=== PATIENT | female | born 1945 | race Caucasian/White ===

== ENCOUNTER 2016-12-01 20:43 | Emergency (ER) | payer MEDICARE, BC ==
[~2016-12-01 20:43] MED LIST: /ADVA50050 INH; /QUIN10TA PO; ASPI81TA83 PO; ATIV1TAB2 PO; BUPR150T2 PO; CHAN0.5P6 PO; CLOP75TA2 PO; CYCL10TA3 PO; DOCU100T PO; GABA300T OR; K-TA10TA PO; LASI40TA PO; MIRAPEX PO; NITR0.4S SL; OMEP20TA7 PO; PAXI40TA2 PO; PRAV40TA PO; PROV90AE IN; PROV90AE INH; PROVENTIL INH; PROZ20CA PO; SYNT88TA PO; TOPR100T PO; VICO5TAB PO; VIT D 2000 PO
[2016-12-01] MEDS ORDERED: NITR100C37 PO (21:14)
[2016-12-01] MEDS ORDERED: LORA1TAB12 PO (21:14)
[2016-12-01] MEDS ORDERED: LEVO150T7 PO (21:14)
[2016-12-01] MEDS ORDERED: NS 500 ML IV ONE (21:45)
[2016-12-01] MEDS ORDERED: ONDANSETRON 4MG/2ML VIAL (J2405) IV ONE (21:45)
[2016-12-01] MEDS: MORPHINE 4 MG/ML 1ML SYRINGE IV PRN (22:01)
[2016-12-01 22:09] LABS: BASO % 0.4 % (0.0-1.0); EOS # 0.4 K/mm3 (0.0-0.50); EOS % 4.4 % (0.0-3.0); LARGE UNSTAINED CELL # 0.1 K/mm3 (0.0-0.4); LARGE UNSTAINED CELL % 1.2 % (0.0-4.0); LYMPH # 1.9 K/mm3 (1.5-4.5); LYMPH % 22.8 % (24.0-44.0); MEAN CORPUSCULAR HEMOGLOBIN 26.4 pg (27.0-33.0); MEAN CORPUSCULAR HGB CONC 30.6 g/dl (32.0-36.5); MEAN CORPUSCULAR VOLUME 86.3 fl (80.0-96.0); MONO # 0.4 K/mm3 (0.0-0.8); MONO % 4.6 % (0.0-5.0); NEUTROPHILS # 5.4 K/mm3 (1.8-7.7); NEUTROPHILS % 66.6 % (36.0-66.0); PLATELET COUNT, AUTOMATED 383 k/mm3 (150-450); RED CELL DISTRIBUTION WIDTH 16.4 % (11.5-14.5); WHITE BLOOD COUNT 8.1 K/mm3 (4.0-10.0)
[2016-12-01 22:35] LABS: ALBUMIN 2.4 GM/DL (3.2-5.2); ALBUMIN/GLOBULIN RATIO 0.56 (1.00-1.93); ALKALINE PHOSPHATASE 112 U/L (45-117); ALT/SGPT 21 U/L (12-78); ANION GAP 6 MEQ/L (8-16); AST/SGOT 12 U/L (15-37); BILIRUBIN,DIRECT < 0.1 MG/DL (0.0-0.2); BILIRUBIN,TOTAL 0.2 MG/DL (0.2-1.0); BLOOD UREA NITROGEN 11 MG/DL (7-18); CALCIUM LEVEL 8.7 MG/DL (8.8-10.2); CARBON DIOXIDE LEVEL 28 MEQ/L (21-32); CHLORIDE LEVEL 104 MEQ/L (98-107); CREATININE FOR GFR 0.45 MG/DL (0.55-1.02); GLOMERULAR FILTRATION RATE > 60.0 (>39); GLUCOSE, FASTING 119 MG/DL (83-110); POTASSIUM SERUM 3.7 MEQ/L (3.5-5.1); SODIUM LEVEL 138 MEQ/L (136-145); TOTAL PROTEIN 6.7 GM/DL (6.4-8.2)
--- NOTE | 2016-12-01 23:00 | REPUSA ---
CT of the abdomen and pelvis without contrast Clinical statement: Pain. Technique: Multiple axial CT images were obtained from the base of the lungs to the floor of the pelv is utilizing 5 mm axial slices without administration of contrast. Coronal and sagittal reconstructio ns were also obtained. No comparison is available. Findings: Chest: The visualized lung bases are clear. Abdomen: The kidneys are normal in size bilaterally. There is no evidence of hydronephrosis or nephro lithiasis. The liver, spleen, pancreas, gallbladder and adrenal glands are unremarkable. The aorta de monstrates moderate atherosclerotic changes, extending into the common iliac arteries bilaterally. Fe moral/Femoral bipass is appreciated. There is no evidence of aneurysm. There is no abdominal lymphade nopathy or ascites. Pelvis: The bowel is unremarkable, with no obstructive or inflammatory changes. The urinary bladder i s catheterized but otherwise within normal limits. There is no pelvic lymphadenopathy or ascites. The other pelvic structures appear unremarkable. Bones: There are no suspicious osseous abnormalities seen. Impression: No acute findings to explain the patient's pain.
[2016-12-02] MEDS: MORPHINE 4 MG/ML 1ML SYRINGE IV PRN (00:25)
[2016-12-02 00:47] VITALS: BP 167/72
[2016-12-02] MEDS ORDERED: OMEP10CASR PO (01:09)
[2016-12-02] MEDS ORDERED: GI COCKTAIL 50ML BTL(HYOSCYAMINE/MAALOX/LIDOCAINE VISCOUS)(1:3:1) PO ONE (01:15)
== END 2016-12-02 01:48 | disposition home or self-care (01) ==
LOC: EDBD 20:43 → MERGE 21:30 → M ED 21:30
DX: K21.9 Gastro-esophageal reflux disease without esophagitis (principal); R10.2 Pelvic and perineal pain; F17.210 Nicotine dependence, cigarettes, uncomplicated
CPT/HCPCS: 36415; 51702; 74176; 80048; 80076; 81001; 83690; 85025; 87088; 87186; 93041; 96361; 96374; 96375; 99285; J2405

== ENCOUNTER 2016-12-04 12:55 | Inpatient (IN) | payer MEDICARE, BC ==
[~2016-12-04 12:55] MED LIST changes: +LEVO150T7 PO; +LORA1TAB12 PO; +NITR100C37 PO; +OMEP10CASR PO
[2016-12-04] MEDS ORDERED: LEVO150T7 PO (13:18)
[2016-12-04] MEDS ORDERED: BUPR150T5 PO (13:18)
[2016-12-04] MEDS ORDERED: ATIV1TAB7 PO (13:18)
[2016-12-04] MEDS ORDERED: SPIR25TA2 PO ×2 (13:18→17:12)
[2016-12-04] MEDS ORDERED: OxyCODONE PO (13:18)
[2016-12-04] MEDS ORDERED: carbidopa-levodopa PO (13:18)
[2016-12-04] MEDS ORDERED: COMBAER6 INH ×2 (13:18→17:06)
[2016-12-04] MEDS ORDERED: METO-209 PO ×2 (13:18→17:12)
[2016-12-04] MEDS ORDERED: OMEP10CA45 PO (13:18)
[2016-12-04] MEDS ORDERED: MORP1SOL PO ×2 (13:18→17:06)
[2016-12-04] MEDS ORDERED: EFFE75CA75 PO (13:18)
[2016-12-04] MEDS ORDERED: GABA-279 PO ×2 (13:18→17:12)
[2016-12-04] MEDS ORDERED: FURO40TA2 PO ×2 (13:18→17:12)
[2016-12-04] MEDS ORDERED: DIGO0.12 PO ×2 (13:18→17:12)
[2016-12-04] MEDS ORDERED: PRAV20TA2 PO ×2 (13:18→17:12)
[2016-12-04] MEDS ORDERED: PRAM1.5T2 PO (13:18)
[2016-12-04] MEDS ORDERED: NITRO10CA PO ×2 (13:18→17:06)
[2016-12-04] MEDS ORDERED: GLIM2TAB PO ×2 (13:18→17:12)
[2016-12-04] MEDS ORDERED: MORPHINE 2 MG/ML 1ML SYRINGE IV ONE (14:00)
--- NOTE | 2016-12-04 14:08 | ED PDOC ---
Post-Departure Follow-Up PT AND FAMILY PRESENT TO THE ER TODAY REQUESTING PLACEMENT IN SSV. FAMILY PROVIDES MOST OF HX STATING PT WAS RECENTLY ADMITTED TO [facility] AND THEN DISCHARGED TO [facility]. PT SIGNED HERSELF OUT (PRIOR TO PLANNED DISCHARGE) 6 DAYS AGO AND HAS BEEN STAYING WITH FAMILY. PT SIGNED OUT BECAUSE, "THEY WEREN'T TAKING CARE OF ME." PT C/O PRESSURE ULCERS/PAIN ON HER BUTTOCKS DUE TO THE STAFF AT [facility] NOT ATTENDING TO HER NEEDS. FAMILY COMPLAINS THAT THIS PT REQUIRES 24-HOUR A DAY CARE THAT THEY ARE UNABLE TO PROVIDE. THEY ALL WENT TO THE PT'S FAMILY PHYSICIAN, "DR. JEFFRY HOUGH" IN [place] AND HE IS WORKING ON A REFERRAL TO [facility]. FAMILY IS UNABLE TO PROVIDE THE CARE THAT THIS PT NEEDS AND HAVE COME TO THE ER FOR HELP WITH THEIR SITUATION. FAMILY STATES HER PRESSURE ULCERS HAVE BEEN GETTING BETTER SINCE THEY HAVE BEEN CARING FOR HER. PT C/O PAIN IN HER BUTTOCKS AND IS REQUESTING PAIN MEDICATIONS. FAMILY ALSO STATE PT HAS OPEN WOUNDS OVER THE BILATERAL ABOVE THE KNEE AMPUTEE SITES THAT HAVE BEEN DRAINING "FOR A WHILE". CELESTINO VASQUEZ PA-C Dec 04, 2016 14:08
[2016-12-04 14:54] LABS: BASO % 0.2 % (0.0-1.0); EOS # 0.3 K/mm3 (0.0-0.50); EOS % 2.8 % (0.0-3.0); LARGE UNSTAINED CELL # 0.1 K/mm3 (0.0-0.4); LARGE UNSTAINED CELL % 1.2 % (0.0-4.0); LYMPH # 1.8 K/mm3 (1.5-4.5); LYMPH % 17.7 % (24.0-44.0); MEAN CORPUSCULAR HEMOGLOBIN 26.3 pg (27.0-33.0); MEAN CORPUSCULAR HGB CONC 30.8 g/dl (32.0-36.5); MEAN CORPUSCULAR VOLUME 85.5 fl (80.0-96.0); MONO # 0.5 K/mm3 (0.0-0.8); MONO % 4.9 % (0.0-5.0); NEUTROPHILS # 7.6 K/mm3 (1.8-7.7); NEUTROPHILS % 73.3 % (36.0-66.0); PLATELET COUNT, AUTOMATED 372 k/mm3 (150-450); RED CELL DISTRIBUTION WIDTH 16.2 % (11.5-14.5); WHITE BLOOD COUNT 10.3 K/mm3 (4.0-10.0)
[2016-12-04 15:08] LABS: ANION GAP 10 MEQ/L (8-16); BLOOD UREA NITROGEN 8 MG/DL (7-18); CALCIUM LEVEL 8.9 MG/DL (8.8-10.2); CARBON DIOXIDE LEVEL 25 MEQ/L (21-32); CHLORIDE LEVEL 104 MEQ/L (98-107); CREATININE FOR GFR 0.34 MG/DL (0.55-1.02); GLOMERULAR FILTRATION RATE > 60.0 (>39); GLUCOSE, FASTING 101 MG/DL (83-110); POTASSIUM SERUM 3.5 MEQ/L (3.5-5.1); SODIUM LEVEL 139 MEQ/L (136-145)
[2016-12-04 15:32] LABS: ERYTHROCYTE SEDIMENTATION RATE 59 mm/hr (0-30)
[2016-12-04] MEDS ORDERED: MORPHINE 4 MG/ML 1ML SYRINGE IV ONE (17:00)
[2016-12-04] MEDS ORDERED: ASPI81TA7 PO (17:06)
[2016-12-04] MEDS ORDERED: LEVO150T42 PO (17:06)
[2016-12-04] MEDS ORDERED: OMEP20CA3 PO (17:06)
[2016-12-04] MEDS ORDERED: IPRASOL4 INH (17:06)
[2016-12-04] MEDS ORDERED: TRAN1.5D2 TOP (17:06)
[2016-12-04] MEDS ORDERED: LORA1TAB12 PO (17:06)
[2016-12-04] MEDS ORDERED: [UNRECOGNIZED DRUG - CODE] PO (17:12)
[2016-12-04] MEDS ORDERED: MIRA1.5T2 PO (17:12)
[2016-12-04] MEDS ORDERED: VENL75CA PO (17:12)
[2016-12-04] MEDS ORDERED: PATIENT COMMENT ×2 (17:13→20:22)
[2016-12-04] MEDS ORDERED: NITR4TASL SL (17:13)
[2016-12-04] MEDS ORDERED: NORCO, ANEXSIA 5/325MG TABLET (HYDROcodone/ACETAMINOPHEN) PO PRN (17:45)
--- NOTE | 2016-12-04 19:57 | HPEPDOC ---
General Date of Admission Dec 04, 2016 at 18:27 Primary Care Physician: Conner Damico Attending Physician: CHAIM OLIVAS DO Chief Complaint The patient is a 71-year-old female admitted with a reason for visit of Urinary Tract Infection. Source: Patient History of Present Illness Ms. Jiménez states that she was previously a resident at [facility] in [facility]. She states that she was not being well taken care of , and developed several pressor ulcers while she was there, therefore she left AMA approximately 10 days ago, accompanied by 2 of her friends. She has been living in their home since that time, but they're on the third floor, and as she is a bilateral amputee she has been having a difficult time managing at their place. She also states that she had a UTI for which she recently was given nitrofurantoin, however this did not make a difference, therefore she also does present today for further evaluation of a catheter related UTI having failed outpatient treatment with nitrofurantoin. She is awake, alert, completely oriented to person, place, time, and she appears to be a good historian, however she is unable to provide almost any of her medical history. She is covered in surgical scars, but she does not know why she had surgery. She believes that her bilateral leg amputations occurred at [facility] as a complication of having tripped and fallen and hit her head August 29 2015. The remainder of her surgical scars on her abdomen, chest, and back of the neck, she cannot provide any insight as to why she had the surgeries performed. Home Medications Scheduled Albuterol/Ipratropium (Ipratropium [place]/Albut 0.5-2.5 (3) mg/3Ml) 1 Johnnie Johnnie 1 JOHNNIE INH BID (Reported) Aspirin (Aspirin) 81 Mg Tab 81 MG PO DAILY (Reported) Clopidogrel Bisulfate (Clopidogrel) 75 Mg Tab 75 MG PO DAILY (Reported) Furosemide (Furosemide) 20 Mg Tab 20 MG PO DAILY (Reported) Gabapentin (Gabapentin) 600 Mg Tab 900 MG PO TID (Reported) Levothyroxine Sodium (Levoxyl) 150 Mcg Tab 150 MCG PO DAILY (Reported) Metformin Hydrochloride (Metformin HCl) 500 Mg Tab 500 MG PO BID (Reported) Metoprolol Succinate (Metoprolol Succinate ER) 100 Mg Tab 100 MG PO DAILY ( Reported) Nitrofurantoin Macrocrystals (Nitrofurantoin Monohydrate Macrocryst) 100 Mg Cap 100 MG PO BID (Reported) FILLED 11/29/16 FOR 7 DAYS Omeprazole (Omeprazole) 20 Mg Cap 20 MG PO DAILY (Reported) Pramipexole Dihydrochloride (Mirapex) 1.5 Mg Tab 1.5 MG PO QHS (Reported) Pravastatin Sodium (Pravastatin Sodium) 20 Mg Tab 20 MG PO QHS (Reported) Scopolamine (Transderm-Scop) 1.5 Mg Dis 1.5 MG TOP Q72H (Reported) Spironolactone (Spironolactone) 25 Mg Tab 25 MG PO DAILY (Reported) Venlafaxine HCl (Venlafaxine HCl ER) 75 Mg Cap 75 MG PO QHS (Reported) Venlafaxine Hydrochloride (Venlafaxine HCl ER) 150 Mg Cap 150 MG PO QAM ( Reported) Scheduled PRN Albuterol/Ipratropium (Combivent Respimat 20-100 Mcg/Act) 1 Aer Aer 1 PUFF INH QID PRN PRN SHORTNESS OF BREATH (Reported) Lorazepam (Lorazepam) 1 Mg Tab 1 MG PO Q4H PRN PRN ANXIETY (Reported) Morphine Sulfate (Morphine Sulfate Concentrate) 10 Mg/0.5 Ml Conc 10 MG PO Q2H PRN PRN PAIN (Reported) Nitroglycerin (Nitrostat) 0.4 Mg Subl 0.4 MG SL Q5MP PRN PRN CHEST PAIN ( Reported) Miscellaneous Medications ([Patient Comment]) (Reported) RECEIVED ALL PATIENT INFORMATION FROM [facility]. PATIENT WAS DISCHARGED ON 11/28/16. Allergies Coded Allergies: Cephalosporins (Verified Allergy, Intermediate, 11/25/12) Ciprofloxacin (Unverified Allergy, Unknown, 01/26/16) Iodine (Unverified Allergy, Unknown, 01/26/16) Lobster (Unverified Allergy, Unknown, 01/26/16) Metronidazole (Unverified Allergy, Unknown, 01/26/16) Nickel (Unverified Allergy, Unknown, 01/26/16) Penicillins (Unverified Allergy, Unknown, 01/26/16) Statins (Unverified Allergy, Unknown, 01/26/16) Sulfa Drugs (Verified Allergy, Unknown, 11/25/12) Sulfa Drugs Cross Reactors (Verified Allergy, Unknown, 11/25/12) Past Medical History Medical History The patient is unsure of her past medical history, this was obtained from prior records in 2013 Hypertension Hypothyroidism Depression Dyslipidemia Coronary atherosclerosis coronary artery disease Many of the medications on her home med rec list have not been filled since July 2016 or earlier. The patient has no idea which pills she takes, she brought a bag with her Surgical History Again, obtained from medical record from 2013 Coronary artery bypass graft 2 Abdominal hernia repair Hysterectomy Bilateral cataracts She thinks that she had both her legs amputated at [facility] in 2016. She also has a large midline cervical scar on the back of her neck which is causing her pain, but she does not know when she had this or why. She also has a left shoulder large anterior surgical scar upon which she cannot elaborate. Family History Her father had heart problems, and her mother had some sort of cancer. Social History * Smoker: former Smoker (she smoked approximately one pack per day for 10 years , but quit 3 years ago) Alcohol: Denies Drugs: denies Previously a resident of a prison in [facility], came up to [facility] to live with a few friends about 10 days ago. Review of Symptoms Constitutional: Denies: Chills, Fever, Night Sweats Eyes: Denies: Pain, Vision change ENT: Denies: Dysphagia, Ear Pain, Head Aches Skin: Reports: Breakdown (she has for pressure ulcers located on her sacrum and left buttocks), Lesions, Denies: Rash Pulmonary: Denies: Cough, Dyspnea Cardiovascular: Denies: Chest Pain, Lt Headedness, Orthopnea, Palpitations, Paroxysmal Noc. Dyspnea Gastrointestinal: Denies: Abdominal Pain, Diarrhea, Nausea, Vomiting Genitourinary: Reports: Other Symptoms (has had a chronic Kumar for "a long time") Hematologic: Denies: Bleeding Excessively, Bruising Musculoskeletal: Reports: Back Pain, Leg Pain, Neck Pain Neurological: Denies: Change in speech, Confusion, Numbness, Weakness Psych: Reports: Anxiety Physical Examination General Exam: Positive: Alert, Cooperative, Moderate Distress Eye Exam: Positive: Conjunctiva & lids normal, EOMI, PERRLA, Negative: Sclera icteric ENT Exam: Positive: Atraumatic, Mucous membr. moist/pink, Pharynx Normal Neck Exam: Positive: Supple, Negative: JVD, thyromegaly Chest Exam: Positive: Clear to auscultation, Normal air movement Heart Exam: Positive: Normal S1, Normal S2, Rate Normal, Regular Rhythm, Negative: Murmurs, Rubs Abdomen Exam: Positive: Normal bowel sounds, Other (multiple abdominal surgical scars noted), Soft, Negative: Hepatospenomegaly, Tenderness Extremity Exam: Positive: Normal pulses (in the radial bilaterally), Other ( bilateral lower extremity amputation. She has wounds on both of her stumps which were just bandaged by the ED personnel), Negative: Clubbing, Cyanosis, Edema Skin Exam: Positive: Breakdown (she has multiple stage II pressure ulcers. 1. Approximately 1 cm in diameter located on the medial left buttocks/sacrum 2. Approximately 0.3 cm midline sacral 3. Another approximately 0.3 cm midline sacral. On her right buttock she does have a large area of erythema and a few sloughed off areas of skin, it is blanchable) Neuro Exam: Positive: Cranial Nerves 3-12 NL, Normal Speech Psych Exam: Positive: Anxiety, Memory Intact, Oriented x 3 Vital Signs Vital Signs Date Time Temp Pulse Resp B/P Pulse Ox O2 Delivery O2 Flow Rate FiO2 12/04/16 17:34 98.9 97 18 130/69 Room Air 12/04/16 15:09 96 Laboratory Data Labs 24H Laboratory Tests 2 12/04/16 14:25: Anion Gap 10, White Blood Count 10.3H, Red Blood Count 4.00, Hemoglobin 10.5L, Hematocrit 34.2L, Mean Corpuscular Volume 85.5, Mean Corpuscular Hemoglobin 26.3L, Mean Corpuscular Hemoglobin Concent 30.8L, Red Cell Distribution Width 16.2H, Platelet Count 372, Neutrophils (%) (Auto) 73.3H, Lymphocytes (%) (Auto) 17.7L, Monocytes (%) (Auto) 4.9, Eosinophils (%) (Auto) 2.8, Basophils (%) (Auto ) 0.2, Neutrophils # (Auto) 7.6, Lymphocytes # (Auto) 1.8, Monocytes # (Auto) 0.5, Eosinophils # (Auto) 0.3, Basophils # (Auto) 0.0, C-Reactive Protein, Quantitative 2.24H, Blood Urea Nitrogen 8, Creatinine 0.34L, Sodium Level 139, Potassium Level 3.5, Chloride Level 104, Carbon Dioxide Level 25, Calcium Level 8.9, Erythrocyte Sedimentation Rate 59H, Glomerular Filtration Rate > 60.0, Large Unclassified Cells # 0.1, Large Unclassified Cells % 1.2 12/04/16 14:26: Urine Amorphous Sediment , Urine Appearance HAZY, Urine Color YELLOW, Urine pH 6.0, Urine Specific [place] 1.014, Urine Protein 1+H, Urine Glucose (UA) NEGATIVE, Urine Ketones NEGATIVE, Urine Urobilinogen 0.2, Urine Bilirubin NEGATIVE, Urine Leukocyte Esterase 3+H, Urine Bacteria (Auto) NEGATIVE, Urine Blood 1+H, Urine Calcium Carbonate Cryst(Auto) , Urine Calcium Oxalate Cryst ( Auto) , Urine Calcium Phosphate Geno (Auto) , Urine Cellular Casts , Urine Cystine Crystals , Urine Granular Casts (Auto) , Urine Hyaline Casts (Auto) 1, Urine Leucine Crystals , Urine Mucus (Auto) SMALL, Urine Nitrite NEGATIVE, Urine Oval Fat Bodies (Auto) , Urine RBC (Auto) 24H, Urine Renal Epithelial Cells , Urine Sperm (Auto) , Urine Squamous Epithelial Cells 0, Urine Transitional Epithelial Cells , Urine Trichomonas (Auto) , Urine Triple Phosphate Cryst (Auto) , Urine Tyrosine Crystals , Urine Uric Acid Crystals ( Auto) , Urine WBC (Auto) TNTCH, Urine Waxy Casts (Auto) , Urine Yeast-Like Cells (Auto) CBC/BMP Laboratory Tests 12/04/16 14:25 Calcium Level 8.9, Red Blood Count 4.00, Mean Corpuscular Volume 85.5, Mean Corpuscular Hemoglobin 26.3 L, Mean Corpuscular Hemoglobin Concent 30.8 L, Red Cell Distribution Width 16.2 H, Neutrophils (%) (Auto) 73.3 H, Lymphocytes (%) ( Auto) 17.7 L, Monocytes (%) (Auto) 4.9, Eosinophils (%) (Auto) 2.8, Basophils (% ) (Auto) 0.2, Neutrophils # (Auto) 7.6, Lymphocytes # (Auto) 1.8, Monocytes # ( Auto) 0.5, Eosinophils # (Auto) 0.3, Basophils # (Auto) 0.0 Microbiology Microbiology 12/04/16 Urine Culture, Received Pending 12/04/16 Gram Stain - Final, Resulted 12/04/16 Wound Culture, Resulted Pending Problems (1) UTI (urinary tract infection) Status: Acute Problem Text: Failed outpatient therapy with nitrofurantoin. She has multiple allergies. She states that she develops a rash, sweats, and altered mental status when she takes penicillins. Sulfa drugs of the same reaction is penicillins. Ciprofloxacin causes her tongue to swell up. She does specifically say that she has taken Levaquin in the past, and this has worked very well for her, therefore we will start her on Levaquin at this time, but just in case we will also give her Benadryl when necessary and monitor her for any allergic reaction. (2) Infection of amputation stump Status: Acute Problem Text: Wound cultures were sent from the ED, she has been started on Levaquin per her multiple allergies and her UTI, otherwise we will wait for sensitivities to return prior to narrowing our spectrum. Pain control with her home dose of morphine. (3) Pressure ulcer, buttock Status: Chronic Problem Text: Wound care with up to foam dressings, and offloading (4) Hypothyroidism Status: Chronic Problem Text: Continue home dose of Synthroid (5) Hypertension Status: Chronic Problem Text: At this point we will monitor her pressures, and may reinstitute some of the medications off of her home med rec list, but it appears there is a possibility she has not felt these since 2016. Pressures in the ED improved to normal range with the administration of pain medication. (6) Depression with anxiety Status: Chronic Problem Text: Continue with home dose of lorazepam and Effexor (7) Dyslipidemia Status: Chronic Problem Text: She has a listed allergy to statins (8) Coronary atherosclerosis Status: Chronic Problem Text: Continue with aspirin (9) GERD (gastroesophageal reflux disease) Status: Chronic Problem Text: Continue home dose of omeprazole (10) Living accommodation issues Status: Acute Problem Text: Will consult PFS for evaluation and potential placement in a different prison. Plan / VTE VTE Prophylaxis Ordered?: Yes (Lovenox) Plan / Urinary Catheter Reason for insertion/continuin: Patient request CATY RAMIREZ DO Dec 04, 2016 19:56 Plan / VTE VTE Prophylaxis Ordered?: Yes (Lovenox) Plan / Urinary Catheter Reason for insertion/continuin: Patient request CATY RAMIREZ DO Dec 04, 2016 19:56
[2016-12-04] MEDS ORDERED: VENL150C43 PO (20:10)
[2016-12-04] MEDS ORDERED: GABA600T PO (20:10)
[2016-12-04] MEDS ORDERED: METF500T PO (20:10)
[2016-12-04] MEDS ORDERED: CLOP75TA2 PO (20:10)
[2016-12-04] MEDS ORDERED: FURO20TA2 PO (20:19)
[2016-12-04] MEDS: VENLAFAXINE **XR** 75MG CAPSULE PO SCH ×2 (20:46→21:09)
[2016-12-04 21:05] VITALS: BP 137/64
[2016-12-04] MEDS: LORazepam 1 MG TAB PO PRN (21:09)
[2016-12-04] MEDS: LevoFLOXacin IV 750 MG in APPROPRIATE DILUENT 1 EA IV SCH (21:09)
[2016-12-04] MEDS ORDERED: MORPHINE 10MG/0.5ML ORAL CONCENTRATE SOLUTION U/D As Ordered ONE (23:05)
[2016-12-04] MEDS ORDERED: diphenhydrAMINE 25 MG CAP As Ordered ONE (23:07)
[2016-12-04] MEDS: diphenhydrAMINE 25 MG CAP PO PRN (23:10)
[2016-12-04] MEDS: MORPHINE 10MG/0.5ML ORAL CONCENTRATE SOLUTION U/D PO PRN (23:11)
[2016-12-05 06:00] VITALS: BP 112/69
[2016-12-05] MEDS ORDERED: LEVOTHYROXINE 0.15 MG TAB (150 MCG) PO SCH (06:00)
[2016-12-05 07:37] LABS: MEAN CORPUSCULAR HGB CONC 30.4 g/dl (32.0-36.5); MEAN CORPUSCULAR VOLUME 85.6 fl (80.0-96.0); RED CELL DISTRIBUTION WIDTH 16.3 % (11.5-14.5); WHITE BLOOD COUNT 9.1 K/mm3 (4.0-10.0)
[2016-12-05 08:00] LABS: ANION GAP 8 MEQ/L (8-16); BLOOD UREA NITROGEN 11 MG/DL (7-18); CALCIUM LEVEL 8.6 MG/DL (8.8-10.2); CARBON DIOXIDE LEVEL 26 MEQ/L (21-32); CHLORIDE LEVEL 105 MEQ/L (98-107); CREATININE FOR GFR 0.41 MG/DL (0.55-1.02); GLOMERULAR FILTRATION RATE > 60.0 (>39); GLUCOSE, FASTING 112 MG/DL (83-110); POTASSIUM SERUM 3.7 MEQ/L (3.5-5.1); SODIUM LEVEL 139 MEQ/L (136-145)
[2016-12-05] MEDS: METOPROLOL SUCC (TopROL XL) 100MG *XL* TAB PO SCH ×2 (09:00→11:41)
[2016-12-05] MEDS: ASPIRIN 81 MG ENTERIC TAB PO SCH (09:34)
[2016-12-05] MEDS: OMEPRAZOLE 20 MG CAP PO SCH (09:34)
[2016-12-05] MEDS: ENOXAPARIN 40 MG/0.4 ML SYRINGE (J1650) SC SCH (09:34)
[2016-12-05] MEDS: MORPHINE 10MG/0.5ML ORAL CONCENTRATE SOLUTION U/D PO PRN ×3 (09:35→20:14)
--- NOTE | 2016-12-05 11:10 | IPNPDOC ---
Subjective Date Seen The patient was seen on 12/05/16. Subjective Chief Complaint/HPI The patient is a 71-year-old female admitted with a reason for visit of Urinary Tract Infection. Events since last encounter Issue does report that she is feeling somewhat better this morning, her major complaint is actually that of heartburn that she had last night. Otherwise, she does mention that the bed is uncomfortable. General: Reports: Normal Appetite, Denies: Fatigue, Malaise Constitutional: Reports: Chills, Fever (low-grade), Denies: Night Sweats ENT: Denies: Head Aches, Sore Throat Skin: Denies: Bruising, Lesions, Rash Pulmonary: Denies: Cough, Dyspnea Cardiovascular: Reports: Chest Pain (midsternal, it only hurts when she pokes it), Denies: Palpitations Gastrointestinal: Denies: Abdominal Pain, Constipation, Diarrhea, Nausea, Vomiting Genitourinary: Reports: Other Symptoms (chronic Kumar catheter in place) Neurological: Denies: Weakness Objective Physical Examination General Exam: Positive: Alert, Cooperative, No Acute Distress Eye Exam: Positive: Conjunctiva & lids normal, EOMI, Negative: Sclera icteric ENT Exam: Positive: Atraumatic, Mucous membr. moist/pink, Pharynx Normal Neck Exam: Positive: Supple, Negative: JVD, thyromegaly Chest Exam: Positive: Clear to auscultation, Normal air movement, Other (she does have tenderness upon palpation of the xiphoid process) Heart Exam: Positive: Normal S1, Normal S2, Rate Normal, Regular Rhythm, Negative: Murmurs, Rubs Abdomen Exam: Positive: Normal bowel sounds, Other (multiple abdominal surgical scars noted), Soft, Negative: Hepatospenomegaly, Tenderness Extremity Exam: Positive: Normal pulses (in the radial bilaterally), Other ( bilateral lower extremity amputation. She has large open shallow wounds on her bilateral LE stumps, some minor purulent drainage from the left wound), Negative: Clubbing, Cyanosis, Edema Skin Exam: Positive: Breakdown (no significant changes in her pressure ulcers from yesterday) Neuro Exam: Positive: Cranial Nerves 3-12 NL, Normal Speech Psych Exam: Positive: Memory Intact, Mental status NL, Oriented x 3 Assessment /Plan Problems (1) UTI (urinary tract infection) Status: Acute Problem Text: Urine appears more clear this morning. Leukocytosis is improved. She still did have a low-grade temp last night. Otherwise, the patient does report that she is feeling somewhat better. She denies any rash or other allergic symptoms, therefore we will continue with Levaquin for treatment until sensitivities return. (2) Infection of amputation stump Status: Acute Problem Text: Continue to have some purulent drainage from the left stump. Gram stain indicates a few gram-positive cocci in pairs. Cultures still pending , although I suspect that this may be a colonized wound. She does continue to have pain, we'll continue with pain control with her home dose of morphine. Will consult demo event specialist for further recommendations regarding her stump wounds and sacral pressure injuries. (3) Pressure ulcer, buttock Status: Chronic Problem Text: Wound care with foam dressings, and offloading. We will also check a CMP today just to make sure that she does not have any electrolyte abnormalities, liver problems, or nutrition issues (4) Hypothyroidism Status: Chronic Problem Text: Continue home dose of Synthroid. TSH was slightly suppressed, we will order a free T4 today to get a better picture of her thyroid status. (5) Hypertension Status: Chronic Problem Text: Her pressures have been stable, but she has been somewhat tachycardic, therefore I will reinitiate her home dose of metoprolol succinate. (6) Depression with anxiety Status: Chronic Problem Text: Continue with home dose of lorazepam and Effexor (7) Dyslipidemia Status: Chronic Problem Text: She has a listed allergy to statins (8) Coronary atherosclerosis Status: Chronic Problem Text: Continue with aspirin and Plavix (9) GERD (gastroesophageal reflux disease) Status: Chronic Problem Text: Continue home dose of omeprazole. We will recommend elevating the head of bed slightly when she is asleep, as her symptoms are worse at night. (10) Living accommodation issues Status: Acute Problem Text: PFS for evaluation and potential placement in a different fci. Plan/VTE VTE Prophylaxis Ordered?: Yes (Lovenox) Plan/Urinary Catheter Reason for insertion/continuin: Patient request Disposition Attending note: patient seen independently and discussed the case in depth with the resident. I agree with the treatment plan as outlined above. VS, I&O, 24H, Fishbone Vital Signs/I&O Vital Signs Date Time Temp Pulse Resp B/P Pulse Ox O2 Delivery O2 Flow Rate FiO2 12/05/16 09:35 14 96 Room Air 12/05/16 06:00 99.0 91 112/69 I&O- Last 24 Hours up to 6 AM 12/05/16 05:59 Intake Total 240 ml Balance 240 ml Laboratory Data 24H LABS Laboratory Tests 2 12/04/16 14:25: Anion Gap 10, White Blood Count 10.3H, Red Blood Count 4.00, Hemoglobin 10.5L, Hematocrit 34.2L, Mean Corpuscular Volume 85.5, Mean Corpuscular Hemoglobin 26.3L, Mean Corpuscular Hemoglobin Concent 30.8L, Red Cell Distribution Width 16.2H, Platelet Count 372, Neutrophils (%) (Auto) 73.3H, Lymphocytes (%) (Auto) 17.7L, Monocytes (%) (Auto) 4.9, Eosinophils (%) (Auto) 2.8, Basophils (%) (Auto ) 0.2, Neutrophils # (Auto) 7.6, Lymphocytes # (Auto) 1.8, Monocytes # (Auto) 0.5, Eosinophils # (Auto) 0.3, Basophils # (Auto) 0.0, C-Reactive Protein, Quantitative 2.24H, Blood Urea Nitrogen 8, Creatinine 0.34L, Sodium Level 139, Potassium Level 3.5, Chloride Level 104, Carbon Dioxide Level 25, Calcium Level 8.9, Erythrocyte Sedimentation Rate 59H, Glomerular Filtration Rate > 60.0, Large Unclassified Cells # 0.1, Large Unclassified Cells % 1.2 12/04/16 14:26: Urine Amorphous Sediment , Urine Appearance HAZY, Urine Color YELLOW, Urine pH 6.0, Urine Specific [place] 1.014, Urine Protein 1+H, Urine Glucose (UA) NEGATIVE, Urine Ketones NEGATIVE, Urine Urobilinogen 0.2, Urine Bilirubin NEGATIVE, Urine Leukocyte Esterase 3+H, Urine Bacteria (Auto) NEGATIVE, Urine Blood 1+H, Urine Calcium Carbonate Cryst(Auto) , Urine Calcium Oxalate Cryst ( Auto) , Urine Calcium Phosphate Geno (Auto) , Urine Cellular Casts , Urine Cystine Crystals , Urine Granular Casts (Auto) , Urine Hyaline Casts (Auto) 1, Urine Leucine Crystals , Urine Mucus (Auto) SMALL, Urine Nitrite NEGATIVE, Urine Oval Fat Bodies (Auto) , Urine RBC (Auto) 24H, Urine Renal Epithelial Cells , Urine Sperm (Auto) , Urine Squamous Epithelial Cells 0, Urine Transitional Epithelial Cells , Urine Trichomonas (Auto) , Urine Triple Phosphate Cryst (Auto) , Urine Tyrosine Crystals , Urine Uric Acid Crystals ( Auto) , Urine WBC (Auto) TNTCH, Urine Waxy Casts (Auto) , Urine Yeast-Like Cells (Auto) 12/05/16 07:11: Anion Gap 8, Blood Urea Nitrogen 11, Creatinine 0.41L, Sodium Level 139, Potassium Level 3.7, Chloride Level 105, Carbon Dioxide Level 26, Calcium Level 8.6L, Glomerular Filtration Rate > 60.0, Thyroid Stimulating Hormone (TSH) 0.143L CBC/BMP Laboratory Tests 12/04/16 14:25 Calcium Level 8.9, Red Blood Count 4.00, Mean Corpuscular Volume 85.5, Mean Corpuscular Hemoglobin 26.3 L, Mean Corpuscular Hemoglobin Concent 30.8 L, Red Cell Distribution Width 16.2 H, Neutrophils (%) (Auto) 73.3 H, Lymphocytes (%) ( Auto) 17.7 L, Monocytes (%) (Auto) 4.9, Eosinophils (%) (Auto) 2.8, Basophils (% ) (Auto) 0.2, Neutrophils # (Auto) 7.6, Lymphocytes # (Auto) 1.8, Monocytes # ( Auto) 0.5, Eosinophils # (Auto) 0.3, Basophils # (Auto) 0.0 12/05/16 07:11 Calcium Level 8.6 L, Red Blood Count 3.75 L, Mean Corpuscular Volume 85.6, Mean Corpuscular Hemoglobin 26.0 L, Mean Corpuscular Hemoglobin Concent 30.4 L, Red Cell Distribution Width 16.3 H Microbiology Microbiology 12/04/16 Urine Culture, Received Pending 12/04/16 Gram Stain - Final, Resulted 12/04/16 Wound Culture, Resulted Pending CATY RAMIREZ DO Dec 05, 2016 10:24 SYLVAIN MONTANO DO Dec 07, 2016 16:07
[2016-12-05 11:19] LABS: ALBUMIN 2.2 GM/DL (3.2-5.2); ALBUMIN/GLOBULIN RATIO 0.51 (1.00-1.93); ALKALINE PHOSPHATASE 101 U/L (45-117); ALT/SGPT 20 U/L (12-78); AST/SGOT 15 U/L (15-37); BILIRUBIN,TOTAL 0.2 MG/DL (0.2-1.0); FREE T4 1.85 NG/DL (0.76-1.46); TOTAL PROTEIN 6.5 GM/DL (6.4-8.2)
[2016-12-05] MEDS: CLOPIDOGREL 75 MG TAB PO SCH (11:41)
[2016-12-05] MEDS ORDERED: ISOVUE-370 76% 100ML VIAL (Q9967) As Ordered ONE (13:13)
[2016-12-05 14:28] VITALS: BP 127/68
--- NOTE | 2016-12-05 15:04 | REP ---
CT ANGIOGRAM ABDOMINAL AORTA AND RUNOFF: 12/05/2016 CLINICAL HISTORY: Nonhealing bilateral lower extremity wound. Status post interval bilateral above-knee amputations. The medical record indicates iodine allergy. She has had contrast before several times without allergic reaction. She does states she has a seafood allergy. This should not preclude contrast nor require pretreatment. COMPARISON: 05/19/2015. FINDINGS:CT ABDOMEN: Lung bases without acute finding. Heart mildly enlarged with left atrial and ventricular enlargement. Small hiatal hernia. There is no hepatomegaly, splenomegaly or focal hepatic/splenic lesion. No hepatic biliary dilatation or ascites. Adrenal glands show slight thickening of limbs suggesting adrenal hyperplasia. Kidneys show function without obstruction, mass or stone. There is no hydroureter. The gallbladder is without calcified stone or masses. There is diastases of the rectus muscles with bowel loops abutting the rectus sheath but without bowel herniation. Stomach collapsed but without a mass. Pancreas is unremarkable. Gallbladder shows no calcified stone or mass. Moderate stool in the right transverse colon, less in the left colon. There is no colitis or diverticulitis. The small bowel loops show no sign of obstruction or dilatation. There is no inflammatory change in the mesentery. No periaortic or mesenteric adenopathy. Lung window review for all CT slice levels shows no perforation or free air. Degenerative changes of the lumbar and lower thoracic spine with facet arthropathy. Posterior elements and visualized ribs intact. CT PELVIS: Kumar catheter balloon is seen in the bladder with the bladder empty. There is air in the dome of the bladder, likely related to catheter insertion verses infection with gas forming organisms. No free air. No pelvic dilated loops of small bowel. There is moderate stool in the cecum. Distal left colon and sigmoid to the rectum are without definite colitis or diverticulitis. No ascites or pelvic lymphadenopathy. AORTOGRAM AND RUNOFF: Cross femoral graft is noted as well as an aorta and external iliac stents in place bilaterally. There is trace contrast in the distal external iliac artery into the common femoral artery on the left. 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 Bilateral renal arteries are noted. Some atherosclerotic plaque near the origins and some mild stenosis. There are pelvic and lumbar collaterals noted with some of these continuing to flow into the external iliac with the left common femoral showing minimal flow from reconstitution. The 3D reconstructions likewise show on rotational volume surface renderings occlusion of the external iliac and proximal common femoral on the right with a thin flow in the superficial femoral for reconstituted flow of the profunda femora shows flow bilaterally but both right and left upper legs show limitation of the flow and caliber and reconstituted vessels. There is calcification and ossific new bone adjacent to stump of the left femur represents periosteal reaction lesser periosteal reaction on the right side. No destructive lesions or clearly define osteomyelitis. No abnormal fluid collections. IMPRESSION: 1. Interval bilateral above-knee amputations with occlusion lower abdominal aorta and reconstitution of left external iliac to the common femoral and superficial and profunda femoris. There is better flow in the profunda than the superficial on that left side. On the right side occlusion from the common iliac artery through the common femoral artery with reconstitution of the profunda femoris and proximal superficial femoral artery in the thigh. There are numerous reconstituted vessels through the lumbar and pelvic collaterals. Bilateral renal arteries, splenic artery and celiac axis show minor stenosis but flow remains. Signed by Guero Lubin MD 12/05/2016 03:34 P
[2016-12-05] MEDS: LevoFLOXacin IV 750 MG in APPROPRIATE DILUENT 1 EA IV SCH (20:13)
[2016-12-05] MEDS: VENLAFAXINE **XR** 75MG CAPSULE PO SCH (20:14)
[2016-12-05] MEDS: PRAMIPEXOLE 1 MG TAB PO SCH (20:15)
[2016-12-05 22:00] VITALS: BP 104/62
[2016-12-06 06:00] VITALS: BP 125/62
[2016-12-06] MEDS: LEVOTHYROXINE 0.137 MG TAB (137MCG) PO SCH ×2 (06:38→08:08)
[2016-12-06 07:19] LABS: MEAN CORPUSCULAR HGB CONC 30.5 g/dl (32.0-36.5); MEAN CORPUSCULAR VOLUME 85.2 fl (80.0-96.0); RED CELL DISTRIBUTION WIDTH 16.1 % (11.5-14.5); WHITE BLOOD COUNT 7.1 K/mm3 (4.0-10.0)
[2016-12-06 07:29] LABS: ANION GAP 10 MEQ/L (8-16); BLOOD UREA NITROGEN 12 MG/DL (7-18); CALCIUM LEVEL 8.8 MG/DL (8.8-10.2); CARBON DIOXIDE LEVEL 26 MEQ/L (21-32); CHLORIDE LEVEL 103 MEQ/L (98-107); CREATININE FOR GFR 0.55 MG/DL (0.55-1.02); GLOMERULAR FILTRATION RATE > 60.0 (>39); GLUCOSE, FASTING 106 MG/DL (83-110); POTASSIUM SERUM 3.8 MEQ/L (3.5-5.1); SODIUM LEVEL 139 MEQ/L (136-145)
[2016-12-06] MEDS: ENOXAPARIN 40 MG/0.4 ML SYRINGE (J1650) SC SCH (08:07)
[2016-12-06] MEDS: OMEPRAZOLE 20 MG CAP PO SCH (08:08)
[2016-12-06] MEDS: CLOPIDOGREL 75 MG TAB PO SCH (08:08)
[2016-12-06] MEDS: METOPROLOL SUCC (TopROL XL) 100MG *XL* TAB PO SCH (08:08)
[2016-12-06] MEDS: ASPIRIN 81 MG ENTERIC TAB PO SCH (08:08)
[2016-12-06] MEDS: MORPHINE 10MG/0.5ML ORAL CONCENTRATE SOLUTION U/D PO PRN ×2 (08:09→22:03)
[2016-12-06] MEDS ORDERED: SCOPOLAMINE 1.5 MG TRANSDERMAL TOP SCH (09:00)
[2016-12-06] MEDS: SCOPOLAMINE 1.5 MG TRANSDERMAL TOP SCH (09:00)
[2016-12-06] MEDS: MEROPENEM INJ 500 MG in D5W MINI-BAG PLUS 100 ML IV SCH ×2 (09:00→17:38)
--- NOTE | 2016-12-06 09:17 | IPNPDOC ---
Subjective Date Seen The patient was seen on 12/06/16. Subjective Chief Complaint/HPI The patient is a 71-year-old female admitted with a reason for visit of Urinary Tract Infection. Events since last encounter Miss unable states that she has been up all night due to nausea and vomiting. She denies any rash or other anaphylactic symptoms. Otherwise, she does not have any additional complaints this morning. General: Reports: Chills, Fatigue, Malaise, Denies: Normal Appetite Constitutional: Denies: Chills, Fever, Night Sweats ENT: Denies: Head Aches, Sore Throat Skin: Denies: Bruising, Lesions, Rash Pulmonary: Denies: Cough, Dyspnea Cardiovascular: Denies: Chest Pain, Palpitations Gastrointestinal: Reports: Abdominal Pain, Nausea, Vomiting, Denies: Constipation, Diarrhea Neurological: Denies: Weakness Objective Physical Examination General Exam: Positive: Alert, Cooperative, Mild Distress Eye Exam: Positive: Conjunctiva & lids normal, EOMI, Negative: Sclera icteric ENT Exam: Positive: Atraumatic, Mucous membr. moist/pink, Pharynx Normal Chest Exam: Positive: Clear to auscultation, Normal air movement, Negative: Rales, Rhonchi Heart Exam: Positive: Rate Normal, Regular Rhythm, Negative: Murmurs, Rubs Abdomen Exam: Positive: Normal bowel sounds, Other (multiple abdominal surgical scars noted), Soft, Tenderness (noted in the left upper quadrant), Negative: Hepatospenomegaly Extremity Exam: Positive: Other (bilateral lower extremity amputation. She has wounds on both of her stumps which are superficial, the medial edge of the left stump is continuing to drain a purulent drainage. There is no surrounding erythema.), Negative: Clubbing, Cyanosis, Edema Neuro Exam: Positive: Cranial Nerves 3-12 NL, Normal Speech Psych Exam: Positive: Anxiety, Memory Intact, Oriented x 3 Assessment /Plan Problems (1) UTI (urinary tract infection) Status: Acute Problem Text: Urine cultures reveal Pseudomonas which is multidrug resistant. We'll change her antibiotic to meropenem. Meropenem does have some cross- reactivity with some of her other allergies listed, therefore we will monitor her closely for any rash, throat swelling, or other signs of an allergic reaction. She does have Benadryl available when necessary for immediate use. (2) Infection of amputation stump Status: Acute Problem Text: Continue to have some purulent drainage from the medial aspect of the left stump. Culture is indicative of MRSA. Given her multiple antibiotic resistances, will await for recommendations from the patient access specialist prior to initiation of antibiotic for MRSA, she has and will be switched from Levaquin to meropenem for her urine today. CT angio of distal aorta with bilateral runoff shows multiple areas of occlusion , numerous reconstituted vessels, and a cross femoral graft, please see radiology report for full details. Will defer to Digital Marketing Officer for further recommendations. (3) Pressure ulcer, buttock Status: Chronic Problem Text: Continue wound care with foam dressings, and offloading. Nutritional supplements have been ordered with each meal. She she use an offloading bed, and a Roho cushion while sitting (4) Hypothyroidism Status: Chronic Problem Text: TSH was suppressed, with an elevated free T4, therefore I have reduced her dose of Synthroid, she will need outpatient follow-up again in 6-8 weeks (5) Hypertension Status: Chronic Problem Text: Continue with metoprolol succinate, her pressures have been within acceptable range, and her pulse is significantly improved. (6) Depression with anxiety Status: Chronic Problem Text: Continue with home dose of lorazepam and Effexor (7) Dyslipidemia Status: Chronic Problem Text: She has a listed allergy to statins (8) Coronary atherosclerosis Status: Chronic Problem Text: Continue with aspirin and Plavix (9) GERD (gastroesophageal reflux disease) Status: Chronic Problem Text: Continue home dose of omeprazole. We will recommend elevating the head of bed slightly when she is asleep, as her symptoms are worse at night. (10) Living accommodation issues Status: Acute Problem Text: PFS for evaluation and potential placement in a different jail. Plan/VTE VTE Prophylaxis Ordered?: Yes (Lovenox) Plan/Urinary Catheter Reason for insertion/continuin: Patient request Disposition Attending note: patient seen independently and discussed the case in depth with the resident. I agree with the treatment plan as outlined above. VS, I&O, 24H, Fishbone Vital Signs/I&O Vital Signs Date Time Temp Pulse Resp B/P Pulse Ox O2 Delivery O2 Flow Rate FiO2 12/06/16 08:09 16 97 12/06/16 06:00 98.1 75 125/62 Room Air I&O- Last 24 Hours up to 6 AM 12/06/16 06:00 Intake Total 900 ml Output Total 1600 ml Balance -700 ml Laboratory Data 24H LABS Laboratory Tests 2 12/06/16 06:51: Anion Gap 10, Blood Urea Nitrogen 12, Creatinine 0.55, Sodium Level 139, Potassium Level 3.8, Chloride Level 103, Carbon Dioxide Level 26, Calcium Level 8.8, Glomerular Filtration Rate > 60.0 CBC/BMP Laboratory Tests 12/06/16 06:51 Calcium Level 8.8, Red Blood Count 3.60 L, Mean Corpuscular Volume 85.2, Mean Corpuscular Hemoglobin 26.0 L, Mean Corpuscular Hemoglobin Concent 30.5 L, Red Cell Distribution Width 16.1 H Microbiology Microbiology 12/04/16 Urine Culture - Final, Complete Pseudomonas Aeruginosa 12/04/16 Gram Stain - Final, Complete 12/04/16 Wound Culture - Final, Complete Staph.aureus Methicillin Resis CATY RAMIREZ DO Dec 06, 2016 09:16 SYLVAIN MONTANO DO Dec 07, 2016 16:11
[2016-12-06 14:00] VITALS: BP 139/63
[2016-12-06] MEDS: VENLAFAXINE **XR** 75MG CAPSULE PO SCH (21:56)
[2016-12-06] MEDS: PRAMIPEXOLE 1 MG TAB PO SCH (21:57)
[2016-12-06 22:00] VITALS: BP 140/58
[2016-12-06] MEDS: LORazepam 1 MG TAB PO PRN (22:01)
[2016-12-07] MEDS ORDERED: DOCUSATE SODIUM 100 MG CAP PO PRN
[2016-12-07] MEDS: MEROPENEM INJ 500 MG in D5W MINI-BAG PLUS 100 ML IV SCH ×3 (02:14→16:28)
[2016-12-07 06:00] VITALS: BP 100/59
[2016-12-07 06:32] LABS: MEAN CORPUSCULAR HEMOGLOBIN 26.4 pg (27.0-33.0); MEAN CORPUSCULAR HGB CONC 30.9 g/dl (32.0-36.5); MEAN CORPUSCULAR VOLUME 85.4 fl (80.0-96.0); WHITE BLOOD COUNT 7.8 K/mm3 (4.0-10.0)
[2016-12-07 06:49] LABS: ANION GAP 8 MEQ/L (8-16); BLOOD UREA NITROGEN 11 MG/DL (7-18); CALCIUM LEVEL 8.9 MG/DL (8.8-10.2); CARBON DIOXIDE LEVEL 26 MEQ/L (21-32); CHLORIDE LEVEL 101 MEQ/L (98-107); CREATININE FOR GFR 0.36 MG/DL (0.55-1.02); GLOMERULAR FILTRATION RATE > 60.0 (>39); GLUCOSE, FASTING 86 MG/DL (83-110); POTASSIUM SERUM 3.5 MEQ/L (3.5-5.1); SODIUM LEVEL 135 MEQ/L (136-145)
--- NOTE | 2016-12-07 07:27 | CR ---
DATE OF CONSULTATION: 12/06/2016 This is regarding wounds involving right and left above-knee amputation sites and sacral pressure injuries. This is a 71-year-old female who was admitted for nonhealing wounds involving right and left above-knee amputations. These were performed sometime ago and the exact history is unclear. The patient was living with friends and has been admitted for wound care and for placement. She had been a resident in a longterm in the [facility] and left against medical advice (AMA). Her living situation with friends was not satisfactory and the patient is now admitted to the hospital. It is unclear when she had her amputations but according to the history given, this was in the summer of 2015. She is a diabetic on oral medication and has a history of chronic obstructive pulmonary disease (COPD) and hypothyroidism. I have been asked to assist in evaluating the patient and recommending treatment modalities. On physical examination, the patient has stable vital signs and does not appear in any acute distress. She is a bilateral amputee on the medial aspect of the left above-knee amputation. There is a wound measuring 0.5 cm x 2.5 cm with hypergranulation involving the wound base. The drainage is serosanguineous without purulent material. Wound edges are fixed. There is no bone, tendon, fascia or muscle noted within the wound base itself and the periwound does not appear erythematous, ischemic and there is no sign of maceration. On the right above-knee amputation site, there is a wound measuring 12.0 cm x 4.0 cm with a wound depth of 0.5 cm. This wound runs the majority of the prior suture line. This wound base shows fibrin slough with underlying granulation tissue. There is no bone, tendon, fascia or muscle exposed within the wound base itself. Wound edges are fixed and the periwound shows no erythema, maceration or ischemic change. This case was discussed the day before with Dr. Betancourt who admitted the patient and I commented that when above-knee amputations show signs of nonhealing, aortoiliac occlusive disease must be ruled out. Dr. Betancourt ordered a CT angio and I reviewed the results which shows occlusion of the distal aorta and diffuse atherosclerotic disease involving the iliac systems. This would account for nonhealing of the wounds. The patient also has stage II pressure injuries involving the sacrum. TREATMENT: Protective foam dressings and an offloading mattress for the sacral pressure injuries. Dressings to be changed on an every other day basis. When the patient is out of bed, a Roho cushion or offloading cushion must be utilized. In terms of the amputation sites, Santyl and foam dressings changed on an every other day basis should be initiated. A trapeze for the bed may assist the patient in mobility and avoid shearing forces if she tries to move while in bed itself. The patient is on meropenem for a Methicillin-resistant staphylococcus aureus (MRSA) infection involving the stump. This is a colonized wound and the antibiotic should be discontinued as it has no value in her treatment. The patient is in need of vascular evaluation to see if the distal aortic occlusion can be remedied via a percutaneous angioplasty. This would be ideal. In addition to the dressing changes and Santyl, Vashe would cleanser should be utilized for 10 minutes per wound. If the patient is placed in long-term care facility, she should be referred to the wound clinic for followup treatment and any additional discussion involving the patient's care can be forwarded to our clinic. I spoke directly to Dr. John Jeffrey who is the attending overseeing the patient's admission. We discussed the case in detail and he is aware of my recommendations and agrees upon them. Thank you for this consultation.
[2016-12-07] MEDS: SENOKOT S TAB PO SCH ×2 (09:29→21:09)
[2016-12-07] MEDS: CLOPIDOGREL 75 MG TAB PO SCH (09:29)
[2016-12-07] MEDS: OMEPRAZOLE 20 MG CAP PO SCH (09:29)
[2016-12-07] MEDS: ASPIRIN 81 MG ENTERIC TAB PO SCH (09:30)
[2016-12-07] MEDS: ENOXAPARIN 40 MG/0.4 ML SYRINGE (J1650) SC SCH (09:30)
[2016-12-07] MEDS: METOPROLOL SUCC (TopROL XL) 100MG *XL* TAB PO SCH (09:41)
--- NOTE | 2016-12-07 11:10 | IPNPDOC ---
Subjective Date Seen The patient was seen on 12/07/16. Subjective Chief Complaint/HPI The patient is a 71-year-old female admitted with a reason for visit of Urinary Tract Infection. Events since last encounter She continues to have some residual nausea. However, she is feeling a little bit better today. She still hasn't been able to eat a full meal. Otherwise, she continues to remind me that she would like to go to [facility] if at all possible General: Reports: Fatigue, Malaise, Denies: Normal Appetite Constitutional: Denies: Chills, Fever, Night Sweats ENT: Denies: Head Aches, Sore Throat Skin: Denies: Bruising, Lesions, Rash Pulmonary: Denies: Cough, Dyspnea Cardiovascular: Denies: Chest Pain, Palpitations Gastrointestinal: Reports: Nausea, Vomiting, Denies: Abdominal Pain, Constipation, Diarrhea Neurological: Denies: Weakness Objective Physical Examination General Exam: Positive: Alert, Cooperative, No Acute Distress Eye Exam: Positive: Conjunctiva & lids normal, EOMI, Negative: Sclera icteric ENT Exam: Positive: Atraumatic, Mucous membr. moist/pink, Pharynx Normal Chest Exam: Positive: Clear to auscultation, Negative: Rales, Rhonchi Heart Exam: Positive: Normal S1, Normal S2, Rate Normal, Regular Rhythm, Negative: Murmurs, Rubs Abdomen Exam: Positive: Normal bowel sounds, Other (multiple abdominal surgical scars noted), Soft, Tenderness (noted in the left upper quadrant), Negative: Hepatospenomegaly Extremity Exam: Positive: Other (bilateral lower extremity amputation. She has wounds on both of her stumps which are superficial, the medial edge of the left stump is continuing to drain a purulent drainage. There is no surrounding erythema.), Negative: Clubbing, Cyanosis, Edema Neuro Exam: Positive: Cranial Nerves 3-12 NL, Normal Speech Psych Exam: Positive: Anxiety, Memory Intact, Oriented x 3 Assessment /Plan Problems (1) UTI (urinary tract infection) Status: Acute Problem Text: Urine cultures reveal Pseudomonas which is multidrug resistant. Continue with meropenem for at least a total of 3 days. Today is day 2. I suspect that her nausea may be a side effect of the antibiotic. We will continue her home doses scopolamine for this. (2) Infection of amputation stump Status: Acute Problem Text: Seen and evaluated by Dr. Gama of wound care. His recommendations for dressing the wound are much appreciated. He does not recommend antibiotics for the positive MRSA culture as this is a colonized wound. She may benefit from an evaluation by vascular surgery in the future, but does not need an immediate transfer for this at this time. (3) Pressure ulcer, buttock Status: Chronic Problem Text: Continue wound care with foam dressings, and offloading. Nutritional supplements have been ordered with each meal. She she use an offloading bed, and a Roho cushion while sitting (4) Hypothyroidism Status: Chronic Problem Text: TSH was suppressed, with an elevated free T4, therefore I have reduced her dose of Synthroid, she will need outpatient follow-up again in 6-8 weeks (5) Hypertension Status: Chronic Problem Text: Continue with metoprolol succinate (6) Depression with anxiety Status: Chronic Problem Text: Continue with home dose of lorazepam and Effexor (7) Dyslipidemia Status: Chronic Problem Text: She has a listed allergy to statins (8) Coronary atherosclerosis Status: Chronic Problem Text: Continue with aspirin and Plavix (9) GERD (gastroesophageal reflux disease) Status: Chronic Problem Text: Continue home dose of omeprazole. We will recommend elevating the head of bed slightly when she is asleep, as her symptoms are worse at night. (10) Living accommodation issues Status: Acute Problem Text: Continue with discharge planning per recommendations from PFS Plan/VTE VTE Prophylaxis Ordered?: Yes (Lovenox) Plan/Urinary Catheter Reason for insertion/continuin: Patient request Disposition Attending note: patient seen independently and discussed the case in depth with the resident. I agree with the treatment plan as outlined above. VS, I&O, 24H, Catherine Vital Signs/I&O Vital Signs Date Time Temp Pulse Resp B/P Pulse Ox O2 Delivery O2 Flow Rate FiO2 12/07/16 09:41 89 150/55 12/07/16 09:00 Room Air 12/07/16 06:00 97.8 20 93 I&O- Last 24 Hours up to 6 AM 12/07/16 06:00 Intake Total 1780 ml Output Total 600 ml Balance 1180 ml Laboratory Data 24H LABS Laboratory Tests 2 12/07/16 06:16: Anion Gap 8, Blood Urea Nitrogen 11, Creatinine 0.36L, Sodium Level 135L, Potassium Level 3.5, Chloride Level 101, Carbon Dioxide Level 26, Calcium Level 8.9, Glomerular Filtration Rate > 60.0 CBC/BMP Laboratory Tests 12/07/16 06:16 Calcium Level 8.9, Red Blood Count 3.44 L, Mean Corpuscular Volume 85.4, Mean Corpuscular Hemoglobin 26.4 L, Mean Corpuscular Hemoglobin Concent 30.9 L, Red Cell Distribution Width 16.0 H Microbiology Microbiology 12/04/16 Urine Culture - Final, Complete Pseudomonas Aeruginosa 12/04/16 Gram Stain - Final, Complete 12/04/16 Wound Culture - Final, Complete Staph.aureus Methicillin Resis CATY RAMIREZ DO Dec 07, 2016 11:10 SYLVAIN MONTANO DO Dec 07, 2016 16:18
[2016-12-07 11:50] VITALS: BP 189/86
[2016-12-07 14:00] VITALS: BP 171/79
[2016-12-07] MEDS: LORazepam 1 MG TAB PO PRN ×2 (14:48→21:09)
[2016-12-07] MEDS: MORPHINE 10MG/0.5ML ORAL CONCENTRATE SOLUTION U/D PO PRN ×3 (14:48→21:09)
[2016-12-07 14:58] VITALS: BP 154/62
[2016-12-07] MEDS: COMBIVENT RESPIMAT 100-20MCG INHALER 4GM INH PRN (16:15)
[2016-12-07] MEDS: VENLAFAXINE **XR** 75MG CAPSULE PO SCH (21:09)
[2016-12-07] MEDS: PRAMIPEXOLE 1 MG TAB PO SCH (21:09)
[2016-12-07] MEDS: ONDANSETRON 4 MG ORAL DISINTEGRATING TAB (S0181) PO PRN (21:09)
[2016-12-07 22:00] VITALS: BP 149/70
[2016-12-08] MEDS: MEROPENEM INJ 500 MG in D5W MINI-BAG PLUS 100 ML IV SCH ×3 (01:06→16:38)
[2016-12-08] MEDS: MORPHINE 10MG/0.5ML ORAL CONCENTRATE SOLUTION U/D PO PRN ×3 (01:07→20:38)
[2016-12-08 06:00] VITALS: BP 141/66
[2016-12-08] MEDS: LEVOTHYROXINE 0.137 MG TAB (137MCG) PO SCH (06:00)
[2016-12-08 06:34] LABS: MEAN CORPUSCULAR HEMOGLOBIN 25.5 pg (27.0-33.0); MEAN CORPUSCULAR HGB CONC 29.7 g/dl (32.0-36.5); RED CELL DISTRIBUTION WIDTH 15.9 % (11.5-14.5); WHITE BLOOD COUNT 5.7 K/mm3 (4.0-10.0)
[2016-12-08 06:50] LABS: ANION GAP 8 MEQ/L (8-16); BLOOD UREA NITROGEN 10 MG/DL (7-18); CALCIUM LEVEL 8.9 MG/DL (8.8-10.2); CARBON DIOXIDE LEVEL 29 MEQ/L (21-32); CHLORIDE LEVEL 102 MEQ/L (98-107); CREATININE FOR GFR 0.38 MG/DL (0.55-1.02); GLOMERULAR FILTRATION RATE > 60.0 (>39); GLUCOSE, FASTING 98 MG/DL (83-110); POTASSIUM SERUM 3.5 MEQ/L (3.5-5.1); SODIUM LEVEL 139 MEQ/L (136-145)
[2016-12-08] MEDS ORDERED: IPRATROPIUM 0.5MG/ALBUTEROL 2.5MG INH SOL UD 3ML (DUONEB)(J7620) INH SCH (08:00)
[2016-12-08] MEDS: ENOXAPARIN 40 MG/0.4 ML SYRINGE (J1650) SC SCH (08:25)
[2016-12-08] MEDS: ASPIRIN 81 MG ENTERIC TAB PO SCH (08:25)
[2016-12-08] MEDS: OMEPRAZOLE 20 MG CAP PO SCH (08:25)
[2016-12-08] MEDS: SENOKOT S TAB PO SCH ×2 (08:26→20:37)
[2016-12-08] MEDS: METOPROLOL SUCC (TopROL XL) 100MG *XL* TAB PO SCH (08:26)
[2016-12-08] MEDS: CLOPIDOGREL 75 MG TAB PO SCH (08:26)
[2016-12-08] MEDS: SCOPOLAMINE 1.5 MG TRANSDERMAL TOP SCH (08:27)
[2016-12-08] MEDS: SANTYL OINT 30GM TOP PRN (08:27)
--- NOTE | 2016-12-08 09:29 | IPNPDOC ---
Subjective Date Seen The patient was seen on 12/08/16. Subjective Chief Complaint/HPI The patient is a 71-year-old female admitted with a reason for visit of Urinary Tract Infection. Events since last encounter She continues to have a decreased appetite, however her nausea and vomiting is improved today. She did have an episode of shortness of breath last night, she was placed on 2 L oxygen nasal cannula. We can discontinue this now as her oxygen sat is fine, She does have an albuterol puffer available, however I will also prescribe her nebulizers as needed for such instances such as these. She did have some end-expiratory wheezing on exam this morning. Otherwise, the remainder of her review of systems is negative. Objective Physical Examination General Exam: Positive: Alert, Mild Distress Eye Exam: Positive: Conjunctiva & lids normal, EOMI, Negative: Sclera icteric Chest Exam: Positive: Clear to auscultation, Wheezing (minimal end expiratory wheezing in all lung young), Negative: Rales, Rhonchi Heart Exam: Positive: Normal S1, Normal S2, Rate Normal, Regular Rhythm, Negative: Murmurs, Rubs Abdomen Exam: Positive: Normal bowel sounds, Other (multiple abdominal surgical scars noted), Soft, Tenderness (noted in the left upper quadrant), Negative: Hepatospenomegaly Extremity Exam: Positive: Other (bilateral lower extremity amputation. She has wounds on both of her stumps which are superficial, the medial edge of the left stump is continuing to drain a purulent drainage. There is no surrounding erythema.), Negative: Clubbing, Cyanosis, Edema Skin Exam: Positive: Breakdown (no significant changes in her pressure ulcers from yesterday) Neuro Exam: Positive: Cranial Nerves 3-12 NL, Normal Speech Psych Exam: Positive: Mental status NL, Mood NL Assessment /Plan Problems (1) UTI (urinary tract infection) Status: Acute Problem Text: She did once again have a low-grade temp last night. Urine cultures reveal Pseudomonas which is multidrug resistant. Continue with meropenem, today is day 3, will likely discontinue this tomorrow. Leukocytosis continues to trend down, and is within normal range (2) Infection of amputation stump Status: Acute Problem Text: Seen and evaluated by Dr. Gama of wound care. His recommendations for dressing the wound are much appreciated. No antibiotics recommended as this is a colonized wound. She may benefit from an evaluation by vascular surgery in the future, but does not need an immediate transfer for this at this time. (3) Pressure ulcer, buttock Status: Chronic Problem Text: Continue wound care with foam dressings, and offloading. Continue with nutritional supplements with each meal. Recommend an offloading bed, and a Roho cushion while sitting (4) Hypothyroidism Status: Chronic Problem Text: TSH was suppressed, with an elevated free T4 Her dose of Synthroid was decreased while inpatient, she will need outpatient follow-up again in 6-8 weeks (5) Hypertension Status: Chronic Problem Text: Continue with metoprolol succinate, vitals continue to be within acceptable limits (6) Depression with anxiety Status: Chronic Problem Text: Continue with home dose of lorazepam and Effexor (7) Dyslipidemia Status: Chronic Problem Text: She has a listed allergy to statins (8) Coronary atherosclerosis Status: Chronic Problem Text: Continue with aspirin and Plavix (9) GERD (gastroesophageal reflux disease) Status: Chronic Problem Text: Continue home dose of omeprazole. We will recommend elevating the head of bed slightly when she is asleep, as her symptoms are worse at night. (10) Living accommodation issues Status: Acute Problem Text: Discharge planning per recommendations from PFS Plan/VTE VTE Prophylaxis Ordered?: Yes (Lovenox) Plan/Urinary Catheter Reason for insertion/continuin: Patient request Disposition Attending note: patient seen and evaluated independently. Discuss the treatment and hospital course with resident and I agree with the above treatment plan. VS, I&O, 24H, Fishbone Vital Signs/I&O Vital Signs Date Time Temp Pulse Resp B/P Pulse Ox O2 Delivery O2 Flow Rate FiO2 12/08/16 06:00 99.4 77 18 141/66 98 Nasal Cannula 2.0 I&O- Last 24 Hours up to 6 AM 12/08/16 06:00 Intake Total 600 ml Output Total 590 ml Balance 10 ml Laboratory Data 24H LABS Laboratory Tests 2 12/08/16 06:04: Anion Gap 8, Blood Urea Nitrogen 10, Creatinine 0.38L, Sodium Level 139, Potassium Level 3.5, Chloride Level 102, Carbon Dioxide Level 29, Calcium Level 8.9, Glomerular Filtration Rate > 60.0 CBC/BMP Laboratory Tests 12/08/16 06:04 Calcium Level 8.9, Red Blood Count 3.65 L, Mean Corpuscular Volume 86.0, Mean Corpuscular Hemoglobin 25.5 L, Mean Corpuscular Hemoglobin Concent 29.7 L, Red Cell Distribution Width 15.9 H Microbiology Microbiology 12/04/16 Urine Culture - Final, Complete Pseudomonas Aeruginosa 12/04/16 Gram Stain - Final, Complete 12/04/16 Wound Culture - Final, Complete Staph.aureus Methicillin Resis CATY RAMIREZ DO Dec 08, 2016 07:35 SYLVAIN MONTANO DO Dec 08, 2016 11:24
[2016-12-08 14:00] VITALS: BP 91/55
[2016-12-08] MEDS: LORazepam 1 MG TAB PO PRN ×2 (16:39→20:37)
[2016-12-08] MEDS: COMBIVENT RESPIMAT 100-20MCG INHALER 4GM INH PRN (20:36)
[2016-12-08] MEDS: PRAMIPEXOLE 1 MG TAB PO SCH (20:37)
[2016-12-08] MEDS: SYMBICORT 80/4.5MCG INHALER 6GM INH SCH (20:37)
[2016-12-08] MEDS: VENLAFAXINE **XR** 75MG CAPSULE PO SCH (20:37)
[2016-12-08 22:00] VITALS: BP 143/66
[2016-12-09] MEDS: MEROPENEM INJ 500 MG in D5W MINI-BAG PLUS 100 ML IV SCH ×3 (01:05→16:14)
[2016-12-09] MEDS: LEVOTHYROXINE 0.137 MG TAB (137MCG) PO SCH (05:44)
[2016-12-09 06:00] VITALS: BP 142/65
[2016-12-09 06:27] LABS: MEAN CORPUSCULAR HEMOGLOBIN 26.4 pg (27.0-33.0); MEAN CORPUSCULAR HGB CONC 31.1 g/dl (32.0-36.5); MEAN CORPUSCULAR VOLUME 84.9 fl (80.0-96.0); RED CELL DISTRIBUTION WIDTH 15.9 % (11.5-14.5); WHITE BLOOD COUNT 5.2 K/mm3 (4.0-10.0)
[2016-12-09 06:42] LABS: ANION GAP 4 MEQ/L (8-16); BLOOD UREA NITROGEN 10 MG/DL (7-18); CALCIUM LEVEL 9.2 MG/DL (8.8-10.2); CARBON DIOXIDE LEVEL 31 MEQ/L (21-32); CHLORIDE LEVEL 104 MEQ/L (98-107); CREATININE FOR GFR 0.32 MG/DL (0.55-1.02); GLOMERULAR FILTRATION RATE > 60.0 (>39); GLUCOSE, FASTING 105 MG/DL (83-110); POTASSIUM SERUM 3.5 MEQ/L (3.5-5.1); SODIUM LEVEL 139 MEQ/L (136-145)
[2016-12-09] MEDS: SCOPOLAMINE 1.5 MG TRANSDERMAL TOP SCH (08:49)
[2016-12-09] MEDS: ENOXAPARIN 40 MG/0.4 ML SYRINGE (J1650) SC SCH (09:09)
[2016-12-09] MEDS: METOPROLOL SUCC (TopROL XL) 100MG *XL* TAB PO SCH (09:12)
[2016-12-09] MEDS: OMEPRAZOLE 20 MG CAP PO SCH (09:12)
[2016-12-09] MEDS: CLOPIDOGREL 75 MG TAB PO SCH (09:12)
[2016-12-09] MEDS: ASPIRIN 81 MG ENTERIC TAB PO SCH (09:12)
[2016-12-09] MEDS: SENOKOT S TAB PO SCH ×2 (09:13→20:38)
--- NOTE | 2016-12-09 11:31 | IPN ---
DATE: 12/09/2016 71-year-old female seen at bedside resting comfortably. She denies any specific complaints. No chest pain, nausea, vomiting, abdominal pain. She has ate breakfast without any difficulty this morning. OBJECTIVE: Temperature 99.4, pulse, 128/76 blood pressure (BP) 128/84, SPO2 is 93% on room air. General: The patient appears to be in no acute distress. She is alert, pleasant. HEENT: Unremarkable. Lungs: Clear. Heart: Regular rate and rhythm. Abdomen: Soft. Extremities: The wounds on her lower extremities do have a dressing placed. No signs of discharge that soaks through any of the bandages. LABORATORY DATA: White count 5.2, hemoglobin 9.7, platelets 361. Sodium 139, potassium 3.5, chloride 104, bicarb 31, anion gap 4, BUN is 10, creatinine 0.32, glucose 105. ASSESSMENT/PLAN: 1. Urinary tract infection. She did have a low grade temperature the other night. Cultures were positive for Pseudomonas. Leukocytosis is resolved. She has received 3 days of meropenem. I would like to continue her on it for four more days to complete 7 days total of antibiotics. 2. Drainage and ulceration of the stump amputation. She is status post bilateral below knee amputations (BKAs). Appreciate Dr. Gama's input regarding wound care. She likely will need evaluation by a vascular surgeon in the future, but does not pose a immediate need for transfer. 3. Pressure ulcer on the buttocks which is chronic. Continue with wound care, foam dressings, offloading, and nutritional support with meals. 4. Hypothyroidism, stable on current dose. She did have a slight elevation in her TSH and her free T4 that should be followed up as an outpatient in 6-8 weeks. 5. Hypertension, chronic. Stable on his metoprolol. 6. Anxiety and depression, stable. No suicidal ideation or audiovisual hallucinations. Continue on lorazepam and Effexor. 7. Dyslipidemia, chronic. She is allergic to statins. 8. Coronary artery disease. Continues Plavix and aspirin. 9. Gastroesophageal reflux disease (GERD), stable on omeprazole. 10. Deep vein thrombosis (DVT) prophylaxis with Lovenox. DISPOSITION: Her living arrangements appear to be problematic at this time. [facility] on board and will further discuss during multidisciplinary rounds tomorrow regarding her long-term prognosis and whether or not she needs to be placed in a [facility]. MARIA DEL CARMEN
[2016-12-09] MEDS: SYMBICORT 80/4.5MCG INHALER 6GM INH SCH ×2 (11:40→19:13)
[2016-12-09] MEDS: LORazepam 1 MG TAB PO PRN (13:10)
[2016-12-09 14:00] VITALS: BP 128/76
[2016-12-09] MEDS: MORPHINE 10MG/0.5ML ORAL CONCENTRATE SOLUTION U/D PO PRN (14:32)
[2016-12-09] MEDS: ACETAMINOPHEN TAB 650MG DOSE (2X325MG) PO PRN (15:07)
[2016-12-09] MEDS: VENLAFAXINE **XR** 75MG CAPSULE PO SCH (20:38)
[2016-12-09] MEDS: PRAMIPEXOLE 1 MG TAB PO SCH (20:39)
[2016-12-09 22:00] VITALS: BP 118/60
[2016-12-10] MEDS: MEROPENEM INJ 500 MG in D5W MINI-BAG PLUS 100 ML IV SCH ×3 (01:28→17:00)
[2016-12-10] MEDS: MORPHINE 10MG/0.5ML ORAL CONCENTRATE SOLUTION U/D PO PRN ×4 (01:31→23:24)
[2016-12-10] MEDS: LEVOTHYROXINE 0.137 MG TAB (137MCG) PO SCH (05:51)
[2016-12-10 06:00] VITALS: BP 141/70
[2016-12-10] MEDS: LORazepam 1 MG TAB PO PRN ×3 (06:18→21:13)
[2016-12-10 07:03] LABS: MEAN CORPUSCULAR HEMOGLOBIN 26.2 pg (27.0-33.0); MEAN CORPUSCULAR HGB CONC 30.6 g/dl (32.0-36.5); MEAN CORPUSCULAR VOLUME 85.5 fl (80.0-96.0); WHITE BLOOD COUNT 5.9 K/mm3 (4.0-10.0)
[2016-12-10 07:19] LABS: ANION GAP 6 MEQ/L (8-16); BLOOD UREA NITROGEN 10 MG/DL (7-18); CALCIUM LEVEL 8.9 MG/DL (8.8-10.2); CARBON DIOXIDE LEVEL 31 MEQ/L (21-32); CHLORIDE LEVEL 103 MEQ/L (98-107); CREATININE FOR GFR 0.37 MG/DL (0.55-1.02); GLOMERULAR FILTRATION RATE > 60.0 (>39); GLUCOSE, FASTING 100 MG/DL (83-110); POTASSIUM SERUM 3.7 MEQ/L (3.5-5.1); SODIUM LEVEL 140 MEQ/L (136-145)
[2016-12-10] MEDS: SYMBICORT 80/4.5MCG INHALER 6GM INH SCH ×2 (08:00→20:15)
[2016-12-10] MEDS: SENOKOT S TAB PO SCH ×2 (09:40→21:13)
[2016-12-10] MEDS: CLOPIDOGREL 75 MG TAB PO SCH (09:40)
[2016-12-10] MEDS: METOPROLOL SUCC (TopROL XL) 100MG *XL* TAB PO SCH (09:40)
[2016-12-10] MEDS: OMEPRAZOLE 20 MG CAP PO SCH (09:40)
[2016-12-10] MEDS: ENOXAPARIN 40 MG/0.4 ML SYRINGE (J1650) SC SCH (09:40)
[2016-12-10] MEDS: ASPIRIN 81 MG ENTERIC TAB PO SCH (09:40)
[2016-12-10 14:00] VITALS: BP 110/58
--- NOTE | 2016-12-10 17:41 | IPNPDOC ---
Date Seen The patient was seen on 12/10/16. Progress Note Hospitalist Progress Note Subjective: Patient states that she has good days, and bad days. She states that today, one of her legs is doing good, and the other leg is doing bad. Objective: Physical Exam: Vitals: Vital Sign - Last 24 Hours 12/09/16 12/09/16 12/10/16 12/10/16 20:38 22:00 01:31 06:00 Temp 98.8 98.7 Pulse 86 80 Resp 18 18 20 B/P 118/60 141/70 Pulse Ox 94 95 O2 Delivery Room Air Room Air Room Air Room Air 12/10/16 12/10/16 12/10/16 12/10/16 06:18 06:48 09:40 10:00 Pulse 80 Resp 18 B/P 141/70 O2 Delivery Room Air Room Air Room Air 12/10/16 12/10/16 12/10/16 13:50 14:00 14:30 Temp 97.6 Pulse 71 Resp 18 18 18 B/P 110/58 Pulse Ox 92 O2 Delivery Room Air General: aWake, alert, no acute distress HEENT: Normocephalic, atraumatic, extraocular movements intact CV: Regular rate and rhythm, no murmurs rubs or gallops Lungs: Clear to auscultation bilaterally Abd: Soft, nontender, nondistended Extremities: Bilateral BKA's Neuro: Alert and oriented 3, normal speech Psych: normal mood and affect Labs and Imaging: Laboratory Tests 12/10/16 06:35 Calcium Level 8.9, Red Blood Count 3.75 L, Mean Corpuscular Volume 85.5, Mean Corpuscular Hemoglobin 26.2 L, Mean Corpuscular Hemoglobin Concent 30.6 L, Red Cell Distribution Width 16.0 H Assessment and Plan: 71-year-old female with hypertension, hypothyroidism, depression, hyperlipidemia , CAD status post CABG, history of bilateral BKA who recently left the [facility] she was living in [place] as she felt she was not receiving quality care there. After approximately 10 days of living with a friend, she presented to the emergency department because she was concerned that an oral antibiotic had not taking care of a urine infection, as well as feeling like she was not able to continue living with her friend, since her friend lift on the third floor and she is a bilateral amputee. 1. UTI: Urine culture is growing Pseudomonas. The patient is afebrile and has a normal white count. We'll continue her on Merrem at this time. The Pseudomonas is resistant to oral Levaquin, and she will need to receive a total of 7 days of IV Merrem. 2. Bilateral BKA's: The patient is overall a poor historian, and is not able to explain most of her surgical scars. She thinks that she had bilateral leg amputations within the last year as a complication of having tripped and fallen and hit her head. 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 As an outpatient, she will need evaluation by a vascular surgeon. There was initially some concern that the patient had an infection of her stumps, however, after Dr. Gama's evaluation, he feels that this represents nonhealing wounds, that are likely colonized, and she would not benefit from continuing an antibiotic. She will need follow-up at the wound care clinic upon discharge. Dressing changes as per Dr. Gama 3. Pressure ulcer of the sacrum: Dressing changes as per Dr. Gama. 4. Hypothyroidism: Continue home Synthroid. She'll need to have thyroid function studies rechecked as an outpatient in 6 weeks, as her free T4 was mildly elevated. 5. Hypertension: Continue metoprolol. 6. Depression: Continue home Effexor, Ativan and Mirapex. 7. CAD status post CABG, hyperlipidemia: Continue home aspirin, Plavix, beta iraida. She is evidently allergic to statins. 8. Presumed COPD: The patient does not report having COPD, but she is a poor historian, and since she reports taking Symbicort, Combivent, DuoNeb's at home, I suspect that she has underlying COPD. We'll continue her home medications. DVT prophylaxis: Lovenox Dispo: the patient does not currently have a safe place to live. [facility] is following along and will be helping us seek a safe discharge for her. VS, I&O, 24H, Fishbone Vital Signs/I&O Vital Signs Date Time Temp Pulse Resp B/P Pulse Ox O2 Delivery O2 Flow Rate FiO2 12/10/16 14:30 18 12/10/16 14:00 97.6 71 110/58 92 Room Air 12/08/16 14:00 2.0 I&O- Last 24 Hours up to 6 AM 12/10/16 06:00 Intake Total 460 ml Output Total 425 ml Balance 35 ml Laboratory Data 24H LABS Laboratory Tests 2 12/10/16 06:35: Anion Gap 6L, Blood Urea Nitrogen 10, Creatinine 0.37L, Sodium Level 140, Potassium Level 3.7, Chloride Level 103, Carbon Dioxide Level 31, Calcium Level 8.9, Glomerular Filtration Rate > 60.0 CBC/BMP Laboratory Tests 12/10/16 06:35 Calcium Level 8.9, Red Blood Count 3.75 L, Mean Corpuscular Volume 85.5, Mean Corpuscular Hemoglobin 26.2 L, Mean Corpuscular Hemoglobin Concent 30.6 L, Red Cell Distribution Width 16.0 H Microbiology Microbiology 12/04/16 Urine Culture - Final, Complete Pseudomonas Aeruginosa 12/04/16 Gram Stain - Final, Complete 12/04/16 Wound Culture - Final, Complete Staph.aureus Methicillin Resis REYNA HERNANDEZ Dec 10, 2016 17:41
[2016-12-10] MEDS ORDERED: diphenhydrAMINE 25 MG CAP PO PRN (17:45)
[2016-12-10] MEDS: IPRATROPIUM 0.5MG/ALBUTEROL 2.5MG INH SOL UD 3ML (DUONEB)(J7620) INH PRN (18:16)
[2016-12-10] MEDS: VENLAFAXINE **XR** 75MG CAPSULE PO SCH (21:13)
[2016-12-10] MEDS: PRAMIPEXOLE 1 MG TAB PO SCH (21:13)
[2016-12-10 22:00] VITALS: BP 126/58
[2016-12-11] MEDS: MEROPENEM INJ 500 MG in D5W MINI-BAG PLUS 100 ML IV SCH ×3 (00:51→16:20)
[2016-12-11] MEDS: ACETAMINOPHEN TAB 650MG DOSE (2X325MG) PO PRN ×3 (00:51→18:29)
[2016-12-11] MEDS: LEVOTHYROXINE 0.137 MG TAB (137MCG) PO SCH (05:31)
[2016-12-11 06:00] VITALS: BP 139/77
[2016-12-11 07:22] LABS: BASO % 0.4 % (0.0-1.0); EOS # 0.3 K/mm3 (0.0-0.50); LARGE UNSTAINED CELL # 0.1 K/mm3 (0.0-0.4); LARGE UNSTAINED CELL % 1.9 % (0.0-4.0); LYMPH # 1.9 K/mm3 (1.5-4.5); LYMPH % 37.2 % (24.0-44.0); MEAN CORPUSCULAR HEMOGLOBIN 25.8 pg (27.0-33.0); MEAN CORPUSCULAR HGB CONC 30.5 g/dl (32.0-36.5); MEAN CORPUSCULAR VOLUME 84.8 fl (80.0-96.0); MONO # 0.3 K/mm3 (0.0-0.8); MONO % 5.1 % (0.0-5.0); NEUTROPHILS # 2.5 K/mm3 (1.8-7.7); NEUTROPHILS % 49.3 % (36.0-66.0); PLATELET COUNT, AUTOMATED 382 k/mm3 (150-450)
[2016-12-11 07:42] LABS: ANION GAP 5 MEQ/L (8-16); BLOOD UREA NITROGEN 10 MG/DL (7-18); CALCIUM LEVEL 9.2 MG/DL (8.8-10.2); CARBON DIOXIDE LEVEL 31 MEQ/L (21-32); CHLORIDE LEVEL 104 MEQ/L (98-107); CREATININE FOR GFR 0.35 MG/DL (0.55-1.02); GLOMERULAR FILTRATION RATE > 60.0 (>39); GLUCOSE, FASTING 93 MG/DL (83-110); MAGNESIUM LEVEL 1.9 MG/DL (1.8-2.4); POTASSIUM SERUM 3.7 MEQ/L (3.5-5.1); SODIUM LEVEL 140 MEQ/L (136-145)
[2016-12-11] MEDS: SYMBICORT 80/4.5MCG INHALER 6GM INH SCH ×2 (08:34→20:31)
[2016-12-11] MEDS: ENOXAPARIN 40 MG/0.4 ML SYRINGE (J1650) SC SCH (09:27)
[2016-12-11] MEDS: METOPROLOL SUCC (TopROL XL) 100MG *XL* TAB PO SCH (09:27)
[2016-12-11] MEDS: OMEPRAZOLE 20 MG CAP PO SCH (09:27)
[2016-12-11] MEDS: ASPIRIN 81 MG ENTERIC TAB PO SCH (09:27)
[2016-12-11] MEDS: SENOKOT S TAB PO SCH ×2 (09:27→21:36)
[2016-12-11] MEDS: CLOPIDOGREL 75 MG TAB PO SCH (09:27)
[2016-12-11] MEDS: IPRATROPIUM 0.5MG/ALBUTEROL 2.5MG INH SOL UD 3ML (DUONEB)(J7620) INH PRN (09:48)
[2016-12-11] MEDS: MORPHINE 10MG/0.5ML ORAL CONCENTRATE SOLUTION U/D PO PRN ×4 (10:59→18:29)
[2016-12-11] MEDS: LORazepam 1 MG TAB PO PRN ×2 (11:06→18:28)
[2016-12-11 14:00] VITALS: BP 116/65
[2016-12-11] MEDS ORDERED: AMITRIPTYLINE 10 MG TAB PO PRN (17:45)
--- NOTE | 2016-12-11 17:46 | IPNPDOC ---
Date Seen The patient was seen on 12/11/16. Progress Note Hospitalist Progress Note Subjective: Patient complains that her stumps are throbbing Objective: Physical Exam: Vitals: Vital Sign - Last 24 Hours 12/10/16 12/10/16 12/10/16 12/11/16 21:13 22:00 23:24 06:00 Temp 98.3 98.0 Pulse 91 84 Resp 20 20 20 B/P 126/58 139/77 Pulse Ox 94 96 O2 Delivery Room Air Room Air 12/11/16 12/11/16 12/11/16 12/11/16 09:00 09:27 10:59 13:36 Pulse 84 Resp 18 18 B/P 139/77 O2 Delivery Room Air Room Air Room Air 12/11/16 12/11/16 12/11/16 14:00 14:06 16:21 Temp 98.1 Pulse 90 Resp 21 18 B/P 116/65 Pulse Ox 94 O2 Delivery Room Air Room Air General: aWake, alert, no acute distress HEENT: Normocephalic, atraumatic, extraocular movements intact CV: Regular rate and rhythm, no murmurs rubs or gallops Lungs: Clear to auscultation bilaterally Abd: soft, TTP of upper and lower left quadrants Extremities: Bilateral AKA's Neuro: Alert and oriented 3, normal speech Psych: normal mood and affect Labs and Imaging: Laboratory Tests 12/11/16 07:04 Calcium Level 9.2, Red Blood Count 3.91 L, Mean Corpuscular Volume 84.8, Mean Corpuscular Hemoglobin 25.8 L, Mean Corpuscular Hemoglobin Concent 30.5 L, Red Cell Distribution Width 16.0 H, Neutrophils (%) (Auto) 49.3, Lymphocytes (%) ( Auto) 37.2, Monocytes (%) (Auto) 5.1 H, Eosinophils (%) (Auto) 6.0 H, Basophils (%) (Auto) 0.4, Neutrophils # (Auto) 2.5, Lymphocytes # (Auto) 1.9, Monocytes # (Auto) 0.3, Eosinophils # (Auto) 0.3, Basophils # (Auto) 0.0 Assessment and Plan: 71-year-old female with hypertension, hypothyroidism, depression, hyperlipidemia , CAD status post CABG, history of bilateral AKA who recently left the correction she was living in [place] as she felt she was not receiving quality care there. After approximately 10 days of living with a friend, she presented to the emergency department because she was concerned that an oral antibiotic had not taking care of a urine infection, as well as feeling like she was not able to continue living with her friend, since her friend lift on the third floor and she is a bilateral amputee. 1. UTI: Urine culture is growing Pseudomonas. The patient is afebrile and has a normal white count. We'll continue her on Merrem at this time. The Pseudomonas is resistant to oral Levaquin, and she will need to receive a total of 7 days of IV Merrem; today is day 5. 2. Bilateral AKA's: The patient is overall a poor historian, and is not able to explain most of her surgical scars. She thinks that she had bilateral leg amputations within the last year as a complication of having tripped and fallen and hit her head. 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 As an outpatient, she will need evaluation by a vascular surgeon. There was initially some concern that the patient had an infection of her stumps, however, after Dr. Gama's evaluation, he feels that this represents nonhealing wounds, that are likely colonized, and she would not benefit from continuing an antibiotic. She will need follow-up at the wound care clinic upon discharge. Dressing changes as per Dr. Gama 3. Pressure ulcer of the sacrum: Dressing changes as per Dr. Gama. 4. Hypothyroidism: Continue home Synthroid. She'll need to have thyroid function studies rechecked as an outpatient in 6 weeks, as her free T4 was mildly elevated. 5. Hypertension: Continue metoprolol. 6. Depression: Continue home Effexor, Ativan and Mirapex. 7. CAD status post CABG, hyperlipidemia: Continue home aspirin, Plavix, beta iraida. She is evidently allergic to statins. 8. Presumed COPD: The patient does not report having COPD, but she is a poor historian, and since she reports taking Symbicort, Combivent, DuoNeb's at home, I suspect that she has underlying COPD. We'll continue her home medications. 9. Left sided abd pain on exam: Patient denies nausea and vomiting; will check CT abd/pel. DVT prophylaxis: Lovenox Dispo: the patient does not currently have a safe place to live. [facility] is following along and will be helping us seek a safe discharge for her. [facility]O Vital Signs Date Time Temp Pulse Resp B/P Pulse Ox O2 Delivery O2 Flow Rate FiO2 12/11/16 16:21 18 Room Air 12/11/16 14:00 98.1 90 116/65 94 12/08/16 14:00 2.0 I&O- Last 24 Hours up to 6 AM 12/11/16 06:00 Intake Total 1220 ml Output Total 350 ml Balance 870 ml Laboratory Data 24H LABS Laboratory Tests 2 12/11/16 07:04: Anion Gap 5L, White Blood Count 5.0, Red Blood Count 3.91L, Hemoglobin 10.1L, Hematocrit 33.1L, Mean Corpuscular Volume 84.8, Mean Corpuscular Hemoglobin 25.8L, Mean Corpuscular Hemoglobin Concent 30.5L, Red Cell Distribution Width 16.0H, Platelet Count 382, Neutrophils (%) (Auto) 49.3, Lymphocytes (%) (Auto) 37.2, Monocytes (%) (Auto) 5.1H, Eosinophils (%) (Auto) 6.0H, Basophils (%) ( Auto) 0.4, Neutrophils # (Auto) 2.5, Lymphocytes # (Auto) 1.9, Monocytes # (Auto ) 0.3, Eosinophils # (Auto) 0.3, Basophils # (Auto) 0.0, Blood Urea Nitrogen 10 , Creatinine 0.35L, Sodium Level 140, Potassium Level 3.7, Chloride Level 104, Carbon Dioxide Level 31, Calcium Level 9.2, Glomerular Filtration Rate > 60.0, Large Unclassified Cells # 0.1, Large Unclassified Cells % 1.9, Magnesium Level 1.9 CBC/BMP Laboratory Tests 12/11/16 07:04 Calcium Level 9.2, Red Blood Count 3.91 L, Mean Corpuscular Volume 84.8, Mean Corpuscular Hemoglobin 25.8 L, Mean Corpuscular Hemoglobin Concent 30.5 L, Red Cell Distribution Width 16.0 H, Neutrophils (%) (Auto) 49.3, Lymphocytes (%) ( Auto) 37.2, Monocytes (%) (Auto) 5.1 H, Eosinophils (%) (Auto) 6.0 H, Basophils (%) (Auto) 0.4, Neutrophils # (Auto) 2.5, Lymphocytes # (Auto) 1.9, Monocytes # (Auto) 0.3, Eosinophils # (Auto) 0.3, Basophils # (Auto) 0.0 Microbiology Microbiology 12/04/16 Urine Culture - Final, Complete Pseudomonas Aeruginosa 12/04/16 Gram Stain - Final, Complete 12/04/16 Wound Culture - Final, Complete Staph.aureus Methicillin Resis REYNA HERNANDEZ Dec 11, 2016 17:46
[2016-12-11] MEDS: IPRATROPIUM 0.5MG/ALBUTEROL 2.5MG INH SOL UD 3ML (DUONEB)(J7620) NEB SCH (20:00)
--- NOTE | 2016-12-11 20:10 | REPUSA ---
CT of the abdomen and pelvis without contrast Clinical statement: Pain. Technique: Multiple axial CT images were obtained from the base of the lungs to the floor of the pelv is utilizing 5 mm axial slices without administration of contrast. Coronal and sagittal reconstructio ns were also obtained. No comparison is available. Findings: Chest: The visualized lung bases demonstrate minimal atelectasis bilaterally. Abdomen: The kidneys are normal in size bilaterally. There is no evidence of hydronephrosis or nephro lithiasis. The liver, spleen, pancreas, gallbladder and adrenal glands are unremarkable. The aorta de monstrates normal caliber and contour. There is no abdominal lymphadenopathy or ascites. Pelvis: The bowel is unremarkable, with no obstructive or inflammatory changes. The urinary bladder i s within normal limits. There is no pelvic lymphadenopathy or ascites. The other pelvic structures ap pear unremarkable. Femoral/femoral bypass graft is noted. Bones: There are no suspicious osseous abnormalities seen. Impression: Unremarkable CT examination of the abdomen and pelvis. No acute findings to explain the p atient's pain. Minimal atelectasis in the lung bases bilaterally.
[2016-12-11] MEDS: PRAMIPEXOLE 1 MG TAB PO SCH (21:36)
[2016-12-11] MEDS: VENLAFAXINE **XR** 75MG CAPSULE PO SCH (21:37)
[2016-12-11] MEDS: FAMOTIDINE 20 MG TAB PO SCH (21:37)
[2016-12-11 22:00] VITALS: BP 130/60
[2016-12-11] MEDS: diphenhydrAMINE 25 MG CAP PO PRN (22:57)
[2016-12-12] MEDS: MEROPENEM INJ 500 MG in D5W MINI-BAG PLUS 100 ML IV SCH ×3 (00:40→17:37)
[2016-12-12] MEDS: LEVOTHYROXINE 0.137 MG TAB (137MCG) PO SCH (05:03)
[2016-12-12] MEDS: MORPHINE 10MG/0.5ML ORAL CONCENTRATE SOLUTION U/D PO PRN (05:47)
[2016-12-12 06:00] VITALS: BP 153/68
[2016-12-12 07:22] LABS: BASO % 0.3 % (0.0-1.0); EOS # 0.4 K/mm3 (0.0-0.50); LARGE UNSTAINED CELL # 0.1 K/mm3 (0.0-0.4); LARGE UNSTAINED CELL % 1.9 % (0.0-4.0); LYMPH # 1.6 K/mm3 (1.5-4.5); LYMPH % 25.1 % (24.0-44.0); MEAN CORPUSCULAR HEMOGLOBIN 25.9 pg (27.0-33.0); MEAN CORPUSCULAR HGB CONC 30.3 g/dl (32.0-36.5); MEAN CORPUSCULAR VOLUME 85.4 fl (80.0-96.0); MONO # 0.2 K/mm3 (0.0-0.8); MONO % 4.1 % (0.0-5.0); NEUTROPHILS # 3.7 K/mm3 (1.8-7.7); NEUTROPHILS % 62.6 % (36.0-66.0); PLATELET COUNT, AUTOMATED 358 k/mm3 (150-450); RED CELL DISTRIBUTION WIDTH 16.1 % (11.5-14.5); WHITE BLOOD COUNT 5.9 K/mm3 (4.0-10.0)
[2016-12-12] MEDS: SYMBICORT 80/4.5MCG INHALER 6GM INH SCH ×2 (07:34→21:07)
[2016-12-12] MEDS: IPRATROPIUM 0.5MG/ALBUTEROL 2.5MG INH SOL UD 3ML (DUONEB)(J7620) NEB SCH ×4 (07:35→18:54)
[2016-12-12 07:37] LABS: ANION GAP 4 MEQ/L (8-16); BLOOD UREA NITROGEN 13 MG/DL (7-18); CALCIUM LEVEL 9.1 MG/DL (8.8-10.2); CARBON DIOXIDE LEVEL 32 MEQ/L (21-32); CHLORIDE LEVEL 105 MEQ/L (98-107); CREATININE FOR GFR 0.42 MG/DL (0.55-1.02); GLOMERULAR FILTRATION RATE > 60.0 (>39); GLUCOSE, FASTING 99 MG/DL (83-110); MAGNESIUM LEVEL 1.9 MG/DL (1.8-2.4); POTASSIUM SERUM 4.1 MEQ/L (3.5-5.1); SODIUM LEVEL 141 MEQ/L (136-145)
[2016-12-12] MEDS: ASPIRIN 81 MG ENTERIC TAB PO SCH (08:55)
[2016-12-12] MEDS: ENOXAPARIN 40 MG/0.4 ML SYRINGE (J1650) SC SCH (08:55)
[2016-12-12] MEDS: SCOPOLAMINE 1.5 MG TRANSDERMAL TOP SCH (08:55)
[2016-12-12] MEDS: METOPROLOL SUCC (TopROL XL) 100MG *XL* TAB PO SCH (08:56)
[2016-12-12] MEDS: OMEPRAZOLE 20 MG CAP PO SCH (08:56)
[2016-12-12] MEDS: FAMOTIDINE 20 MG TAB PO SCH ×2 (08:56→20:06)
[2016-12-12] MEDS: CLOPIDOGREL 75 MG TAB PO SCH (08:56)
[2016-12-12] MEDS: SENOKOT S TAB PO SCH ×2 (08:56→20:06)
[2016-12-12] MEDS ORDERED: MORPHINE 10MG/0.5ML ORAL CONCENTRATE SOLUTION U/D PO PRN (12:52)
[2016-12-12 14:00] VITALS: BP 132/74
--- NOTE | 2016-12-12 16:21 | IPNPDOC ---
Date Seen The patient was seen on 12/12/16. Progress Note Hospitalist Progress Note Subjective: Patient initially had no complaints, but then later was very concerned about not wanting to be here forever; per nursing, patient seems to have waxing and waning periods of confusion Objective: Physical Exam: Vitals: Vital Sign - Last 24 Hours 12/11/16 12/11/16 12/11/16 12/11/16 16:21 18:29 20:00 22:00 Temp 97.3 Pulse 74 Resp 18 18 20 B/P 130/60 Pulse Ox 94 O2 Delivery Room Air Room Air Room Air 12/12/16 12/12/16 12/12/16 12/12/16 05:47 06:00 06:17 08:45 Temp 99.1 Pulse 79 Resp 18 20 18 B/P 153/68 Pulse Ox 99 O2 Delivery Room Air Room Air 12/12/16 12/12/16 08:56 14:00 Temp 98.0 Pulse 79 89 Resp 18 B/P 153/68 132/74 Pulse Ox 95 O2 Delivery Room Air General: aWake, alert, no acute distress HEENT: Normocephalic, atraumatic, extraocular movements intact CV: Regular rate and rhythm Lungs: Clear to auscultation bilaterally, no wheeze Abd: soft, non distended, TTP along old surgical scar Extremities: Bilateral AKA's Neuro: Alert and oriented 3, normal speech Psych: normal mood and affect Labs and Imaging: Laboratory Tests 12/12/16 07:05 Calcium Level 9.1, Red Blood Count 4.00, Mean Corpuscular Volume 85.4, Mean Corpuscular Hemoglobin 25.9 L, Mean Corpuscular Hemoglobin Concent 30.3 L, Red Cell Distribution Width 16.1 H, Neutrophils (%) (Auto) 62.6, Lymphocytes (%) ( Auto) 25.1, Monocytes (%) (Auto) 4.1, Eosinophils (%) (Auto) 6.0 H, Basophils (% ) (Auto) 0.3, Neutrophils # (Auto) 3.7, Lymphocytes # (Auto) 1.6, Monocytes # ( Auto) 0.2, Eosinophils # (Auto) 0.4, Basophils # (Auto) 0.0 Assessment and Plan: 71-year-old female with hypertension, hypothyroidism, depression, hyperlipidemia , CAD status post CABG, history of bilateral AKA who recently left the [facility] she was living in [place] as she felt she was not receiving quality care there. After approximately 10 days of living with a friend, she presented to the emergency department because she was concerned that an oral antibiotic had not taking care of a urine infection, as well as feeling like she was not able to continue living with her friend, since her friend lives on the third floor and she is a bilateral amputee. 1. UTI: Urine culture is growing Pseudomonas. The patient is afebrile and has a normal white count. We'll continue her on Merrem at this time. The Pseudomonas is resistant to oral Levaquin, and she will need to receive a total of 7 days of IV Merrem; today is day 6. 2. Bilateral AKA's: The patient is overall a poor historian, and is not able to explain most of her surgical scars. She thinks that she had bilateral leg amputations within the last year as a complication of having tripped and fallen and hit her head. 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 As an outpatient, she will need evaluation by a vascular surgeon. There was initially some concern that the patient had an infection of her stumps, however, after Dr. Gama's evaluation, he feels that this represents nonhealing wounds, that are likely colonized, and she would not benefit from continuing an antibiotic. She will need follow-up at the wound care clinic upon discharge. Dressing changes as per Dr. Gama 3. Pressure ulcer of the sacrum: Dressing changes as per Dr. Gama. 4. Hypothyroidism: Continue home Synthroid. She'll need to have thyroid function studies rechecked as an outpatient in 6 weeks, as her free T4 was mildly elevated. 5. Hypertension: Continue metoprolol. 6. Depression: Continue home Effexor, Ativan and Mirapex. 7. CAD status post CABG, hyperlipidemia: Continue home aspirin, Plavix, beta iraida. She is evidently allergic to statins. 8. Presumed COPD: The patient does not report having COPD, but she is a poor historian, and since she reports taking Symbicort, Combivent, DuoNeb's at home, I suspect that she has underlying COPD. We'll continue her home medications. 9. Left sided abd pain on exam: Patient denies nausea and vomiting; CT abd/pel was unremarkable. I think this may be due to adhesions/scar tissue from prior abdominal surgery as most of her TTP is along an old surgical scar. DVT prophylaxis: Lovenox Dispo: the patient does not currently have a safe place to live. [facility] is following along and will be helping us seek a safe discharge for her. VS, I&O, 24H, Fishbone Vital Signs/I&O Vital Signs Date Time Temp Pulse Resp B/P Pulse Ox O2 Delivery O2 Flow Rate FiO2 12/12/16 14:00 98.0 89 18 132/74 95 Room Air 12/08/16 14:00 2.0 I&O- Last 24 Hours up to 6 AM 12/12/16 06:00 Intake Total 1220 ml Output Total 850 ml Balance 370 ml Laboratory Data 24H LABS Laboratory Tests 2 12/12/16 07:05: Anion Gap 4L, White Blood Count 5.9, Red Blood Count 4.00, Hemoglobin 10.4L, Hematocrit 34.2L, Mean Corpuscular Volume 85.4, Mean Corpuscular Hemoglobin 25.9L, Mean Corpuscular Hemoglobin Concent 30.3L, Red Cell Distribution Width 16.1H, Platelet Count 358, Neutrophils (%) (Auto) 62.6, Lymphocytes (%) (Auto) 25.1, Monocytes (%) (Auto) 4.1, Eosinophils (%) (Auto) 6.0H, Basophils (%) (Auto ) 0.3, Neutrophils # (Auto) 3.7, Lymphocytes # (Auto) 1.6, Monocytes # (Auto) 0.2, Eosinophils # (Auto) 0.4, Basophils # (Auto) 0.0, Blood Urea Nitrogen 13, Creatinine 0.42L, Sodium Level 141, Potassium Level 4.1, Chloride Level 105, Carbon Dioxide Level 32, Calcium Level 9.1, Glomerular Filtration Rate > 60.0, Large Unclassified Cells # 0.1, Large Unclassified Cells % 1.9, Magnesium Level 1.9 CBC/BMP Laboratory Tests 12/12/16 07:05 Calcium Level 9.1, Red Blood Count 4.00, Mean Corpuscular Volume 85.4, Mean Corpuscular Hemoglobin 25.9 L, Mean Corpuscular Hemoglobin Concent 30.3 L, Red Cell Distribution Width 16.1 H, Neutrophils (%) (Auto) 62.6, Lymphocytes (%) ( Auto) 25.1, Monocytes (%) (Auto) 4.1, Eosinophils (%) (Auto) 6.0 H, Basophils (% ) (Auto) 0.3, Neutrophils # (Auto) 3.7, Lymphocytes # (Auto) 1.6, Monocytes # ( Auto) 0.2, Eosinophils # (Auto) 0.4, Basophils # (Auto) 0.0 Microbiology Microbiology 12/04/16 Urine Culture - Final, Complete Pseudomonas Aeruginosa 12/04/16 Gram Stain - Final, Complete 12/04/16 Wound Culture - Final, Complete Staph.aureus Methicillin Resis REYNA HERNANDEZ Dec 12, 2016 16:21
[2016-12-12] MEDS: SANTYL OINT 30GM TOP PRN (18:25)
[2016-12-12] MEDS: PRAMIPEXOLE 1 MG TAB PO SCH (20:06)
[2016-12-12] MEDS: VENLAFAXINE **XR** 75MG CAPSULE PO SCH (20:07)
[2016-12-12 22:00] VITALS: BP 132/62
[2016-12-12] MEDS: ACETAMINOPHEN TAB 650MG DOSE (2X325MG) PO PRN (23:35)
[2016-12-13] MEDS: MEROPENEM INJ 500 MG in D5W MINI-BAG PLUS 100 ML IV SCH (00:48)
[2016-12-13] MEDS: LORazepam 1 MG TAB PO PRN (01:32)
[2016-12-13] MEDS: diphenhydrAMINE 25 MG CAP PO PRN (03:38)
[2016-12-13] MEDS: SANTYL OINT 30GM TOP PRN (03:39)
[2016-12-13] MEDS: LEVOTHYROXINE 0.137 MG TAB (137MCG) PO SCH (05:44)
[2016-12-13 06:00] VITALS: BP 131/63
[2016-12-13 07:20] VITALS: BP 127/76
[2016-12-13] MEDS ORDERED: MEROPENEM INJ 500 MG in D5W MINI-BAG PLUS 100 ML IV SCH (09:00)
[2016-12-13] MEDS: IPRATROPIUM 0.5MG/ALBUTEROL 2.5MG INH SOL UD 3ML (DUONEB)(J7620) NEB SCH ×4 (09:01→20:00)
[2016-12-13] MEDS: SYMBICORT 80/4.5MCG INHALER 6GM INH SCH ×2 (09:02→20:50)
--- NOTE | 2016-12-13 09:26 | REP ---
CT HEAD WITHOUT CONTRAST: HISTORY: Fall. COMPARISON: 03/24/2013 Areas of decreased attenuation are present in the periventricular white matter. This represents small vessel ischemic disease. There is no intraparenchymal hemorrhage, mass or midline shift. The ventricular system and cortical sulci are dilated consistent with minimal volume loss. There is no extracerebral collection. There is no fracture. The visualized sinuses are clear. IMPRESSION: 1. Small vessel ischemic disease. 2. Minimal volume loss. Signed by Roscoe Jerez MD 12/13/2016 11:03 A
[2016-12-13] MEDS: ASPIRIN 81 MG ENTERIC TAB PO SCH (09:57)
[2016-12-13] MEDS: SENOKOT S TAB PO SCH ×2 (09:57→20:25)
[2016-12-13] MEDS: OMEPRAZOLE 20 MG CAP PO SCH (09:58)
[2016-12-13] MEDS: FAMOTIDINE 20 MG TAB PO SCH ×2 (09:58→20:25)
[2016-12-13] MEDS: ENOXAPARIN 40 MG/0.4 ML SYRINGE (J1650) SC SCH (09:58)
[2016-12-13] MEDS: CLOPIDOGREL 75 MG TAB PO SCH (09:58)
[2016-12-13] MEDS: METOPROLOL SUCC (TopROL XL) 100MG *XL* TAB PO SCH (09:58)
[2016-12-13 10:15] LABS: BASO % 0.3 % (0.0-1.0); EOS # 0.2 K/mm3 (0.0-0.50); EOS % 2.7 % (0.0-3.0); LARGE UNSTAINED CELL # 0.1 K/mm3 (0.0-0.4); LARGE UNSTAINED CELL % 1.4 % (0.0-4.0); LYMPH # 1.6 K/mm3 (1.5-4.5); LYMPH % 18.6 % (24.0-44.0); MEAN CORPUSCULAR HEMOGLOBIN 26.5 pg (27.0-33.0); MEAN CORPUSCULAR HGB CONC 30.9 g/dl (32.0-36.5); MEAN CORPUSCULAR VOLUME 85.9 fl (80.0-96.0); MONO # 0.3 K/mm3 (0.0-0.8); MONO % 3.6 % (0.0-5.0); NEUTROPHILS # 6.1 K/mm3 (1.8-7.7); NEUTROPHILS % 73.5 % (36.0-66.0); PLATELET COUNT, AUTOMATED 363 k/mm3 (150-450); RED CELL DISTRIBUTION WIDTH 15.9 % (11.5-14.5); WHITE BLOOD COUNT 8.2 K/mm3 (4.0-10.0)
[2016-12-13 11:07] LABS: ANION GAP 7 MEQ/L (8-16); BLOOD UREA NITROGEN 10 MG/DL (7-18); CALCIUM LEVEL 8.8 MG/DL (8.8-10.2); CARBON DIOXIDE LEVEL 29 MEQ/L (21-32); CHLORIDE LEVEL 105 MEQ/L (98-107); CREATININE FOR GFR 0.42 MG/DL (0.55-1.02); GLOMERULAR FILTRATION RATE > 60.0 (>39); GLUCOSE, FASTING 109 MG/DL (83-110); MAGNESIUM LEVEL 1.7 MG/DL (1.8-2.4); POTASSIUM SERUM 3.8 MEQ/L (3.5-5.1); SODIUM LEVEL 141 MEQ/L (136-145)
--- NOTE | 2016-12-13 15:08 | IPNPDOC ---
Date Seen The patient was seen on 12/13/16. Progress Note Hospitalist Progress Note Subjective: Patient has no complaints. Per nursing, she has been intermittently confused all night and today, and this morning, she was found lying on the ground, having fallen out of bed. The patient has no awareness of having periods of confusion and she does not remember falling out of bed Objective: Physical Exam: Vitals: Vital Sign - Last 24 Hours 12/12/16 12/12/16 12/13/16 12/13/16 21:00 22:00 06:00 07:20 Temp 99.6 98.4 98.2 Pulse 80 88 98 Resp 18 16 B/P 132/62 131/63 127/76 Pulse Ox 93 95 95 O2 Delivery Room Air Room Air Room Air Room Air General: aWake, alert, no acute distress HEENT: Normocephalic, atraumatic, extraocular movements intact CV: Regular rate and rhythm Lungs: Clear to auscultation bilaterally, no wheeze Abd: soft, non distended, TTP along old surgical scar Extremities: Bilateral AKA's Neuro: Alert and oriented 3, normal speech but does not remember incidents that happened this morning (like falling out of bed) Psych: normal mood and affect Labs and Imaging: Laboratory Tests 12/13/16 09:52 Calcium Level 8.8, Red Blood Count 4.07, Mean Corpuscular Volume 85.9, Mean Corpuscular Hemoglobin 26.5 L, Mean Corpuscular Hemoglobin Concent 30.9 L, Red Cell Distribution Width 15.9 H, Neutrophils (%) (Auto) 73.5 H, Lymphocytes (%) ( Auto) 18.6 L, Monocytes (%) (Auto) 3.6, Eosinophils (%) (Auto) 2.7, Basophils (% ) (Auto) 0.3, Neutrophils # (Auto) 6.1, Lymphocytes # (Auto) 1.6, Monocytes # ( Auto) 0.3, Eosinophils # (Auto) 0.2, Basophils # (Auto) 0.0 Assessment and Plan: 71-year-old female with hypertension, hypothyroidism, depression, hyperlipidemia , CAD status post CABG, history of bilateral AKA who recently left the jail she was living in [place] as she felt she was not receiving quality care there. After approximately 10 days of living with a friend, she presented to the emergency department because she was concerned that an oral antibiotic had not taking care of a urine infection, as well as feeling like she was not able to continue living with her friend, since her friend lives on the third floor and she is a bilateral amputee. Recently, she has become very delirious. 1. UTI: Urine culture is growing Pseudomonas. The patient is afebrile and has a normal white count. Today she will complete 7 days of merrem. 2. Bilateral AKA's: The patient is overall a poor historian, and is not able to explain most of her surgical scars. She thinks that she had bilateral leg amputations within the last year as a complication of having tripped and fallen and hit her head. 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 As an outpatient, she will need evaluation by a vascular surgeon. There was initially some concern that the patient had an infection of her stumps, however, after Dr. Gama's evaluation, he feels that this represents nonhealing wounds, that are likely colonized, and she would not benefit from continuing an antibiotic. She will need follow-up at the wound care clinic upon discharge. Dressing changes as per Dr. Gama 3. Pressure ulcer of the sacrum: Dressing changes as per Dr. Gama. 4. Hypothyroidism: Continue home Synthroid. She'll need to have thyroid function studies rechecked as an outpatient in 6 weeks, as her free T4 was mildly elevated. 5. Hypertension: Continue metoprolol. 6. Depression: Continue home Effexor, Ativan and Mirapex. 7. CAD status post CABG, hyperlipidemia: Continue home aspirin, Plavix, beta iraida. She is evidently allergic to statins. 8. Presumed COPD: The patient does not report having COPD, but she is a poor historian, and since she reports taking Symbicort, Combivent, DuoNeb's at home, I suspect that she has underlying COPD. We'll continue her home medications. 9. Left sided abd pain on exam: Patient denies nausea and vomiting; CT abd/pel was unremarkable. I think this may be due to adhesions/scar tissue from prior abdominal surgery as most of her TTP is along an old surgical scar. 10. Delirium: Etiology is unclear. Infection seems unlikely as the patient has been afebrile with a normal white count, and has been on merrem for the past week. We will stop all narcotics, and cut back on her ativan. She also has been getting benadryl for a rash, which we will change to topical. Continue to monitor. Sitter if necessary. Fell out of bed this morning while she was confused, but CT of head is unremarkable. 11. Rash on back: etiology unclear. Potentially drug reaction to merrem. If this is the case, should begin clearing soon as she received her last dose of merrem this morning. Topical benadryl for itchign. DVT prophylaxis: Lovenox Dispo: the patient does not currently have a safe place to live. [facility] is following along and will be helping us seek a safe discharge for her. VS, I&O, 24H, Fishbone Vital Signs/I&O Vital Signs Date Time Temp Pulse Resp B/P Pulse Ox O2 Delivery O2 Flow Rate FiO2 12/13/16 07:20 98.2 98 16 127/76 95 Room Air 12/08/16 14:00 2.0 I&O- Last 24 Hours up to 6 AM 12/13/16 06:00 Intake Total 880 ml Output Total 900 ml Balance -20 ml Laboratory Data 24H LABS Laboratory Tests 2 12/13/16 09:52: Anion Gap 7L, White Blood Count 8.2, Red Blood Count 4.07, Hemoglobin 10.8L, Hematocrit 35.0L, Mean Corpuscular Volume 85.9, Mean Corpuscular Hemoglobin 26.5L, Mean Corpuscular Hemoglobin Concent 30.9L, Red Cell Distribution Width 15.9H, Platelet Count 363, Neutrophils (%) (Auto) 73.5H, Lymphocytes (%) (Auto) 18.6L, Monocytes (%) (Auto) 3.6, Eosinophils (%) (Auto) 2.7, Basophils (%) (Auto ) 0.3, Neutrophils # (Auto) 6.1, Lymphocytes # (Auto) 1.6, Monocytes # (Auto) 0.3, Eosinophils # (Auto) 0.2, Basophils # (Auto) 0.0, Blood Urea Nitrogen 10, Creatinine 0.42L, Sodium Level 141, Potassium Level 3.8, Chloride Level 105, Carbon Dioxide Level 29, Calcium Level 8.8, Glomerular Filtration Rate > 60.0, Large Unclassified Cells # 0.1, Large Unclassified Cells % 1.4, Magnesium Level 1.7L CBC/BMP Laboratory Tests 12/13/16 09:52 Calcium Level 8.8, Red Blood Count 4.07, Mean Corpuscular Volume 85.9, Mean Corpuscular Hemoglobin 26.5 L, Mean Corpuscular Hemoglobin Concent 30.9 L, Red Cell Distribution Width 15.9 H, Neutrophils (%) (Auto) 73.5 H, Lymphocytes (%) ( Auto) 18.6 L, Monocytes (%) (Auto) 3.6, Eosinophils (%) (Auto) 2.7, Basophils (% ) (Auto) 0.3, Neutrophils # (Auto) 6.1, Lymphocytes # (Auto) 1.6, Monocytes # ( Auto) 0.3, Eosinophils # (Auto) 0.2, Basophils # (Auto) 0.0 Microbiology Microbiology 12/04/16 Urine Culture - Final, Complete Pseudomonas Aeruginosa 12/04/16 Gram Stain - Final, Complete 12/04/16 Wound Culture - Final, Complete Staph.aureus Methicillin Resis REYNA HERNANDEZ Dec 13, 2016 15:08 Creatinine 0.42L, Sodium Level 141, Potassium Level 3.8, Chloride Level 105, Carbon Dioxide Level 29, Calcium Level 8.8, Glomerular Filtration Rate > 60.0, Large Unclassified Cells # 0.1, Large Unclassified Cells % 1.4, Magnesium Level 1.7L CBC/BMP Laboratory Tests 12/13/16 09:52 Calcium Level 8.8, Red Blood Count 4.07, Mean Corpuscular Volume 85.9, Mean Corpuscular Hemoglobin 26.5 L, Mean Corpuscular Hemoglobin Concent 30.9 L, Red Cell Distribution Width 15.9 H, Neutrophils (%) (Auto) 73.5 H, Lymphocytes (%) ( Auto) 18.6 L, Monocytes (%) (Auto) 3.6, Eosinophils (%) (Auto) 2.7, Basophils (% ) (Auto) 0.3, Neutrophils # (Auto) 6.1, Lymphocytes # (Auto) 1.6, Monocytes # ( Auto) 0.3, Eosinophils # (Auto) 0.2, Basophils # (Auto) 0.0 Microbiology Microbiology 12/04/16 Urine Culture - Final, Complete Pseudomonas Aeruginosa 12/04/16 Gram Stain - Final, Complete 12/04/16 Wound Culture - Final, Complete Staph.aureus Methicillin Resis REYNA HERNANDEZ Dec 13, 2016 15:08
[2016-12-13] MEDS ORDERED: diphenhydrAMINE CREAM 30GM TOP PRN (15:15)
[2016-12-13] MEDS: MAG SULF 1GM/100ML (MAG RUN) 1 GM in APPROPRIATE DILUENT 1 EA IV SCH ×2 (16:05→16:59)
[2016-12-13] MEDS: ACETAMINOPHEN TAB 650MG DOSE (2X325MG) PO PRN (17:00)
[2016-12-13] MEDS: PRAMIPEXOLE 1 MG TAB PO SCH (20:25)
[2016-12-13] MEDS: LORazepam 0.5 MG TAB PO PRN (20:25)
[2016-12-13] MEDS: VENLAFAXINE **XR** 75MG CAPSULE PO SCH (20:25)
[2016-12-13 22:00] VITALS: BP 148/60
[2016-12-14] MEDS: ACETAMINOPHEN TAB 650MG DOSE (2X325MG) PO PRN ×4 (00:26→22:45)
[2016-12-14] MEDS: LEVOTHYROXINE 0.137 MG TAB (137MCG) PO SCH (05:53)
[2016-12-14 06:00] VITALS: BP 135/69
[2016-12-14 07:23] LABS: BASO % 0.4 % (0.0-1.0); EOS # 0.3 K/mm3 (0.0-0.50); EOS % 5.5 % (0.0-3.0); LARGE UNSTAINED CELL # 0.1 K/mm3 (0.0-0.4); LARGE UNSTAINED CELL % 1.8 % (0.0-4.0); LYMPH # 1.8 K/mm3 (1.5-4.5); LYMPH % 29.4 % (24.0-44.0); MEAN CORPUSCULAR HEMOGLOBIN 25.8 pg (27.0-33.0); MEAN CORPUSCULAR HGB CONC 30.7 g/dl (32.0-36.5); MEAN CORPUSCULAR VOLUME 84.2 fl (80.0-96.0); MONO # 0.3 K/mm3 (0.0-0.8); MONO % 4.7 % (0.0-5.0); NEUTROPHILS # 3.3 K/mm3 (1.8-7.7); NEUTROPHILS % 58.2 % (36.0-66.0); PLATELET COUNT, AUTOMATED 342 k/mm3 (150-450); RED CELL DISTRIBUTION WIDTH 15.7 % (11.5-14.5); WHITE BLOOD COUNT 5.6 K/mm3 (4.0-10.0)
[2016-12-14 07:38] LABS: ANION GAP 8 MEQ/L (8-16); BLOOD UREA NITROGEN 8 MG/DL (7-18); CALCIUM LEVEL 8.3 MG/DL (8.8-10.2); CARBON DIOXIDE LEVEL 26 MEQ/L (21-32); CHLORIDE LEVEL 106 MEQ/L (98-107); CREATININE FOR GFR 0.32 MG/DL (0.55-1.02); GLOMERULAR FILTRATION RATE > 60.0 (>39); GLUCOSE, FASTING 93 MG/DL (83-110); MAGNESIUM LEVEL 2.1 MG/DL (1.8-2.4); POTASSIUM SERUM 3.6 MEQ/L (3.5-5.1); SODIUM LEVEL 140 MEQ/L (136-145)
[2016-12-14] MEDS: IPRATROPIUM 0.5MG/ALBUTEROL 2.5MG INH SOL UD 3ML (DUONEB)(J7620) NEB SCH ×4 (08:00→20:00)
[2016-12-14] MEDS: SYMBICORT 80/4.5MCG INHALER 6GM INH SCH ×2 (08:15→20:51)
[2016-12-14] MEDS: CLOPIDOGREL 75 MG TAB PO SCH (08:42)
[2016-12-14] MEDS: ENOXAPARIN 40 MG/0.4 ML SYRINGE (J1650) SC SCH (08:42)
[2016-12-14] MEDS: SENOKOT S TAB PO SCH ×2 (08:43→21:04)
[2016-12-14] MEDS: ASPIRIN 81 MG ENTERIC TAB PO SCH (08:43)
[2016-12-14] MEDS: FAMOTIDINE 20 MG TAB PO SCH ×2 (08:43→20:42)
[2016-12-14] MEDS: OMEPRAZOLE 20 MG CAP PO SCH (08:43)
[2016-12-14] MEDS: METOPROLOL SUCC (TopROL XL) 100MG *XL* TAB PO SCH (08:45)
--- NOTE | 2016-12-14 13:09 | IPNPDOC ---
Date Seen The patient was seen on 12/14/16. Progress Note Hospitalist Progress Note Subjective: Per nursing, they think her confusion has somewhat improved, but they still note periods of confusion. The patient denies any physical complaints. However, she gets very agitated about being in the hospital and having a sitter, stating that we are "treating her like a dog" by watching her constantly and not allowing her to go out shopping to store Objective: Physical Exam: Vitals: Vital Sign - Last 24 Hours 12/13/16 12/13/16 12/14/16 12/14/16 21:00 22:00 06:00 08:45 Temp 98.1 96.9 Pulse 82 92 90 Resp 19 17 B/P 148/60 135/69 146/80 Pulse Ox 93 94 O2 Delivery Room Air Room Air Room Air General: aWake, alert, no acute distress HEENT: Normocephalic, atraumatic, extraocular movements intact CV: Regular rate and rhythm, no murmur Lungs: Clear to auscultation bilaterally Abd: soft, non distended, TTP along old surgical scar Extremities: Bilateral AKA's Neuro: Alert and oriented 3, normal speech but clearly still delirious as she gets mad that we won't let her go shopping Skin: back has a diffuse macular rash Psych: normal mood and affect Labs and Imaging: Laboratory Tests 12/14/16 06:33 Calcium Level 8.3 L, Red Blood Count 3.89 L, Mean Corpuscular Volume 84.2, Mean Corpuscular Hemoglobin 25.8 L, Mean Corpuscular Hemoglobin Concent 30.7 L, Red Cell Distribution Width 15.7 H, Neutrophils (%) (Auto) 58.2, Lymphocytes (%) ( Auto) 29.4, Monocytes (%) (Auto) 4.7, Eosinophils (%) (Auto) 5.5 H, Basophils (% ) (Auto) 0.4, Neutrophils # (Auto) 3.3, Lymphocytes # (Auto) 1.8, Monocytes # ( Auto) 0.3, Eosinophils # (Auto) 0.3, Basophils # (Auto) 0.0 Assessment and Plan: 71-year-old female with hypertension, hypothyroidism, depression, hyperlipidemia , CAD status post CABG, history of bilateral AKA who recently [place] the [place] [facility] in [place] as she felt she was not receiving quality care there. After approximately 10 days of living with a friend, she presented to the emergency department because she was concerned that an oral antibiotic had not taking care of a urine infection, as well as feeling like she was not able to continue living with her friend, since her friend lives on the third floor and she is a bilateral amputee. Recently, she has become very delirious. 1. UTI: Urine culture is growing Pseudomonas. The patient is afebrile and has a normal white count. She is now s/p 7 days of merrem. 2. Bilateral AKA's: The patient is overall a poor historian, and is not able to explain most of her surgical scars. She thinks that she had bilateral leg amputations within the last year as a complication of having tripped and fallen and hit her head. 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 As an outpatient, she will need evaluation by a vascular surgeon. There was initially some concern that the patient had an infection of her stumps, however, after Dr. Gama's evaluation, he feels that this represents nonhealing wounds, that are likely colonized, and she would not benefit from continuing an antibiotic. She will need follow-up at the wound care clinic upon discharge. Dressing changes as per Dr. Gama 3. Pressure ulcer of the sacrum: Dressing changes as per Dr. Gaam. 4. Hypothyroidism: Continue home Synthroid. She'll need to have thyroid function studies rechecked as an outpatient in 6 weeks, as her free T4 was mildly elevated. 5. Hypertension: Continue metoprolol. 6. Depression: Continue home Effexor, Ativan and Mirapex. 7. CAD status post CABG, hyperlipidemia: Continue home aspirin, Plavix, beta iraida. She is evidently allergic to statins. 8. Presumed COPD: The patient does not report having COPD, but she is a poor historian, and since she reports taking Symbicort, Combivent, DuoNeb's at home, I suspect that she has underlying COPD. We'll continue her home medications. 9. Left sided abd pain on exam: Patient denies nausea and vomiting; CT abd/pel was unremarkable. I think this may be due to adhesions/scar tissue from prior abdominal surgery as most of her TTP is along an old surgical scar. 10. Delirium: Etiology is unclear. Infection seems unlikely as the patient has been afebrile with a normal white count, and has been on merrem for the past week. We stopped all narcotics, and cut back on her ativan, as well as stopped oral benadryl. Continue to monitor. Sitter if necessary. Fell out of bed the morning of 12/13 while she was confused, but CT of head is unremarkable. We have seen some improvement in the first 24H after changing her meds; continue to monitor. 11. Rash on back: etiology unclear. Potentially drug reaction to merrem. If this is the case, should begin clearing soon as she received her last dose of merrem on 12/13. Topical benadryl for itching. DVT prophylaxis: Lovenox Dispo: Pending resolution of her delirium. The patient does not currently have a safe place to live. [facility] is following along and will be helping us seek a safe discharge for her. VS, I&O, 24H, Fishbone Vital Signs/I&O Vital Signs Date Time Temp Pulse Resp B/P Pulse Ox O2 Delivery O2 Flow Rate FiO2 12/14/16 08:45 90 146/80 12/14/16 06:00 96.9 17 94 Room Air 12/08/16 14:00 2.0 I&O- Last 24 Hours up to 6 AM 12/14/16 06:00 Intake Total 760 ml Output Total 1200 ml Balance -440 ml Laboratory Data 24H LABS Laboratory Tests 2 12/14/16 06:33: Anion Gap 8, White Blood Count 5.6, Red Blood Count 3.89L, Hemoglobin 10.1L, Hematocrit 32.8L, Mean Corpuscular Volume 84.2, Mean Corpuscular Hemoglobin 25.8L, Mean Corpuscular Hemoglobin Concent 30.7L, Red Cell Distribution Width 15.7H, Platelet Count 342, Neutrophils (%) (Auto) 58.2, Lymphocytes (%) (Auto) 29.4, Monocytes (%) (Auto) 4.7, Eosinophils (%) (Auto) 5.5H, Basophils (%) (Auto ) 0.4, Neutrophils # (Auto) 3.3, Lymphocytes # (Auto) 1.8, Monocytes # (Auto) 0.3, Eosinophils # (Auto) 0.3, Basophils # (Auto) 0.0, Blood Urea Nitrogen 8, Creatinine 0.32L, Sodium Level 140, Potassium Level 3.6, Chloride Level 106, Carbon Dioxide Level 26, Calcium Level 8.3L, Glomerular Filtration Rate > 60.0, Large Unclassified Cells # 0.1, Large Unclassified Cells % 1.8, Magnesium Level 2.1 CBC/BMP Laboratory Tests 12/14/16 06:33 Calcium Level 8.3 L, Red Blood Count 3.89 L, Mean Corpuscular Volume 84.2, Mean Corpuscular Hemoglobin 25.8 L, Mean Corpuscular Hemoglobin Concent 30.7 L, Red Cell Distribution Width 15.7 H, Neutrophils (%) (Auto) 58.2, Lymphocytes (%) ( Auto) 29.4, Monocytes (%) (Auto) 4.7, Eosinophils (%) (Auto) 5.5 H, Basophils (% ) (Auto) 0.4, Neutrophils # (Auto) 3.3, Lymphocytes # (Auto) 1.8, Monocytes # ( Auto) 0.3, Eosinophils # (Auto) 0.3, Basophils # (Auto) 0.0 Microbiology Microbiology 12/04/16 Urine Culture - Final, Complete Pseudomonas Aeruginosa 12/04/16 Gram Stain - Final, Complete 12/04/16 Wound Culture - Final, Complete Staph.aureus Methicillin Resis REYNA HERNANDEZ Dec 14, 2016 13:09
[2016-12-14] MEDS: LORazepam 0.5 MG TAB PO PRN ×2 (13:38→22:45)
[2016-12-14 14:00] VITALS: BP 158/78
[2016-12-14] MEDS: VENLAFAXINE **XR** 75MG CAPSULE PO SCH (20:42)
[2016-12-14] MEDS: PRAMIPEXOLE 1 MG TAB PO SCH (20:42)
[2016-12-14] MEDS: ANUSOL HC CREAM 30GM TOP SCH (20:42)
[2016-12-14 22:00] VITALS: BP 109/55
[2016-12-15 05:35] LABS: BASO % 0.4 % (0.0-1.0); EOS # 0.3 K/mm3 (0.0-0.50); EOS % 4.1 % (0.0-3.0); LARGE UNSTAINED CELL # 0.1 K/mm3 (0.0-0.4); LYMPH # 1.9 K/mm3 (1.5-4.5); LYMPH % 25.1 % (24.0-44.0); MEAN CORPUSCULAR HEMOGLOBIN 25.8 pg (27.0-33.0); MEAN CORPUSCULAR HGB CONC 30.2 g/dl (32.0-36.5); MEAN CORPUSCULAR VOLUME 85.5 fl (80.0-96.0); MONO # 0.3 K/mm3 (0.0-0.8); MONO % 4.6 % (0.0-5.0); NEUTROPHILS # 4.5 K/mm3 (1.8-7.7); NEUTROPHILS % 63.9 % (36.0-66.0); PLATELET COUNT, AUTOMATED 372 k/mm3 (150-450); RED CELL DISTRIBUTION WIDTH 15.7 % (11.5-14.5)
[2016-12-15 05:42] LABS: ANION GAP 7 MEQ/L (8-16); BLOOD UREA NITROGEN 9 MG/DL (7-18); CARBON DIOXIDE LEVEL 27 MEQ/L (21-32); CHLORIDE LEVEL 109 MEQ/L (98-107); CREATININE FOR GFR 0.36 MG/DL (0.55-1.02); GLOMERULAR FILTRATION RATE > 60.0 (>39); GLUCOSE, FASTING 95 MG/DL (83-110); POTASSIUM SERUM 3.5 MEQ/L (3.5-5.1); SODIUM LEVEL 143 MEQ/L (136-145)
[2016-12-15 06:00] VITALS: BP 128/77
[2016-12-15] MEDS: LEVOTHYROXINE 0.137 MG TAB (137MCG) PO SCH (06:14)
[2016-12-15] MEDS: SYMBICORT 80/4.5MCG INHALER 6GM INH SCH ×2 (07:38→21:00)
[2016-12-15] MEDS: IPRATROPIUM 0.5MG/ALBUTEROL 2.5MG INH SOL UD 3ML (DUONEB)(J7620) NEB SCH ×4 (07:39→20:00)
[2016-12-15 10:00] VITALS: BP 116/68
[2016-12-15] MEDS: ACETAMINOPHEN TAB 650MG DOSE (2X325MG) PO PRN ×3 (10:04→20:30)
[2016-12-15] MEDS: SCOPOLAMINE 1.5 MG TRANSDERMAL TOP SCH (10:09)
[2016-12-15] MEDS: SENOKOT S TAB PO SCH ×2 (10:10→20:30)
[2016-12-15] MEDS: ASPIRIN 81 MG ENTERIC TAB PO SCH (10:10)
[2016-12-15] MEDS: OMEPRAZOLE 20 MG CAP PO SCH (10:10)
[2016-12-15] MEDS: FAMOTIDINE 20 MG TAB PO SCH ×2 (10:10→20:29)
[2016-12-15] MEDS: CLOPIDOGREL 75 MG TAB PO SCH (10:10)
[2016-12-15] MEDS: METOPROLOL SUCC (TopROL XL) 100MG *XL* TAB PO SCH (10:11)
[2016-12-15] MEDS: ANUSOL HC CREAM 30GM TOP SCH ×2 (10:11→21:04)
[2016-12-15] MEDS: ENOXAPARIN 40 MG/0.4 ML SYRINGE (J1650) SC SCH (10:41)
--- NOTE | 2016-12-15 12:45 | IPNPDOC ---
Date Seen The patient was seen on 12/15/16. Progress Note Hospitalist Progress Note Subjective: Overnight, the patient was evidently asking to get up and walk the halls. Nursing staff reports she continues to have episodes of confusion. Objective: Physical Exam: Vitals: Vital Sign - Last 24 Hours 12/14/16 12/14/16 12/15/16 12/15/16 14:00 22:00 06:00 10:00 Temp 97.6 98.2 98.7 98.1 Pulse 87 94 88 92 Resp 17 18 16 16 B/P 158/78 109/55 128/77 116/68 Pulse Ox 96 97 93 93 O2 Delivery Room Air Room Air Room Air Room Air 12/15/16 10:11 Pulse 92 B/P 116/68 General: aWake, alert, no acute distress HEENT: Normocephalic, atraumatic, extraocular movements intact CV: Regular rate and rhythm Lungs: Clear to auscultation bilaterally, no wheeze Abd: soft, non distended, TTP along old surgical scar Extremities: Bilateral AKA's Neuro: Alert and oriented 3, normal speech but clearly still delirious at times as she was asking last night to walk the halls Skin: back has a diffuse macular rash Psych: normal mood and affect Labs and Imaging: Laboratory Tests 12/15/16 04:58 Calcium Level 9.0, Red Blood Count 4.06, Mean Corpuscular Volume 85.5, Mean Corpuscular Hemoglobin 25.8 L, Mean Corpuscular Hemoglobin Concent 30.2 L, Red Cell Distribution Width 15.7 H, Neutrophils (%) (Auto) 63.9, Lymphocytes (%) ( Auto) 25.1, Monocytes (%) (Auto) 4.6, Eosinophils (%) (Auto) 4.1 H, Basophils (% ) (Auto) 0.4, Neutrophils # (Auto) 4.5, Lymphocytes # (Auto) 1.9, Monocytes # ( Auto) 0.3, Eosinophils # (Auto) 0.3, Basophils # (Auto) 0.0 Assessment and Plan: 71-year-old female with hypertension, hypothyroidism, depression, hyperlipidemia , CAD status post CABG, history of bilateral AKA who recently left the care home she was living in [place] as she felt she was not receiving quality care there. After approximately 10 days of living with a friend, she presented to the emergency department because she was concerned that an oral antibiotic had not taking care of a urine infection, as well as feeling like she was not able to continue living with her friend, since her friend lives on the third floor and she is a bilateral amputee. Recently, she has developed waxing and waning delirium. 1. UTI: Urine culture is growing Pseudomonas. The patient is afebrile and has a normal white count. She is now s/p 7 days of merrem. 2. Bilateral AKA's: The patient is overall a poor historian, and is not able to explain most of her surgical scars. She thinks that she had bilateral leg amputations within the last year as a complication of having tripped and fallen and hit her head. 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 As an outpatient, she will need evaluation by a vascular surgeon. There was initially some concern that the patient had an infection of her stumps, however, after Dr. Gama's evaluation, he feels that this represents nonhealing wounds, that are likely colonized, and she would not benefit from continuing an antibiotic. She will need follow-up at the wound care clinic upon discharge. Dressing changes as per Dr. Gama 3. Pressure ulcer of the sacrum: Dressing changes as per Dr. Gama. 4. Hypothyroidism: Continue home Synthroid. She'll need to have thyroid function studies rechecked as an outpatient in 6 weeks, as her free T4 was mildly elevated. 5. Hypertension: Continue metoprolol. 6. Depression: Continue home Effexor, Ativan and Mirapex. 7. CAD status post CABG, hyperlipidemia: Continue home aspirin, Plavix, beta iraida. She is evidently allergic to statins. 8. Presumed COPD: The patient does not report having COPD, but she is a poor historian, and since she reports taking Symbicort, Combivent, DuoNeb's at home, I suspect that she has underlying COPD. We'll continue her home medications. 9. Left sided abd pain on exam: Patient denies nausea and vomiting; CT abd/pel was unremarkable. I think this may be due to adhesions/scar tissue from prior abdominal surgery as most of her TTP is along an old surgical scar. 10. Waxing and waning Delirium: Etiology is unclear. Infection seems unlikely as the patient has been afebrile with a normal white count, and has been on merrem for the past week. We stopped all narcotics, and cut back on her ativan , as well as stopped oral benadryl. Continue to monitor. Sitter if necessary. Fell out of bed the morning of 12/13 while she was confused, but CT of head is unremarkable. We have seen some improvement in the first 24H after changing her meds; continue to monitor. She seems to have a lot of trouble at night, so we will attempt nightly remeron. 11. Rash on back: etiology unclear. Potentially drug reaction to merrem. If this is the case, should begin clearing soon as she received her last dose of merrem on 12/13. Topical benadryl for itching. BID hydrocortisone cream. DVT prophylaxis: Lovenox Dispo: Pending resolution of her delirium. The patient does not currently have a safe place to live. [facility] is following along and will be helping us seek a safe discharge for her. VS, I&O, 24H, [facility] Vital Signs/I&O Vital Signs Date Time Temp Pulse Resp B/P Pulse Ox O2 Delivery O2 Flow Rate FiO2 12/15/16 10:11 92 116/68 12/15/16 10:00 98.1 16 93 Room Air I&O- Last 24 Hours up to 6 AM 12/15/16 06:00 Intake Total 420 ml Output Total 275 ml Balance 145 ml Laboratory Data 24H LABS Laboratory Tests 2 12/15/16 04:58: Anion Gap 7L, White Blood Count 7.0, Red Blood Count 4.06, Hemoglobin 10.5L, Hematocrit 34.7L, Mean Corpuscular Volume 85.5, Mean Corpuscular Hemoglobin 25.8L, Mean Corpuscular Hemoglobin Concent 30.2L, Red Cell Distribution Width 15.7H, Platelet Count 372, Neutrophils (%) (Auto) 63.9, Lymphocytes (%) (Auto) 25.1, Monocytes (%) (Auto) 4.6, Eosinophils (%) (Auto) 4.1H, Basophils (%) (Auto ) 0.4, Neutrophils # (Auto) 4.5, Lymphocytes # (Auto) 1.9, Monocytes # (Auto) 0.3, Eosinophils # (Auto) 0.3, Basophils # (Auto) 0.0, Blood Urea Nitrogen 9, Creatinine 0.36L, Sodium Level 143, Potassium Level 3.5, Chloride Level 109H, Carbon Dioxide Level 27, Calcium Level 9.0, Glomerular Filtration Rate > 60.0, Large Unclassified Cells # 0.1, Large Unclassified Cells % 2.0, Magnesium Level 2.0 CBC/BMP Laboratory Tests 12/15/16 04:58 Calcium Level 9.0, Red Blood Count 4.06, Mean Corpuscular Volume 85.5, Mean Corpuscular Hemoglobin 25.8 L, Mean Corpuscular Hemoglobin Concent 30.2 L, Red Cell Distribution Width 15.7 H, Neutrophils (%) (Auto) 63.9, Lymphocytes (%) ( Auto) 25.1, Monocytes (%) (Auto) 4.6, Eosinophils (%) (Auto) 4.1 H, Basophils (% ) (Auto) 0.4, Neutrophils # (Auto) 4.5, Lymphocytes # (Auto) 1.9, Monocytes # ( Auto) 0.3, Eosinophils # (Auto) 0.3, Basophils # (Auto) 0.0 REYNA HERNANDEZ Dec 15, 2016 12:45
[2016-12-15 14:00] VITALS: BP 116/70
[2016-12-15] MEDS: LORazepam 0.5 MG TAB PO PRN (14:54)
[2016-12-15] MEDS: SANTYL OINT 30GM TOP PRN ×2 (15:55→18:46)
[2016-12-15] MEDS: MIRTAZAPINE 7.5MG PER 1/2 TABLET PO SCH (20:29)
[2016-12-15] MEDS: PRAMIPEXOLE 1 MG TAB PO SCH (20:29)
[2016-12-15] MEDS: VENLAFAXINE **XR** 75MG CAPSULE PO SCH (20:30)
[2016-12-15 22:00] VITALS: BP 119/71
[2016-12-16] MEDS: LEVOTHYROXINE 0.137 MG TAB (137MCG) PO SCH (05:21)
[2016-12-16 05:39] LABS: BASO % 0.3 % (0.0-1.0); EOS # 0.3 K/mm3 (0.0-0.50); EOS % 4.1 % (0.0-3.0); LARGE UNSTAINED CELL # 0.1 K/mm3 (0.0-0.4); LARGE UNSTAINED CELL % 1.8 % (0.0-4.0); LYMPH # 1.9 K/mm3 (1.5-4.5); LYMPH % 25.1 % (24.0-44.0); MEAN CORPUSCULAR HEMOGLOBIN 26.7 pg (27.0-33.0); MEAN CORPUSCULAR HGB CONC 31.3 g/dl (32.0-36.5); MEAN CORPUSCULAR VOLUME 85.3 fl (80.0-96.0); MONO # 0.3 K/mm3 (0.0-0.8); MONO % 4.2 % (0.0-5.0); NEUTROPHILS % 64.5 % (36.0-66.0); PLATELET COUNT, AUTOMATED 346 k/mm3 (150-450); RED CELL DISTRIBUTION WIDTH 15.7 % (11.5-14.5); WHITE BLOOD COUNT 7.7 K/mm3 (4.0-10.0)
[2016-12-16 05:55] LABS: ANION GAP 7 MEQ/L (8-16); BLOOD UREA NITROGEN 10 MG/DL (7-18); CALCIUM LEVEL 8.8 MG/DL (8.8-10.2); CARBON DIOXIDE LEVEL 26 MEQ/L (21-32); CHLORIDE LEVEL 110 MEQ/L (98-107); CREATININE FOR GFR 0.39 MG/DL (0.55-1.02); GLOMERULAR FILTRATION RATE > 60.0 (>39); GLUCOSE, FASTING 102 MG/DL (83-110); MAGNESIUM LEVEL 1.7 MG/DL (1.8-2.4); POTASSIUM SERUM 3.6 MEQ/L (3.5-5.1); SODIUM LEVEL 143 MEQ/L (136-145)
[2016-12-16 06:00] VITALS: BP 93/69
[2016-12-16] MEDS: ACETAMINOPHEN TAB 650MG DOSE (2X325MG) PO PRN ×2 (07:57→18:23)
[2016-12-16] MEDS: IPRATROPIUM 0.5MG/ALBUTEROL 2.5MG INH SOL UD 3ML (DUONEB)(J7620) NEB SCH ×4 (08:00→20:00)
[2016-12-16] MEDS: SYMBICORT 80/4.5MCG INHALER 6GM INH SCH ×2 (10:05→21:09)
[2016-12-16] MEDS: ENOXAPARIN 40 MG/0.4 ML SYRINGE (J1650) SC SCH (10:11)
[2016-12-16] MEDS: METOPROLOL SUCC (TopROL XL) 100MG *XL* TAB PO SCH (10:14)
[2016-12-16] MEDS: ASPIRIN 81 MG ENTERIC TAB PO SCH (10:16)
[2016-12-16] MEDS: SENOKOT S TAB PO SCH ×2 (10:16→20:16)
[2016-12-16] MEDS: CLOPIDOGREL 75 MG TAB PO SCH (10:16)
[2016-12-16] MEDS: FAMOTIDINE 20 MG TAB PO SCH ×2 (10:16→20:17)
[2016-12-16] MEDS: OMEPRAZOLE 20 MG CAP PO SCH (10:16)
[2016-12-16] MEDS: MAG SULF 1GM/100ML (MAG RUN) 1 GM in APPROPRIATE DILUENT 1 EA IV SCH ×2 (10:18→11:23)
[2016-12-16] MEDS: ANUSOL HC CREAM 30GM TOP SCH ×2 (10:25→20:20)
[2016-12-16] MEDS: LORazepam 0.5 MG TAB PO PRN ×2 (11:23→18:23)
[2016-12-16 14:00] VITALS: BP 147/69
--- NOTE | 2016-12-16 14:47 | IPNPDOC ---
Date Seen The patient was seen on 12/16/16. Progress Note Hospitalist Progress Note Subjective: Yesterday, the patient told nursing that her and son had committed suicide, and that if she had to stay here, she was going to commit suicide. Today, she tells me that that is not what she meant. Objective: Physical Exam: Vitals: Vital Sign - Last 24 Hours 12/15/16 12/16/16 12/16/16 22:00 06:00 10:14 Temp 98.7 97.8 Pulse 62 96 90 Resp 18 19 B/P 119/71 93/69 112/72 Pulse Ox 93 97 O2 Delivery Room Air Room Air General: aWake, alert, no acute distress HEENT: Normocephalic, atraumatic, extraocular movements intact CV: Regular rate and rhythm, no murmur Lungs: Clear to auscultation bilaterally Abd: soft, non distended, TTP along old surgical scar Extremities: Bilateral AKA's Neuro: Alert and oriented 3, normal speech but still will have moments where she talks about stuff that is not real Skin: back has a diffuse macular rash Psych: can get very agitated very easily, especially when discussing when she will be discharged; yesterday she told nursing she would commit suicide if she had to stay here Labs and Imaging: Laboratory Tests 12/16/16 05:15 Calcium Level 8.8, Red Blood Count 3.95 L, Mean Corpuscular Volume 85.3, Mean Corpuscular Hemoglobin 26.7 L, Mean Corpuscular Hemoglobin Concent 31.3 L, Red Cell Distribution Width 15.7 H, Neutrophils (%) (Auto) 64.5, Lymphocytes (%) ( Auto) 25.1, Monocytes (%) (Auto) 4.2, Eosinophils (%) (Auto) 4.1 H, Basophils (% ) (Auto) 0.3, Neutrophils # (Auto) 5.0, Lymphocytes # (Auto) 1.9, Monocytes # ( Auto) 0.3, Eosinophils # (Auto) 0.3, Basophils # (Auto) 0.0 Assessment and Plan: 71-year-old female with hypertension, hypothyroidism, depression, hyperlipidemia , CAD status post CABG, history of bilateral AKA who recently left the [facility] she was living in [place] as she felt she was not receiving quality care there. After approximately 10 days of living with a friend, she presented to the emergency department because she was concerned that an oral antibiotic had not taking care of a urine infection, as well as feeling like she was not able to continue living with her friend, since her friend lives on the third floor and she is a bilateral amputee. Recently, she has developed waxing and waning delirium, and on Saturday, she mentioned she would commit suicide if she had to stay here. 1. UTI: Urine culture is growing Pseudomonas. The patient is afebrile and has a normal white count. She is now s/p 7 days of merrem. 2. Bilateral AKA's: The patient is overall a poor historian, and is not able to explain most of her surgical scars. She thinks that she had bilateral leg amputations within the last year as a complication of having tripped and fallen and hit her head. 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 As an outpatient, she will need evaluation by a vascular surgeon. There was initially some concern that the patient had an infection of her stumps, however, after Dr. Gama's evaluation, he feels that this represents nonhealing wounds, that are likely colonized, and she would not benefit from continuing an antibiotic. She will need follow-up at the wound care clinic upon discharge. Dressing changes as per Dr. Gama 3. Pressure ulcer of the sacrum: Dressing changes as per Dr. Gama. 4. Hypothyroidism: Continue home Synthroid. She'll need to have thyroid function studies rechecked as an outpatient in 6 weeks, as her free T4 was mildly elevated. 5. Hypertension: Continue metoprolol. 6. Depression: Continue home Effexor, Ativan and Mirapex. 7. CAD status post CABG, hyperlipidemia: Continue home aspirin, Plavix, beta iraida. She is evidently allergic to statins. 8. Presumed COPD: The patient does not report having COPD, but she is a poor historian, and since she reports taking Symbicort, Combivent, DuoNeb's at home, I suspect that she has underlying COPD. We'll continue her home medications. 9. Left sided abd pain on exam: Patient denies nausea and vomiting; CT abd/pel was unremarkable. I think this may be due to adhesions/scar tissue from prior abdominal surgery as most of her TTP is along an old surgical scar. 10. Waxing and waning Delirium: Etiology is unclear. Infection seems unlikely as the patient has been afebrile with a normal white count, and has been on merrem for the past week. We stopped all narcotics, and cut back on her ativan , as well as stopped oral benadryl. Continue to monitor. Sitter if necessary. Fell out of bed the morning of 12/13 while she was confused, but CT of head is unremarkable. We have seen some improvement in the first 24H after changing her meds; continue to monitor. She seems to have a lot of trouble at night, so we have added nightly remeron. Psych to evaluate her today. 11. Rash on back: etiology unclear. Potentially drug reaction to merrem. If this is the case, should begin clearing soon as she received her last dose of merrem on 12/13. Topical benadryl for itching. BID hydrocortisone cream. 12. Suicidal ideation: Continue suicide precautions and sitter. I have spoken with Dr. Neal of psychiatry, who has agreed to evaluate her. DVT prophylaxis: Lovenox Dispo: Pending psych evaluation. The patient does not currently have a safe place to live. [facility] is following along and will be helping us seek a safe discharge for her. VS, I&O, 24H, Fishbone Vital Signs/I&O Vital Signs Date Time Temp Pulse Resp B/P Pulse Ox O2 Delivery O2 Flow Rate FiO2 12/16/16 10:14 90 112/72 12/16/16 06:00 97.8 19 97 Room Air I&O- Last 24 Hours up to 6 AM 12/16/16 05:59 Intake Total 880 ml Output Total 450 ml Balance 430 ml Laboratory Data 24H LABS Laboratory Tests 2 12/16/16 05:15: Anion Gap 7L, White Blood Count 7.7, Red Blood Count 3.95L, Hemoglobin 10.5L, Hematocrit 33.7L, Mean Corpuscular Volume 85.3, Mean Corpuscular Hemoglobin 26.7L, Mean Corpuscular Hemoglobin Concent 31.3L, Red Cell Distribution Width 15.7H, Platelet Count 346, Neutrophils (%) (Auto) 64.5, Lymphocytes (%) (Auto) 25.1, Monocytes (%) (Auto) 4.2, Eosinophils (%) (Auto) 4.1H, Basophils (%) (Auto ) 0.3, Neutrophils # (Auto) 5.0, Lymphocytes # (Auto) 1.9, Monocytes # (Auto) 0.3, Eosinophils # (Auto) 0.3, Basophils # (Auto) 0.0, Blood Urea Nitrogen 10, Creatinine 0.39L, Sodium Level 143, Potassium Level 3.6, Chloride Level 110H, Carbon Dioxide Level 26, Calcium Level 8.8, Glomerular Filtration Rate > 60.0, Large Unclassified Cells # 0.1, Large Unclassified Cells % 1.8, Magnesium Level 1.7L CBC/BMP Laboratory Tests 12/16/16 05:15 Calcium Level 8.8, Red Blood Count 3.95 L, Mean Corpuscular Volume 85.3, Mean Corpuscular Hemoglobin 26.7 L, Mean Corpuscular Hemoglobin Concent 31.3 L, Red Cell Distribution Width 15.7 H, Neutrophils (%) (Auto) 64.5, Lymphocytes (%) ( Auto) 25.1, Monocytes (%) (Auto) 4.2, Eosinophils (%) (Auto) 4.1 H, Basophils (% ) (Auto) 0.3, Neutrophils # (Auto) 5.0, Lymphocytes # (Auto) 1.9, Monocytes # ( Auto) 0.3, Eosinophils # (Auto) 0.3, Basophils # (Auto) 0.0 REYNA HERNANDEZ Dec 16, 2016 14:46
[2016-12-16] MEDS: NYSTATIN 100,000 UNITS/GM TOPICAL PWD 15 GM TOP SCH ×2 (17:50→20:20)
[2016-12-16] MEDS: MIRTAZAPINE 7.5MG PER 1/2 TABLET PO SCH (20:17)
[2016-12-16] MEDS: PRAMIPEXOLE 1 MG TAB PO SCH (20:17)
[2016-12-16] MEDS: VENLAFAXINE **XR** 75MG CAPSULE PO SCH (20:17)
[2016-12-16 22:00] VITALS: BP 122/68
[2016-12-17] MEDS: LORazepam 0.5 MG TAB PO PRN (03:51)
[2016-12-17] MEDS: LEVOTHYROXINE 0.137 MG TAB (137MCG) PO SCH (05:52)
[2016-12-17 06:00] VITALS: BP 139/75
[2016-12-17 06:21] LABS: BASO % 0.3 % (0.0-1.0); EOS # 0.4 K/mm3 (0.0-0.50); EOS % 5.5 % (0.0-3.0); LARGE UNSTAINED CELL # 0.1 K/mm3 (0.0-0.4); LARGE UNSTAINED CELL % 1.5 % (0.0-4.0); MEAN CORPUSCULAR HEMOGLOBIN 25.9 pg (27.0-33.0); MEAN CORPUSCULAR HGB CONC 30.4 g/dl (32.0-36.5); MEAN CORPUSCULAR VOLUME 85.3 fl (80.0-96.0); MONO # 0.4 K/mm3 (0.0-0.8); MONO % 4.7 % (0.0-5.0); NEUTROPHILS # 4.7 K/mm3 (1.8-7.7); PLATELET COUNT, AUTOMATED 345 k/mm3 (150-450); RED CELL DISTRIBUTION WIDTH 15.7 % (11.5-14.5); WHITE BLOOD COUNT 7.4 K/mm3 (4.0-10.0)
[2016-12-17 06:31] LABS: ANION GAP 8 MEQ/L (8-16); BLOOD UREA NITROGEN 9 MG/DL (7-18); CALCIUM LEVEL 8.5 MG/DL (8.8-10.2); CARBON DIOXIDE LEVEL 24 MEQ/L (21-32); CHLORIDE LEVEL 109 MEQ/L (98-107); CREATININE FOR GFR 0.39 MG/DL (0.55-1.02); GLOMERULAR FILTRATION RATE > 60.0 (>39); GLUCOSE, FASTING 104 MG/DL (83-110); MAGNESIUM LEVEL 1.8 MG/DL (1.8-2.4); POTASSIUM SERUM 3.7 MEQ/L (3.5-5.1); SODIUM LEVEL 141 MEQ/L (136-145)
[2016-12-17] MEDS: IPRATROPIUM 0.5MG/ALBUTEROL 2.5MG INH SOL UD 3ML (DUONEB)(J7620) NEB SCH ×4 (08:00→18:55)
[2016-12-17] MEDS: ENOXAPARIN 40 MG/0.4 ML SYRINGE (J1650) SC SCH (08:16)
[2016-12-17] MEDS: ASPIRIN 81 MG ENTERIC TAB PO SCH (08:16)
[2016-12-17] MEDS: FAMOTIDINE 20 MG TAB PO SCH ×2 (08:16→21:00)
[2016-12-17] MEDS: CLOPIDOGREL 75 MG TAB PO SCH (08:16)
[2016-12-17] MEDS: ANUSOL HC CREAM 30GM TOP SCH ×2 (08:17→22:42)
[2016-12-17] MEDS: NYSTATIN 100,000 UNITS/GM TOPICAL PWD 15 GM TOP SCH ×3 (08:17→22:42)
[2016-12-17] MEDS: SENOKOT S TAB PO SCH ×2 (08:17→21:00)
[2016-12-17] MEDS: OMEPRAZOLE 20 MG CAP PO SCH (08:17)
[2016-12-17] MEDS: METOPROLOL SUCC (TopROL XL) 100MG *XL* TAB PO SCH (08:18)
[2016-12-17] MEDS: SYMBICORT 80/4.5MCG INHALER 6GM INH SCH ×2 (08:21→22:04)
[2016-12-17] MEDS: ACETAMINOPHEN TAB 650MG DOSE (2X325MG) PO PRN ×3 (13:04→23:43)
[2016-12-17] MEDS: SANTYL OINT 30GM TOP PRN (13:05)
[2016-12-17 14:00] VITALS: BP 128/71
--- NOTE | 2016-12-17 15:49 | IPNPDOC ---
Date Seen The patient was seen on 12/17/16. Progress Note Hospitalist Progress Note Subjective: Patient has no complaints. She is calm today. Objective: Physical Exam: Vitals: Vital Sign - Last 24 Hours 12/16/16 12/17/16 12/17/16 12/17/16 22:00 06:00 08:18 14:00 Temp 98.0 98.3 98.6 Pulse 17 79 90 109 Resp 17 17 20 B/P 122/68 139/75 167/77 128/71 Pulse Ox 97 94 96 O2 Delivery Room Air Room Air Room Air General: aWake, alert, no acute distress HEENT: Normocephalic, atraumatic, extraocular movements intact CV: Regular rate and rhythm Lungs: Clear to auscultation bilaterally, no wheeze Abd: soft, non distended, TTP along old surgical scar Extremities: Bilateral AKA's Neuro: Alert and oriented 3, normal speech Skin: back has a diffuse macular rash Psych: calm today Labs and Imaging: Laboratory Tests 12/17/16 05:56 Calcium Level 8.5 L, Red Blood Count 4.07, Mean Corpuscular Volume 85.3, Mean Corpuscular Hemoglobin 25.9 L, Mean Corpuscular Hemoglobin Concent 30.4 L, Red Cell Distribution Width 15.7 H, Neutrophils (%) (Auto) 63.0, Lymphocytes (%) ( Auto) 25.0, Monocytes (%) (Auto) 4.7, Eosinophils (%) (Auto) 5.5 H, Basophils (% ) (Auto) 0.3, Neutrophils # (Auto) 4.7, Lymphocytes # (Auto) 2.0, Monocytes # ( Auto) 0.4, Eosinophils # (Auto) 0.4, Basophils # (Auto) 0.0 Assessment and Plan: 71-year-old female with hypertension, hypothyroidism, depression, hyperlipidemia , CAD status post CABG, history of bilateral AKA who recently left the prison she was living in [place] as she felt she was not receiving quality care there. After approximately 10 days of living with a friend, she presented to the emergency department because she was concerned that an oral antibiotic had not taking care of a urine infection, as well as feeling like she was not able to continue living with her friend, since her friend lives on the third floor and she is a bilateral amputee. Recently, she has developed waxing and waning delirium, and on Saturday, she mentioned she would commit suicide if she had to stay here. 1. UTI: Urine culture is growing Pseudomonas. The patient is afebrile and has a normal white count. She is now s/p 7 days of merrem. 2. Bilateral AKA's: The patient is overall a poor historian, and is not able to explain most of her surgical scars. She thinks that she had bilateral leg amputations within the last year as a complication of having tripped and fallen and hit her head. 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 As an outpatient, she will need evaluation by a vascular surgeon. There was initially some concern that the patient had an infection of her stumps, however, after Dr. Gama's evaluation, he feels that this represents nonhealing wounds, that are likely colonized, and she would not benefit from continuing an antibiotic. She will need follow-up at the wound care clinic upon discharge. Dressing changes as per Dr. Gama 3. Pressure ulcer of the sacrum: Dressing changes as per Dr. Gama. 4. Hypothyroidism: Continue home Synthroid. She'll need to have thyroid function studies rechecked as an outpatient in 6 weeks, as her free T4 was mildly elevated. 5. Hypertension: Continue metoprolol. 6. Depression: Continue home Effexor, Ativan and Mirapex. 7. CAD status post CABG, hyperlipidemia: Continue home aspirin, Plavix, beta iraida. She is evidently allergic to statins. 8. Presumed COPD: The patient does not report having COPD, but she is a poor historian, and since she reports taking Symbicort, Combivent, DuoNeb's at home, I suspect that she has underlying COPD. We'll continue her home medications. 9. Left sided abd pain on exam: Patient denies nausea and vomiting; CT abd/pel was unremarkable. I think this may be due to adhesions/scar tissue from prior abdominal surgery as most of her TTP is along an old surgical scar. 10. MDD with psychosis: Patient has demonstrated episodes of lucidity which can quickly devolve into episodes where she is not talking in reality. On Saturday, she made a comment about committing suicide. She was evaluated by Dr. Neal of psychiatry who believes she has MDD with psychosis. She has recommended increasing her effexor and adding ability. She also noted that the patient would benefit from psych stabilization, but that the [facility] unit does not currently have availability. Continue sitter and suicide precautions. 11. Rash on back: etiology unclear. Potentially drug reaction to merrem. If this is the case, should begin clearing soon as she received her last dose of merrem on 12/13. Topical benadryl for itching. BID hydrocortisone cream. DVT prophylaxis: Lovenox Dispo: Pending psych bed availability. The patient does not currently have a safe place to live. [facility] is following along and will be helping us seek a safe discharge for her. VS, I&O, 24H, Fishbone Vital Signs/I&O Vital Signs Date Time Temp Pulse Resp B/P Pulse Ox O2 Delivery O2 Flow Rate FiO2 12/17/16 14:00 98.6 109 20 128/71 96 Room Air I&O- Last 24 Hours up to 6 AM 12/17/16 06:00 Intake Total 440 ml Output Total 1360 ml Balance -920 ml Laboratory Data 24H LABS Laboratory Tests 2 12/17/16 05:56: Anion Gap 8, White Blood Count 7.4, Red Blood Count 4.07, Hemoglobin 10.6L, Hematocrit 34.7L, Mean Corpuscular Volume 85.3, Mean Corpuscular Hemoglobin 25.9L, Mean Corpuscular Hemoglobin Concent 30.4L, Red Cell Distribution Width 15.7H, Platelet Count 345, Neutrophils (%) (Auto) 63.0, Lymphocytes (%) (Auto) 25.0, Monocytes (%) (Auto) 4.7, Eosinophils (%) (Auto) 5.5H, Basophils (%) (Auto ) 0.3, Neutrophils # (Auto) 4.7, Lymphocytes # (Auto) 2.0, Monocytes # (Auto) 0.4, Eosinophils # (Auto) 0.4, Basophils # (Auto) 0.0, Blood Urea Nitrogen 9, Creatinine 0.39L, Sodium Level 141, Potassium Level 3.7, Chloride Level 109H, Carbon Dioxide Level 24, Calcium Level 8.5L, Glomerular Filtration Rate > 60.0, Large Unclassified Cells # 0.1, Large Unclassified Cells % 1.5, Magnesium Level 1.8 CBC/BMP Laboratory Tests 12/17/16 05:56 Calcium Level 8.5 L, Red Blood Count 4.07, Mean Corpuscular Volume 85.3, Mean Corpuscular Hemoglobin 25.9 L, Mean Corpuscular Hemoglobin Concent 30.4 L, Red Cell Distribution Width 15.7 H, Neutrophils (%) (Auto) 63.0, Lymphocytes (%) ( Auto) 25.0, Monocytes (%) (Auto) 4.7, Eosinophils (%) (Auto) 5.5 H, Basophils (% ) (Auto) 0.3, Neutrophils # (Auto) 4.7, Lymphocytes # (Auto) 2.0, Monocytes # ( Auto) 0.4, Eosinophils # (Auto) 0.4, Basophils # (Auto) 0.0 REYNA HERNANDEZ Dec 17, 2016 15:49
[2016-12-17] MEDS: PRAMIPEXOLE 1 MG TAB PO SCH (21:00)
[2016-12-17] MEDS ORDERED: VENLAFAXINE **XR** 75MG CAPSULE PO SCH (21:00)
[2016-12-17] MEDS: ARIPiprazole 2 MG TAB PO SCH (21:00)
[2016-12-17] MEDS: MIRTAZAPINE 7.5MG PER 1/2 TABLET PO SCH (21:00)
[2016-12-17] MEDS ORDERED: LORazepam 2 MG/ML VIAL (J2060) IV PRN (21:30)
[2016-12-17 22:00] VITALS: BP 101/63
[2016-12-18] MEDS: LORazepam 0.5 MG TAB PO PRN ×3 (04:32→22:58)
[2016-12-18] MEDS: LEVOTHYROXINE 0.137 MG TAB (137MCG) PO SCH (05:36)
[2016-12-18 06:00] VITALS: BP 154/81
[2016-12-18 06:58] LABS: BASO % 0.3 % (0.0-1.0); EOS # 0.4 K/mm3 (0.0-0.50); EOS % 7.2 % (0.0-3.0); LARGE UNSTAINED CELL # 0.1 K/mm3 (0.0-0.4); LARGE UNSTAINED CELL % 1.7 % (0.0-4.0); LYMPH # 1.8 K/mm3 (1.5-4.5); LYMPH % 32.1 % (24.0-44.0); MEAN CORPUSCULAR HEMOGLOBIN 26.5 pg (27.0-33.0); MEAN CORPUSCULAR HGB CONC 31.3 g/dl (32.0-36.5); MEAN CORPUSCULAR VOLUME 84.8 fl (80.0-96.0); MONO # 0.3 K/mm3 (0.0-0.8); MONO % 5.4 % (0.0-5.0); NEUTROPHILS # 2.9 K/mm3 (1.8-7.7); NEUTROPHILS % 53.2 % (36.0-66.0); PLATELET COUNT, AUTOMATED 343 k/mm3 (150-450); RED CELL DISTRIBUTION WIDTH 15.6 % (11.5-14.5); WHITE BLOOD COUNT 5.5 K/mm3 (4.0-10.0)
[2016-12-18 07:15] LABS: ANION GAP 9 MEQ/L (8-16); BLOOD UREA NITROGEN 11 MG/DL (7-18); CALCIUM LEVEL 8.6 MG/DL (8.8-10.2); CARBON DIOXIDE LEVEL 25 MEQ/L (21-32); CHLORIDE LEVEL 109 MEQ/L (98-107); GLOMERULAR FILTRATION RATE > 60.0 (>39); GLUCOSE, FASTING 103 MG/DL (83-110); MAGNESIUM LEVEL 1.7 MG/DL (1.8-2.4); POTASSIUM SERUM 3.6 MEQ/L (3.5-5.1); SODIUM LEVEL 143 MEQ/L (136-145)
[2016-12-18] MEDS: IPRATROPIUM 0.5MG/ALBUTEROL 2.5MG INH SOL UD 3ML (DUONEB)(J7620) NEB SCH ×4 (08:00→20:00)
[2016-12-18] MEDS: ANUSOL HC CREAM 30GM TOP SCH ×2 (09:00→20:02)
[2016-12-18] MEDS: NYSTATIN 100,000 UNITS/GM TOPICAL PWD 15 GM TOP SCH ×3 (09:00→20:02)
[2016-12-18] MEDS: SYMBICORT 80/4.5MCG INHALER 6GM INH SCH ×2 (09:00→20:12)
[2016-12-18] MEDS: FAMOTIDINE 20 MG TAB PO SCH ×2 (09:34→20:02)
[2016-12-18] MEDS: ENOXAPARIN 40 MG/0.4 ML SYRINGE (J1650) SC SCH (09:34)
[2016-12-18] MEDS: SENOKOT S TAB PO SCH ×2 (09:34→20:02)
[2016-12-18] MEDS: ASPIRIN 81 MG ENTERIC TAB PO SCH (09:34)
[2016-12-18] MEDS: VENLAFAXINE **XR** 75MG CAPSULE PO SCH (09:34)
[2016-12-18] MEDS: OMEPRAZOLE 20 MG CAP PO SCH (09:34)
[2016-12-18] MEDS: METOPROLOL SUCC (TopROL XL) 100MG *XL* TAB PO SCH (09:35)
[2016-12-18] MEDS: CLOPIDOGREL 75 MG TAB PO SCH (09:35)
[2016-12-18] MEDS: SCOPOLAMINE 1.5 MG TRANSDERMAL TOP SCH (12:18)
[2016-12-18] MEDS: ACETAMINOPHEN TAB 650MG DOSE (2X325MG) PO PRN ×2 (12:44→20:03)
[2016-12-18 14:00] VITALS: BP 135/69
--- NOTE | 2016-12-18 15:06 | IPN ---
DATE: 12/18/2016 A 71-year-old female seen at bedside resting comfortably. No complaints today. She does appear to be slightly agitated when she brings up the topic of returning home. Was started on Abilify and Wellbutrin yesterday by psychiatry. OBJECTIVE: Temperature is 97.9, pulse 107, respiratory rate 18, blood pressure 154/81, SpO2 is 93% on room air. GENERAL: The patient appears to be in no acute distress, is alert. HEENT: Unremarkable. LUNGS: Clear. HEART: Regular rate and rhythm. ABDOMEN: Soft. EXTREMITIES: She does have bilateral mcrsu-ayq-pnyh amputations (AKAs). White count 5.5, hemoglobin 10.9, platelets 343. Sodium 143, potassium 3.6, chloride 109, bicarbonate 25, anion gap 9, BUN 11, creatinine 0.4, glucose 103, magnesium 1.7. ASSESSMENT/PLAN: 1. Urinary tract infection with urine culture positive for Pseudomonas. She has finished her antibiotics currently. 2. Bilateral pzkyd-pak-fqoe amputations (AKAs). She is doing well. She is a poor historian. Dr. Gama is a reimbursement consultant regarding her chronic wounds that were present on admission. Likely colonized, benefited from continued antibiotic which she has finished this point 3. Pressure ulcer of the sacrum. Dressing changes per Dr. Lakhani. 4. Hypothyroidism. Continue Synthroid. Can have repeat outpatient T4 in six weeks, since it was mildly elevated. 5. Hypertension. Continue metoprolol. 6. Depression. Continue with current medications. 7. Coronary artery disease by history status post coronary artery bypass graft (CABG) procedure. Doing well otherwise. 8. Left side abdominal pain on examination, which is resolved. 9. Major depression with psychosis. Appreciate Dr. Neal's evaluation. She has been started on Abilify. We will see how she does. I would like to see how she does over the next couple of days. Dr. Neal had noted that the patient would benefit from psychiatric stabilization. We did have her on a sitter and suicide precautions. I would like to see how she does over the next few days on the Abilify and then reevaluate this. She currently has no suicidal ideation but we will leave a sitter in place for the time being. 10. Rash on the back. Unclear etiology. Continue with topical Benadryl and twice a day dosing of hydrocortisone cream 11. Deep venous thrombosis (DVT) prophylaxis. On Lovenox. DISPOSITION: There is no psychiatric bed available currently. She has been started on medications above for psychiatric stabilization. [facility] is following along and we will work together try to determine a safe discharge plan for her.
[2016-12-18] MEDS: MIRTAZAPINE 7.5MG PER 1/2 TABLET PO SCH (20:02)
[2016-12-18] MEDS: ARIPiprazole 2 MG TAB PO SCH (20:02)
[2016-12-18] MEDS: PRAMIPEXOLE 1 MG TAB PO SCH (20:02)
[2016-12-18 22:00] VITALS: BP 138/85
[2016-12-18] MEDS: SANTYL OINT 30GM TOP PRN (23:24)
[2016-12-19 01:35] VITALS: BP 141/69
[2016-12-19] MEDS: LEVOTHYROXINE 0.137 MG TAB (137MCG) PO SCH (05:48)
[2016-12-19] MEDS: SYMBICORT 80/4.5MCG INHALER 6GM INH SCH ×2 (07:15→19:46)
[2016-12-19] MEDS: IPRATROPIUM 0.5MG/ALBUTEROL 2.5MG INH SOL UD 3ML (DUONEB)(J7620) NEB SCH ×4 (07:15→18:41)
[2016-12-19 07:18] LABS: BASO % 0.8 % (0.0-1.0); EOS # 0.5 K/mm3 (0.0-0.50); EOS % 8.8 % (0.0-3.0); LARGE UNSTAINED CELL # 0.1 K/mm3 (0.0-0.4); LYMPH # 1.8 K/mm3 (1.5-4.5); LYMPH % 29.9 % (24.0-44.0); MEAN CORPUSCULAR HEMOGLOBIN 25.7 pg (27.0-33.0); MEAN CORPUSCULAR HGB CONC 30.1 g/dl (32.0-36.5); MEAN CORPUSCULAR VOLUME 85.3 fl (80.0-96.0); MONO # 0.3 K/mm3 (0.0-0.8); MONO % 5.2 % (0.0-5.0); NEUTROPHILS % 53.3 % (36.0-66.0); PLATELET COUNT, AUTOMATED 356 k/mm3 (150-450); RED CELL DISTRIBUTION WIDTH 15.5 % (11.5-14.5); WHITE BLOOD COUNT 5.5 K/mm3 (4.0-10.0)
[2016-12-19 07:33] LABS: ANION GAP 10 MEQ/L (8-16); BLOOD UREA NITROGEN 13 MG/DL (7-18); CALCIUM LEVEL 8.8 MG/DL (8.8-10.2); CARBON DIOXIDE LEVEL 25 MEQ/L (21-32); CHLORIDE LEVEL 110 MEQ/L (98-107); GLOMERULAR FILTRATION RATE > 60.0 (>39); GLUCOSE, FASTING 114 MG/DL (83-110); MAGNESIUM LEVEL 1.6 MG/DL (1.8-2.4); POTASSIUM SERUM 3.8 MEQ/L (3.5-5.1); SODIUM LEVEL 145 MEQ/L (136-145)
[2016-12-19] MEDS: ENOXAPARIN 40 MG/0.4 ML SYRINGE (J1650) SC SCH (10:02)
[2016-12-19] MEDS: CLOPIDOGREL 75 MG TAB PO SCH (10:02)
[2016-12-19] MEDS: METOPROLOL SUCC (TopROL XL) 100MG *XL* TAB PO SCH (10:03)
[2016-12-19] MEDS: LORazepam 0.5 MG TAB PO PRN ×2 (10:04→18:10)
[2016-12-19] MEDS: SENOKOT S TAB PO SCH ×2 (10:04→20:46)
[2016-12-19] MEDS: NYSTATIN 100,000 UNITS/GM TOPICAL PWD 15 GM TOP SCH ×3 (10:04→20:48)
[2016-12-19] MEDS: VENLAFAXINE **XR** 75MG CAPSULE PO SCH (10:05)
[2016-12-19] MEDS: OMEPRAZOLE 20 MG CAP PO SCH (10:05)
[2016-12-19] MEDS: FAMOTIDINE 20 MG TAB PO SCH ×2 (10:05→20:46)
[2016-12-19] MEDS: ASPIRIN 81 MG ENTERIC TAB PO SCH (10:06)
[2016-12-19] MEDS: ACETAMINOPHEN TAB 650MG DOSE (2X325MG) PO PRN ×2 (10:07→20:47)
[2016-12-19] MEDS: ANUSOL HC CREAM 30GM TOP SCH ×2 (10:15→20:47)
[2016-12-19] MEDS: MAGNESIUM OXIDE 400 MG TAB (MAG-OX) PO SCH (13:14)
[2016-12-19 14:00] VITALS: BP 140/70
--- NOTE | 2016-12-19 16:13 | IPN ---
DATE: 12/19/2016 71-year-old female seen at bedside resting comfortably. No further issues. She does have a better appetite today and her affect seems to be much improved. OBJECTIVE: VITAL SIGNS: Temperature 97.7, pulse 90, respiratory rate is 20, BP 140/70, SPO2 is 95% on room air. GENERAL: The patient appears to be in no acute distress. She is pleasant. HEENT: Unremarkable. LUNGS: Clear. HEART: Regular rhythm. ABDOMEN: Soft. EXTREMITIES: Bilateral above knee amputation (AKA). Wounds appear to be granulating well. No further issues. LABORATORY: White count 5.5, hemoglobin 10.5, platelets are 356,000, sodium 145, potassium 3.8, chloride 110, bicarb 25, anion gap 10, BUN 13, creatinine 0.4, glucose 114, magnesium 1.6 which we will supplement. ASSESSMENT/PLAN: 1. One urinary tract infection. Urine cultures positive for Pseudomonas no further symptomatology. She is off antibiotics. 2. Bilateral AK is doing well. She does have chronic wounds. Appreciate Dr. Gaam's input. Currently taking antibiotics. 3. Pressure ulcer on sacrum present on admission. Continue dressing changes per Dr. Gama. 4. Hypothyroidism. Continue Synthroid. Repeat T4 in 6 weeks since it was mildly elevated during his hospital stay. 5. Hypertension. Continue metoprolol. 6. Depression. Continue current medications. 7. Coronary artery disease status post bypass graft doing well. No symptomatology. 8. Left side abdominal pain with exam resolved. 9. Major depression with psychosis. Appreciate Dr. Neal's evaluation. We did start her on antipsychotics recently. She does appear to have a much improved affect and will see how she does over the next 24 hours 9. Rash on her back which was unclear etiology, resolved. 10. Deep venous thrombosis (DVT) prophylaxis with Lovenox. DISPOSITION: No psychiatric beds were available when she was evaluated by psychiatry. She does appear to be responding with the Abilify. Will continue to follow her up. I spoke with [facility] ([facility] regarding her discharge planning which is unclear at this point since she may not be a safe discharge home. MARIA DEL CARMEN
[2016-12-19] MEDS: MIRTAZAPINE 7.5MG PER 1/2 TABLET PO SCH (20:46)
[2016-12-19] MEDS: ARIPiprazole 2 MG TAB PO SCH (20:46)
[2016-12-19] MEDS: PRAMIPEXOLE 1 MG TAB PO SCH (20:46)
[2016-12-19 22:00] VITALS: BP 113/74
[2016-12-20] MEDS: LORazepam 0.5 MG TAB PO PRN ×2 (04:26→16:24)
[2016-12-20] MEDS: COMBIVENT RESPIMAT 100-20MCG INHALER 4GM INH PRN (05:09)
[2016-12-20] MEDS: LEVOTHYROXINE 0.137 MG TAB (137MCG) PO SCH (05:36)
[2016-12-20] MEDS: ONDANSETRON 4 MG ORAL DISINTEGRATING TAB (S0181) PO PRN (05:36)
[2016-12-20 06:00] VITALS: BP 122/79
[2016-12-20 06:54] LABS: BASO % 0.6 % (0.0-1.0); EOS # 0.5 K/mm3 (0.0-0.50); LARGE UNSTAINED CELL # 0.1 K/mm3 (0.0-0.4); LARGE UNSTAINED CELL % 1.4 % (0.0-4.0); LYMPH # 1.9 K/mm3 (1.5-4.5); LYMPH % 27.8 % (24.0-44.0); MEAN CORPUSCULAR HEMOGLOBIN 25.4 pg (27.0-33.0); MEAN CORPUSCULAR VOLUME 84.7 fl (80.0-96.0); MONO # 0.4 K/mm3 (0.0-0.8); MONO % 5.4 % (0.0-5.0); NEUTROPHILS # 3.7 K/mm3 (1.8-7.7); NEUTROPHILS % 56.8 % (36.0-66.0); PLATELET COUNT, AUTOMATED 362 k/mm3 (150-450); RED CELL DISTRIBUTION WIDTH 15.3 % (11.5-14.5); WHITE BLOOD COUNT 6.6 K/mm3 (4.0-10.0)
[2016-12-20 07:15] LABS: ANION GAP 7 MEQ/L (8-16); BLOOD UREA NITROGEN 12 MG/DL (7-18); CALCIUM LEVEL 9.1 MG/DL (8.8-10.2); CARBON DIOXIDE LEVEL 27 MEQ/L (21-32); CHLORIDE LEVEL 109 MEQ/L (98-107); CREATININE FOR GFR 0.52 MG/DL (0.55-1.02); GLOMERULAR FILTRATION RATE > 60.0 (>39); GLUCOSE, FASTING 122 MG/DL (83-110); MAGNESIUM LEVEL 1.9 MG/DL (1.8-2.4); POTASSIUM SERUM 3.9 MEQ/L (3.5-5.1); SODIUM LEVEL 143 MEQ/L (136-145)
[2016-12-20] MEDS: SYMBICORT 80/4.5MCG INHALER 6GM INH SCH ×2 (07:44→19:56)
[2016-12-20] MEDS: IPRATROPIUM 0.5MG/ALBUTEROL 2.5MG INH SOL UD 3ML (DUONEB)(J7620) NEB SCH ×3 (07:45→20:00)
[2016-12-20] MEDS: NYSTATIN 100,000 UNITS/GM TOPICAL PWD 15 GM TOP SCH ×3 (09:58→21:07)
[2016-12-20] MEDS: FAMOTIDINE 20 MG TAB PO SCH ×2 (09:59→21:07)
[2016-12-20] MEDS: ASPIRIN 81 MG ENTERIC TAB PO SCH (09:59)
[2016-12-20] MEDS: METOPROLOL SUCC (TopROL XL) 100MG *XL* TAB PO SCH (09:59)
[2016-12-20] MEDS: MAGNESIUM OXIDE 400 MG TAB (MAG-OX) PO SCH (09:59)
[2016-12-20] MEDS: CLOPIDOGREL 75 MG TAB PO SCH (09:59)
[2016-12-20] MEDS: VENLAFAXINE **XR** 75MG CAPSULE PO SCH (09:59)
[2016-12-20] MEDS: ANUSOL HC CREAM 30GM TOP SCH ×2 (09:59→21:07)
[2016-12-20] MEDS: SENOKOT S TAB PO SCH ×2 (09:59→21:07)
[2016-12-20] MEDS: OMEPRAZOLE 20 MG CAP PO SCH (10:00)
[2016-12-20] MEDS: ENOXAPARIN 40 MG/0.4 ML SYRINGE (J1650) SC SCH (10:00)
[2016-12-20] MEDS: ACETAMINOPHEN TAB 650MG DOSE (2X325MG) PO PRN (12:11)
--- NOTE | 2016-12-20 12:53 | IPN ---
DATE OF SERVICE: 12/20/2016 A 71-year-old female seen at bedside. No overnight issues reported. She is resting comfortably. She did have a brief episode of agitation last night. Otherwise, she slept well and does appear to be doing well today. OBJECTIVE: Temperature 97.6, pulse 95, respiratory rate 17, blood pressure (BP) 122/79, SpO2 93% on room air. General: The patient appears to be in no acute distress. She is alert, pleasant. HEENT: Unremarkable. Lungs: Clear. Heart: Regular rate and rhythm. Abdomen: Soft. Extremities: Bilateral above-knee amputations (AKAs) with wound dressings, which do not appear be acutely infected or draining. LABORATORY DATA: White count 6.6, hemoglobin is 10.5, platelets 362,000. Sodium 143, potassium 3.9, chloride 109, bicarbonate 27, anion gap 7, BUN is 12, creatinine 0.52, glucose 122, TSH is 0.124. She did previously have a TSH of 0.143 and a free T4 of 1.85. I do suspect that her Synthroid needs to be adjusted. ASSESSMENT AND PLAN: 1. Urinary tract infection, positive for Pseudomonas. She has completed antibiotics. 2. Bilateral above-knee amputations, she is doing well, and chronic wounds. Appreciate Dr. Gama's input regarding dressings. 3. Hypothyroidism. It looks as if her synthroid dose on admission was a bit high and I see that Dr. Brooks titrated her to a more appropriate dose. She will need to have a thyroid panel repeated in about 6 weeks. 4. Hypertension. Continue on metoprolol with hold parameters. 5. Depression. Continue current medications. 6. Coronary artery disease, status post bypass grafting. Doing well. No symptomatology currently. 7. Left-sided abdominal pain with examination, resolved. 8. Major depression with psychosis. Appreciate Dr. Neal's evaluation. She is currently on antipsychotics, and she does appear to be showing some gradual improvement in her symptomatology. 9. Rash on her back, which is resolved. 10. Deep venous thrombosis (DVT) prophylaxis, on Lovenox. DISPOSITION: There was no current psychiatric beds available for her to be transferred to psychiatry. We did make some adjustments with adding on Abilify. She does appear to be improving and again will adjust her Synthroid. [facility] ([facility]) is on board, and we are discussing possibilities for safe discharge planning. MARIA DEL CARMEN
[2016-12-20 14:00] VITALS: BP 140/70
[2016-12-20] MEDS: traMADol 50 MG TAB PO PRN (14:23)
[2016-12-20] MEDS: FLUCONAZOLE 100 MG TAB PO SCH (14:23)
[2016-12-20] MEDS: MIRTAZAPINE 7.5MG PER 1/2 TABLET PO SCH (21:06)
[2016-12-20] MEDS: ARIPiprazole 2 MG TAB PO SCH (21:06)
[2016-12-20] MEDS: PRAMIPEXOLE 1 MG TAB PO SCH (21:07)
[2016-12-20 22:00] VITALS: BP 98/64
[2016-12-21] MEDS: LORazepam 0.5 MG TAB PO PRN ×3 (01:16→18:31)
[2016-12-21] MEDS: traMADol 50 MG TAB PO PRN ×3 (01:17→18:32)
[2016-12-21] MEDS: LEVOTHYROXINE 0.137 MG TAB (137MCG) PO SCH (05:45)
[2016-12-21 06:54] LABS: BASO % 0.5 % (0.0-1.0); EOS # 0.4 K/mm3 (0.0-0.50); EOS % 6.5 % (0.0-3.0); LARGE UNSTAINED CELL # 0.1 K/mm3 (0.0-0.4); LARGE UNSTAINED CELL % 2.1 % (0.0-4.0); LYMPH # 2.2 K/mm3 (1.5-4.5); LYMPH % 32.6 % (24.0-44.0); MEAN CORPUSCULAR HEMOGLOBIN 26.4 pg (27.0-33.0); MEAN CORPUSCULAR HGB CONC 30.8 g/dl (32.0-36.5); MEAN CORPUSCULAR VOLUME 85.7 fl (80.0-96.0); MONO # 0.3 K/mm3 (0.0-0.8); MONO % 3.9 % (0.0-5.0); NEUTROPHILS # 3.6 K/mm3 (1.8-7.7); NEUTROPHILS % 54.4 % (36.0-66.0); PLATELET COUNT, AUTOMATED 372 k/mm3 (150-450); RED CELL DISTRIBUTION WIDTH 15.4 % (11.5-14.5); WHITE BLOOD COUNT 6.7 K/mm3 (4.0-10.0)
[2016-12-21 07:06] LABS: ANION GAP 6 MEQ/L (8-16); BLOOD UREA NITROGEN 13 MG/DL (7-18); CALCIUM LEVEL 8.7 MG/DL (8.8-10.2); CARBON DIOXIDE LEVEL 28 MEQ/L (21-32); CHLORIDE LEVEL 109 MEQ/L (98-107); CREATININE FOR GFR 0.49 MG/DL (0.55-1.02); GLOMERULAR FILTRATION RATE > 60.0 (>39); GLUCOSE, FASTING 94 MG/DL (83-110); MAGNESIUM LEVEL 1.6 MG/DL (1.8-2.4); POTASSIUM SERUM 3.8 MEQ/L (3.5-5.1); SODIUM LEVEL 143 MEQ/L (136-145)
[2016-12-21] MEDS: SYMBICORT 80/4.5MCG INHALER 6GM INH SCH ×2 (07:43→19:38)
[2016-12-21] MEDS: IPRATROPIUM 0.5MG/ALBUTEROL 2.5MG INH SOL UD 3ML (DUONEB)(J7620) NEB SCH ×4 (07:46→19:38)
[2016-12-21] MEDS: METOPROLOL SUCC (TopROL XL) 100MG *XL* TAB PO SCH (10:05)
[2016-12-21] MEDS: NYSTATIN 100,000 UNITS/GM TOPICAL PWD 15 GM TOP SCH ×3 (10:05→21:32)
[2016-12-21] MEDS: FAMOTIDINE 20 MG TAB PO SCH ×2 (10:05→21:30)
[2016-12-21] MEDS: VENLAFAXINE **XR** 75MG CAPSULE PO SCH (10:05)
[2016-12-21] MEDS: ANUSOL HC CREAM 30GM TOP SCH ×2 (10:05→21:34)
[2016-12-21] MEDS: SENOKOT S TAB PO SCH ×2 (10:06→21:30)
[2016-12-21] MEDS: OMEPRAZOLE 20 MG CAP PO SCH (10:06)
[2016-12-21] MEDS: CLOPIDOGREL 75 MG TAB PO SCH (10:06)
[2016-12-21] MEDS: ASPIRIN 81 MG ENTERIC TAB PO SCH (10:06)
[2016-12-21] MEDS: MAGNESIUM OXIDE 400 MG TAB (MAG-OX) PO SCH (10:07)
[2016-12-21] MEDS: FLUCONAZOLE 100 MG TAB PO SCH (10:08)
[2016-12-21] MEDS: SCOPOLAMINE 1.5 MG TRANSDERMAL TOP SCH (10:09)
[2016-12-21] MEDS: ACETAMINOPHEN TAB 650MG DOSE (2X325MG) PO PRN ×2 (10:11→18:32)
[2016-12-21] MEDS: ENOXAPARIN 40 MG/0.4 ML SYRINGE (J1650) SC SCH (10:12)
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
[2016-12-21 14:00] VITALS: BP 114/56
--- NOTE | 2016-12-21 14:30 | IPN ---
DATE: 12/21/2016 71-year-old female seen at bedside. Her affect does continue to improve each day. She denies nausea, vomiting, chest pain. She does have a little bit of a headache in the posterior region into her neck, which she states she feels is more stiffness and she is requesting to participate more with physical therapy today to get out of bed and into a wheelchair OBJECTIVE: Temperature 97.2, pulse 85, respiratory rate is 18, blood pressure 122/79, SPO2 is 93% on room air. GENERAL: The patient appears to be in no acute distress. She is alert and oriented. Much more pleasant. HEENT: Unremarkable. LUNGS: Clear to auscultation bilaterally. HEART: Regular rate and rhythm. ABDOMEN: Soft. EXTREMITIES: No edema. No calf tenderness. LABORATORY DATA White count 6.7, hemoglobin 10.8, platelets 372,000. Sodium 143, potassium 3.8, chloride 109, bicarbonate 28, anion gap 6, BUN 13, creatinine 0.49, glucose 94, magnesium 1.6 will supplement. ASSESSMENT AND PLAN: 1. Urinary tract infection treated and completed antibiotics. 2. Major depressive disorder with some underlying psychosis. She does appear to be gradually improving. She likely will need some form of placement. Patient and family services (PFS) is involved. 3. Hypomagnesium: supplemented 4. Bilateral above-knee amputations with chronic wounds. Appreciate Dr. Gama's input. 5. Hypothyroidism. She did have her Synthroid adjusted recently and will need reevaluation of lab work in 4 to 6 weeks. 6. Hypertension. Continue metoprolol with hold parameters. 7. Depression. Continue current medications. 8. Coronary artery disease, status post bypass grafting, doing well. 9. Left sided abdominal pain, resolved. 10. Rash on her back, resolved. 11. Deep vein thrombosis (DVT) prophylaxis, on Lovenox. DISPOSITION: She gradually has shown some improvement. We will watch her through the weekend. Appreciate Dr. Neal's assistance with psychiatric issues. We will reevaluate her on Saturday to see what kind of placement needs she will have. Appreciate PFS involvement. [facility]
[2016-12-21] MEDS: MAG SULF 1GM/100ML (MAG RUN) 1 GM in APPROPRIATE DILUENT 1 EA IV SCH ×2 (15:50→18:02)
[2016-12-21] MEDS: MIRTAZAPINE 7.5MG PER 1/2 TABLET PO SCH (21:29)
[2016-12-21] MEDS: PRAMIPEXOLE 1 MG TAB PO SCH (21:30)
[2016-12-21] MEDS: ARIPiprazole 2 MG TAB PO SCH (21:30)
[2016-12-21 22:00] VITALS: BP 92/52
[2016-12-21] MEDS: COMBIVENT RESPIMAT 100-20MCG INHALER 4GM INH PRN (22:05)
[2016-12-22 06:00] VITALS: BP 98/57
[2016-12-22 06:09] LABS: BASO % 0.6 % (0.0-1.0); EOS # 0.4 K/mm3 (0.0-0.50); LARGE UNSTAINED CELL # 0.1 K/mm3 (0.0-0.4); LARGE UNSTAINED CELL % 1.6 % (0.0-4.0); LYMPH # 1.9 K/mm3 (1.5-4.5); LYMPH % 32.2 % (24.0-44.0); MEAN CORPUSCULAR HEMOGLOBIN 26.4 pg (27.0-33.0); MEAN CORPUSCULAR HGB CONC 30.6 g/dl (32.0-36.5); MONO # 0.3 K/mm3 (0.0-0.8); MONO % 4.4 % (0.0-5.0); NEUTROPHILS # 3.2 K/mm3 (1.8-7.7); NEUTROPHILS % 54.3 % (36.0-66.0); PLATELET COUNT, AUTOMATED 304 k/mm3 (150-450); RED CELL DISTRIBUTION WIDTH 15.5 % (11.5-14.5)
[2016-12-22] MEDS: traMADol 50 MG TAB PO PRN ×2 (06:14→20:34)
[2016-12-22] MEDS: LEVOTHYROXINE 0.137 MG TAB (137MCG) PO SCH (06:14)
[2016-12-22 06:27] LABS: ANION GAP 5 MEQ/L (8-16); BLOOD UREA NITROGEN 15 MG/DL (7-18); CALCIUM LEVEL 8.2 MG/DL (8.8-10.2); CARBON DIOXIDE LEVEL 28 MEQ/L (21-32); CHLORIDE LEVEL 110 MEQ/L (98-107); CREATININE FOR GFR 0.38 MG/DL (0.55-1.02); GLOMERULAR FILTRATION RATE > 60.0 (>39); GLUCOSE, FASTING 90 MG/DL (83-110); MAGNESIUM LEVEL 2.1 MG/DL (1.8-2.4); SODIUM LEVEL 143 MEQ/L (136-145)
[2016-12-22] MEDS: IPRATROPIUM 0.5MG/ALBUTEROL 2.5MG INH SOL UD 3ML (DUONEB)(J7620) NEB SCH ×4 (07:09→20:00)
[2016-12-22] MEDS: SYMBICORT 80/4.5MCG INHALER 6GM INH SCH ×2 (07:09→19:36)
[2016-12-22] MEDS: METOPROLOL SUCC (TopROL XL) 100MG *XL* TAB PO SCH (09:00)
[2016-12-22] MEDS: VENLAFAXINE **XR** 75MG CAPSULE PO SCH (09:01)
[2016-12-22] MEDS: ASPIRIN 81 MG ENTERIC TAB PO SCH (09:01)
[2016-12-22] MEDS: FLUCONAZOLE 100 MG TAB PO SCH (09:02)
[2016-12-22] MEDS: CLOPIDOGREL 75 MG TAB PO SCH (09:02)
[2016-12-22] MEDS: OMEPRAZOLE 20 MG CAP PO SCH (09:02)
[2016-12-22] MEDS: SENOKOT S TAB PO SCH ×2 (09:02→20:32)
[2016-12-22] MEDS: FAMOTIDINE 20 MG TAB PO SCH ×2 (09:02→20:32)
[2016-12-22] MEDS: MAGNESIUM OXIDE 400 MG TAB (MAG-OX) PO SCH (09:03)
[2016-12-22] MEDS: NYSTATIN 100,000 UNITS/GM TOPICAL PWD 15 GM TOP SCH ×3 (09:04→20:35)
[2016-12-22] MEDS: ENOXAPARIN 40 MG/0.4 ML SYRINGE (J1650) SC SCH (09:04)
[2016-12-22] MEDS: ANUSOL HC CREAM 30GM TOP SCH ×2 (09:05→20:35)
[2016-12-22] MEDS ORDERED: GABAPENTIN 100 MG CAP PO ONE (10:30)
[2016-12-22 14:00] VITALS: BP 145/66
--- NOTE | 2016-12-22 15:09 | IPN ---
DATE: 12/22/2016 71-year-old female seen at bedside. Her affect again appears to be doing well. She does get a little tearful when she asks about being discharged home and we had a discussion that she likely does not have a good support system in place as of yet, but Patient and Family Services (PFS) has been working on that this past week. She states that she understands, but does have some frustration because she does want to get home. She is complaining of having some right hip, buttocks and sacroiliac joint pain. OBJECTIVE: Temperature is 98, pulse 62, respiratory rate 17, blood pressure (BP) 114/56, SPO2 94% on room air. General: The patient appears to be in no acute distress. She is alert, pleasant. HEENT: Unremarkable. Lungs: Clear. Heart: Regular rate and rhythm. Abdomen: Soft. Lower Extremities: Bilateral above-knee amputation (AKA). The wound sites do appear to be granulating well. LABORATORY DATA: White count 6.0, hemoglobin 9.9 and platelets are 304,000. Sodium 143, potassium 4.0, chloride 110, bicarb 28, anion gap 5, BUN is 15, creatinine 0.38, glucose is 90, magnesium 2.1. ASSESSMENT/PLAN: 1. Urinary tract infection, which has been treated, resolved and completed antibiotics. 2. Major depression. Her depressive disorder is with underlying psychosis. She does appear to be doing better on the Ambien. She is likely going to need placement. Patient and Family Services (PFS) is involved. Appreciate psychiatry's involvement. Will see if they can reevaluate her on Saturday to see how she improved with her Ambien. 2. Hypomagnesemia, resolved. 3. Bilateral above-knee amputations. Chronic wounds appear to be granulating well. Appreciate Dr. Gama's input. Additionally, she does have some right sciatica. Will go ahead and try her on some gabapentin. 4. Hypothyroidism. Continue Synthroid. This has been adjusted and she will need repeat lab work in 4-6 weeks. 5. Hypertension, stable on metoprolol with hold parameters. 6. Coronary artery disease, status post bypass grafting, doing well. 7. Left-sided abdominal pain, resolved. 8. Rash on her back, resolved. 9. Deep vein thrombosis (DVT) prophylaxis, on Lovenox. DISPOSITION: She has shown some gradual improvement with her affect. Appreciate Dr. Neal's assistance regarding psychiatric issues and will see if she can reevaluate her on Saturday. PFS is involved and she likely will need some form of a placement plan versus home with services.
[2016-12-22] MEDS: GABAPENTIN 100 MG CAP PO SCH ×2 (16:20→20:32)
[2016-12-22] MEDS: MIRTAZAPINE 7.5MG PER 1/2 TABLET PO SCH (20:32)
[2016-12-22] MEDS: PRAMIPEXOLE 1 MG TAB PO SCH (20:33)
[2016-12-22] MEDS: ARIPiprazole 2 MG TAB PO SCH (20:33)
[2016-12-22 22:00] VITALS: BP 116/67
[2016-12-23] MEDS: traMADol 50 MG TAB PO PRN ×2 (05:13→17:38)
[2016-12-23 06:00] VITALS: BP 112/65
[2016-12-23 06:02] LABS: BASO % 0.7 % (0.0-1.0); EOS # 0.4 K/mm3 (0.0-0.50); EOS % 7.4 % (0.0-3.0); LARGE UNSTAINED CELL # 0.1 K/mm3 (0.0-0.4); LARGE UNSTAINED CELL % 1.8 % (0.0-4.0); LYMPH # 1.8 K/mm3 (1.5-4.5); LYMPH % 31.5 % (24.0-44.0); MEAN CORPUSCULAR HEMOGLOBIN 24.8 pg (27.0-33.0); MEAN CORPUSCULAR HGB CONC 28.8 g/dl (32.0-36.5); MEAN CORPUSCULAR VOLUME 86.1 fl (80.0-96.0); MONO # 0.3 K/mm3 (0.0-0.8); MONO % 4.8 % (0.0-5.0); NEUTROPHILS # 2.9 K/mm3 (1.8-7.7); NEUTROPHILS % 53.8 % (36.0-66.0); PLATELET COUNT, AUTOMATED 311 k/mm3 (150-450); RED CELL DISTRIBUTION WIDTH 15.6 % (11.5-14.5); WHITE BLOOD COUNT 5.3 K/mm3 (4.0-10.0)
[2016-12-23] MEDS: LEVOTHYROXINE 0.137 MG TAB (137MCG) PO SCH (06:04)
[2016-12-23 06:21] LABS: ANION GAP 7 MEQ/L (8-16); BLOOD UREA NITROGEN 13 MG/DL (7-18); CALCIUM LEVEL 8.5 MG/DL (8.8-10.2); CARBON DIOXIDE LEVEL 26 MEQ/L (21-32); CHLORIDE LEVEL 110 MEQ/L (98-107); CREATININE FOR GFR 0.36 MG/DL (0.55-1.02); GLOMERULAR FILTRATION RATE > 60.0 (>39); GLUCOSE, FASTING 89 MG/DL (83-110); MAGNESIUM LEVEL 1.8 MG/DL (1.8-2.4); POTASSIUM SERUM 3.9 MEQ/L (3.5-5.1); SODIUM LEVEL 143 MEQ/L (136-145)
[2016-12-23] MEDS: SYMBICORT 80/4.5MCG INHALER 6GM INH SCH ×2 (07:45→21:14)
[2016-12-23] MEDS: IPRATROPIUM 0.5MG/ALBUTEROL 2.5MG INH SOL UD 3ML (DUONEB)(J7620) NEB SCH ×4 (07:46→20:00)
[2016-12-23] MEDS: ENOXAPARIN 40 MG/0.4 ML SYRINGE (J1650) SC SCH (08:30)
[2016-12-23] MEDS: NYSTATIN 100,000 UNITS/GM TOPICAL PWD 15 GM TOP SCH ×3 (08:31→20:30)
[2016-12-23] MEDS: VENLAFAXINE **XR** 75MG CAPSULE PO SCH (08:31)
[2016-12-23] MEDS: GABAPENTIN 100 MG CAP PO SCH ×3 (08:31→20:23)
[2016-12-23] MEDS: METOPROLOL SUCC (TopROL XL) 100MG *XL* TAB PO SCH (08:31)
[2016-12-23 08:32] VITALS: O2SAT 89
[2016-12-23] MEDS: OMEPRAZOLE 20 MG CAP PO SCH (08:32)
[2016-12-23] MEDS: SENOKOT S TAB PO SCH ×2 (08:32→20:23)
[2016-12-23] MEDS: LORazepam 0.5 MG TAB PO PRN ×2 (08:32→17:38)
[2016-12-23] MEDS: ANUSOL HC CREAM 30GM TOP SCH ×2 (08:32→20:30)
[2016-12-23] MEDS: CLOPIDOGREL 75 MG TAB PO SCH (08:32)
[2016-12-23] MEDS: MAGNESIUM OXIDE 400 MG TAB (MAG-OX) PO SCH (08:32)
[2016-12-23] MEDS: FAMOTIDINE 20 MG TAB PO SCH ×2 (08:32→20:23)
[2016-12-23] MEDS: ASPIRIN 81 MG ENTERIC TAB PO SCH (08:32)
[2016-12-23] MEDS: ACETAMINOPHEN TAB 650MG DOSE (2X325MG) PO PRN ×2 (12:24→20:29)
[2016-12-23] MEDS: ONDANSETRON 4 MG ORAL DISINTEGRATING TAB (S0181) PO PRN (13:22)
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
[2016-12-23 14:00] VITALS: BP 112/64
[2016-12-23] MEDS: ARIPiprazole 2 MG TAB PO SCH (20:23)
[2016-12-23] MEDS: PRAMIPEXOLE 1 MG TAB PO SCH (20:23)
[2016-12-23] MEDS: MIRTAZAPINE 7.5MG PER 1/2 TABLET PO SCH (20:27)
[2016-12-23 23:00] VITALS: BP 115/57
[2016-12-24 06:00] VITALS: BP 128/68
[2016-12-24] MEDS: LEVOTHYROXINE 0.137 MG TAB (137MCG) PO SCH (06:08)
[2016-12-24] MEDS: SYMBICORT 80/4.5MCG INHALER 6GM INH SCH ×2 (07:56→20:43)
[2016-12-24] MEDS: IPRATROPIUM 0.5MG/ALBUTEROL 2.5MG INH SOL UD 3ML (DUONEB)(J7620) NEB SCH ×4 (07:57→20:00)
[2016-12-24 08:19] LABS: BASO % 0.9 % (0.0-1.0); EOS # 0.4 K/mm3 (0.0-0.50); EOS % 6.3 % (0.0-3.0); LARGE UNSTAINED CELL # 0.1 K/mm3 (0.0-0.4); LARGE UNSTAINED CELL % 1.6 % (0.0-4.0); LYMPH # 1.5 K/mm3 (1.5-4.5); LYMPH % 24.6 % (24.0-44.0); MEAN CORPUSCULAR HEMOGLOBIN 25.5 pg (27.0-33.0); MEAN CORPUSCULAR HGB CONC 30.1 g/dl (32.0-36.5); MEAN CORPUSCULAR VOLUME 84.7 fl (80.0-96.0); MONO # 0.3 K/mm3 (0.0-0.8); MONO % 5.1 % (0.0-5.0); NEUTROPHILS # 3.5 K/mm3 (1.8-7.7); NEUTROPHILS % 61.5 % (36.0-66.0); PLATELET COUNT, AUTOMATED 310 k/mm3 (150-450); RED CELL DISTRIBUTION WIDTH 15.5 % (11.5-14.5); WHITE BLOOD COUNT 5.7 K/mm3 (4.0-10.0)
[2016-12-24] MEDS: ENOXAPARIN 40 MG/0.4 ML SYRINGE (J1650) SC SCH (08:27)
[2016-12-24] MEDS: VENLAFAXINE **XR** 75MG CAPSULE PO SCH (08:28)
[2016-12-24] MEDS: GABAPENTIN 100 MG CAP PO SCH ×3 (08:28→20:22)
[2016-12-24] MEDS: OMEPRAZOLE 20 MG CAP PO SCH (08:28)
[2016-12-24] MEDS: ASPIRIN 81 MG ENTERIC TAB PO SCH (08:28)
[2016-12-24] MEDS: FAMOTIDINE 20 MG TAB PO SCH ×2 (08:28→20:21)
[2016-12-24] MEDS: METOPROLOL SUCC (TopROL XL) 100MG *XL* TAB PO SCH (08:28)
[2016-12-24] MEDS: NYSTATIN 100,000 UNITS/GM TOPICAL PWD 15 GM TOP SCH ×3 (08:29→20:22)
[2016-12-24] MEDS: CLOPIDOGREL 75 MG TAB PO SCH (08:29)
[2016-12-24] MEDS: ANUSOL HC CREAM 30GM TOP SCH ×2 (08:29→20:22)
[2016-12-24] MEDS: SENOKOT S TAB PO SCH ×3 (08:29→20:21)
[2016-12-24] MEDS: MAGNESIUM OXIDE 400 MG TAB (MAG-OX) PO SCH ×4 (08:30→22:05)
[2016-12-24 08:34] LABS: ANION GAP 6 MEQ/L (8-16); BLOOD UREA NITROGEN 13 MG/DL (7-18); CALCIUM LEVEL 8.7 MG/DL (8.8-10.2); CARBON DIOXIDE LEVEL 30 MEQ/L (21-32); CHLORIDE LEVEL 108 MEQ/L (98-107); CREATININE FOR GFR 0.43 MG/DL (0.55-1.02); GLOMERULAR FILTRATION RATE > 60.0 (>39); GLUCOSE, FASTING 94 MG/DL (83-110); MAGNESIUM LEVEL 1.7 MG/DL (1.8-2.4); POTASSIUM SERUM 4.1 MEQ/L (3.5-5.1); SODIUM LEVEL 144 MEQ/L (136-145)
[2016-12-24] MEDS: traMADol 50 MG TAB PO PRN ×2 (08:46→20:21)
[2016-12-24] MEDS: ACETAMINOPHEN TAB 650MG DOSE (2X325MG) PO PRN (12:44)
[2016-12-24] MEDS: SANTYL OINT 30GM TOP PRN (12:46)
--- NOTE | 2016-12-24 13:30 | IPNPDOC ---
Date Seen The patient was seen on 12/24/16. Progress Note Hospitalist Progress Note Subjective: Patient's main complaint is that she wants to home to her house in [place] Objective: Physical Exam: Vitals: Vital Sign - Last 24 Hours 12/23/16 12/23/16 12/23/16 12/23/16 14:00 17:38 20:20 23:00 Temp 97.4 99.5 Pulse 73 79 Resp 16 16 20 B/P (MAP) 112/64 (80) 115/57 (76) Pulse Ox 96 95 O2 Delivery Room Air Room Air Room Air 12/24/16 12/24/16 12/24/16 12/24/16 06:00 08:28 08:46 09:40 Temp 98.4 Pulse 80 60 Resp 20 20 18 B/P (MAP) 128/68 (88) 128/68 Pulse Ox 96 O2 Delivery Room Air Room Air General: Awake, alert, no acute distress HEENT: Normocephalic, atraumatic, extraocular movements intact CV: Regular rate and rhythm, no murmur Lungs: Clear to auscultation bilaterally Abd: Soft, nontender, nondistended Extremities: Bilateral AKA's Neuro: Alert and oriented 3, normal speech Psych: Mostly normal mood and affect but gets frustrated when talking about wanting to go home Labs and Imaging: Laboratory Tests 12/24/16 07:33 Red Blood Count 3.93 L, Mean Corpuscular Volume 84.7, Mean Corpuscular Hemoglobin 25.5 L, Mean Corpuscular Hemoglobin Concent 30.1 L, Red Cell Distribution Width 15.5 H, Neutrophils (%) (Auto) 61.5, Lymphocytes (%) (Auto) 24.6, Monocytes (%) (Auto) 5.1 H, Eosinophils (%) (Auto) 6.3 H, Basophils (%) ( Auto) 0.9, Neutrophils # (Auto) 3.5, Lymphocytes # (Auto) 1.5, Monocytes # (Auto ) 0.3, Eosinophils # (Auto) 0.4, Basophils # (Auto) 0.0, Calcium Level 8.7 L Assessment and Plan: 71-year-old female with hypertension, hypothyroidism, depression, hyperlipidemia , CAD status post CABG, history of bilateral AKA who recently left the [facility] [place] as she felt she was not receiving quality care there. After approximately 10 days of living with a friend, she presented to the emergency department because she was concerned that an oral antibiotic had not taking care of a urine infection, as well as feeling like she was not able to continue living with her friend, since her friend lives on the third floor and she is a bilateral amputee. Last weekend, she mentioned she would commit suicide if she had to stay here. She was evaluated by psych at that time who diagnosed her with MDD with psychosis. 1. UTI: Urine culture is growing Pseudomonas. The patient is afebrile and has a normal white count. She is now s/p 7 days of merrem. 2. Bilateral AKA's: The patient is overall a poor historian, and is not able to explain most of her surgical scars. She thinks that she had bilateral leg amputations within the last year as a complication of having tripped and fallen and hit her head. 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 As an outpatient, she will need evaluation by a vascular surgeon. There was initially some concern that the patient had an infection of her stumps, however, after Dr. Gama's evaluation, he feels that this represents nonhealing wounds, that are likely colonized, and she would not benefit from continuing an antibiotic. She will need follow-up at the wound care clinic upon discharge. Dressing changes as per Dr. Gama 3. Pressure ulcer of the sacrum: Dressing changes as per Dr. Gama. 4. Hypothyroidism: Continue home Synthroid. She'll need to have thyroid function studies rechecked as an outpatient in 6 weeks, as her free T4 was mildly elevated. 5. Hypertension: Continue metoprolol. 6. MDD with psychosis: Continue home Effexor, Ativan and Mirapex. Have also started nightly remeron while here. She was evaluated by Dr. Neal of psychiatry who believes she has MDD with psychosis. She has recommended increasing her effexor and adding abilify, which we have done. She also noted that the patient would benefit from psych stabilization, but that the [facility] unit does not currently have availability. Continue sitter and suicide precautions. The patient has shown some improvement with these medication changes, and we will ask psych to re-evaluate her. 7. CAD status post CABG, hyperlipidemia: Continue home aspirin, Plavix, beta iraida. She is evidently allergic to statins. 8. Presumed COPD: The patient does not report having COPD, but she is a poor historian, and since she reports taking Symbicort, Combivent, DuoNeb's at home, I suspect that she has underlying COPD. We'll continue her home medications. 9. Left sided abd pain on exam: Patient denies nausea and vomiting; CT abd/pel was unremarkable. I think this may be due to adhesions/scar tissue from prior abdominal surgery as most of her TTP is along an old surgical scar. 10. Rash on back: etiology unclear. Potentially drug reaction to merrem. Now resolved. DVT prophylaxis: Lovenox Dispo: Pending psych reevaluation. The patient does not currently have a safe place to live. [facility] is following along and will be helping us seek a safe discharge for her. VS, I&O, 24H, Fishbone Vital Signs/I&O Vital Signs Date Time Temp Pulse Resp B/P (MAP) Pulse Ox O2 Delivery O2 Flow Rate FiO2 12/24/16 09:40 18 Room Air 12/24/16 08:28 60 128/68 12/24/16 06:00 98.4 96 12/23/16 08:33 3.0 I&O- Last 24 Hours up to 6 AM 12/24/16 05:59 Intake Total 1210 ml Output Total 1750 ml Balance -540 ml Laboratory Data 24H LABS Laboratory Tests 2 12/24/16 07:33: White Blood Count 5.7, Red Blood Count 3.93L, Hemoglobin 10.0L, Hematocrit 33.3L , Mean Corpuscular Volume 84.7, Mean Corpuscular Hemoglobin 25.5L, Mean Corpuscular Hemoglobin Concent 30.1L, Red Cell Distribution Width 15.5H, Platelet Count 310, Neutrophils (%) (Auto) 61.5, Lymphocytes (%) (Auto) 24.6, Monocytes (%) (Auto) 5.1H, Eosinophils (%) (Auto) 6.3H, Basophils (%) (Auto) 0.9 , Neutrophils # (Auto) 3.5, Lymphocytes # (Auto) 1.5, Monocytes # (Auto) 0.3, Eosinophils # (Auto) 0.4, Basophils # (Auto) 0.0, Large Unclassified Cells % 1.6 , Large Unclassified Cells # 0.1, Anion Gap 6L, Glomerular Filtration Rate > 60.0, Blood Urea Nitrogen 13, Creatinine 0.43L, Sodium Level 144, Potassium Level 4.1, Chloride Level 108H, Carbon Dioxide Level 30, Calcium Level 8.7L, Magnesium Level 1.7L CBC/BMP Laboratory Tests 12/24/16 07:33 Red Blood Count 3.93 L, Mean Corpuscular Volume 84.7, Mean Corpuscular Hemoglobin 25.5 L, Mean Corpuscular Hemoglobin Concent 30.1 L, Red Cell Distribution Width 15.5 H, Neutrophils (%) (Auto) 61.5, Lymphocytes (%) (Auto) 24.6, Monocytes (%) (Auto) 5.1 H, Eosinophils (%) (Auto) 6.3 H, Basophils (%) ( Auto) 0.9, Neutrophils # (Auto) 3.5, Lymphocytes # (Auto) 1.5, Monocytes # (Auto ) 0.3, Eosinophils # (Auto) 0.4, Basophils # (Auto) 0.0, Calcium Level 8.7 L REYNA HERNANDEZ December 24, 2016 13:30
[2016-12-24 14:00] VITALS: BP 105/65
[2016-12-24] MEDS ORDERED: MAG SULF 1GM/100ML (MAG RUN) 1 GM in APPROPRIATE DILUENT 1 EA IV SCH (14:00)
[2016-12-24] MEDS: PRAMIPEXOLE 1 MG TAB PO SCH (20:21)
[2016-12-24] MEDS: MIRTAZAPINE 7.5MG PER 1/2 TABLET PO SCH (20:21)
[2016-12-24] MEDS: ARIPiprazole 2 MG TAB PO SCH (20:22)
[2016-12-24 22:00] VITALS: BP 156/76
[2016-12-24] MEDS: LORazepam 0.5 MG TAB PO PRN (22:05)
[2016-12-25] MEDS: traMADol 50 MG TAB PO PRN (04:31)
[2016-12-25] MEDS: LEVOTHYROXINE 0.137 MG TAB (137MCG) PO SCH (05:35)
[2016-12-25 06:00] VITALS: BP 101/54
[2016-12-25 07:18] LABS: BASO % 0.4 % (0.0-1.0); EOS # 0.4 K/mm3 (0.0-0.50); EOS % 6.1 % (0.0-3.0); LARGE UNSTAINED CELL # 0.2 K/mm3 (0.0-0.4); LARGE UNSTAINED CELL % 2.1 % (0.0-4.0); LYMPH # 2.4 K/mm3 (1.5-4.5); LYMPH % 32.6 % (24.0-44.0); MEAN CORPUSCULAR HEMOGLOBIN 26.6 pg (27.0-33.0); MEAN CORPUSCULAR HGB CONC 30.9 g/dl (32.0-36.5); MEAN CORPUSCULAR VOLUME 86.2 fl (80.0-96.0); MONO # 0.3 K/mm3 (0.0-0.8); MONO % 4.5 % (0.0-5.0); NEUTROPHILS % 54.2 % (36.0-66.0); PLATELET COUNT, AUTOMATED 370 k/mm3 (150-450); RED CELL DISTRIBUTION WIDTH 15.6 % (11.5-14.5); WHITE BLOOD COUNT 7.3 K/mm3 (4.0-10.0)
[2016-12-25 07:40] LABS: ANION GAP 8 MEQ/L (8-16); BLOOD UREA NITROGEN 14 MG/DL (7-18); CALCIUM LEVEL 9.1 MG/DL (8.8-10.2); CARBON DIOXIDE LEVEL 30 MEQ/L (21-32); CHLORIDE LEVEL 102 MEQ/L (98-107); CREATININE FOR GFR 0.49 MG/DL (0.55-1.02); GLOMERULAR FILTRATION RATE > 60.0 (>39); GLUCOSE, FASTING 101 MG/DL (83-110); MAGNESIUM LEVEL 1.9 MG/DL (1.8-2.4); POTASSIUM SERUM 4.2 MEQ/L (3.5-5.1); SODIUM LEVEL 140 MEQ/L (136-145)
[2016-12-25] MEDS: IPRATROPIUM 0.5MG/ALBUTEROL 2.5MG INH SOL UD 3ML (DUONEB)(J7620) NEB SCH ×4 (08:00→20:00)
[2016-12-25] MEDS: SYMBICORT 80/4.5MCG INHALER 6GM INH SCH ×2 (08:20→21:00)
[2016-12-25] MEDS: FAMOTIDINE 20 MG TAB PO SCH ×2 (09:33→20:18)
[2016-12-25] MEDS: ASPIRIN 81 MG ENTERIC TAB PO SCH (09:33)
[2016-12-25] MEDS: OMEPRAZOLE 20 MG CAP PO SCH (09:33)
[2016-12-25] MEDS: VENLAFAXINE **XR** 75MG CAPSULE PO SCH (09:33)
[2016-12-25] MEDS: GABAPENTIN 100 MG CAP PO SCH ×3 (09:34→20:18)
[2016-12-25] MEDS: METOPROLOL SUCC (TopROL XL) 100MG *XL* TAB PO SCH (09:34)
[2016-12-25] MEDS: ENOXAPARIN 40 MG/0.4 ML SYRINGE (J1650) SC SCH (09:34)
[2016-12-25] MEDS: CLOPIDOGREL 75 MG TAB PO SCH (09:34)
[2016-12-25] MEDS: MAGNESIUM OXIDE 400 MG TAB (MAG-OX) PO SCH (09:35)
[2016-12-25] MEDS: ANUSOL HC CREAM 30GM TOP SCH ×2 (09:35→20:19)
[2016-12-25] MEDS: NYSTATIN 100,000 UNITS/GM TOPICAL PWD 15 GM TOP SCH ×3 (09:35→20:19)
[2016-12-25] MEDS: SENOKOT S TAB PO SCH ×2 (09:35→20:18)
--- NOTE | 2016-12-25 13:31 | IPNPDOC ---
Text Note Date of Service The patient was seen on 12/25/16. NOTE 71-year-old female with hypertension, hypothyroidism, depression, hyperlipidemia , CAD status post CABG, history of bilateral AKA who recently left the half-way she was living in [place] as she felt she was not receiving quality care there. After approximately 10 days of living with a friend, she presented to the emergency department because she was concerned that an oral antibiotic had not taking care of a urine infection, as well as feeling like she was not able to continue living with her friend, since her friend lives on the third floor and she is a bilateral amputee. Last weekend, she mentioned she would commit suicide if she had to stay here. She was evaluated by psych at that time who diagnosed her with MDD with psychosis. 1. UTI: Urine culture is growing Pseudomonas. The patient is afebrile and has a normal white count. She is now s/p 8 days of merrem. 2. Bilateral AKA's: The patient is overall a poor historian, and is not able to explain most of her surgical scars. She thinks that she had bilateral leg amputations within the last year as a complication of having tripped and fallen and hit her head. 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 As an outpatient, she will need evaluation by a vascular surgeon. There was initially some concern that the patient had an infection of her stumps, however, after Dr. Gama's evaluation, he feels that this represents nonhealing wounds, that are likely colonized, and she would not benefit from continuing an antibiotic. She will need follow-up at the wound care clinic upon discharge. Dressing changes as per Dr. Gama 3. Pressure ulcer of the sacrum: Dressing changes as per Dr. Gama. 4. Hypothyroidism: Continue home Synthroid. She'll need to have thyroid function studies rechecked as an outpatient in 6 weeks, as her free T4 was mildly elevated. 5. Hypertension: Continue metoprolol. 6. MDD with psychosis: Continue home Effexor, Ativan and Mirapex. Have also started nightly remeron while here. She was evaluated by Dr. Neal of psychiatry who believes she has MDD with psychosis. She has recommended increasing her effexor and adding abilify, which we have done. She also noted that the patient would benefit from psych stabilization, but that the [facility] unit does not currently have availability. Continue sitter and suicide precautions. The patient has shown some improvement with these medication changes, and we will ask psych to re-evaluate her. 7. CAD status post CABG, hyperlipidemia: Continue home aspirin, Plavix, beta iraida. She is evidently allergic to statins. 8. Presumed COPD: The patient does not report having COPD, but she is a poor historian, and since she reports taking Symbicort, Combivent, DuoNeb's at home, I suspect that she has underlying COPD. We'll continue her home medications. 9. Left sided abd pain on exam: Patient denies nausea and vomiting; CT abd/pel was unremarkable. I think this may be due to adhesions/scar tissue from prior abdominal surgery as most of her TTP is along an old surgical scar. 10. Rash on back: etiology unclear. Potentially drug reaction to merrem. Now resolved. DVT prophylaxis: Lovenox Dispo: Pending psych reevaluation. The patient does not currently have a safe place to live. [facility] is following along and will be helping us seek a safe discharge for her. General: Awake, alert, no acute distress HEENT: Normocephalic, atraumatic, extraocular movements intact CV: Regular rate and rhythm, no murmur Lungs: Clear to auscultation bilaterally Abd: Soft, nontender, nondistended Extremities: Bilateral AKA's Neuro: Alert and oriented 3, normal speech VS,Fishbone, I+O VS, Fishbone, I+O Laboratory Tests 12/25/16 06:54 Red Blood Count 4.26, Mean Corpuscular Volume 86.2, Mean Corpuscular Hemoglobin 26.6 L, Mean Corpuscular Hemoglobin Concent 30.9 L, Red Cell Distribution Width 15.6 H, Neutrophils (%) (Auto) 54.2, Lymphocytes (%) (Auto) 32.6, Monocytes (%) (Auto) 4.5, Eosinophils (%) (Auto) 6.1 H, Basophils (%) (Auto) 0.4, Neutrophils # (Auto) 4.0, Lymphocytes # (Auto) 2.4, Monocytes # (Auto) 0.3, Eosinophils # ( Auto) 0.4, Basophils # (Auto) 0.0, Calcium Level 9.1 Vital Signs Date Time Temp Pulse Resp B/P (MAP) Pulse Ox O2 Delivery O2 Flow Rate FiO2 12/25/16 09:30 Room Air 12/25/16 06:00 98.5 76 20 101/54 (70) 95 12/23/16 08:33 3.0 I&O- Last 24 Hours up to 6 AM 12/25/16 05:59 Intake Total 1440 ml Output Total 450 ml Balance 990 ml ULISES COMER MD December 25, 2016 13:31
[2016-12-25 14:00] VITALS: BP 105/67
--- NOTE | 2016-12-25 15:39 | IPNPDOC ---
[facility] Progress Note Progress Note DATE OF SERVICE: 12/25/16 HISTORY: Evaluated 71 year old female with history of Depression and confusion, most likely secondary to medical problems. She was initially evaluated on Saturday, December 16. She was confused she seemed to have paranoid delusions. She was in a depressed mood and her affect was constricted, with almost no facial expressions. She was re assessed on Saturday and she showed some improvement, her affect and mood were slightly brighter, but she continued to be confused, although, less than before. On her first evaluation she blamed her family for her financial and living conditions. On her second visit she already had realized her family was not responsible of her financial and home problems. Today,December 25, she is still disoriented, she thinks today is October 24, 2016. She said she didn't remember the name of this Hospital, didn't remember the name of the Jail she was at [place] when she decided to leave [place]. She is able to remember her daughter's name and her siblings name, as well as her home address.Her mood and affect are brighter, much brighter. She jokes and laughs. She states "I'm O.K". Her speech is not circumstantial and not tangential. Her thought process is still disorganized, she's not goal directed. Her thought content is negative for suicidal ideation, negative for homicidal ideation, negative for delusional thoughts. She's not responding to internal stimuli. Attention and concentration are fair. Her judgement and insight are poor due to her confusion.Fund of knowledge is limited due to patient's condition. VITAL SIGNS: See below. NEW TEST RESULTS: . CURRENT MEDICATIONS: See below. DIAGNOSES: 1. 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 Delirium. 3. R/O Dementia. ASSESSMENT:Pt's mood has improved substantially since she was initially evaluated but she continues to be confused, although, not as much as she was before. If she is medically clear from every possible sign of infection, then she shouldn't be delirious anymore. The public relations writer of this document ignore what her previous baseline was (mentally), if she was confused at the Jail in [place] or not. I'm more inclined to think is delirium and I would recommend to discontinue Abilify and start her on Risperdal 0.5 mgs. PO BID and use Benadryl 50 mgs. PO BID PRN for extrapyramidal side effects. Depression is improving but confusion is still there and for that reason, the most likely diagnosis is Depression secondary to medical condition and Delirium. MANAGEMENT PLAN: Please, see above. TIME SPENT: 25 minutes Vital Signs Vital Signs Date Time Temp Pulse Resp B/P (MAP) Pulse Ox O2 Delivery O2 Flow Rate FiO2 12/25/16 09:30 Room Air 12/25/16 06:00 98.5 76 20 101/54 (70) 95 12/23/16 08:33 3.0 Laboratory Data 24H Labs Laboratory Tests 2 12/25/16 06:54: White Blood Count 7.3, Red Blood Count 4.26, Hemoglobin 11.3L, Hematocrit 36.7, Mean Corpuscular Volume 86.2, Mean Corpuscular Hemoglobin 26.6L, Mean Corpuscular Hemoglobin Concent 30.9L, Red Cell Distribution Width 15.6H, Platelet Count 370, Neutrophils (%) (Auto) 54.2, Lymphocytes (%) (Auto) 32.6, Monocytes (%) (Auto) 4.5, Eosinophils (%) (Auto) 6.1H, Basophils (%) (Auto) 0.4 , Neutrophils # (Auto) 4.0, Lymphocytes # (Auto) 2.4, Monocytes # (Auto) 0.3, Eosinophils # (Auto) 0.4, Basophils # (Auto) 0.0, Large Unclassified Cells % 2.1 , Large Unclassified Cells # 0.2, Anion Gap 8, Glomerular Filtration Rate > 60.0 , Blood Urea Nitrogen 14, Creatinine 0.49L, Sodium Level 140, Potassium Level 4.2, Chloride Level 102, Carbon Dioxide Level 30, Calcium Level 9.1, Magnesium Level 1.9 CBC/BMP Laboratory Tests 12/25/16 06:54 Red Blood Count 4.26, Mean Corpuscular Volume 86.2, Mean Corpuscular Hemoglobin 26.6 L, Mean Corpuscular Hemoglobin Concent 30.9 L, Red Cell Distribution Width 15.6 H, Neutrophils (%) (Auto) 54.2, Lymphocytes (%) (Auto) 32.6, Monocytes (%) (Auto) 4.5, Eosinophils (%) (Auto) 6.1 H, Basophils (%) (Auto) 0.4, Neutrophils # (Auto) 4.0, Lymphocytes # (Auto) 2.4, Monocytes # (Auto) 0.3, Eosinophils # ( Auto) 0.4, Basophils # (Auto) 0.0, Calcium Level 9.1 Current Medications Current Medications Acetaminophen (Tylenol Tab) 650 mg Q4HP PRN PO MILD PAIN OR FEVER Last administered on 12/24/16 12:44; Start 12/04/16 at 17:45; Stop 01/03/17 at 17:44 Acetaminophen/ Hydrocodone Bitart ([place], Anexsia 5/325) 1 tab Q4HP PRN PO MODERATE PAIN (PS 5-7); Start 12/04/16 at 17:45; Stop 12/04/16 at 19:17; Status DC Albuterol/ Ipratropium (Combivent Respimat 100-20mcg) 1 puff Q4HP PRN INH SHORTNESS OF BREATH Last administered on 12/21/16 22:05; Start 12/04/16 at 19: 30; Stop 01/03/17 at 19:29 Albuterol/ Ipratropium (Duoneb (Ipr 0.5mg/Alb 2.5mg)) 3 ml BIDP PRN INH SHORTNESS OF BREATH Last administered on 12/11/16 09:48; Start 12/08/16 at 10: 15; Stop 01/07/17 at 10:14 Albuterol/ Ipratropium (Duoneb (Ipr 0.5mg/Alb 2.5mg)) 3 ml RBID INH ; Start at 08:00; Stop 12/08/16 at 10:06; Status DC Albuterol/ Ipratropium (Duoneb (Ipr 0.5mg/Alb 2.5mg)) 3 ml RQID NEB Last administered on 12/25/16 11:15; Start 12/11/16 at 20:00; Stop 01/10/17 at 19:59 Amitriptyline HCl (Elavil) 10 mg QHSP PRN PO INSOMNIA Last administered on 12/12 23:05; Start 12/11/16 at 17:45; Stop 12/15/16 at 12:45; Status DC Aripiprazole (AbiLIFY) 2 mg QHS PO Last administered on 12/24/16 20:22; Start 12/17/16 at 21:00; Stop 01/16/17 at 20:59 Aspirin (Ecotrin) 81 mg DAILY PO Last administered on 12/25/16 09:33; Start 08/11 at 09:00; Stop 01/04/17 at 08:59 Budesonide/ Formoterol Fumarate (Symbicort 80/ 4.5mcg) 2 puff BID INH Last administered on 12/25/16 08:20; Start 12/08/16 at 21:00; Stop 01/07/17 at 20:59 Clopidogrel Bisulfate (PLAVix) 75 mg DAILY PO Last administered on 12/25/16 09: 34; Start 12/05/16 at 09:00; Stop 01/04/17 at 08:59 Collagenase (Santyl) 1 dose WDC PRN TOP WITH EACH DRESSING CHANGE Last administered on 12/24/16 12:46; Start 12/06/16 at 13:30; Stop 01/05/17 at 13:29 Diphenhydramine HCl (Benadryl Cream) 1 dose Q6HP PRN TOP ITCHING; Start at 15:15; Stop 01/12/17 at 15:14 Diphenhydramine HCl (Benadryl) 25 mg Q4HP PRN PO RASH/ITCHING Last administered on 12/13/16 03:38; Start 12/04/16 at 19:45; Stop 12/13/16 at 15:06 ; Status DC Diphenhydramine HCl (Benadryl) 25 mg QHSP PRN PO INSOMNIA Last administered on 12/10/16 23:24; Start 12/10/16 at 17:45; Stop 12/11/16 at 04:07; Status DC Docusate Sodium (Colace) 100 mg BIDP PRN PO CONSTIPATION Last administered on 02:14; Start 12/07/16 at 00:00; Stop 12/17/16 at 19:57; Status DC Enoxaparin Sodium (Lovenox) 40 mg DAILY SC Last administered on 12/25/16 09:34 ; Start 12/05/16 at 09:00; Stop 12/30/16 at 08:59 Famotidine (Pepcid) 20 mg BID PO Last administered on 12/25/16 09:33; Start at 21:00; Stop 01/10/17 at 20:59 Fluconazole (Diflucan) 100 mg DAILY PO Last administered on 12/22/16 09:02; Start 12/20/16 at 09:00; Stop 12/22/16 at 12:00; Status DC Gabapentin (Neurontin) 100 mg TID PO Last administered on 12/25/16 09:34; Start 12/22/16 at 16:00; Stop 01/21/17 at 15:59 Home Med (Med Rec Complete!) ASDIRECTED XX ; Start 12/04/16 at 17:30; Stop 07/12 at 17:36; Status DC Home Med (Med Rec Complete!) ASDIRECTED XX ; Start 12/04/16 at 20:30; Stop 07/12 at 20:30; Status DC Hydrocortisone (Proctosol Hc) 1 dose BID TOP Last administered on 12/17/16 08: 17; Start 12/14/16 at 21:00; Stop 12/17/16 at 09:23; Status DC Hydrocortisone (Proctosol Hc) 1 dose BID TOP Last administered on 12/25/16 09: 35; Start 12/17/16 at 09:23; Stop 01/13/17 at 20:59 Levofloxacin 750 mg/IV Miscellaneous Supplies 150 ml @ 100 mls/hr Q24H IV Last administered on 12/05/16 20:13; Start 12/04/16 at 21:00; Stop 12/06/16 at 07:33; Status DC Levothyroxine Sodium (Synthroid) 0.137 mg DAILY@06 PO Last administered on 05:35; Start 12/06/16 at 06:00; Stop 01/05/17 at 05:59 Levothyroxine Sodium (Synthroid) 0.15 mg DAILY@06 PO Last administered on 06:19; Start 12/05/16 at 06:00; Stop 12/05/16 at 12:50; Status DC Lorazepam (Ativan) 0.5 mg Q6HP PRN IV AGITATION; Start 12/17/16 at 21:30; Stop 12/18/16 at 05:01; Status DC Lorazepam (Ativan) 0.5 mg Q8HP PRN PO ANXIETY Last administered on 12/24/16 22: 05; Start 12/13/16 at 19:30; Stop 12/26/16 at 19:29 Lorazepam (Ativan) 1 mg Q4HP PRN PO ANXIETY Last administered on 12/13/16 01: 32; Start 12/04/16 at 19:30; Stop 12/13/16 at 15:06; Status DC Magnesium Oxide (Mag-Ox) 400 mg DAILY PO Last administered on 12/25/16 09:35; Start 12/19/16 at 09:00; Stop 01/18/17 at 08:59 Magnesium Oxide (Mag-Ox) 400 mg Q4H PO Last administered on 12/24/16 22:05; Start 12/24/16 at 14:00; Stop 12/24/16 at 22:01; Status DC Magnesium Sulfate/ Dextrose 1 gm/IV Miscellaneous Supplies 100 ml @ 100 mls/hr 1T@1100,1200 IV Last administered on 12/21/16 18:02; Start 12/21/16 at 11:00; Stop 12/21/16 at 14:00; Status DC Magnesium Sulfate/ Dextrose 1 gm/IV Miscellaneous Supplies 100 ml @ 100 mls/hr 1T@1400,1500 IV ; Start 12/24/16 at 14:00; Stop 12/24/16 at 18:00; Status Cancel Magnesium Sulfate/ Dextrose 1 gm/IV Miscellaneous Supplies 100 ml @ 100 mls/hr 1T@16,17 IV Last administered on 12/13/16 16:59; Start 12/13/16 at 16:00; Stop 12/13/16 at 19:00; Status DC Magnesium Sulfate/ Dextrose 1 gm/IV Miscellaneous Supplies 100 ml @ 100 mls/hr Q1H IV Last administered on 12/16/16 11:23; Start 12/16/16 at 08:00; Stop at 09:59; Status DC Meropenem 500 mg/ Dextrose 100 ml @ 200 mls/hr Q8H IV Last administered on 00:48; Start 12/06/16 at 09:00; Stop 12/13/16 at 07:36; Status DC Meropenem 500 mg/ Dextrose 100 ml @ 200 mls/hr Q8H IV Last administered on 10:04; Start 12/13/16 at 09:00; Stop 12/13/16 at 12:00; Status DC Metoprolol Succinate (TopROL XL) 100 mg DAILY PO Last administered on 12/25/16 09:34; Start 12/05/16 at 09:00; Stop 01/04/17 at 08:59 Mirtazapine (Remeron) 7.5 mg QHS PO Last administered on 12/24/16 20:21; Start 12/15/16 at 21:00; Stop 01/14/17 at 20:59 Morphine Sulfate (Roxanol) 5 mg Q4HP PRN PO PAIN; Start 12/12/16 at 12:52; Stop 12/13/16 at 15:06; Status DC Morphine Sulfate (Roxanol) 10 mg Q2HP PRN PO PAIN Last administered on 05:47; Start 12/04/16 at 19:30; Stop 12/12/16 at 12:56; Status DC Nystatin (Mycostatin Powder, Nystop) 1 dose TID TOP Last administered on 09:35; Start 12/16/16 at 16:00; Stop 01/15/17 at 15:59 Omeprazole (PriLOSEC) 20 mg DAILY PO Last administered on 12/25/16 09:33; Start 12/05/16 at 09:00; Stop 01/04/17 at 08:59 Ondansetron HCl (Zofran Odt) 4 mg Q8HP PRN PO NAUSEA OR VOMITING Last administered on 12/23/16 13:22; Start 12/07/16 at 21:00; Stop 01/06/17 at 20:59 Pramipexole Dihydrochloride (Mirapex) 1.5 mg QHS PO Last administered on 20:21; Start 12/05/16 at 21:00; Stop 01/04/17 at 20:59 Scopolamine (Transderm-Scop) 1.5 mg Q72H TOP ; Start 12/06/16 at 09:00; Stop at 09:00; Status DC Scopolamine (Transderm-Scop) 1.5 mg Q72H TOP Last administered on 12/21/16 10: 09; Start 12/06/16 at 09:00; Stop 12/21/16 at 18:29; Status DC Senna/Docusate Sodium (Senokot S) 1 tab BID PO Last administered on 12/25/16 09 :35; Start 12/07/16 at 09:00; Stop 01/06/17 at 08:59 Tramadol HCl (Ultram) 50 mg Q8HP PRN PO MODERATE PAIN (PS 5-7) Last administered on 12/25/16 04:31; Start 12/20/16 at 13:30; Stop 12/27/16 at 13:29 Venlafaxine HCl (Effexor Xr) 75 mg QHS PO Last administered on 12/16/16 20 :17; Start 12/04/16 at 21:00; Stop 12/17/16 at 12:20; Status DC Venlafaxine HCl (Effexor Xr) 75 mg QHS PO ; Start 12/17/16 at 21:00; Stop at 21:59; Status DC Venlafaxine HCl (Effexor Xr) 150 mg QAM PO Last administered on 12/25/16 09 :33; Start 12/18/16 at 09:00; Stop 01/17/17 at 08:59 Allergies Coded Allergies: Sulfa Antibiotics (Verified Allergy, Severe, 12/11/16) Cephalosporins (Verified Allergy, Intermediate, 11/25/12) Ciprofloxacin (Unverified Allergy, Unknown, 01/26/16) Iodine (Unverified Allergy, Unknown, 01/26/16) Lobster (Unverified Allergy, Unknown, 01/26/16) Metronidazole (Unverified Allergy, Unknown, 01/26/16) Nickel (Unverified Allergy, Unknown, 01/26/16) Penicillins (Unverified Allergy, Unknown, 01/26/16) Statins (Unverified Allergy, Unknown, 01/26/16) Sulfa Drugs (Verified Allergy, Unknown, 11/25/12) Sulfa Drugs Cross Reactors (Verified Allergy, Unknown, 11/25/12) CLARITZA CEBALLOS MD December 25, 2016 15:39
[2016-12-25] MEDS: PRAMIPEXOLE 1 MG TAB PO SCH (20:18)
[2016-12-25] MEDS: MIRTAZAPINE 7.5MG PER 1/2 TABLET PO SCH (20:18)
[2016-12-25] MEDS: risperiDONE 0.5 MG TAB PO SCH (20:18)
[2016-12-25 22:00] VITALS: BP 119/69
[2016-12-26] MEDS: traMADol 50 MG TAB PO PRN ×2 (05:04→21:26)
[2016-12-26] MEDS: LEVOTHYROXINE 0.137 MG TAB (137MCG) PO SCH (05:33)
[2016-12-26 06:00] VITALS: BP 100/57
[2016-12-26 07:02] LABS: BASO % 0.5 % (0.0-1.0); EOS # 0.4 K/mm3 (0.0-0.50); EOS % 5.7 % (0.0-3.0); LARGE UNSTAINED CELL # 0.1 K/mm3 (0.0-0.4); LARGE UNSTAINED CELL % 1.8 % (0.0-4.0); LYMPH # 1.7 K/mm3 (1.5-4.5); LYMPH % 21.8 % (24.0-44.0); MEAN CORPUSCULAR HEMOGLOBIN 25.7 pg (27.0-33.0); MEAN CORPUSCULAR HGB CONC 30.6 g/dl (32.0-36.5); MEAN CORPUSCULAR VOLUME 84.1 fl (80.0-96.0); MONO # 0.3 K/mm3 (0.0-0.8); MONO % 4.3 % (0.0-5.0); NEUTROPHILS # 4.7 K/mm3 (1.8-7.7); NEUTROPHILS % 65.9 % (36.0-66.0); PLATELET COUNT, AUTOMATED 311 k/mm3 (150-450); RED CELL DISTRIBUTION WIDTH 15.6 % (11.5-14.5); WHITE BLOOD COUNT 7.1 K/mm3 (4.0-10.0)
[2016-12-26 07:23] LABS: ANION GAP 4 MEQ/L (8-16); BLOOD UREA NITROGEN 14 MG/DL (7-18); CALCIUM LEVEL 9.3 MG/DL (8.8-10.2); CARBON DIOXIDE LEVEL 32 MEQ/L (21-32); CHLORIDE LEVEL 105 MEQ/L (98-107); CREATININE FOR GFR 0.46 MG/DL (0.55-1.02); GLOMERULAR FILTRATION RATE > 60.0 (>39); GLUCOSE, FASTING 100 MG/DL (83-110); POTASSIUM SERUM 4.1 MEQ/L (3.5-5.1); SODIUM LEVEL 141 MEQ/L (136-145)
--- NOTE | 2016-12-26 07:51 | IPNPDOC ---
Subjective Date Seen The patient was seen on 12/26/16. Subjective Chief Complaint/HPI The patient is a 71-year-old female admitted with a reason for visit of Urinary Tract Infection. General: Denies: ROS Unobtainable, Chills, Night Sweats, Fatigue, Malaise, Normal Appetite, Other Symptoms Constitutional: Denies: Chills, Fever, Malaise, Night Sweats, Weakness, Fatigue , Weight Loss, Lethargy, Other Eyes: Denies: Pain, Vision change, Conjunctivae inflammation, Eyelid inflammation, Redness, Other ENT: Denies: Head Aches, Ear Pain, Dysphagia, Sinus Congestion, Post Nasal Drip , Sore Throat, Epistaxis, Other Symptoms Skin: Denies: Rash, Lesions, Jaundice, Bruising, Itching, Dry, Breakdown, Nail Changes, Other Pulmonary: Denies: Dyspnea, Cough, Pleuritic Chest Pain, Other Symptoms Cardiovascular: Denies: Chest Pain, Palpitations, Orthopnea, Paroxysmal Noc. Dyspnea, Edema, Lt Headedness, Other Symptoms Musculoskeletal: Reports: Leg Pain (pain with right leg) Objective Physical Examination General Exam: Positive: Alert, Cooperative, No Acute Distress Eye Exam: Positive: PERRLA, Conjunctiva & lids normal, EOMI, Negative: Sclera icteric ENT Exam: Positive: Atraumatic Neck Exam: Positive: Supple Chest Exam: Positive: Clear to auscultation, Normal air movement Heart Exam: Positive: Rate Normal, Regular Rhythm, Normal S1, Normal S2 Abdomen Exam: Positive: Normal bowel sounds, Soft, Other (multiple abdominal surgical scars noted), Negative: Tenderness Extremity Exam: Positive: Other (b/l aka; bandage in place at stumps), Negative: Clubbing, Cyanosis, Edema Skin Exam: Positive: Breakdown (no significant changes in her pressure ulcers from yesterday) Neuro Exam: Positive: Normal Speech Psych Exam: Positive: Mental status NL, Mood NL, Oriented x 3 Assessment /Plan Problems (1) UTI (urinary tract infection) Status: Resolved Discussed With: Patient Problem Specific Plan: Monitor Clinically Problem Text: asymptomatic s/p 7 days meropenem for pseudomonas uti (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 Gama of wound care. His recommendations for dressing the wound are much appreciated. follow up with wound care clinic on discharge. dressing changes as directed No antibiotics recommended as this is a colonized wound. She may benefit from an evaluation by vascular surgery in the future, but does not need an immediate transfer for this at this time. (3) Pressure ulcer, buttock Status: Chronic Discussed With: Patient Problem Specific Plan: Consult Specialist, Monitor Clinically Problem Text: Continue wound care with foam dressings, and offloading. Continue with nutritional supplements with each meal. Recommend an offloading bed, and a Roho cushion while sitting wound care c/s appreciated (4) Hypothyroidism Status: Chronic Discussed With: Patient Problem Specific Plan: Monitor Clinically Problem Text: TSH was suppressed, with an elevated free T4 Her dose of Synthroid was decreased while inpatient, she will need outpatient follow-up again in 6-8 weeks (5) Hypertension Status: Chronic Discussed With: Patient Problem Specific Plan: Monitor Clinically Problem Text: Continue with metoprolol succinate, vitals continue to be within acceptable limits (6) Depression with anxiety Status: Chronic Discussed With: Patient Problem Specific Plan: Consult Specialist Problem Text: major depressive disorder with psychosis follow as per psychiatry, assistance appreciated d/c mg, started risperidone and benadryl for extrapyramidal side effects as needed continue sitter psych recs were for inpatient psych (7) Dyslipidemia Status: Chronic Problem Text: She has a listed allergy to statins (8) Coronary atherosclerosis Status: Chronic Discussed With: Patient Problem Text: Continue with aspirin, plavix, bb. documented allergy to statins s/p cabg (9) GERD (gastroesophageal reflux disease) Status: Chronic Problem Text: Continue home dose of omeprazole. We will recommend elevating the head of bed slightly when she is asleep, as her symptoms are worse at night. (10) Living accommodation issues Status: Acute Problem Text: Discharge planning per recommendations from PFS Plan/VTE VTE Prophylaxis Ordered?: Yes (Lovenox) Plan/Urinary Catheter Reason for insertion/continuin: Patient request Plan Diet: Continue Current Activity: Continue Current Pt and Family Services: Home Care Disposition pending psych follow up and recommendations VS, I&O, 24H, Fishbone Vital Signs/I&O Vital Signs Date Time Temp Pulse Resp B/P (MAP) Pulse Ox O2 Delivery O2 Flow Rate FiO2 12/26/16 06:00 98.6 66 20 100/57 (71) 93 12/25/16 20:45 Room Air 12/23/16 08:33 3.0 I&O- Last 24 Hours up to 6 AM 12/26/16 06:00 Intake Total 1440 ml Output Total 1500 ml Balance -60 ml Laboratory Data 24H LABS Laboratory Tests 2 12/26/16 06:42: White Blood Count 7.1, Red Blood Count 4.02, Hemoglobin 10.3L, Hematocrit 33.8L , Mean Corpuscular Volume 84.1, Mean Corpuscular Hemoglobin 25.7L, Mean Corpuscular Hemoglobin Concent 30.6L, Red Cell Distribution Width 15.6H, Platelet Count 311, Neutrophils (%) (Auto) 65.9, Lymphocytes (%) (Auto) 21.8L, Monocytes (%) (Auto) 4.3, Eosinophils (%) (Auto) 5.7H, Basophils (%) (Auto) 0.5 , Neutrophils # (Auto) 4.7, Lymphocytes # (Auto) 1.7, Monocytes # (Auto) 0.3, Eosinophils # (Auto) 0.4, Basophils # (Auto) 0.0, Large Unclassified Cells % 1.8 , Large Unclassified Cells # 0.1, Anion Gap 4L, Glomerular Filtration Rate > 60.0, Blood Urea Nitrogen 14, Creatinine 0.46L, Sodium Level 141, Potassium Level 4.1, Chloride Level 105, Carbon Dioxide Level 32, Calcium Level 9.3, Magnesium Level 2.0 CBC/BMP Laboratory Tests 12/26/16 06:42 Red Blood Count 4.02, Mean Corpuscular Volume 84.1, Mean Corpuscular Hemoglobin 25.7 L, Mean Corpuscular Hemoglobin Concent 30.6 L, Red Cell Distribution Width 15.6 H, Neutrophils (%) (Auto) 65.9, Lymphocytes (%) (Auto) 21.8 L, Monocytes (% ) (Auto) 4.3, Eosinophils (%) (Auto) 5.7 H, Basophils (%) (Auto) 0.5, Neutrophils # (Auto) 4.7, Lymphocytes # (Auto) 1.7, Monocytes # (Auto) 0.3, Eosinophils # (Auto) 0.4, Basophils # (Auto) 0.0, Calcium Level 9.3 ULISES COMER MD December 26, 2016 07:51
[2016-12-26] MEDS: SYMBICORT 80/4.5MCG INHALER 6GM INH SCH ×2 (07:52→20:15)
[2016-12-26] MEDS: IPRATROPIUM 0.5MG/ALBUTEROL 2.5MG INH SOL UD 3ML (DUONEB)(J7620) NEB SCH ×4 (07:54→20:00)
[2016-12-26] MEDS: GABAPENTIN 100 MG CAP PO SCH ×3 (09:11→20:24)
[2016-12-26] MEDS: ENOXAPARIN 40 MG/0.4 ML SYRINGE (J1650) SC SCH (09:11)
[2016-12-26] MEDS: VENLAFAXINE **XR** 75MG CAPSULE PO SCH (09:11)
[2016-12-26] MEDS: FAMOTIDINE 20 MG TAB PO SCH ×2 (09:11→20:25)
[2016-12-26] MEDS: OMEPRAZOLE 20 MG CAP PO SCH (09:11)
[2016-12-26] MEDS: CLOPIDOGREL 75 MG TAB PO SCH (09:11)
[2016-12-26] MEDS: NYSTATIN 100,000 UNITS/GM TOPICAL PWD 15 GM TOP SCH ×3 (09:12→20:25)
[2016-12-26] MEDS: ASPIRIN 81 MG ENTERIC TAB PO SCH (09:12)
[2016-12-26] MEDS: risperiDONE 0.5 MG TAB PO SCH ×2 (09:12→20:25)
[2016-12-26] MEDS: MAGNESIUM OXIDE 400 MG TAB (MAG-OX) PO SCH (09:12)
[2016-12-26] MEDS: METOPROLOL SUCC (TopROL XL) 100MG *XL* TAB PO SCH (09:12)
[2016-12-26] MEDS: SENOKOT S TAB PO SCH ×2 (09:12→20:25)
[2016-12-26] MEDS: ANUSOL HC CREAM 30GM TOP SCH ×2 (09:13→20:25)
[2016-12-26 14:00] VITALS: BP 101/63
--- NOTE | 2016-12-26 19:11 | IPNPDOC ---
[facility] Progress Note Progress Note DATE OF SERVICE: 12/26/16 Reviewing patietns medication, the author of this document realized she was started on Tramadol on 12/20/16 and for that reason, I recommend to discontinue Venlafaxine because of possible interactions with Tramadol or to discontinue Tramadol and administer another pain medication. Patient should receive tomorrow only 75 mgs of Venlafaxine and discontinue its use on Saturday. She can continue on Risperdal 0.5 mgs. PO BID. Recommend to obtain sodium levels because psychotropic medication can cause hyponatremia in the elderly. Geri Ceballos Vital Signs Vital Signs Date Time Temp Pulse Resp B/P (MAP) Pulse Ox O2 Delivery O2 Flow Rate FiO2 12/26/16 14:00 97.4 90 18 101/63 (76) 94 Room Air 12/23/16 08:33 3.0 Laboratory Data 24H Labs Laboratory Tests 2 12/26/16 06:42: White Blood Count 7.1, Red Blood Count 4.02, Hemoglobin 10.3L, Hematocrit 33.8L , Mean Corpuscular Volume 84.1, Mean Corpuscular Hemoglobin 25.7L, Mean Corpuscular Hemoglobin Concent 30.6L, Red Cell Distribution Width 15.6H, Platelet Count 311, Neutrophils (%) (Auto) 65.9, Lymphocytes (%) (Auto) 21.8L, Monocytes (%) (Auto) 4.3, Eosinophils (%) (Auto) 5.7H, Basophils (%) (Auto) 0.5 , Neutrophils # (Auto) 4.7, Lymphocytes # (Auto) 1.7, Monocytes # (Auto) 0.3, Eosinophils # (Auto) 0.4, Basophils # (Auto) 0.0, Large Unclassified Cells % 1.8 , Large Unclassified Cells # 0.1, Anion Gap 4L, Glomerular Filtration Rate > 60.0, Blood Urea Nitrogen 14, Creatinine 0.46L, Sodium Level 141, Potassium Level 4.1, Chloride Level 105, Carbon Dioxide Level 32, Calcium Level 9.3, Magnesium Level 2.0 CBC/BMP Laboratory Tests 12/26/16 06:42 Red Blood Count 4.02, Mean Corpuscular Volume 84.1, Mean Corpuscular Hemoglobin 25.7 L, Mean Corpuscular Hemoglobin Concent 30.6 L, Red Cell Distribution Width 15.6 H, Neutrophils (%) (Auto) 65.9, Lymphocytes (%) (Auto) 21.8 L, Monocytes (% ) (Auto) 4.3, Eosinophils (%) (Auto) 5.7 H, Basophils (%) (Auto) 0.5, Neutrophils # (Auto) 4.7, Lymphocytes # (Auto) 1.7, Monocytes # (Auto) 0.3, Eosinophils # (Auto) 0.4, Basophils # (Auto) 0.0, Calcium Level 9.3 Current Medications Current Medications Acetaminophen (Tylenol Tab) 650 mg Q4HP PRN PO MILD PAIN OR FEVER Last administered on 12/24/16 12:44; Start 12/04/16 at 17:45; Stop 01/03/17 at 17:44 Acetaminophen/ Hydrocodone Bitart (Caspian, Anexsia 5/325) 1 tab Q4HP PRN PO MODERATE PAIN (PS 5-7); Start 12/04/16 at 17:45; Stop 12/04/16 at 19:17; Status DC Albuterol/ Ipratropium (Combivent Respimat 100-20mcg) 1 puff Q4HP PRN INH SHORTNESS OF BREATH Last administered on 12/21/16 22:05; Start 12/04/16 at 19: 30; Stop 01/03/17 at 19:29 Albuterol/ Ipratropium (Duoneb (Ipr 0.5mg/Alb 2.5mg)) 3 ml BIDP PRN INH SHORTNESS OF BREATH Last administered on 12/11/16 09:48; Start 12/08/16 at 10: 15; Stop 01/07/17 at 10:14 Albuterol/ Ipratropium (Duoneb (Ipr 0.5mg/Alb 2.5mg)) 3 ml RBID INH ; Start at 08:00; Stop 12/08/16 at 10:06; Status DC Albuterol/ Ipratropium (Duoneb (Ipr 0.5mg/Alb 2.5mg)) 3 ml RQID NEB Last administered on 12/26/16 16:00; Start 12/11/16 at 20:00; Stop 01/10/17 at 19:59 Amitriptyline HCl (Elavil) 10 mg QHSP PRN PO INSOMNIA Last administered on 12/12 23:05; Start 12/11/16 at 17:45; Stop 12/15/16 at 12:45; Status DC Aripiprazole (AbiLIFY) 2 mg QHS PO Last administered on 12/24/16 20:22; Start 12/17/16 at 21:00; Stop 12/25/16 at 17:11; Status DC Aspirin (Ecotrin) 81 mg DAILY PO Last administered on 12/26/16 09:12; Start 08/11 at 09:00; Stop 01/04/17 at 08:59 Budesonide/ Formoterol Fumarate (Symbicort 80/ 4.5mcg) 2 puff BID INH Last administered on 12/26/16 07:52; Start 12/08/16 at 21:00; Stop 01/07/17 at 20:59 Clopidogrel Bisulfate (PLAVix) 75 mg DAILY PO Last administered on 12/26/16 09: 11; Start 12/05/16 at 09:00; Stop 01/04/17 at 08:59 Collagenase (Santyl) 1 dose WDC PRN TOP WITH EACH DRESSING CHANGE Last administered on 12/24/16 12:46; Start 12/06/16 at 13:30; Stop 01/05/17 at 13:29 Diphenhydramine HCl (Benadryl Cream) 1 dose Q6HP PRN TOP ITCHING; Start at 15:15; Stop 01/12/17 at 15:14 Diphenhydramine HCl (Benadryl) 25 mg Q4HP PRN PO RASH/ITCHING Last administered on 12/13/16 03:38; Start 12/04/16 at 19:45; Stop 12/13/16 at 15:06 ; Status DC Diphenhydramine HCl (Benadryl) 25 mg QHSP PRN PO INSOMNIA Last administered on 12/10/16 23:24; Start 12/10/16 at 17:45; Stop 12/11/16 at 04:07; Status DC Diphenhydramine HCl (Benadryl) 50 mg BIDP PRN PO EXTRAPYRAMIDAL SYMPTOMS; Start 12/25/16 at 17:15; Stop 01/24/17 at 17:14 Docusate Sodium (Colace) 100 mg BIDP PRN PO CONSTIPATION Last administered on 02:14; Start 12/07/16 at 00:00; Stop 12/17/16 at 19:57; Status DC Enoxaparin Sodium (Lovenox) 40 mg DAILY SC Last administered on 12/26/16 09:11 ; Start 12/05/16 at 09:00; Stop 12/30/16 at 08:59 Famotidine (Pepcid) 20 mg BID PO Last administered on 12/26/16 09:11; Start at 21:00; Stop 01/10/17 at 20:59 Fluconazole (Diflucan) 100 mg DAILY PO Last administered on 12/22/16 09:02; Start 12/20/16 at 09:00; Stop 12/22/16 at 12:00; Status DC Gabapentin (Neurontin) 100 mg TID PO Last administered on 12/26/16 16:33; Start 12/22/16 at 16:00; Stop 01/21/17 at 15:59 Home Med (Med Rec Complete!) ASDIRECTED XX ; Start 12/04/16 at 17:30; Stop 07/12 at 17:36; Status DC Home Med (Med Rec Complete!) ASDIRECTED XX ; Start 12/04/16 at 20:30; Stop 07/12 at 20:30; Status DC Hydrocortisone (Proctosol Hc) 1 dose BID TOP Last administered on 12/17/16 08: 17; Start 12/14/16 at 21:00; Stop 12/17/16 at 09:23; Status DC Hydrocortisone (Proctosol Hc) 1 dose BID TOP Last administered on 12/26/16 09: 13; Start 12/17/16 at 09:23; Stop 01/13/17 at 20:59 Levofloxacin 750 mg/IV Miscellaneous Supplies 150 ml @ 100 mls/hr Q24H IV Last administered on 12/05/16 20:13; Start 12/04/16 at 21:00; Stop 12/06/16 at 07:33; Status DC Levothyroxine Sodium (Synthroid) 0.137 mg DAILY@06 PO Last administered on 05:33; Start 12/06/16 at 06:00; Stop 01/05/17 at 05:59 Levothyroxine Sodium (Synthroid) 0.15 mg DAILY@06 PO Last administered on 06:19; Start 12/05/16 at 06:00; Stop 12/05/16 at 12:50; Status DC Lorazepam (Ativan) 0.5 mg Q6HP PRN IV AGITATION; Start 12/17/16 at 21:30; Stop 12/18/16 at 05:01; Status DC Lorazepam (Ativan) 0.5 mg Q8HP PRN PO ANXIETY Last administered on 12/24/16 22: 05; Start 12/13/16 at 19:30; Stop 12/26/16 at 19:29 Lorazepam (Ativan) 1 mg Q4HP PRN PO ANXIETY Last administered on 12/13/16 01: 32; Start 12/04/16 at 19:30; Stop 12/13/16 at 15:06; Status DC Magnesium Oxide (Mag-Ox) 400 mg DAILY PO Last administered on 12/26/16 09:12; Start 12/19/16 at 09:00; Stop 01/18/17 at 08:59 Magnesium Oxide (Mag-Ox) 400 mg Q4H PO Last administered on 12/24/16 22:05; Start 12/24/16 at 14:00; Stop 12/24/16 at 22:01; Status DC Magnesium Sulfate/ Dextrose 1 gm/IV Miscellaneous Supplies 100 ml @ 100 mls/hr 1T@1100,1200 IV Last administered on 12/21/16 18:02; Start 12/21/16 at 11:00; Stop 12/21/16 at 14:00; Status DC Magnesium Sulfate/ Dextrose 1 gm/IV Miscellaneous Supplies 100 ml @ 100 mls/hr 1T@1400,1500 IV ; Start 12/24/16 at 14:00; Stop 12/24/16 at 18:00; Status Cancel Magnesium Sulfate/ Dextrose 1 gm/IV Miscellaneous Supplies 100 ml @ 100 mls/hr 1T@16,17 IV Last administered on 12/13/16 16:59; Start 12/13/16 at 16:00; Stop 12/13/16 at 19:00; Status DC Magnesium Sulfate/ Dextrose 1 gm/IV Miscellaneous Supplies 100 ml @ 100 mls/hr Q1H IV Last administered on 12/16/16 11:23; Start 12/16/16 at 08:00; Stop at 09:59; Status DC Meropenem 500 mg/ Dextrose 100 ml @ 200 mls/hr Q8H IV Last administered on 00:48; Start 12/06/16 at 09:00; Stop 12/13/16 at 07:36; Status DC Meropenem 500 mg/ Dextrose 100 ml @ 200 mls/hr Q8H IV Last administered on 10:04; Start 12/13/16 at 09:00; Stop 12/13/16 at 12:00; Status DC Metoprolol Succinate (TopROL XL) 100 mg DAILY PO Last administered on 12/26/16 09:12; Start 12/05/16 at 09:00; Stop 01/04/17 at 08:59 Mirtazapine (Remeron) 7.5 mg QHS PO Last administered on 12/25/16 20:18; Start 12/15/16 at 21:00; Stop 01/14/17 at 20:59 Morphine Sulfate (Roxanol) 5 mg Q4HP PRN PO PAIN; Start 12/12/16 at 12:52; Stop 12/13/16 at 15:06; Status DC Morphine Sulfate (Roxanol) 10 mg Q2HP PRN PO PAIN Last administered on 05:47; Start 12/04/16 at 19:30; Stop 12/12/16 at 12:56; Status DC Nystatin (Mycostatin Powder, Nystop) 1 dose TID TOP Last administered on 16:33; Start 12/16/16 at 16:00; Stop 01/15/17 at 15:59 Omeprazole (PriLOSEC) 20 mg DAILY PO Last administered on 12/26/16 09:11; Start 12/05/16 at 09:00; Stop 01/04/17 at 08:59 Ondansetron HCl (Zofran Odt) 4 mg Q8HP PRN PO NAUSEA OR VOMITING Last administered on 12/23/16 13:22; Start 12/07/16 at 21:00; Stop 01/06/17 at 20:59 Pramipexole Dihydrochloride (Mirapex) 1.5 mg QHS PO Last administered on 20:18; Start 12/05/16 at 21:00; Stop 01/04/17 at 20:59 Risperidone (RisperDAL) 0.5 mg BID PO Last administered on 12/26/16 09:12; Start 12/25/16 at 21:00; Stop 01/24/17 at 20:59 Scopolamine (Transderm-Scop) 1.5 mg Q72H TOP ; Start 12/06/16 at 09:00; Stop at 09:00; Status DC Scopolamine (Transderm-Scop) 1.5 mg Q72H TOP Last administered on 12/21/16 10: 09; Start 12/06/16 at 09:00; Stop 12/21/16 at 18:29; Status DC Senna/Docusate Sodium (Senokot S) 1 tab BID PO Last administered on 12/26/16 09 :12; Start 12/07/16 at 09:00; Stop 01/06/17 at 08:59 Tramadol HCl (Ultram) 50 mg Q8HP PRN PO MODERATE PAIN (PS 5-7) Last administered on 12/26/16 05:04; Start 12/20/16 at 13:30; Stop 12/27/16 at 13:29 Venlafaxine HCl (Effexor Xr) 75 mg QHS PO Last administered on 12/16/16 20 :17; Start 12/04/16 at 21:00; Stop 12/17/16 at 12:20; Status DC Venlafaxine HCl (Effexor Xr) 75 mg QHS PO ; Start 12/17/16 at 21:00; Stop at 21:59; Status DC Venlafaxine HCl (Effexor Xr) 150 mg QAM PO Last administered on 12/26/16 09 :11; Start 12/18/16 at 09:00; Stop 01/17/17 at 08:59 Allergies Coded Allergies: Sulfa Antibiotics (Verified Allergy, Severe, 12/11/16) Cephalosporins (Verified Allergy, Intermediate, 11/25/12) Ciprofloxacin (Unverified Allergy, Unknown, 01/26/16) Iodine (Unverified Allergy, Unknown, 01/26/16) Lobster (Unverified Allergy, Unknown, 01/26/16) Metronidazole (Unverified Allergy, Unknown, 01/26/16) Nickel (Unverified Allergy, Unknown, 01/26/16) Penicillins (Unverified Allergy, Unknown, 01/26/16) Statins (Unverified Allergy, Unknown, 01/26/16) Sulfa Drugs (Verified Allergy, Unknown, 11/25/12) Sulfa Drugs Cross Reactors (Verified Allergy, Unknown, 11/25/12) GERI CEBALLOS MD December 26, 2016 19:11
--- NOTE | 2016-12-26 19:32 | IPNPDOC ---
[facility] Progress Note Progress Note DATE OF SERVICE: 12/26/16 Patient is on Remeron and Tramadol, not only on Venlafaxine and Tramadol. Once again, I recommend to discontinue tramadol or antidepressants ( remeron and venlafaxin) for potential medication interaction, a rare but difficult to treat complication called serotonin syndrome. Spoke recently to Nurse who said she would contact the Hospitalist so that he can contact me to discuss this situation. Shima Ceballos Vital Signs Vital Signs Date Time Temp Pulse Resp B/P (MAP) Pulse Ox O2 Delivery O2 Flow Rate FiO2 12/26/16 14:00 97.4 90 18 101/63 (76) 94 Room Air 12/23/16 08:33 3.0 Laboratory Data 24H Labs Laboratory Tests 2 12/26/16 06:42: White Blood Count 7.1, Red Blood Count 4.02, Hemoglobin 10.3L, Hematocrit 33.8L , Mean Corpuscular Volume 84.1, Mean Corpuscular Hemoglobin 25.7L, Mean Corpuscular Hemoglobin Concent 30.6L, Red Cell Distribution Width 15.6H, Platelet Count 311, Neutrophils (%) (Auto) 65.9, Lymphocytes (%) (Auto) 21.8L, Monocytes (%) (Auto) 4.3, Eosinophils (%) (Auto) 5.7H, Basophils (%) (Auto) 0.5 , Neutrophils # (Auto) 4.7, Lymphocytes # (Auto) 1.7, Monocytes # (Auto) 0.3, Eosinophils # (Auto) 0.4, Basophils # (Auto) 0.0, Large Unclassified Cells % 1.8 , Large Unclassified Cells # 0.1, Anion Gap 4L, Glomerular Filtration Rate > 60.0, Blood Urea Nitrogen 14, Creatinine 0.46L, Sodium Level 141, Potassium Level 4.1, Chloride Level 105, Carbon Dioxide Level 32, Calcium Level 9.3, Magnesium Level 2.0 CBC/BMP Laboratory Tests 12/26/16 06:42 Red Blood Count 4.02, Mean Corpuscular Volume 84.1, Mean Corpuscular Hemoglobin 25.7 L, Mean Corpuscular Hemoglobin Concent 30.6 L, Red Cell Distribution Width 15.6 H, Neutrophils (%) (Auto) 65.9, Lymphocytes (%) (Auto) 21.8 L, Monocytes (% ) (Auto) 4.3, Eosinophils (%) (Auto) 5.7 H, Basophils (%) (Auto) 0.5, Neutrophils # (Auto) 4.7, Lymphocytes # (Auto) 1.7, Monocytes # (Auto) 0.3, Eosinophils # (Auto) 0.4, Basophils # (Auto) 0.0, Calcium Level 9.3 Current Medications Current Medications Acetaminophen (Tylenol Tab) 650 mg Q4HP PRN PO MILD PAIN OR FEVER Last administered on 12/24/16 12:44; Start 12/04/16 at 17:45; Stop 01/03/17 at 17:44 Acetaminophen/ Hydrocodone Bitart ([place], Anexsia 5/325) 1 tab Q4HP PRN PO MODERATE PAIN (PS 5-7); Start 12/04/16 at 17:45; Stop 12/04/16 at 19:17; Status DC Albuterol/ Ipratropium (Combivent Respimat 100-20mcg) 1 puff Q4HP PRN INH SHORTNESS OF BREATH Last administered on 12/21/16 22:05; Start 12/04/16 at 19: 30; Stop 01/03/17 at 19:29 Albuterol/ Ipratropium (Duoneb (Ipr 0.5mg/Alb 2.5mg)) 3 ml BIDP PRN INH SHORTNESS OF BREATH Last administered on 12/11/16 09:48; Start 12/08/16 at 10: 15; Stop 01/07/17 at 10:14 Albuterol/ Ipratropium (Duoneb (Ipr 0.5mg/Alb 2.5mg)) 3 ml RBID INH ; Start at 08:00; Stop 12/08/16 at 10:06; Status DC Albuterol/ Ipratropium (Duoneb (Ipr 0.5mg/Alb 2.5mg)) 3 ml RQID NEB Last administered on 12/26/16 16:00; Start 12/11/16 at 20:00; Stop 01/10/17 at 19:59 Amitriptyline HCl (Elavil) 10 mg QHSP PRN PO INSOMNIA Last administered on 12/12 23:05; Start 12/11/16 at 17:45; Stop 12/15/16 at 12:45; Status DC Aripiprazole (AbiLIFY) 2 mg QHS PO Last administered on 12/24/16 20:22; Start 12/17/16 at 21:00; Stop 12/25/16 at 17:11; Status DC Aspirin (Ecotrin) 81 mg DAILY PO Last administered on 12/26/16 09:12; Start 08/11 at 09:00; Stop 01/04/17 at 08:59 Budesonide/ Formoterol Fumarate (Symbicort 80/ 4.5mcg) 2 puff BID INH Last administered on 12/26/16 07:52; Start 12/08/16 at 21:00; Stop 01/07/17 at 20:59 Clopidogrel Bisulfate (PLAVix) 75 mg DAILY PO Last administered on 12/26/16 09: 11; Start 12/05/16 at 09:00; Stop 01/04/17 at 08:59 Collagenase (Santyl) 1 dose WDC PRN TOP WITH EACH DRESSING CHANGE Last administered on 12/24/16 12:46; Start 12/06/16 at 13:30; Stop 01/05/17 at 13:29 Diphenhydramine HCl (Benadryl Cream) 1 dose Q6HP PRN TOP ITCHING; Start at 15:15; Stop 01/12/17 at 15:14 Diphenhydramine HCl (Benadryl) 25 mg Q4HP PRN PO RASH/ITCHING Last administered on 12/13/16 03:38; Start 12/04/16 at 19:45; Stop 12/13/16 at 15:06 ; Status DC Diphenhydramine HCl (Benadryl) 25 mg QHSP PRN PO INSOMNIA Last administered on 12/10/16 23:24; Start 12/10/16 at 17:45; Stop 12/11/16 at 04:07; Status DC Diphenhydramine HCl (Benadryl) 50 mg BIDP PRN PO EXTRAPYRAMIDAL SYMPTOMS; Start 12/25/16 at 17:15; Stop 01/24/17 at 17:14 Docusate Sodium (Colace) 100 mg BIDP PRN PO CONSTIPATION Last administered on 02:14; Start 12/07/16 at 00:00; Stop 12/17/16 at 19:57; Status DC Enoxaparin Sodium (Lovenox) 40 mg DAILY SC Last administered on 12/26/16 09:11 ; Start 12/05/16 at 09:00; Stop 12/30/16 at 08:59 Famotidine (Pepcid) 20 mg BID PO Last administered on 12/26/16 09:11; Start at 21:00; Stop 01/10/17 at 20:59 Fluconazole (Diflucan) 100 mg DAILY PO Last administered on 12/22/16 09:02; Start 12/20/16 at 09:00; Stop 12/22/16 at 12:00; Status DC Gabapentin (Neurontin) 100 mg TID PO Last administered on 12/26/16 16:33; Start 12/22/16 at 16:00; Stop 01/21/17 at 15:59 Home Med (Med Rec Complete!) ASDIRECTED XX ; Start 12/04/16 at 17:30; Stop 07/12 at 17:36; Status DC Home Med (Med Rec Complete!) ASDIRECTED XX ; Start 12/04/16 at 20:30; Stop 07/12 at 20:30; Status DC Hydrocortisone (Proctosol Hc) 1 dose BID TOP Last administered on 12/17/16 08: 17; Start 12/14/16 at 21:00; Stop 12/17/16 at 09:23; Status DC Hydrocortisone (Proctosol Hc) 1 dose BID TOP Last administered on 12/26/16 09: 13; Start 12/17/16 at 09:23; Stop 01/13/17 at 20:59 Levofloxacin 750 mg/IV Miscellaneous Supplies 150 ml @ 100 mls/hr Q24H IV Last administered on 12/05/16 20:13; Start 12/04/16 at 21:00; Stop 12/06/16 at 07:33; Status DC Levothyroxine Sodium (Synthroid) 0.137 mg DAILY@06 PO Last administered on 05:33; Start 12/06/16 at 06:00; Stop 01/05/17 at 05:59 Levothyroxine Sodium (Synthroid) 0.15 mg DAILY@06 PO Last administered on 06:19; Start 12/05/16 at 06:00; Stop 12/05/16 at 12:50; Status DC Lorazepam (Ativan) 0.5 mg Q6HP PRN IV AGITATION; Start 12/17/16 at 21:30; Stop 12/18/16 at 05:01; Status DC Lorazepam (Ativan) 0.5 mg Q8HP PRN PO ANXIETY Last administered on 12/24/16 22: 05; Start 12/13/16 at 19:30; Stop 12/26/16 at 19:29 Lorazepam (Ativan) 1 mg Q4HP PRN PO ANXIETY Last administered on 12/13/16 01: 32; Start 12/04/16 at 19:30; Stop 12/13/16 at 15:06; Status DC Magnesium Oxide (Mag-Ox) 400 mg DAILY PO Last administered on 12/26/16 09:12; Start 12/19/16 at 09:00; Stop 01/18/17 at 08:59 Magnesium Oxide (Mag-Ox) 400 mg Q4H PO Last administered on 12/24/16 22:05; Start 12/24/16 at 14:00; Stop 12/24/16 at 22:01; Status DC Magnesium Sulfate/ Dextrose 1 gm/IV Miscellaneous Supplies 100 ml @ 100 mls/hr 1T@1100,1200 IV Last administered on 12/21/16 18:02; Start 12/21/16 at 11:00; Stop 12/21/16 at 14:00; Status DC Magnesium Sulfate/ Dextrose 1 gm/IV Miscellaneous Supplies 100 ml @ 100 mls/hr 1T@1400,1500 IV ; Start 12/24/16 at 14:00; Stop 12/24/16 at 18:00; Status Cancel Magnesium Sulfate/ Dextrose 1 gm/IV Miscellaneous Supplies 100 ml @ 100 mls/hr 1T@16,17 IV Last administered on 12/13/16 16:59; Start 12/13/16 at 16:00; Stop 12/13/16 at 19:00; Status DC Magnesium Sulfate/ Dextrose 1 gm/IV Miscellaneous Supplies 100 ml @ 100 mls/hr Q1H IV Last administered on 12/16/16 11:23; Start 12/16/16 at 08:00; Stop at 09:59; Status DC Meropenem 500 mg/ Dextrose 100 ml @ 200 mls/hr Q8H IV Last administered on 00:48; Start 12/06/16 at 09:00; Stop 12/13/16 at 07:36; Status DC Meropenem 500 mg/ Dextrose 100 ml @ 200 mls/hr Q8H IV Last administered on 10:04; Start 12/13/16 at 09:00; Stop 12/13/16 at 12:00; Status DC Metoprolol Succinate (TopROL XL) 100 mg DAILY PO Last administered on 12/26/16 09:12; Start 12/05/16 at 09:00; Stop 01/04/17 at 08:59 Mirtazapine (Remeron) 7.5 mg QHS PO Last administered on 12/25/16 20:18; Start 12/15/16 at 21:00; Stop 01/14/17 at 20:59 Morphine Sulfate (Roxanol) 5 mg Q4HP PRN PO PAIN; Start 12/12/16 at 12:52; Stop 12/13/16 at 15:06; Status DC Morphine Sulfate (Roxanol) 10 mg Q2HP PRN PO PAIN Last administered on 05:47; Start 12/04/16 at 19:30; Stop 12/12/16 at 12:56; Status DC Nystatin (Mycostatin Powder, Nystop) 1 dose TID TOP Last administered on 16:33; Start 12/16/16 at 16:00; Stop 01/15/17 at 15:59 Omeprazole (PriLOSEC) 20 mg DAILY PO Last administered on 12/26/16 09:11; Start 12/05/16 at 09:00; Stop 01/04/17 at 08:59 Ondansetron HCl (Zofran Odt) 4 mg Q8HP PRN PO NAUSEA OR VOMITING Last administered on 12/23/16 13:22; Start 12/07/16 at 21:00; Stop 01/06/17 at 20:59 Pramipexole Dihydrochloride (Mirapex) 1.5 mg QHS PO Last administered on 20:18; Start 12/05/16 at 21:00; Stop 01/04/17 at 20:59 Risperidone (RisperDAL) 0.5 mg BID PO Last administered on 12/26/16 09:12; Start 12/25/16 at 21:00; Stop 01/24/17 at 20:59 Scopolamine (Transderm-Scop) 1.5 mg Q72H TOP ; Start 12/06/16 at 09:00; Stop at 09:00; Status DC Scopolamine (Transderm-Scop) 1.5 mg Q72H TOP Last administered on 12/21/16 10: 09; Start 12/06/16 at 09:00; Stop 12/21/16 at 18:29; Status DC Senna/Docusate Sodium (Senokot S) 1 tab BID PO Last administered on 12/26/16 09 :12; Start 12/07/16 at 09:00; Stop 01/06/17 at 08:59 Tramadol HCl (Ultram) 50 mg Q8HP PRN PO MODERATE PAIN (PS 5-7) Last administered on 12/26/16 05:04; Start 12/20/16 at 13:30; Stop 12/27/16 at 13:29 Venlafaxine HCl (Effexor Xr) 75 mg QHS PO Last administered on 12/16/16 20 :17; Start 12/04/16 at 21:00; Stop 12/17/16 at 12:20; Status DC Venlafaxine HCl (Effexor Xr) 75 mg QHS PO ; Start 12/17/16 at 21:00; Stop at 21:59; Status DC Venlafaxine HCl (Effexor Xr) 150 mg QAM PO Last administered on 12/26/16 09 :11; Start 12/18/16 at 09:00; Stop 01/17/17 at 08:59 Allergies Coded Allergies: Sulfa Antibiotics (Verified Allergy, Severe, 12/11/16) Cephalosporins (Verified Allergy, Intermediate, 11/25/12) Ciprofloxacin (Unverified Allergy, Unknown, 01/26/16) Iodine (Unverified Allergy, Unknown, 01/26/16) Lobster (Unverified Allergy, Unknown, 01/26/16) Metronidazole (Unverified Allergy, Unknown, 01/26/16) Nickel (Unverified Allergy, Unknown, 01/26/16) Penicillins (Unverified Allergy, Unknown, 01/26/16) Statins (Unverified Allergy, Unknown, 01/26/16) Sulfa Drugs (Verified Allergy, Unknown, 11/25/12) Sulfa Drugs Cross Reactors (Verified Allergy, Unknown, 11/25/12) SHIMA CEBALLOS MD December 26, 2016 19:32
[2016-12-26] MEDS: MIRTAZAPINE 7.5MG PER 1/2 TABLET PO SCH (20:24)
[2016-12-26] MEDS: PRAMIPEXOLE 1 MG TAB PO SCH (20:25)
[2016-12-26 22:00] VITALS: BP 124/60
[2016-12-27] MEDS: ACETAMINOPHEN TAB 650MG DOSE (2X325MG) PO PRN (00:57)
[2016-12-27] MEDS: LEVOTHYROXINE 0.137 MG TAB (137MCG) PO SCH (05:45)
[2016-12-27 06:00] VITALS: BP 155/63
[2016-12-27 07:00] LABS: BASO % 0.5 % (0.0-1.0); EOS # 0.4 K/mm3 (0.0-0.50); EOS % 6.6 % (0.0-3.0); LARGE UNSTAINED CELL # 0.1 K/mm3 (0.0-0.4); LARGE UNSTAINED CELL % 2.3 % (0.0-4.0); MEAN CORPUSCULAR HEMOGLOBIN 25.5 pg (27.0-33.0); MEAN CORPUSCULAR HGB CONC 30.4 g/dl (32.0-36.5); MEAN CORPUSCULAR VOLUME 83.6 fl (80.0-96.0); MONO # 0.3 K/mm3 (0.0-0.8); MONO % 5.5 % (0.0-5.0); NEUTROPHILS # 3.3 K/mm3 (1.8-7.7); NEUTROPHILS % 54.1 % (36.0-66.0); PLATELET COUNT, AUTOMATED 308 k/mm3 (150-450); RED CELL DISTRIBUTION WIDTH 15.4 % (11.5-14.5); WHITE BLOOD COUNT 6.1 K/mm3 (4.0-10.0)
[2016-12-27 07:20] LABS: ANION GAP 7 MEQ/L (8-16); BLOOD UREA NITROGEN 18 MG/DL (7-18); CALCIUM LEVEL 8.5 MG/DL (8.8-10.2); CARBON DIOXIDE LEVEL 29 MEQ/L (21-32); CHLORIDE LEVEL 105 MEQ/L (98-107); GLOMERULAR FILTRATION RATE > 60.0 (>39); GLUCOSE, FASTING 100 MG/DL (83-110); MAGNESIUM LEVEL 1.9 MG/DL (1.8-2.4); POTASSIUM SERUM 3.8 MEQ/L (3.5-5.1); SODIUM LEVEL 141 MEQ/L (136-145)
[2016-12-27] MEDS: SYMBICORT 80/4.5MCG INHALER 6GM INH SCH ×2 (07:55→19:56)
[2016-12-27] MEDS: IPRATROPIUM 0.5MG/ALBUTEROL 2.5MG INH SOL UD 3ML (DUONEB)(J7620) NEB SCH ×4 (07:56→19:54)
--- NOTE | 2016-12-27 08:48 | IPNPDOC ---
[facility] Progress Note Progress Note DATE OF SERVICE: 12/27/16 Good morning Doctors. Thanks for tapering the patient from Venlafaxine. I would recommend to consider not giving her Remeron because this is another medication that interacts with Tramadol in the same fashion that all antidepressants do. Perhaps you can consider a consult for pain management to use oth er medication other victoria Tramadol, to avoid possible interactions. Thanks! Geri Ceballos Vital Signs Vital Signs Date Time Temp Pulse Resp B/P (MAP) Pulse Ox O2 Delivery O2 Flow Rate FiO2 12/27/16 06:00 98.4 62 18 155/63 (93) 96 Room Air 12/23/16 08:33 3.0 Laboratory Data 24H Labs Laboratory Tests 2 12/27/16 06:21: White Blood Count 6.1, Red Blood Count 3.81L, Hemoglobin 9.7L, Hematocrit 31.8L , Mean Corpuscular Volume 83.6, Mean Corpuscular Hemoglobin 25.5L, Mean Corpuscular Hemoglobin Concent 30.4L, Red Cell Distribution Width 15.4H, Platelet Count 308, Neutrophils (%) (Auto) 54.1, Lymphocytes (%) (Auto) 31.0, Monocytes (%) (Auto) 5.5H, Eosinophils (%) (Auto) 6.6H, Basophils (%) (Auto) 0.5 , Neutrophils # (Auto) 3.3, Lymphocytes # (Auto) 2.0, Monocytes # (Auto) 0.3, Eosinophils # (Auto) 0.4, Basophils # (Auto) 0.0, Large Unclassified Cells % 2.3 , Large Unclassified Cells # 0.1, Anion Gap 7L, Glomerular Filtration Rate > 60.0, Blood Urea Nitrogen 18, Creatinine 0.50L, Sodium Level 141, Potassium Level 3.8, Chloride Level 105, Carbon Dioxide Level 29, Calcium Level 8.5L, Magnesium Level 1.9 CBC/BMP Laboratory Tests 12/27/16 06:21 Red Blood Count 3.81 L, Mean Corpuscular Volume 83.6, Mean Corpuscular Hemoglobin 25.5 L, Mean Corpuscular Hemoglobin Concent 30.4 L, Red Cell Distribution Width 15.4 H, Neutrophils (%) (Auto) 54.1, Lymphocytes (%) (Auto) 31.0, Monocytes (%) (Auto) 5.5 H, Eosinophils (%) (Auto) 6.6 H, Basophils (%) ( Auto) 0.5, Neutrophils # (Auto) 3.3, Lymphocytes # (Auto) 2.0, Monocytes # (Auto ) 0.3, Eosinophils # (Auto) 0.4, Basophils # (Auto) 0.0, Calcium Level 8.5 L Current Medications Current Medications Acetaminophen (Tylenol Tab) 650 mg Q4HP PRN PO MILD PAIN OR FEVER Last administered on 12/27/16 00:57; Start 12/04/16 at 17:45; Stop 01/03/17 at 17:44 Acetaminophen/ Hydrocodone Bitart ([place], Anexsia 5/325) 1 tab Q4HP PRN PO MODERATE PAIN (PS 5-7); Start 12/04/16 at 17:45; Stop 12/04/16 at 19:17; Status DC Albuterol/ Ipratropium (Combivent Respimat 100-20mcg) 1 puff Q4HP PRN INH SHORTNESS OF BREATH Last administered on 12/21/16 22:05; Start 12/04/16 at 19: 30; Stop 01/03/17 at 19:29 Albuterol/ Ipratropium (Duoneb (Ipr 0.5mg/Alb 2.5mg)) 3 ml BIDP PRN INH SHORTNESS OF BREATH Last administered on 12/11/16 09:48; Start 12/08/16 at 10: 15; Stop 01/07/17 at 10:14 Albuterol/ Ipratropium (Duoneb (Ipr 0.5mg/Alb 2.5mg)) 3 ml RBID INH ; Start at 08:00; Stop 12/08/16 at 10:06; Status DC Albuterol/ Ipratropium (Duoneb (Ipr 0.5mg/Alb 2.5mg)) 3 ml RQID NEB Last administered on 12/26/16 16:00; Start 12/11/16 at 20:00; Stop 01/10/17 at 19:59 Amitriptyline HCl (Elavil) 10 mg QHSP PRN PO INSOMNIA Last administered on 12/12 23:05; Start 12/11/16 at 17:45; Stop 12/15/16 at 12:45; Status DC Aripiprazole (AbiLIFY) 2 mg QHS PO Last administered on 12/24/16 20:22; Start 12/17/16 at 21:00; Stop 12/25/16 at 17:11; Status DC Aspirin (Ecotrin) 81 mg DAILY PO Last administered on 12/26/16 09:12; Start 08/11 at 09:00; Stop 01/04/17 at 08:59 Budesonide/ Formoterol Fumarate (Symbicort 80/ 4.5mcg) 2 puff BID INH Last administered on 12/27/16 07:55; Start 12/08/16 at 21:00; Stop 01/07/17 at 20:59 Clopidogrel Bisulfate (PLAVix) 75 mg DAILY PO Last administered on 12/26/16 09: 11; Start 12/05/16 at 09:00; Stop 01/04/17 at 08:59 Collagenase (Santyl) 1 dose WDC PRN TOP WITH EACH DRESSING CHANGE Last administered on 12/24/16 12:46; Start 12/06/16 at 13:30; Stop 01/05/17 at 13:29 Diphenhydramine HCl (Benadryl Cream) 1 dose Q6HP PRN TOP ITCHING; Start at 15:15; Stop 01/12/17 at 15:14 Diphenhydramine HCl (Benadryl) 25 mg Q4HP PRN PO RASH/ITCHING Last administered on 12/13/16 03:38; Start 12/04/16 at 19:45; Stop 12/13/16 at 15:06 ; Status DC Diphenhydramine HCl (Benadryl) 25 mg QHSP PRN PO INSOMNIA Last administered on 12/10/16 23:24; Start 12/10/16 at 17:45; Stop 12/11/16 at 04:07; Status DC Diphenhydramine HCl (Benadryl) 50 mg BIDP PRN PO EXTRAPYRAMIDAL SYMPTOMS; Start 12/25/16 at 17:15; Stop 01/24/17 at 17:14 Docusate Sodium (Colace) 100 mg BIDP PRN PO CONSTIPATION Last administered on 02:14; Start 12/07/16 at 00:00; Stop 12/17/16 at 19:57; Status DC Enoxaparin Sodium (Lovenox) 40 mg DAILY SC Last administered on 12/26/16 09:11 ; Start 12/05/16 at 09:00; Stop 12/30/16 at 08:59 Famotidine (Pepcid) 20 mg BID PO Last administered on 12/26/16 20:25; Start at 21:00; Stop 01/10/17 at 20:59 Fluconazole (Diflucan) 100 mg DAILY PO Last administered on 12/22/16 09:02; Start 12/20/16 at 09:00; Stop 12/22/16 at 12:00; Status DC Gabapentin (Neurontin) 100 mg TID PO Last administered on 12/26/16 20:24; Start 12/22/16 at 16:00; Stop 01/21/17 at 15:59 Home Med (Med Rec Complete!) ASDIRECTED XX ; Start 12/04/16 at 17:30; Stop 07/12 at 17:36; Status DC Home Med (Med Rec Complete!) ASDIRECTED XX ; Start 12/04/16 at 20:30; Stop 07/12 at 20:30; Status DC Hydrocortisone (Proctosol Hc) 1 dose BID TOP Last administered on 12/17/16 08: 17; Start 12/14/16 at 21:00; Stop 12/17/16 at 09:23; Status DC Hydrocortisone (Proctosol Hc) 1 dose BID TOP Last administered on 12/26/16 20: 25; Start 12/17/16 at 09:23; Stop 01/13/17 at 20:59 Levofloxacin 750 mg/IV Miscellaneous Supplies 150 ml @ 100 mls/hr Q24H IV Last administered on 12/05/16 20:13; Start 12/04/16 at 21:00; Stop 12/06/16 at 07:33; Status DC Levothyroxine Sodium (Synthroid) 0.137 mg DAILY@06 PO Last administered on 05:45; Start 12/06/16 at 06:00; Stop 01/05/17 at 05:59 Levothyroxine Sodium (Synthroid) 0.15 mg DAILY@06 PO Last administered on 06:19; Start 12/05/16 at 06:00; Stop 12/05/16 at 12:50; Status DC Lorazepam (Ativan) 0.5 mg Q6HP PRN IV AGITATION; Start 12/17/16 at 21:30; Stop 12/18/16 at 05:01; Status DC Lorazepam (Ativan) 0.5 mg Q8HP PRN PO ANXIETY Last administered on 12/24/16 22: 05; Start 12/13/16 at 19:30; Stop 12/26/16 at 19:29; Status DC Lorazepam (Ativan) 1 mg Q4HP PRN PO ANXIETY Last administered on 12/13/16 01: 32; Start 12/04/16 at 19:30; Stop 12/13/16 at 15:06; Status DC Magnesium Oxide (Mag-Ox) 400 mg DAILY PO Last administered on 12/26/16 09:12; Start 12/19/16 at 09:00; Stop 01/18/17 at 08:59 Magnesium Oxide (Mag-Ox) 400 mg Q4H PO Last administered on 12/24/16 22:05; Start 12/24/16 at 14:00; Stop 12/24/16 at 22:01; Status DC Magnesium Sulfate/ Dextrose 1 gm/IV Miscellaneous Supplies 100 ml @ 100 mls/hr 1T@1100,1200 IV Last administered on 12/21/16 18:02; Start 12/21/16 at 11:00; Stop 12/21/16 at 14:00; Status DC Magnesium Sulfate/ Dextrose 1 gm/IV Miscellaneous Supplies 100 ml @ 100 mls/hr 1T@1400,1500 IV ; Start 12/24/16 at 14:00; Stop 12/24/16 at 18:00; Status Cancel Magnesium Sulfate/ Dextrose 1 gm/IV Miscellaneous Supplies 100 ml @ 100 mls/hr 1T@16,17 IV Last administered on 12/13/16 16:59; Start 12/13/16 at 16:00; Stop 12/13/16 at 19:00; Status DC Magnesium Sulfate/ Dextrose 1 gm/IV Miscellaneous Supplies 100 ml @ 100 mls/hr Q1H IV Last administered on 12/16/16 11:23; Start 12/16/16 at 08:00; Stop at 09:59; Status DC Meropenem 500 mg/ Dextrose 100 ml @ 200 mls/hr Q8H IV Last administered on 00:48; Start 12/06/16 at 09:00; Stop 12/13/16 at 07:36; Status DC Meropenem 500 mg/ Dextrose 100 ml @ 200 mls/hr Q8H IV Last administered on 10:04; Start 12/13/16 at 09:00; Stop 12/13/16 at 12:00; Status DC Metoprolol Succinate (TopROL XL) 100 mg DAILY PO Last administered on 12/26/16 09:12; Start 12/05/16 at 09:00; Stop 01/04/17 at 08:59 Mirtazapine (Remeron) 7.5 mg QHS PO Last administered on 12/26/16 20:24; Start 12/15/16 at 21:00; Stop 01/14/17 at 20:59 Morphine Sulfate (Roxanol) 5 mg Q4HP PRN PO PAIN; Start 12/12/16 at 12:52; Stop 12/13/16 at 15:06; Status DC Morphine Sulfate (Roxanol) 10 mg Q2HP PRN PO PAIN Last administered on 05:47; Start 12/04/16 at 19:30; Stop 12/12/16 at 12:56; Status DC Nystatin (Mycostatin Powder, Nystop) 1 dose TID TOP Last administered on 20:25; Start 12/16/16 at 16:00; Stop 01/15/17 at 15:59 Omeprazole (PriLOSEC) 20 mg DAILY PO Last administered on 12/26/16 09:11; Start 12/05/16 at 09:00; Stop 01/04/17 at 08:59 Ondansetron HCl (Zofran Odt) 4 mg Q8HP PRN PO NAUSEA OR VOMITING Last administered on 12/23/16 13:22; Start 12/07/16 at 21:00; Stop 01/06/17 at 20:59 Oxycodone/ Acetaminophen (Percocet 5mg/ 325mg Tablet) 1 tab Q6HP PRN PO MILD/ MODERATE PAIN (PS 1-7); Start 12/27/16 at 07:00; Stop 01/03/17 at 06:59 Pramipexole Dihydrochloride (Mirapex) 1.5 mg QHS PO Last administered on 20:25; Start 12/05/16 at 21:00; Stop 01/04/17 at 20:59 Risperidone (RisperDAL) 0.5 mg BID PO Last administered on 12/26/16 20:25; Start 12/25/16 at 21:00; Stop 01/24/17 at 20:59 Scopolamine (Transderm-Scop) 1.5 mg Q72H TOP ; Start 12/06/16 at 09:00; Stop at 09:00; Status DC Scopolamine (Transderm-Scop) 1.5 mg Q72H TOP Last administered on 12/21/16 10: 09; Start 12/06/16 at 09:00; Stop 12/21/16 at 18:29; Status DC Senna/Docusate Sodium (Senokot S) 1 tab BID PO Last administered on 12/26/16 20 :25; Start 12/07/16 at 09:00; Stop 01/06/17 at 08:59 Tramadol HCl (Ultram) 50 mg Q8HP PRN PO MODERATE PAIN (PS 5-7) Last administered on 12/26/16 21:26; Start 12/20/16 at 13:30; Stop 12/27/16 at 06:51; Status DC Venlafaxine HCl (Effexor Xr) 75 mg QAM PO ; Start 12/27/16 at 09:00; Stop 12/27/16 at 11:00 Venlafaxine HCl (Effexor Xr) 75 mg QHS PO Last administered on 12/16/16 20 :17; Start 12/04/16 at 21:00; Stop 12/17/16 at 12:20; Status DC Venlafaxine HCl (Effexor Xr) 75 mg QHS PO ; Start 12/17/16 at 21:00; Stop at 21:59; Status DC Venlafaxine HCl (Effexor Xr) 150 mg QAM PO Last administered on 12/26/16t 09 :11; Start 12/18/16 at 09:00; Stop 12/27/16 at 00:55; Status DC Allergies Coded Allergies: Sulfa Antibiotics (Verified Allergy, Severe, 12/11/16) Cephalosporins (Verified Allergy, Intermediate, 11/25/12) Ciprofloxacin (Unverified Allergy, Unknown, 01/26/16) Iodine (Unverified Allergy, Unknown, 01/26/16) Lobster (Unverified Allergy, Unknown, 01/26/16) Metronidazole (Unverified Allergy, Unknown, 01/26/16) Nickel (Unverified Allergy, Unknown, 01/26/16) Penicillins (Unverified Allergy, Unknown, 01/26/16) Statins (Unverified Allergy, Unknown, 01/26/16) Sulfa Drugs (Verified Allergy, Unknown, 11/25/12) Sulfa Drugs Cross Reactors (Verified Allergy, Unknown, 11/25/12) GERI CEBALLOS MD December 27, 2016 08:48
[2016-12-27] MEDS ORDERED: VENLAFAXINE **XR** 75MG CAPSULE PO SCH (09:00)
[2016-12-27] MEDS: METOPROLOL SUCC (TopROL XL) 100MG *XL* TAB PO SCH (09:07)
[2016-12-27] MEDS: CLOPIDOGREL 75 MG TAB PO SCH (09:07)
[2016-12-27] MEDS: ASPIRIN 81 MG ENTERIC TAB PO SCH (09:07)
[2016-12-27] MEDS: FAMOTIDINE 20 MG TAB PO SCH ×2 (09:07→20:39)
[2016-12-27] MEDS: risperiDONE 0.5 MG TAB PO SCH ×2 (09:08→20:39)
[2016-12-27] MEDS: SENOKOT S TAB PO SCH ×2 (09:08→20:39)
[2016-12-27] MEDS: MAGNESIUM OXIDE 400 MG TAB (MAG-OX) PO SCH (09:08)
[2016-12-27] MEDS: NYSTATIN 100,000 UNITS/GM TOPICAL PWD 15 GM TOP SCH ×3 (09:08→20:40)
[2016-12-27] MEDS: GABAPENTIN 100 MG CAP PO SCH ×3 (09:08→20:39)
[2016-12-27] MEDS: OMEPRAZOLE 20 MG CAP PO SCH (09:08)
[2016-12-27] MEDS: ENOXAPARIN 40 MG/0.4 ML SYRINGE (J1650) SC SCH (09:08)
[2016-12-27] MEDS: ANUSOL HC CREAM 30GM TOP SCH ×2 (09:09→20:41)
[2016-12-27] MEDS ORDERED: VENLAFAXINE **XR** 75MG CAPSULE PO ONE (10:00)
--- NOTE | 2016-12-27 10:09 | IPNPDOC ---
Subjective Date Seen The patient was seen on 12/27/16. Subjective Chief Complaint/HPI The patient is a 71-year-old female admitted with a reason for visit of Urinary Tract Infection. General: Denies: ROS Unobtainable, Chills, Night Sweats, Fatigue, Malaise, Normal Appetite, Other Symptoms Constitutional: Denies: Chills, Fever, Malaise, Night Sweats, Weakness, Fatigue , Weight Loss, Lethargy, Other Eyes: Denies: Pain, Vision change, Conjunctivae inflammation, Eyelid inflammation, Redness, Other ENT: Denies: Head Aches, Ear Pain, Dysphagia, Sinus Congestion, Post Nasal Drip , Sore Throat, Epistaxis, Other Symptoms Skin: Denies: Rash, Lesions, Jaundice, Bruising, Itching, Dry, Breakdown, Nail Changes, Other Pulmonary: Denies: Dyspnea, Cough, Pleuritic Chest Pain, Other Symptoms Cardiovascular: Denies: Chest Pain, Palpitations, Orthopnea, Paroxysmal Noc. Dyspnea, Edema, Lt Headedness, Other Symptoms Gastrointestinal: Denies: Nausea, Vomiting, Abdominal Pain, Diarrhea, Constipation, Melena, Hematochezia, Other Symptoms Genitourinary: Denies: Dysuria, Frequency, Incontinence, Hematuria, Retention, Other Symptoms Musculoskeletal: Reports: Leg Pain (pain with right leg stump s/p aka) Objective Physical Examination General Exam: Positive: Alert, Cooperative, No Acute Distress Eye Exam: Positive: PERRLA, Conjunctiva & lids normal, EOMI, Negative: Sclera icteric ENT Exam: Positive: Atraumatic, Other ENT (poor dentition) Neck Exam: Positive: Supple Chest Exam: Positive: Clear to auscultation, Normal air movement Heart Exam: Positive: Rate Normal, Regular Rhythm, Normal S1, Normal S2 Abdomen Exam: Positive: Normal bowel sounds, Soft, Other (multiple abdominal surgical scars noted), Negative: Tenderness Extremity Exam: Positive: Other (b/l aka; bandage in place at stumps), Negative: Clubbing, Cyanosis, Edema Skin Exam: Positive: Breakdown (no significant changes in her pressure ulcers from yesterday) Neuro Exam: Positive: Normal Speech Psych Exam: Positive: Mental status NL, Mood NL, Oriented x 3 (generally oriented to person place and time but not with specific details) Assessment /Plan Problems (1) UTI (urinary tract infection) Status: Resolved Discussed With: Patient Problem Specific Plan: Monitor Clinically Problem Text: asymptomatic s/p 7 days meropenem for pseudomonas uti (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 Gama of wound care. His recommendations for dressing the wound are much appreciated. follow up with wound care clinic on discharge. dressing changes as directed No antibiotics recommended as this is a colonized wound. She may benefit from an evaluation by vascular surgery in the future, but does not need an immediate transfer for this at this time. (3) Pressure ulcer, buttock Status: Chronic Discussed With: Patient Problem Specific Plan: Consult Specialist, Monitor Clinically Problem Text: Continue wound care with foam dressings, and offloading. Continue with nutritional supplements with each meal. Recommend an offloading bed, and a Roho cushion while sitting wound care c/s appreciated (4) Hypothyroidism Status: Chronic Discussed With: Patient Problem Specific Plan: Monitor Clinically Problem Text: TSH was suppressed, with an elevated free T4 Her dose of Synthroid was decreased while inpatient, she will need outpatient follow-up again in 6-8 weeks (5) Hypertension Status: Chronic Discussed With: Patient Problem Specific Plan: Monitor Clinically Problem Text: Continue with metoprolol succinate, vitals continue to be within acceptable limits (6) Depression with anxiety Status: Chronic Discussed With: Patient Problem Specific Plan: Consult Specialist Problem Text: major depressive disorder with psychosis follow as per psychiatry, assistance appreciated discussed with psychiatry today - will d/c tramadol and continue effexor and remeron continue risperidone and benadryl for extrapyramidal side effects as needed can d/c sitter psych recs continue to monitor to determine need for inpatient psych (7) Dyslipidemia Status: Chronic Problem Text: She has a listed allergy to statins (8) Coronary atherosclerosis Status: Chronic Discussed With: Patient Problem Text: Continue with aspirin, plavix, bb. documented allergy to statins s/p cabg (9) GERD (gastroesophageal reflux disease) Status: Chronic Problem Text: Continue home dose of omeprazole. We will recommend elevating the head of bed slightly when she is asleep, as her symptoms are worse at night. (10) Living accommodation issues Status: Acute Problem Text: Discharge planning per recommendations from PFS Plan/VTE VTE Prophylaxis Ordered?: Yes (Lovenox) Plan/Urinary Catheter Reason for insertion/continuin: Patient request Plan Diet: Continue Current Activity: Continue Current Pt and Family Services: Home Care Anticipated Discharge: Home With Services, Sub Acute Rehab, Assisted Living Disposition tbd - continue to monitor with regards to need for ip psych VS, I&O, 24H, Fishbone Vital Signs/I&O Vital Signs Date Time Temp Pulse Resp B/P (MAP) Pulse Ox O2 Delivery O2 Flow Rate FiO2 12/27/16 09:07 62 155/63 12/27/16 06:00 98.4 18 96 Room Air 12/23/16 08:33 3.0 I&O- Last 24 Hours up to 6 AM 12/27/16 06:00 Intake Total 1060 ml Output Total 1075 ml Balance -15 ml Laboratory Data 24H LABS Laboratory Tests 2 12/27/16 06:21: White Blood Count 6.1, Red Blood Count 3.81L, Hemoglobin 9.7L, Hematocrit 31.8L , Mean Corpuscular Volume 83.6, Mean Corpuscular Hemoglobin 25.5L, Mean Corpuscular Hemoglobin Concent 30.4L, Red Cell Distribution Width 15.4H, Platelet Count 308, Neutrophils (%) (Auto) 54.1, Lymphocytes (%) (Auto) 31.0, Monocytes (%) (Auto) 5.5H, Eosinophils (%) (Auto) 6.6H, Basophils (%) (Auto) 0.5 , Neutrophils # (Auto) 3.3, Lymphocytes # (Auto) 2.0, Monocytes # (Auto) 0.3, Eosinophils # (Auto) 0.4, Basophils # (Auto) 0.0, Large Unclassified Cells % 2.3 , Large Unclassified Cells # 0.1, Anion Gap 7L, Glomerular Filtration Rate > 60.0, Blood Urea Nitrogen 18, Creatinine 0.50L, Sodium Level 141, Potassium Level 3.8, Chloride Level 105, Carbon Dioxide Level 29, Calcium Level 8.5L, Magnesium Level 1.9 CBC/BMP Laboratory Tests 12/27/16 06:21 Red Blood Count 3.81 L, Mean Corpuscular Volume 83.6, Mean Corpuscular Hemoglobin 25.5 L, Mean Corpuscular Hemoglobin Concent 30.4 L, Red Cell Distribution Width 15.4 H, Neutrophils (%) (Auto) 54.1, Lymphocytes (%) (Auto) 31.0, Monocytes (%) (Auto) 5.5 H, Eosinophils (%) (Auto) 6.6 H, Basophils (%) ( Auto) 0.5, Neutrophils # (Auto) 3.3, Lymphocytes # (Auto) 2.0, Monocytes # (Auto ) 0.3, Eosinophils # (Auto) 0.4, Basophils # (Auto) 0.0, Calcium Level 8.5 L ULISES COMER MD December 27, 2016 10:09
--- NOTE | 2016-12-27 12:41 | IPNPDOC ---
[facility] Progress Note Progress Note DATE OF SERVICE: 12/27/16 Evaluated 71 year old female with history of bilateral knee amputation, major depression, delirium who has been on Venalafaxine 150 mgs. PO QD and on Risperdal 0.5 mgs PO BID after Abilify was discontinued. her Attending discontinued Tramadol followin this author's recommendation of not having her on Tramadol, Venlafaxine and Remeron. She is still on Venlafaxine, Remeron and Risperal. Met with her today and she was found alert, oriented x 3, in her wheelchari, sociable, friendly, not defensive. Her speech is normal and flid, her thought process is goal directed, her thought content is still positive for delusional thoughts ( my sister sold my house to the hospital and now it has become a assisted, plues my checks are being mailed to her house). She denies suicidal ideation, denies homicidal ideation, denies auditory of visual hallucinations. She is not responding to internal stimuli and her mood is bright , she's not depressed anymore, has reactive, euthymic affect. Her judment is limited because she is still slightly delusional, but it has improved. her insight has improved. her memory and attention are good. She's not a danger to self or others. DIAGNOSES: 1. major Depressive Disorder in partial remission 2. Delirium ( improving). ASSESSMENT: pt has improved and she is not longer showing signs of depression. She still has delusions regarding her financial difficulties and blames family member for this. MANAGEMENT PLAN: Continue with current medication but I suggest to increase Risperdal to 0.5 mgs. PO TID. TIME SPENT: 25 minutes. Vital Signs Vital Signs Date Time Temp Pulse Resp B/P (MAP) Pulse Ox O2 Delivery O2 Flow Rate FiO2 12/27/16 09:30 Room Air 12/27/16 09:07 62 155/63 12/27/16 06:00 98.4 18 96 12/23/16 08:33 3.0 Laboratory Data 24H Labs Laboratory Tests 2 12/27/16 06:21: White Blood Count 6.1, Red Blood Count 3.81L, Hemoglobin 9.7L, Hematocrit 31.8L , Mean Corpuscular Volume 83.6, Mean Corpuscular Hemoglobin 25.5L, Mean Corpuscular Hemoglobin Concent 30.4L, Red Cell Distribution Width 15.4H, Platelet Count 308, Neutrophils (%) (Auto) 54.1, Lymphocytes (%) (Auto) 31.0, Monocytes (%) (Auto) 5.5H, Eosinophils (%) (Auto) 6.6H, Basophils (%) (Auto) 0.5 , Neutrophils # (Auto) 3.3, Lymphocytes # (Auto) 2.0, Monocytes # (Auto) 0.3, Eosinophils # (Auto) 0.4, Basophils # (Auto) 0.0, Large Unclassified Cells % 2.3 , Large Unclassified Cells # 0.1, Anion Gap 7L, Glomerular Filtration Rate > 60.0, Blood Urea Nitrogen 18, Creatinine 0.50L, Sodium Level 141, Potassium Level 3.8, Chloride Level 105, Carbon Dioxide Level 29, Calcium Level 8.5L, Magnesium Level 1.9 CBC/BMP Laboratory Tests 12/27/16 06:21 Red Blood Count 3.81 L, Mean Corpuscular Volume 83.6, Mean Corpuscular Hemoglobin 25.5 L, Mean Corpuscular Hemoglobin Concent 30.4 L, Red Cell Distribution Width 15.4 H, Neutrophils (%) (Auto) 54.1, Lymphocytes (%) (Auto) 31.0, Monocytes (%) (Auto) 5.5 H, Eosinophils (%) (Auto) 6.6 H, Basophils (%) ( Auto) 0.5, Neutrophils # (Auto) 3.3, Lymphocytes # (Auto) 2.0, Monocytes # (Auto ) 0.3, Eosinophils # (Auto) 0.4, Basophils # (Auto) 0.0, Calcium Level 8.5 L Current Medications Current Medications Acetaminophen (Tylenol Tab) 650 mg Q4HP PRN PO MILD PAIN OR FEVER Last administered on 12/27/16t 00:57; Start 12/04/16 at 17:45; Stop 01/03/17 at 17:44 Acetaminophen/ Hydrocodone Bitart ([place], Anexsia 5/325) 1 tab Q4HP PRN PO MODERATE PAIN (PS 5-7); Start 12/04/16 at 17:45; Stop 12/04/16 at 19:17; Status DC Albuterol/ Ipratropium (Combivent Respimat 100-20mcg) 1 puff Q4HP PRN INH SHORTNESS OF BREATH Last administered on 12/21/16 22:05; Start 12/04/16 at 19: 30; Stop 01/03/17 at 19:29 Albuterol/ Ipratropium (Duoneb (Ipr 0.5mg/Alb 2.5mg)) 3 ml BIDP PRN INH SHORTNESS OF BREATH Last administered on 12/11/16 09:48; Start 12/08/16 at 10: 15; Stop 01/07/17 at 10:14 Albuterol/ Ipratropium (Duoneb (Ipr 0.5mg/Alb 2.5mg)) 3 ml RBID INH ; Start at 08:00; Stop 12/08/16 at 10:06; Status DC Albuterol/ Ipratropium (Duoneb (Ipr 0.5mg/Alb 2.5mg)) 3 ml RQID NEB Last administered on 12/27/16 11:32; Start 12/11/16 at 20:00; Stop 01/10/17 at 19:59 Amitriptyline HCl (Elavil) 10 mg QHSP PRN PO INSOMNIA Last administered on 12/12 23:05; Start 12/11/16 at 17:45; Stop 12/15/16 at 12:45; Status DC Aripiprazole (AbiLIFY) 2 mg QHS PO Last administered on 12/24/16 20:22; Start 12/17/16 at 21:00; Stop 12/25/16 at 17:11; Status DC Aspirin (Ecotrin) 81 mg DAILY PO Last administered on 12/27/16 09:07; Start 08/11 at 09:00; Stop 01/04/17 at 08:59 Budesonide/ Formoterol Fumarate (Symbicort 80/ 4.5mcg) 2 puff BID INH Last administered on 12/27/16 07:55; Start 12/08/16 at 21:00; Stop 01/07/17 at 20:59 Clopidogrel Bisulfate (PLAVix) 75 mg DAILY PO Last administered on 12/27/16 09: 07; Start 12/05/16 at 09:00; Stop 01/04/17 at 08:59 Collagenase (Santyl) 1 dose WDC PRN TOP WITH EACH DRESSING CHANGE Last administered on 12/24/16 12:46; Start 12/06/16 at 13:30; Stop 01/05/17 at 13:29 Diphenhydramine HCl (Benadryl Cream) 1 dose Q6HP PRN TOP ITCHING; Start at 15:15; Stop 01/12/17 at 15:14 Diphenhydramine HCl (Benadryl) 25 mg Q4HP PRN PO RASH/ITCHING Last administered on 12/13/16 03:38; Start 12/04/16 at 19:45; Stop 12/13/16 at 15:06 ; Status DC Diphenhydramine HCl (Benadryl) 25 mg QHSP PRN PO INSOMNIA Last administered on 12/10/16 23:24; Start 12/10/16 at 17:45; Stop 12/11/16 at 04:07; Status DC Diphenhydramine HCl (Benadryl) 50 mg BIDP PRN PO EXTRAPYRAMIDAL SYMPTOMS; Start 12/25/16 at 17:15; Stop 01/24/17 at 17:14 Docusate Sodium (Colace) 100 mg BIDP PRN PO CONSTIPATION Last administered on 02:14; Start 12/07/16 at 00:00; Stop 12/17/16 at 19:57; Status DC Enoxaparin Sodium (Lovenox) 40 mg DAILY SC Last administered on 12/27/16 09:08 ; Start 12/05/16 at 09:00; Stop 12/30/16 at 08:59 Famotidine (Pepcid) 20 mg BID PO Last administered on 12/27/16 09:07; Start at 21:00; Stop 01/10/17 at 20:59 Fluconazole (Diflucan) 100 mg DAILY PO Last administered on 12/22/16 09:02; Start 12/20/16 at 09:00; Stop 12/22/16 at 12:00; Status DC Gabapentin (Neurontin) 100 mg TID PO Last administered on 12/27/16 09:08; Start 12/22/16 at 16:00; Stop 01/21/17 at 15:59 Home Med (Med Rec Complete!) ASDIRECTED XX ; Start 12/04/16 at 17:30; Stop 07/12 at 17:36; Status DC Home Med (Med Rec Complete!) ASDIRECTED XX ; Start 12/04/16 at 20:30; Stop 07/12 at 20:30; Status DC Hydrocortisone (Proctosol Hc) 1 dose BID TOP Last administered on 12/17/16 08: 17; Start 12/14/16 at 21:00; Stop 12/17/16 at 09:23; Status DC Hydrocortisone (Proctosol Hc) 1 dose BID TOP Last administered on 12/27/16 09: 09; Start 12/17/16 at 09:23; Stop 01/13/17 at 20:59 Levofloxacin 750 mg/IV Miscellaneous Supplies 150 ml @ 100 mls/hr Q24H IV Last administered on 12/05/16 20:13; Start 12/04/16 at 21:00; Stop 12/06/16 at 07:33; Status DC Levothyroxine Sodium (Synthroid) 0.137 mg DAILY@06 PO Last administered on 05:45; Start 12/06/16 at 06:00; Stop 01/05/17 at 05:59 Levothyroxine Sodium (Synthroid) 0.15 mg DAILY@06 PO Last administered on 06:19; Start 12/05/16 at 06:00; Stop 12/05/16 at 12:50; Status DC Lorazepam (Ativan) 0.5 mg Q6HP PRN IV AGITATION; Start 12/17/16 at 21:30; Stop 12/18/16 at 05:01; Status DC Lorazepam (Ativan) 0.5 mg Q8HP PRN PO ANXIETY Last administered on 12/24/16 22: 05; Start 12/13/16 at 19:30; Stop 12/26/16 at 19:29; Status DC Lorazepam (Ativan) 0.5 mg Q8HP PRN PO ANXIETY; Start 12/27/16 at 10:15; Stop 07/12 at 10:14 Lorazepam (Ativan) 1 mg Q4HP PRN PO ANXIETY Last administered on 12/13/16 01: 32; Start 12/04/16 at 19:30; Stop 12/13/16 at 15:06; Status DC Magnesium Oxide (Mag-Ox) 400 mg DAILY PO Last administered on 12/27/16 09:08; Start 12/19/16 at 09:00; Stop 01/18/17 at 08:59 Magnesium Oxide (Mag-Ox) 400 mg Q4H PO Last administered on 12/24/16 22:05; Start 12/24/16 at 14:00; Stop 12/24/16 at 22:01; Status DC Magnesium Sulfate/ Dextrose 1 gm/IV Miscellaneous Supplies 100 ml @ 100 mls/hr 1T@1100,1200 IV Last administered on 12/21/16 18:02; Start 12/21/16 at 11:00; Stop 12/21/16 at 14:00; Status DC Magnesium Sulfate/ Dextrose 1 gm/IV Miscellaneous Supplies 100 ml @ 100 mls/hr 1T@1400,1500 IV ; Start 12/24/16 at 14:00; Stop 12/24/16 at 18:00; Status Cancel Magnesium Sulfate/ Dextrose 1 gm/IV Miscellaneous Supplies 100 ml @ 100 mls/hr 1T@16,17 IV Last administered on 12/13/16 16:59; Start 12/13/16 at 16:00; Stop 12/13/16 at 19:00; Status DC Magnesium Sulfate/ Dextrose 1 gm/IV Miscellaneous Supplies 100 ml @ 100 mls/hr Q1H IV Last administered on 12/16/16 11:23; Start 12/16/16 at 08:00; Stop at 09:59; Status DC Meropenem 500 mg/ Dextrose 100 ml @ 200 mls/hr Q8H IV Last administered on 00:48; Start 12/06/16 at 09:00; Stop 12/13/16 at 07:36; Status DC Meropenem 500 mg/ Dextrose 100 ml @ 200 mls/hr Q8H IV Last administered on 10:04; Start 12/13/16 at 09:00; Stop 12/13/16 at 12:00; Status DC Metoprolol Succinate (TopROL XL) 100 mg DAILY PO Last administered on 12/27/16 09:07; Start 12/05/16 at 09:00; Stop 01/04/17 at 08:59 Mirtazapine (Remeron) 7.5 mg QHS PO Last administered on 12/26/16 20:24; Start 12/15/16 at 21:00; Stop 12/27/16 at 09:58; Status DC Mirtazapine (Remeron) 7.5 mg QHS PO ; Start 12/27/16 at 21:00; Stop 01/26/17 at 20 :59 Morphine Sulfate (Roxanol) 5 mg Q4HP PRN PO PAIN; Start 12/12/16 at 12:52; Stop 12/13/16 at 15:06; Status DC Morphine Sulfate (Roxanol) 10 mg Q2HP PRN PO PAIN Last administered on 05:47; Start 12/04/16 at 19:30; Stop 12/12/16 at 12:56; Status DC Nystatin (Mycostatin Powder, Nystop) 1 dose TID TOP Last administered on 09:08; Start 12/16/16 at 16:00; Stop 01/15/17 at 15:59 Omeprazole (PriLOSEC) 20 mg DAILY PO Last administered on 12/27/16 09:08; Start 12/05/16 at 09:00; Stop 01/04/17 at 08:59 Ondansetron HCl (Zofran Odt) 4 mg Q8HP PRN PO NAUSEA OR VOMITING Last administered on 12/23/16 13:22; Start 12/07/16 at 21:00; Stop 01/06/17 at 20:59 Oxycodone/ Acetaminophen (Percocet 5mg/ 325mg Tablet) 1 tab Q6HP PRN PO MILD/ MODERATE PAIN (PS 1-7); Start 12/27/16 at 07:00; Stop 01/03/17 at 06:59 Pramipexole Dihydrochloride (Mirapex) 1.5 mg QHS PO Last administered on 20:25; Start 12/05/16 at 21:00; Stop 01/04/17 at 20:59 Risperidone (RisperDAL) 0.5 mg BID PO Last administered on 12/27/16 09:08; Start 12/25/16 at 21:00; Stop 01/24/17 at 20:59 Scopolamine (Transderm-Scop) 1.5 mg Q72H TOP ; Start 12/06/16 at 09:00; Stop at 09:00; Status DC Scopolamine (Transderm-Scop) 1.5 mg Q72H TOP Last administered on 12/21/16 10: 09; Start 12/06/16 at 09:00; Stop 12/21/16 at 18:29; Status DC Senna/Docusate Sodium (Senokot S) 1 tab BID PO Last administered on 12/27/16 09 :08; Start 12/07/16 at 09:00; Stop 01/06/17 at 08:59 Tramadol HCl (Ultram) 50 mg Q8HP PRN PO MODERATE PAIN (PS 5-7) Last administered on 12/26/16 21:26; Start 12/20/16 at 13:30; Stop 12/27/16 at 06:51; Status DC Venlafaxine HCl (Effexor Xr) 75 mg QAM PO Last administered on 12/27/16 09: 07; Start 12/27/16 at 09:00; Stop 12/27/16 at 11:00; Status DC Venlafaxine HCl (Effexor Xr) 75 mg QHS PO Last administered on 12/16/16 20 :17; Start 12/04/16 at 21:00; Stop 12/17/16 at 12:20; Status DC Venlafaxine HCl (Effexor Xr) 75 mg QHS PO ; Start 12/17/16 at 21:00; Stop at 21:59; Status DC Venlafaxine HCl (Effexor Xr) 150 mg DAILY PO ; Start 12/28/16 at 09:00; Stop 01/27/17 at 08:59 Venlafaxine HCl (Effexor Xr) 150 mg QAM PO Last administered on 12/26/16 09 :11; Start 12/18/16 at 09:00; Stop 12/27/16 at 00:55; Status DC Allergies Coded Allergies: Sulfa Antibiotics (Verified Allergy, Severe, 12/11/16) Cephalosporins (Verified Allergy, Intermediate, 11/25/12) Ciprofloxacin (Unverified Allergy, Unknown, 01/26/16) Iodine (Unverified Allergy, Unknown, 01/26/16) Lobster (Unverified Allergy, Unknown, 01/26/16) Metronidazole (Unverified Allergy, Unknown, 01/26/16) Nickel (Unverified Allergy, Unknown, 01/26/16) Penicillins (Unverified Allergy, Unknown, 01/26/16) Statins (Unverified Allergy, Unknown, 01/26/16) Sulfa Drugs (Verified Allergy, Unknown, 11/25/12) Sulfa Drugs Cross Reactors (Verified Allergy, Unknown, 11/25/12) CLARITZA CEBALLOS MD December 27, 2016 12:41
[2016-12-27] MEDS: PERCOCET 5MG/325MG TAB PO PRN ×2 (12:47→18:47)
[2016-12-27 14:00] VITALS: BP 108/62
[2016-12-27] MEDS: MIRTAZAPINE 7.5MG PER 1/2 TABLET PO SCH (20:39)
[2016-12-27] MEDS: PRAMIPEXOLE 1 MG TAB PO SCH (20:40)
[2016-12-27 22:00] VITALS: BP 102/78
[2016-12-28 06:00] VITALS: BP 132/72
[2016-12-28 06:07] LABS: BASO % 0.8 % (0.0-1.0); EOS # 0.4 K/mm3 (0.0-0.50); EOS % 5.7 % (0.0-3.0); LARGE UNSTAINED CELL # 0.1 K/mm3 (0.0-0.4); LARGE UNSTAINED CELL % 1.9 % (0.0-4.0); LYMPH # 1.6 K/mm3 (1.5-4.5); LYMPH % 23.3 % (24.0-44.0); MEAN CORPUSCULAR HEMOGLOBIN 25.7 pg (27.0-33.0); MEAN CORPUSCULAR HGB CONC 30.2 g/dl (32.0-36.5); MEAN CORPUSCULAR VOLUME 84.9 fl (80.0-96.0); MONO # 0.3 K/mm3 (0.0-0.8); MONO % 4.2 % (0.0-5.0); NEUTROPHILS # 4.1 K/mm3 (1.8-7.7); PLATELET COUNT, AUTOMATED 312 k/mm3 (150-450); RED CELL DISTRIBUTION WIDTH 15.5 % (11.5-14.5); WHITE BLOOD COUNT 6.4 K/mm3 (4.0-10.0)
[2016-12-28] MEDS: LEVOTHYROXINE 0.137 MG TAB (137MCG) PO SCH (06:14)
[2016-12-28 06:22] LABS: ANION GAP 9 MEQ/L (8-16); BLOOD UREA NITROGEN 17 MG/DL (7-18); CALCIUM LEVEL 8.7 MG/DL (8.8-10.2); CARBON DIOXIDE LEVEL 26 MEQ/L (21-32); CHLORIDE LEVEL 109 MEQ/L (98-107); CREATININE FOR GFR 0.43 MG/DL (0.55-1.02); GLOMERULAR FILTRATION RATE > 60.0 (>39); GLUCOSE, FASTING 98 MG/DL (83-110); MAGNESIUM LEVEL 1.9 MG/DL (1.8-2.4); SODIUM LEVEL 144 MEQ/L (136-145)
[2016-12-28] MEDS: SYMBICORT 80/4.5MCG INHALER 6GM INH SCH ×2 (07:13→19:30)
[2016-12-28] MEDS: IPRATROPIUM 0.5MG/ALBUTEROL 2.5MG INH SOL UD 3ML (DUONEB)(J7620) NEB SCH ×4 (08:00→20:00)
[2016-12-28] MEDS: VENLAFAXINE **XR** 75MG CAPSULE PO SCH (09:07)
[2016-12-28] MEDS: ASPIRIN 81 MG ENTERIC TAB PO SCH (09:07)
[2016-12-28] MEDS: OMEPRAZOLE 20 MG CAP PO SCH (09:07)
[2016-12-28] MEDS: GABAPENTIN 100 MG CAP PO SCH ×3 (09:07→20:07)
[2016-12-28] MEDS: FAMOTIDINE 20 MG TAB PO SCH ×2 (09:07→20:07)
[2016-12-28] MEDS: CLOPIDOGREL 75 MG TAB PO SCH (09:08)
[2016-12-28] MEDS: SENOKOT S TAB PO SCH ×2 (09:08→20:07)
[2016-12-28] MEDS: MAGNESIUM OXIDE 400 MG TAB (MAG-OX) PO SCH (09:08)
[2016-12-28] MEDS: risperiDONE 0.5 MG TAB PO SCH ×3 (09:08→20:07)
[2016-12-28] MEDS: NYSTATIN 100,000 UNITS/GM TOPICAL PWD 15 GM TOP SCH ×3 (09:10→20:08)
[2016-12-28] MEDS: ENOXAPARIN 40 MG/0.4 ML SYRINGE (J1650) SC SCH (09:10)
[2016-12-28] MEDS: ANUSOL HC CREAM 30GM TOP SCH ×2 (09:10→20:08)
[2016-12-28] MEDS: METOPROLOL SUCC (TopROL XL) 100MG *XL* TAB PO SCH (09:10)
[2016-12-28] MEDS: PERCOCET 5MG/325MG TAB PO PRN ×2 (09:11→18:26)
--- NOTE | 2016-12-28 11:21 | IPNPDOC ---
Subjective Date Seen The patient was seen on 12/28/16. Subjective Chief Complaint/HPI The patient is a 71-year-old female admitted with a reason for visit of Urinary Tract Infection. General: Denies: ROS Unobtainable, Chills, Night Sweats, Fatigue, Malaise, Normal Appetite, Other Symptoms Constitutional: Denies: Chills, Fever, Malaise, Night Sweats, Weakness, Fatigue , Weight Loss, Lethargy, Other Eyes: Denies: Pain, Vision change, Conjunctivae inflammation, Eyelid inflammation, Redness, Other ENT: Denies: Head Aches, Ear Pain, Dysphagia, Sinus Congestion, Post Nasal Drip , Sore Throat, Epistaxis, Other Symptoms Skin: Denies: Rash, Lesions, Jaundice, Bruising, Itching, Dry, Breakdown, Nail Changes, Other Pulmonary: Denies: Dyspnea, Cough, Pleuritic Chest Pain, Other Symptoms Cardiovascular: Denies: Chest Pain, Palpitations, Orthopnea, Paroxysmal Noc. Dyspnea, Edema, Lt Headedness, Other Symptoms Gastrointestinal: Denies: Nausea, Vomiting, Abdominal Pain, Diarrhea, Constipation, Melena, Hematochezia, Other Symptoms Genitourinary: Denies: Dysuria, Frequency, Incontinence, Hematuria, Retention, Other Symptoms Musculoskeletal: Reports: Leg Pain (pain at right aka stump) Objective Physical Examination General Exam: Positive: Alert, Cooperative, No Acute Distress Eye Exam: Positive: PERRLA, Conjunctiva & lids normal, EOMI, Negative: Sclera icteric ENT Exam: Positive: Atraumatic, Other ENT (poor dentition) Neck Exam: Positive: Supple Chest Exam: Positive: Clear to auscultation, Normal air movement Heart Exam: Positive: Rate Normal, Regular Rhythm, Normal S1, Normal S2 Abdomen Exam: Positive: Normal bowel sounds, Soft, Other (multiple abdominal surgical scars noted), Negative: Tenderness Extremity Exam: Positive: Other (b/l aka; bandages in place at stumps), Negative: Clubbing, Cyanosis, Edema Skin Exam: Positive: Breakdown (no significant changes in her pressure ulcers from yesterday) Neuro Exam: Positive: Normal Speech Psych Exam: Positive: Mental status NL, Mood NL, Oriented x 3 (generally oriented to person place and time but not with specific details) Assessment /Plan Problems (1) Depression with anxiety Status: Chronic Discussed With: Patient Problem Specific Plan: Consult Specialist Problem Text: major depressive disorder with psychosis follow as per psychiatry, assistance appreciated discussed with psychiatry - d/c tramadol and continue effexor and remeron continue risperidone - dosage increased to tid, benadryl for extrapyramidal side effects as needed sitter discontinued psych recs continue to monitor to determine need for inpatient psych (2) UTI (urinary tract infection) Status: Resolved Discussed With: Patient Problem Specific Plan: Monitor Clinically Problem Text: asymptomatic s/p 7 days meropenem for pseudomonas uti (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 Gama of wound care. His recommendations for dressing the wound are much appreciated. follow up with wound care clinic on discharge. dressing changes as directed No antibiotics recommended as this is a colonized wound. She may benefit from an evaluation by vascular surgery in the future, but does not need an immediate transfer for this at this time. (4) Pressure ulcer, buttock Status: Chronic Discussed With: Patient Problem Specific Plan: Consult Specialist, Monitor Clinically Problem Text: Continue wound care with foam dressings, and offloading. Continue with nutritional supplements with each meal. Recommend an offloading bed, and a Roho cushion while sitting wound care c/s appreciated (5) Hypothyroidism Status: Chronic Discussed With: Patient Problem Specific Plan: Monitor Clinically Problem Text: TSH was suppressed, with an elevated free T4 Her dose of Synthroid was decreased while inpatient, she will need outpatient follow-up again in 6-8 weeks (6) Hypertension Status: Chronic Discussed With: Patient Problem Specific Plan: Monitor Clinically Problem Text: Continue with metoprolol succinate, vitals continue to be within acceptable limits (7) Dyslipidemia Status: Chronic Problem Text: She has a listed allergy to statins (8) Coronary atherosclerosis Status: Chronic Discussed With: Patient Problem Text: Continue with aspirin, plavix, bb. documented allergy to statins s/p cabg (9) GERD (gastroesophageal reflux disease) Status: Chronic Problem Text: Continue home dose of omeprazole. We will recommend elevating the head of bed slightly when she is asleep, as her symptoms are worse at night. (10) Living accommodation issues Status: Acute Problem Text: Discharge planning per recommendations from PFS Plan/VTE VTE Prophylaxis Ordered?: Yes (Lovenox) Plan/Urinary Catheter Reason for insertion/continuin: Patient request Plan Diet: Continue Current Activity: Continue Current Pt and Family Services: Home Care Anticipated Discharge: Home With Services, Sub Acute Rehab, Assisted Living Psych meds adjusted again - will continue to monitor as per psych. Still c/o pain at right leg stump, complicated with anxiety and psych issues. VS, I&O, 24H, Fishbone Vital Signs/I&O Vital Signs Date Time Temp Pulse Resp B/P (MAP) Pulse Ox O2 Delivery O2 Flow Rate FiO2 12/28/16 09:11 18 Room Air 12/28/16 09:10 86 150/82 12/28/16 06:00 98.1 95 12/23/16 08:33 3.0 I&O- Last 24 Hours up to 6 AM 12/28/16 05:59 Intake Total 720 ml Output Total 1300 ml Balance -580 ml Laboratory Data 24H LABS Laboratory Tests 2 12/28/16 05:30: White Blood Count 6.4, Red Blood Count 3.94L, Hemoglobin 10.1L, Hematocrit 33.4L , Mean Corpuscular Volume 84.9, Mean Corpuscular Hemoglobin 25.7L, Mean Corpuscular Hemoglobin Concent 30.2L, Red Cell Distribution Width 15.5H, Platelet Count 312, Neutrophils (%) (Auto) 64.0, Lymphocytes (%) (Auto) 23.3L, Monocytes (%) (Auto) 4.2, Eosinophils (%) (Auto) 5.7H, Basophils (%) (Auto) 0.8 , Neutrophils # (Auto) 4.1, Lymphocytes # (Auto) 1.6, Monocytes # (Auto) 0.3, Eosinophils # (Auto) 0.4, Basophils # (Auto) 0.0, Large Unclassified Cells % 1.9 , Large Unclassified Cells # 0.1, Anion Gap 9, Glomerular Filtration Rate > 60.0 , Blood Urea Nitrogen 17, Creatinine 0.43L, Sodium Level 144, Potassium Level 4.0, Chloride Level 109H, Carbon Dioxide Level 26, Calcium Level 8.7L, Magnesium Level 1.9 CBC/BMP Laboratory Tests 12/28/16 05:30 Red Blood Count 3.94 L, Mean Corpuscular Volume 84.9, Mean Corpuscular Hemoglobin 25.7 L, Mean Corpuscular Hemoglobin Concent 30.2 L, Red Cell Distribution Width 15.5 H, Neutrophils (%) (Auto) 64.0, Lymphocytes (%) (Auto) 23.3 L, Monocytes (%) (Auto) 4.2, Eosinophils (%) (Auto) 5.7 H, Basophils (%) ( Auto) 0.8, Neutrophils # (Auto) 4.1, Lymphocytes # (Auto) 1.6, Monocytes # (Auto ) 0.3, Eosinophils # (Auto) 0.4, Basophils # (Auto) 0.0, Calcium Level 8.7 L ULISES COMER MD December 28, 2016 11:21
[2016-12-28 14:00] VITALS: BP 100/62
[2016-12-28] MEDS: PRAMIPEXOLE 1 MG TAB PO SCH (20:07)
[2016-12-28] MEDS: MIRTAZAPINE 7.5MG PER 1/2 TABLET PO SCH (20:07)
[2016-12-28] MEDS: diphenhydrAMINE 50 MG CAP PO PRN (20:53)
[2016-12-28 22:00] VITALS: BP 122/63
[2016-12-28] MEDS ORDERED: traMADol 50 MG TAB PO ONE (22:15)
[2016-12-29] MEDS: LEVOTHYROXINE 0.137 MG TAB (137MCG) PO SCH (05:50)
[2016-12-29 06:00] VITALS: BP 133/79
[2016-12-29 06:04] LABS: BASO % 0.6 % (0.0-1.0); EOS # 0.4 K/mm3 (0.0-0.50); EOS % 5.8 % (0.0-3.0); LARGE UNSTAINED CELL # 0.1 K/mm3 (0.0-0.4); LYMPH # 1.6 K/mm3 (1.5-4.5); LYMPH % 22.6 % (24.0-44.0); MEAN CORPUSCULAR HEMOGLOBIN 25.7 pg (27.0-33.0); MEAN CORPUSCULAR HGB CONC 29.9 g/dl (32.0-36.5); MONO # 0.3 K/mm3 (0.0-0.8); MONO % 4.4 % (0.0-5.0); NEUTROPHILS # 4.6 K/mm3 (1.8-7.7); NEUTROPHILS % 64.7 % (36.0-66.0); PLATELET COUNT, AUTOMATED 311 k/mm3 (150-450); RED CELL DISTRIBUTION WIDTH 15.5 % (11.5-14.5)
[2016-12-29 06:20] LABS: ANION GAP 7 MEQ/L (8-16); BLOOD UREA NITROGEN 16 MG/DL (7-18); CALCIUM LEVEL 9.5 MG/DL (8.8-10.2); CARBON DIOXIDE LEVEL 30 MEQ/L (21-32); CHLORIDE LEVEL 107 MEQ/L (98-107); CREATININE FOR GFR 0.51 MG/DL (0.55-1.02); GLOMERULAR FILTRATION RATE > 60.0 (>39); GLUCOSE, FASTING 101 MG/DL (83-110); POTASSIUM SERUM 3.9 MEQ/L (3.5-5.1); SODIUM LEVEL 144 MEQ/L (136-145)
[2016-12-29] MEDS: IPRATROPIUM 0.5MG/ALBUTEROL 2.5MG INH SOL UD 3ML (DUONEB)(J7620) NEB SCH ×4 (07:23→19:27)
[2016-12-29] MEDS: SYMBICORT 80/4.5MCG INHALER 6GM INH SCH ×2 (07:23→19:26)
--- NOTE | 2016-12-29 08:51 | IPNPDOC ---
Subjective Date Seen The patient was seen on 12/29/16. Subjective Chief Complaint/HPI The patient is a 71-year-old female admitted with a reason for visit of Urinary Tract Infection. General: Denies: ROS Unobtainable, Chills, Night Sweats, Fatigue, Malaise, Normal Appetite, Other Symptoms Constitutional: Denies: Chills, Fever, Malaise, Night Sweats, Weakness, Fatigue , Weight Loss, Lethargy, Other Eyes: Denies: Pain, Vision change, Conjunctivae inflammation, Eyelid inflammation, Redness, Other ENT: Denies: Head Aches, Ear Pain, Dysphagia, Sinus Congestion, Post Nasal Drip , Sore Throat, Epistaxis, Other Symptoms Skin: Denies: Rash, Lesions, Jaundice, Bruising, Itching, Dry, Breakdown, Nail Changes, Other Pulmonary: Denies: Dyspnea, Cough, Pleuritic Chest Pain, Other Symptoms Cardiovascular: Denies: Chest Pain, Palpitations, Orthopnea, Paroxysmal Noc. Dyspnea, Edema, Lt Headedness, Other Symptoms Gastrointestinal: Denies: Nausea, Vomiting, Abdominal Pain, Diarrhea, Constipation, Melena, Hematochezia, Other Symptoms Objective Physical Examination General Exam: Positive: Alert, Cooperative, No Acute Distress Eye Exam: Positive: PERRLA, Conjunctiva & lids normal, EOMI, Negative: Sclera icteric ENT Exam: Positive: Atraumatic, Other ENT (poor dentition) Neck Exam: Positive: Supple Chest Exam: Positive: Clear to auscultation, Normal air movement Heart Exam: Positive: Rate Normal, Regular Rhythm, Normal S1, Normal S2 Abdomen Exam: Positive: Normal bowel sounds, Soft, Other (multiple abdominal surgical scars noted), Negative: Tenderness Extremity Exam: Positive: Other (b/l aka; bandages in place at stumps), Negative: Clubbing, Cyanosis, Edema Skin Exam: Positive: Breakdown (no significant changes in her pressure ulcers from yesterday) Neuro Exam: Positive: Normal Speech Psych Exam: Positive: Mental status NL, Mood NL, Oriented x 3 (generally oriented to person place and time but not with specific details) Assessment /Plan Problems (1) Depression with anxiety Status: Chronic Discussed With: Patient Problem Specific Plan: Consult Specialist Problem Text: major depressive disorder with psychosis follow as per psychiatry, assistance appreciated discussed with psychiatry - d/c tramadol and continue effexor and remeron continue risperidone - dosage increased to tid, benadryl for extrapyramidal side effects as needed sitter discontinued psych recs continue to monitor to determine need for inpatient psych (2) UTI (urinary tract infection) Status: Resolved Discussed With: Patient Problem Specific Plan: Monitor Clinically Problem Text: asymptomatic s/p 7 days meropenem for pseudomonas uti (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 Gama of wound care. His recommendations for dressing the wound are much appreciated. follow up with wound care clinic on discharge. dressing changes as directed No antibiotics recommended as this is a colonized wound. She may benefit from an evaluation by vascular surgery in the future, but does not need an immediate transfer for this at this time. (4) Pressure ulcer, buttock Status: Chronic Discussed With: Patient Problem Specific Plan: Consult Specialist, Monitor Clinically Problem Text: Continue wound care with foam dressings, and offloading. Continue with nutritional supplements with each meal. Recommend an offloading bed, and a Roho cushion while sitting wound care c/s appreciated (5) Hypothyroidism Status: Chronic Discussed With: Patient Problem Specific Plan: Monitor Clinically Problem Text: TSH was suppressed, with an elevated free T4 Her dose of Synthroid was decreased while inpatient, she will need outpatient follow-up again in 6-8 weeks (6) Hypertension Status: Chronic Discussed With: Patient Problem Specific Plan: Monitor Clinically Problem Text: Continue with metoprolol succinate, vitals continue to be within acceptable limits (7) Dyslipidemia Status: Chronic Problem Text: She has a listed allergy to statins (8) Coronary atherosclerosis Status: Chronic Discussed With: Patient Problem Text: Continue with aspirin, plavix, bb. documented allergy to statins s/p cabg (9) GERD (gastroesophageal reflux disease) Status: Chronic Problem Text: Continue home dose of omeprazole. We will recommend elevating the head of bed slightly when she is asleep, as her symptoms are worse at night. (10) Living accommodation issues Status: Acute Problem Text: Discharge planning per recommendations from PFS Plan/VTE VTE Prophylaxis Ordered?: Yes (Lovenox) Plan/Urinary Catheter Reason for insertion/continuin: Patient request Plan Diet: Continue Current Activity: Continue Current Pt and Family Services: Home Care Anticipated Discharge: Home With Services, Sub Acute Rehab, Assisted Living Continue monitoring as per psych. Anticipating will be not require further management from psychiatry in 24-48 hours. Pain better controlled. Discharge planning with PFS. VS, I&O, 24H, Primitivoe Vital Signs/I&O Vital Signs Date Time Temp Pulse Resp B/P (MAP) Pulse Ox O2 Delivery O2 Flow Rate FiO2 12/29/16 06:00 98.4 84 18 133/79 (97) 93 Room Air 12/23/16 08:33 3.0 I&O- Last 24 Hours up to 6 AM 12/29/16 06:00 Intake Total 1500 ml Output Total 1150 ml Balance 350 ml Laboratory Data 24H LABS Laboratory Tests 2 12/29/16 05:32: White Blood Count 7.0, Red Blood Count 4.15, Hemoglobin 10.7L, Hematocrit 35.7L , Mean Corpuscular Volume 86.0, Mean Corpuscular Hemoglobin 25.7L, Mean Corpuscular Hemoglobin Concent 29.9L, Red Cell Distribution Width 15.5H, Platelet Count 311, Neutrophils (%) (Auto) 64.7, Lymphocytes (%) (Auto) 22.6L, Monocytes (%) (Auto) 4.4, Eosinophils (%) (Auto) 5.8H, Basophils (%) (Auto) 0.6 , Neutrophils # (Auto) 4.6, Lymphocytes # (Auto) 1.6, Monocytes # (Auto) 0.3, Eosinophils # (Auto) 0.4, Basophils # (Auto) 0.0, Large Unclassified Cells % 2.0 , Large Unclassified Cells # 0.1, Anion Gap 7L, Glomerular Filtration Rate > 60.0, Blood Urea Nitrogen 16, Creatinine 0.51L, Sodium Level 144, Potassium Level 3.9, Chloride Level 107, Carbon Dioxide Level 30, Calcium Level 9.5, Magnesium Level 2.0 CBC/BMP Laboratory Tests 12/29/16 05:32 Red Blood Count 4.15, Mean Corpuscular Volume 86.0, Mean Corpuscular Hemoglobin 25.7 L, Mean Corpuscular Hemoglobin Concent 29.9 L, Red Cell Distribution Width 15.5 H, Neutrophils (%) (Auto) 64.7, Lymphocytes (%) (Auto) 22.6 L, Monocytes (% ) (Auto) 4.4, Eosinophils (%) (Auto) 5.8 H, Basophils (%) (Auto) 0.6, Neutrophils # (Auto) 4.6, Lymphocytes # (Auto) 1.6, Monocytes # (Auto) 0.3, Eosinophils # (Auto) 0.4, Basophils # (Auto) 0.0, Calcium Level 9.5 ULISES COMER MD December 29, 2016 08:51
[2016-12-29 09:00] VITALS: BP 123/64
[2016-12-29] MEDS: ENOXAPARIN 40 MG/0.4 ML SYRINGE (J1650) SC SCH (09:03)
[2016-12-29] MEDS: PERCOCET 5MG/325MG TAB PO PRN ×3 (09:21→23:44)
[2016-12-29] MEDS: risperiDONE 0.5 MG TAB PO SCH ×3 (09:53→20:30)
[2016-12-29] MEDS: ASPIRIN 81 MG ENTERIC TAB PO SCH (09:54)
[2016-12-29] MEDS: GABAPENTIN 100 MG CAP PO SCH ×3 (09:54→20:30)
[2016-12-29] MEDS: VENLAFAXINE **XR** 75MG CAPSULE PO SCH (09:54)
[2016-12-29] MEDS: FAMOTIDINE 20 MG TAB PO SCH ×2 (09:55→20:30)
[2016-12-29] MEDS: CLOPIDOGREL 75 MG TAB PO SCH (09:55)
[2016-12-29] MEDS: METOPROLOL SUCC (TopROL XL) 100MG *XL* TAB PO SCH (09:55)
[2016-12-29] MEDS: SENOKOT S TAB PO SCH ×2 (09:55→20:30)
[2016-12-29] MEDS: MAGNESIUM OXIDE 400 MG TAB (MAG-OX) PO SCH (09:55)
[2016-12-29] MEDS: OMEPRAZOLE 20 MG CAP PO SCH (09:55)
[2016-12-29] MEDS: NYSTATIN 100,000 UNITS/GM TOPICAL PWD 15 GM TOP SCH ×3 (09:56→20:30)
[2016-12-29] MEDS: ANUSOL HC CREAM 30GM TOP SCH ×2 (09:58→20:31)
[2016-12-29 14:00] VITALS: BP 131/60
[2016-12-29] MEDS: SANTYL OINT 30GM TOP PRN (15:35)
[2016-12-29] MEDS: ACETAMINOPHEN TAB 650MG DOSE (2X325MG) PO PRN (18:18)
[2016-12-29] MEDS: MIRTAZAPINE 7.5MG PER 1/2 TABLET PO SCH (20:30)
[2016-12-29] MEDS: PRAMIPEXOLE 1 MG TAB PO SCH (20:30)
[2016-12-29 22:00] VITALS: BP 107/54
[2016-12-30] MEDS: LEVOTHYROXINE 0.137 MG TAB (137MCG) PO SCH (05:43)
[2016-12-30 05:45] LABS: BASO % 0.4 % (0.0-1.0); EOS # 0.4 K/mm3 (0.0-0.50); EOS % 6.3 % (0.0-3.0); LARGE UNSTAINED CELL # 0.1 K/mm3 (0.0-0.4); LARGE UNSTAINED CELL % 2.1 % (0.0-4.0); LYMPH # 1.9 K/mm3 (1.5-4.5); LYMPH % 27.2 % (24.0-44.0); MEAN CORPUSCULAR HEMOGLOBIN 26.2 pg (27.0-33.0); MEAN CORPUSCULAR HGB CONC 30.7 g/dl (32.0-36.5); MEAN CORPUSCULAR VOLUME 85.2 fl (80.0-96.0); MONO # 0.3 K/mm3 (0.0-0.8); MONO % 3.9 % (0.0-5.0); NEUTROPHILS # 4.2 K/mm3 (1.8-7.7); NEUTROPHILS % 60.2 % (36.0-66.0); PLATELET COUNT, AUTOMATED 306 k/mm3 (150-450); RED CELL DISTRIBUTION WIDTH 15.4 % (11.5-14.5); WHITE BLOOD COUNT 6.9 K/mm3 (4.0-10.0)
[2016-12-30 06:00] VITALS: BP 140/66
[2016-12-30 06:00] LABS: ANION GAP 7 MEQ/L (8-16); BLOOD UREA NITROGEN 20 MG/DL (7-18); CALCIUM LEVEL 8.6 MG/DL (8.8-10.2); CARBON DIOXIDE LEVEL 27 MEQ/L (21-32); CHLORIDE LEVEL 108 MEQ/L (98-107); CREATININE FOR GFR 0.49 MG/DL (0.55-1.02); GLOMERULAR FILTRATION RATE > 60.0 (>39); GLUCOSE, FASTING 98 MG/DL (83-110); MAGNESIUM LEVEL 1.8 MG/DL (1.8-2.4); POTASSIUM SERUM 3.8 MEQ/L (3.5-5.1); SODIUM LEVEL 142 MEQ/L (136-145)
[2016-12-30] MEDS: SYMBICORT 80/4.5MCG INHALER 6GM INH SCH ×2 (07:12→19:57)
[2016-12-30] MEDS: IPRATROPIUM 0.5MG/ALBUTEROL 2.5MG INH SOL UD 3ML (DUONEB)(J7620) NEB SCH ×4 (07:13→19:57)
--- NOTE | 2016-12-30 08:53 | IPNPDOC ---
Subjective Date Seen The patient was seen on 12/30/16. Subjective Chief Complaint/HPI The patient is a 71-year-old female admitted with a reason for visit of Urinary Tract Infection. General: Denies: ROS Unobtainable, Chills, Night Sweats, Fatigue, Malaise, Normal Appetite, Other Symptoms Constitutional: Denies: Chills, Fever, Malaise, Night Sweats, Weakness, Fatigue , Weight Loss, Lethargy, Other Eyes: Denies: Pain, Vision change, Conjunctivae inflammation, Eyelid inflammation, Redness, Other ENT: Denies: Head Aches, Ear Pain, Dysphagia, Sinus Congestion, Post Nasal Drip , Sore Throat, Epistaxis, Other Symptoms Skin: Denies: Rash, Lesions, Jaundice, Bruising, Itching, Dry, Breakdown, Nail Changes, Other Pulmonary: Denies: Dyspnea, Cough, Pleuritic Chest Pain, Other Symptoms Cardiovascular: Denies: Chest Pain, Palpitations, Orthopnea, Paroxysmal Noc. Dyspnea, Edema, Lt Headedness, Other Symptoms Objective Physical Examination General Exam: Positive: Alert, Cooperative, No Acute Distress Eye Exam: Positive: PERRLA, Conjunctiva & lids normal, EOMI, Negative: Sclera icteric ENT Exam: Positive: Atraumatic, Other ENT (poor dentition) Neck Exam: Positive: Supple Chest Exam: Positive: Clear to auscultation, Normal air movement Heart Exam: Positive: Rate Normal, Regular Rhythm, Normal S1, Normal S2 Abdomen Exam: Positive: Normal bowel sounds, Soft, Other (multiple abdominal surgical scars noted), Negative: Tenderness Extremity Exam: Positive: Other (b/l aka; bandages in place at stumps), Negative: Clubbing, Cyanosis, Edema Skin Exam: Positive: Breakdown (no significant changes in her pressure ulcers from yesterday) Neuro Exam: Positive: Normal Speech Psych Exam: Positive: Oriented x 3 (generally oriented to person place and time but not with specific details) Assessment /Plan Problems (1) Depression with anxiety Status: Chronic Discussed With: Patient Problem Specific Plan: Consult Specialist Problem Text: major depressive disorder with psychosis follow as per psychiatry, assistance appreciated discussed with psychiatry - d/c tramadol and continue effexor and remeron continue risperidone - dosage increased to tid, benadryl for extrapyramidal side effects as needed sitter discontinued psych recs continue to monitor to determine need for inpatient psych follow up tomorrow regarding dispo from psych standpoint (2) UTI (urinary tract infection) Status: Resolved Discussed With: Patient Problem Specific Plan: Monitor Clinically Problem Text: asymptomatic s/p 7 days meropenem for pseudomonas uti (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 Gama of wound care. His recommendations for dressing the wound are much appreciated. follow up with wound care clinic on discharge. dressing changes as directed No antibiotics recommended as this is a colonized wound. She may benefit from an evaluation by vascular surgery in the future, but does not need an immediate transfer for this at this time. (4) Pressure ulcer, buttock Status: Chronic Discussed With: Patient Problem Specific Plan: Consult Specialist, Monitor Clinically Problem Text: Continue wound care with foam dressings, and offloading. Continue with nutritional supplements with each meal. Recommend an offloading bed, and a Roho cushion while sitting wound care c/s appreciated (5) Hypothyroidism Status: Chronic Discussed With: Patient Problem Specific Plan: Monitor Clinically Problem Text: TSH was suppressed, with an elevated free T4 Her dose of Synthroid was decreased while inpatient, she will need outpatient follow-up again in 6-8 weeks (6) Hypertension Status: Chronic Discussed With: Patient Problem Specific Plan: Monitor Clinically Problem Text: Continue with metoprolol succinate, vitals continue to be within acceptable limits (7) Dyslipidemia Status: Chronic Problem Text: She has a listed allergy to statins (8) Coronary atherosclerosis Status: Chronic Discussed With: Patient Problem Text: Continue with aspirin, plavix, bb. documented allergy to statins s/p cabg (9) GERD (gastroesophageal reflux disease) Status: Chronic Problem Text: Continue home dose of omeprazole. We will recommend elevating the head of bed slightly when she is asleep, as her symptoms are worse at night. (10) Living accommodation issues Status: Acute Problem Text: Discharge planning per recommendations from PFS Plan/VTE VTE Prophylaxis Ordered?: Yes (Lovenox) Plan/Urinary Catheter Reason for insertion/continuin: Patient request Plan Diet: Continue Current Activity: Continue Current Pt and Family Services: Home Care Anticipated Discharge: Home With Services, Sub Acute Rehab, Assisted Living to determine dispo from psych standpoint tomorrow if clear from psych will need placement VS, I&O, 24H, Fishbone Vital Signs/I&O Vital Signs Date Time Temp Pulse Resp B/P (MAP) Pulse Ox O2 Delivery O2 Flow Rate FiO2 12/30/16 06:00 97.8 78 20 140/66 (90) 93 12/29/16 21:20 Room Air I&O- Last 24 Hours up to 6 AM 12/30/16 06:00 Intake Total 1720 ml Output Total 600 ml Balance 1120 ml Laboratory Data 24H LABS Laboratory Tests 2 12/30/16 05:23: White Blood Count 6.9, Red Blood Count 3.93L, Hemoglobin 10.3L, Hematocrit 33.4L , Mean Corpuscular Volume 85.2, Mean Corpuscular Hemoglobin 26.2L, Mean Corpuscular Hemoglobin Concent 30.7L, Red Cell Distribution Width 15.4H, Platelet Count 306, Neutrophils (%) (Auto) 60.2, Lymphocytes (%) (Auto) 27.2, Monocytes (%) (Auto) 3.9, Eosinophils (%) (Auto) 6.3H, Basophils (%) (Auto) 0.4 , Neutrophils # (Auto) 4.2, Lymphocytes # (Auto) 1.9, Monocytes # (Auto) 0.3, Eosinophils # (Auto) 0.4, Basophils # (Auto) 0.0, Large Unclassified Cells % 2.1 , Large Unclassified Cells # 0.1, Anion Gap 7L, Glomerular Filtration Rate > 60.0, Blood Urea Nitrogen 20H, Creatinine 0.49L, Sodium Level 142, Potassium Level 3.8, Chloride Level 108H, Carbon Dioxide Level 27, Calcium Level 8.6L, Magnesium Level 1.8 CBC/BMP Laboratory Tests 12/30/16 05:23 Red Blood Count 3.93 L, Mean Corpuscular Volume 85.2, Mean Corpuscular Hemoglobin 26.2 L, Mean Corpuscular Hemoglobin Concent 30.7 L, Red Cell Distribution Width 15.4 H, Neutrophils (%) (Auto) 60.2, Lymphocytes (%) (Auto) 27.2, Monocytes (%) (Auto) 3.9, Eosinophils (%) (Auto) 6.3 H, Basophils (%) ( Auto) 0.4, Neutrophils # (Auto) 4.2, Lymphocytes # (Auto) 1.9, Monocytes # (Auto ) 0.3, Eosinophils # (Auto) 0.4, Basophils # (Auto) 0.0, Calcium Level 8.6 L ULISES COMER MD December 30, 2016 08:53
[2016-12-30] MEDS: VENLAFAXINE **XR** 75MG CAPSULE PO SCH (09:16)
[2016-12-30] MEDS: MAGNESIUM OXIDE 400 MG TAB (MAG-OX) PO SCH (09:16)
[2016-12-30] MEDS: GABAPENTIN 100 MG CAP PO SCH ×3 (09:16→20:21)
[2016-12-30] MEDS: ASPIRIN 81 MG ENTERIC TAB PO SCH (09:17)
[2016-12-30] MEDS: FAMOTIDINE 20 MG TAB PO SCH ×2 (09:18→20:21)
[2016-12-30] MEDS: OMEPRAZOLE 20 MG CAP PO SCH (09:18)
[2016-12-30] MEDS: PERCOCET 5MG/325MG TAB PO PRN ×2 (09:18→21:23)
[2016-12-30] MEDS: SENOKOT S TAB PO SCH ×2 (09:18→20:22)
[2016-12-30] MEDS: CLOPIDOGREL 75 MG TAB PO SCH (09:18)
[2016-12-30] MEDS: risperiDONE 0.5 MG TAB PO SCH ×3 (09:18→20:22)
[2016-12-30] MEDS: ENOXAPARIN 40 MG/0.4 ML SYRINGE (J1650) SC SCH (09:19)
[2016-12-30] MEDS: ANUSOL HC CREAM 30GM TOP SCH ×2 (09:19→20:22)
[2016-12-30] MEDS: NYSTATIN 100,000 UNITS/GM TOPICAL PWD 15 GM TOP SCH ×3 (09:19→20:22)
[2016-12-30] MEDS: METOPROLOL SUCC (TopROL XL) 100MG *XL* TAB PO SCH (09:46)
[2016-12-30 11:58] VITALS: BP 82/62
[2016-12-30 14:00] VITALS: BP 96/58
[2016-12-30] MEDS: ACETAMINOPHEN TAB 650MG DOSE (2X325MG) PO PRN (16:22)
[2016-12-30] MEDS: MIRTAZAPINE 7.5MG PER 1/2 TABLET PO SCH (20:21)
[2016-12-30] MEDS: PRAMIPEXOLE 1 MG TAB PO SCH (20:28)
[2016-12-30 22:00] VITALS: BP 131/61
[2016-12-31] MEDS: LEVOTHYROXINE 0.137 MG TAB (137MCG) PO SCH (05:37)
[2016-12-31 06:00] VITALS: BP 147/68
[2016-12-31] MEDS: VENLAFAXINE **XR** 75MG CAPSULE PO SCH (07:48)
[2016-12-31] MEDS: FAMOTIDINE 20 MG TAB PO SCH ×2 (07:49→20:06)
[2016-12-31] MEDS: ASPIRIN 81 MG ENTERIC TAB PO SCH (07:49)
[2016-12-31] MEDS: METOPROLOL SUCC (TopROL XL) 100MG *XL* TAB PO SCH (07:49)
[2016-12-31] MEDS: CLOPIDOGREL 75 MG TAB PO SCH (07:49)
[2016-12-31] MEDS: OMEPRAZOLE 20 MG CAP PO SCH (07:49)
[2016-12-31] MEDS: risperiDONE 0.5 MG TAB PO SCH ×3 (07:49→20:06)
[2016-12-31] MEDS: GABAPENTIN 100 MG CAP PO SCH ×3 (07:49→20:06)
[2016-12-31] MEDS: SENOKOT S TAB PO SCH ×2 (07:49→20:06)
[2016-12-31] MEDS: MAGNESIUM OXIDE 400 MG TAB (MAG-OX) PO SCH (07:49)
[2016-12-31] MEDS: ENOXAPARIN 40 MG/0.4 ML SYRINGE (J1650) SC SCH (07:50)
[2016-12-31] MEDS: PERCOCET 5MG/325MG TAB PO PRN ×2 (07:50→20:58)
[2016-12-31] MEDS: ANUSOL HC CREAM 30GM TOP SCH ×2 (07:51→20:07)
[2016-12-31] MEDS: NYSTATIN 100,000 UNITS/GM TOPICAL PWD 15 GM TOP SCH ×3 (07:51→20:07)
[2016-12-31] MEDS: IPRATROPIUM 0.5MG/ALBUTEROL 2.5MG INH SOL UD 3ML (DUONEB)(J7620) NEB SCH ×4 (08:00→19:41)
[2016-12-31] MEDS: SYMBICORT 80/4.5MCG INHALER 6GM INH SCH ×2 (08:00→19:41)
--- NOTE | 2016-12-31 10:29 | IPNPDOC ---
Subjective Date Seen The patient was seen on 12/31/16. Subjective Chief Complaint/HPI The patient is a 71-year-old female admitted with a reason for visit of Urinary Tract Infection. General: Denies: ROS Unobtainable, Chills, Night Sweats, Fatigue, Malaise, Normal Appetite, Other Symptoms Constitutional: Denies: Chills, Fever, Malaise, Night Sweats, Weakness, Fatigue , Weight Loss, Lethargy, Other Eyes: Denies: Pain, Vision change, Conjunctivae inflammation, Eyelid inflammation, Redness, Other ENT: Denies: Head Aches, Ear Pain, Dysphagia, Sinus Congestion, Post Nasal Drip , Sore Throat, Epistaxis, Other Symptoms Skin: Denies: Rash, Lesions, Jaundice, Bruising, Itching, Dry, Breakdown, Nail Changes, Other Pulmonary: Denies: Dyspnea, Cough, Pleuritic Chest Pain, Other Symptoms Cardiovascular: Denies: Chest Pain, Palpitations, Orthopnea, Paroxysmal Noc. Dyspnea, Edema, Lt Headedness, Other Symptoms Gastrointestinal: Denies: Nausea, Vomiting, Abdominal Pain, Diarrhea, Constipation, Melena, Hematochezia, Other Symptoms Psych: Reports: Anxiety, Denies: Thoughts of Self Harm, Anger, Thoughts of Harming Other Objective Physical Examination General Exam: Positive: Alert, Cooperative, No Acute Distress Eye Exam: Positive: PERRLA, Conjunctiva & lids normal, EOMI, Negative: Sclera icteric ENT Exam: Positive: Atraumatic, Other ENT (poor dentition) Neck Exam: Positive: Supple Chest Exam: Positive: Clear to auscultation, Normal air movement Heart Exam: Positive: Rate Normal, Regular Rhythm, Normal S1, Normal S2 Abdomen Exam: Positive: Normal bowel sounds, Soft, Other (multiple abdominal surgical scars noted), Negative: Tenderness Extremity Exam: Positive: Other (b/l aka; bandages in place at stumps), Negative: Clubbing, Cyanosis, Edema Skin Exam: Positive: Breakdown (no significant changes in her pressure ulcers from yesterday) Neuro Exam: Positive: Normal Speech Psych Exam: Positive: Oriented x 3 (generally oriented to person place and time but not with specific details) Assessment /Plan Problems (1) Depression with anxiety Status: Chronic Discussed With: Patient Problem Specific Plan: Consult Specialist Problem Text: major depressive disorder with psychosis follow as per psychiatry, assistance appreciated discussed with psychiatry - d/c tramadol and continue effexor and remeron continue risperidone - dosage increased to tid, benadryl for extrapyramidal side effects as needed sitter discontinued psych recs continue to monitor to determine need for inpatient psych pending follow up regarding dispo from psych standpoint (2) UTI (urinary tract infection) Status: Resolved Discussed With: Patient Problem Specific Plan: Monitor Clinically Problem Text: asymptomatic s/p 7 days meropenem for pseudomonas uti (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 Gama of wound care. His recommendations for dressing the wound are much appreciated. follow up with wound care clinic on discharge. dressing changes as directed No antibiotics recommended as this is a colonized wound. She may benefit from an evaluation by vascular surgery in the future, but does not need an immediate transfer for this at this time. (4) Pressure ulcer, buttock Status: Chronic Discussed With: Patient Problem Specific Plan: Consult Specialist, Monitor Clinically Problem Text: Continue wound care with foam dressings, and offloading. Continue with nutritional supplements with each meal. Recommend an offloading bed, and a Roho cushion while sitting wound care c/s appreciated (5) Hypothyroidism Status: Chronic Discussed With: Patient Problem Specific Plan: Monitor Clinically Problem Text: TSH was suppressed, with an elevated free T4 Her dose of Synthroid was decreased while inpatient, she will need outpatient follow-up again in 6-8 weeks (6) Hypertension Status: Chronic Discussed With: Patient Problem Specific Plan: Monitor Clinically Problem Text: Continue with metoprolol succinate, vitals continue to be within acceptable limits (7) Dyslipidemia Status: Chronic Problem Text: She has a listed allergy to statins (8) Coronary atherosclerosis Status: Chronic Discussed With: Patient Problem Text: Continue with aspirin, plavix, bb. documented allergy to statins s/p cabg (9) GERD (gastroesophageal reflux disease) Status: Chronic Problem Text: Continue home dose of omeprazole. We will recommend elevating the head of bed slightly when she is asleep, as her symptoms are worse at night. (10) Living accommodation issues Status: Acute Problem Text: Discharge planning per recommendations from PFS Plan/VTE VTE Prophylaxis Ordered?: Yes (Lovenox) Plan/Urinary Catheter Reason for insertion/continuin: Patient request Plan Diet: Continue Current Activity: Continue Current Pt and Family Services: Home Care Anticipated Discharge: Home With Services, Sub Acute Rehab, Assisted Living Pending follow up from [facility] regarding disposition - if needs inpatient psych. She appears somewhat more anxious today then previous 2 days. VS, I&O, 24H, Fishbone Vital Signs/I&O Vital Signs Date Time Temp Pulse Resp B/P (MAP) Pulse Ox O2 Delivery O2 Flow Rate FiO2 12/31/16 08:33 18 12/31/16 06:00 98.7 90 147/68 (94) 94 12/30/16 22:00 Room Air I&O- Last 24 Hours up to 6 AM 12/31/16 06:00 Intake Total 1260 ml Output Total 1450 ml Balance -190 ml ULISES COMER MD December 31, 2016 10:29
[2016-12-31 14:00] VITALS: BP 134/60
[2016-12-31] MEDS: PRAMIPEXOLE 1 MG TAB PO SCH (20:06)
[2016-12-31] MEDS: MIRTAZAPINE 7.5MG PER 1/2 TABLET PO SCH (20:06)
--- NOTE | 2016-12-31 21:46 | MHIPNPDOC ---
[facility] Progress Note Progress Note DATE OF SERVICE: 12/31/16 HISTORY: 71 year old female with history of bilateral knee amputation, UTI, major depressive disorder, delirium, r/o dementia who has been evaluated several times for depression, confusion and delusional thoughts. Shes alert, oriented x 3, cooperative, with good eye contact, talkative, continues to display delusions about her house in [place]. Stated she would take a cab tomorrow and pay $235.00 for the ride, because she needs to pay her bills, needs to close her checking account. Denies suicidal ideation, denies homicidal ideation, denies auditory and visual hallucinations but continues with with delusions about her house and her financial strains. her recent memory is fair, her remote memory is impaired, her insight and judgement are improving. VITAL SIGNS: See below. CURRENT MEDICATIONS: See below. DIAGNOSES: 1. Major Depressive disorder 2. Delirium 3. R/O Dementia. ASSESSMENT:Pt is still delusional, but her mood and affect have improved. She needs to go to a prison due to multiple medical problems. Her memory problem is most likely chronic, Getting more information from her as of how was her cognition while she was at [facility] [place], would help. A CT scan of the brain would be helpful, to rule out dementia. She needs to continue on medication. MANAGEMENT PLAN: Continue on the same medications. TIME SPENT: 20 minutes. Vital Signs Vital Signs Date Time Temp Pulse Resp B/P (MAP) Pulse Ox O2 Delivery O2 Flow Rate FiO2 12/31/16 20:58 18 Room Air 12/31/16 14:00 98.6 75 134/60 (84) 94 Current Medications Current Medications Acetaminophen (Tylenol Tab) 650 mg Q4HP PRN PO MILD PAIN OR FEVER Last administered on 12/30/16t 16:22; Start 12/04/16 at 17:45; Stop 01/03/17 at 17:44 Acetaminophen/ Hydrocodone Bitart ([place], Anexsia 5/325) 1 tab Q4HP PRN PO MODERATE PAIN (PS 5-7); Start 12/04/16 at 17:45; Stop 12/04/16 at 19:17; Status DC Albuterol/ Ipratropium (Combivent Respimat 100-20mcg) 1 puff Q4HP PRN INH SHORTNESS OF BREATH Last administered on 12/21/16 22:05; Start 12/04/16 at 19: 30; Stop 01/03/17 at 19:29 Albuterol/ Ipratropium (Duoneb (Ipr 0.5mg/Alb 2.5mg)) 3 ml BIDP PRN INH SHORTNESS OF BREATH Last administered on 12/11/16 09:48; Start 12/08/16 at 10: 15; Stop 01/07/17 at 10:14 Albuterol/ Ipratropium (Duoneb (Ipr 0.5mg/Alb 2.5mg)) 3 ml RBID INH ; Start at 08:00; Stop 12/08/16 at 10:06; Status DC Albuterol/ Ipratropium (Duoneb (Ipr 0.5mg/Alb 2.5mg)) 3 ml RQID NEB Last administered on 12/31/16 15:24; Start 12/11/16 at 20:00; Stop 01/10/17 at 19:59 Amitriptyline HCl (Elavil) 10 mg QHSP PRN PO INSOMNIA Last administered on 12/12 23:05; Start 12/11/16 at 17:45; Stop 12/15/16 at 12:45; Status DC Aripiprazole (AbiLIFY) 2 mg QHS PO Last administered on 12/24/16 20:22; Start 12/17/16 at 21:00; Stop 12/25/16 at 17:11; Status DC Aspirin (Ecotrin) 81 mg DAILY PO Last administered on 12/31/16 07:49; Start 08/11 at 09:00; Stop 01/04/17 at 08:59 Budesonide/ Formoterol Fumarate (Symbicort 80/ 4.5mcg) 2 puff BID INH Last administered on 12/31/16 19:41; Start 12/08/16 at 21:00; Stop 01/07/17 at 20:59 Clopidogrel Bisulfate (PLAVix) 75 mg DAILY PO Last administered on 12/31/16 07: 49; Start 12/05/16 at 09:00; Stop 01/04/17 at 08:59 Collagenase (Santyl) 1 dose WDC PRN TOP WITH EACH DRESSING CHANGE Last administered on 12/29/16 15:35; Start 12/06/16 at 13:30; Stop 01/05/17 at 13:29 Diphenhydramine HCl (Benadryl Cream) 1 dose Q6HP PRN TOP ITCHING Last administered on 12/29/16 09:57; Start 12/13/16 at 15:15; Stop 01/12/17 at 15:14 Diphenhydramine HCl (Benadryl) 25 mg Q4HP PRN PO RASH/ITCHING Last administered on 12/13/16 03:38; Start 12/04/16 at 19:45; Stop 12/13/16 at 15:06 ; Status DC Diphenhydramine HCl (Benadryl) 25 mg QHSP PRN PO INSOMNIA Last administered on 12/10/16 23:24; Start 12/10/16 at 17:45; Stop 12/11/16 at 04:07; Status DC Diphenhydramine HCl (Benadryl) 50 mg BIDP PRN PO EXTRAPYRAMIDAL SYMPTOMS Last administered on 12/28/16 20:53; Start 12/25/16 at 17:15; Stop 01/24/17 at 17:14 Docusate Sodium (Colace) 100 mg BIDP PRN PO CONSTIPATION Last administered on 02:14; Start 12/07/16 at 00:00; Stop 12/17/16 at 19:57; Status DC Enoxaparin Sodium (Lovenox) 40 mg DAILY SC Last administered on 12/31/16 07:50 ; Start 12/05/16 at 09:00; Stop 01/03/17 at 08:59 Famotidine (Pepcid) 20 mg BID PO Last administered on 12/31/16 20:06; Start at 21:00; Stop 01/10/17 at 20:59 Fluconazole (Diflucan) 100 mg DAILY PO Last administered on 12/22/16 09:02; Start 12/20/16 at 09:00; Stop 12/22/16 at 12:00; Status DC Gabapentin (Neurontin) 100 mg TID PO Last administered on 12/31/16 20:06; Start 12/22/16 at 16:00; Stop 01/21/17 at 15:59 Home Med (Med Rec Complete!) ASDIRECTED XX ; Start 12/04/16 at 17:30; Stop 07/12 at 17:36; Status DC Home Med (Med Rec Complete!) ASDIRECTED XX ; Start 12/04/16 at 20:30; Stop 07/12 at 20:30; Status DC Hydrocortisone (Proctosol Hc) 1 dose BID TOP Last administered on 12/17/16 08: 17; Start 12/14/16 at 21:00; Stop 12/17/16 at 09:23; Status DC Hydrocortisone (Proctosol Hc) 1 dose BID TOP Last administered on 12/31/16 20: 07; Start 12/17/16 at 09:23; Stop 01/13/17 at 20:59 Levofloxacin 750 mg/IV Miscellaneous Supplies 150 ml @ 100 mls/hr Q24H IV Last administered on 12/05/16 20:13; Start 12/04/16 at 21:00; Stop 12/06/16 at 07:33; Status DC Levothyroxine Sodium (Synthroid) 0.137 mg DAILY@06 PO Last administered on 05:37; Start 12/06/16 at 06:00; Stop 01/05/17 at 05:59 Levothyroxine Sodium (Synthroid) 0.15 mg DAILY@06 PO Last administered on 06:19; Start 12/05/16 at 06:00; Stop 12/05/16 at 12:50; Status DC Lorazepam (Ativan) 0.5 mg Q6HP PRN IV AGITATION; Start 12/17/16 at 21:30; Stop 12/18/16 at 05:01; Status DC Lorazepam (Ativan) 0.5 mg Q8HP PRN PO ANXIETY Last administered on 12/24/16 22: 05; Start 12/13/16 at 19:30; Stop 12/26/16 at 19:29; Status DC Lorazepam (Ativan) 0.5 mg Q8HP PRN PO ANXIETY; Start 12/27/16 at 10:15; Stop 07/12 at 10:14 Lorazepam (Ativan) 1 mg Q4HP PRN PO ANXIETY Last administered on 12/13/16 01: 32; Start 12/04/16 at 19:30; Stop 12/13/16 at 15:06; Status DC Magnesium Oxide (Mag-Ox) 400 mg DAILY PO Last administered on 12/31/16 07:49; Start 12/19/16 at 09:00; Stop 01/18/17 at 08:59 Magnesium Oxide (Mag-Ox) 400 mg Q4H PO Last administered on 12/24/16 22:05; Start 12/24/16 at 14:00; Stop 12/24/16 at 22:01; Status DC Magnesium Sulfate/ Dextrose 1 gm/IV Miscellaneous Supplies 100 ml @ 100 mls/hr 1T@1100,1200 IV Last administered on 12/21/16 18:02; Start 12/21/16 at 11:00; Stop 12/21/16 at 14:00; Status DC Magnesium Sulfate/ Dextrose 1 gm/IV Miscellaneous Supplies 100 ml @ 100 mls/hr 1T@1400,1500 IV ; Start 12/24/16 at 14:00; Stop 12/24/16 at 18:00; Status Cancel Magnesium Sulfate/ Dextrose 1 gm/IV Miscellaneous Supplies 100 ml @ 100 mls/hr 1T@16,17 IV Last administered on 12/13/16 16:59; Start 12/13/16 at 16:00; Stop 12/13/16 at 19:00; Status DC Magnesium Sulfate/ Dextrose 1 gm/IV Miscellaneous Supplies 100 ml @ 100 mls/hr Q1H IV Last administered on 12/16/16 11:23; Start 12/16/16 at 08:00; Stop at 09:59; Status DC Meropenem 500 mg/ Dextrose 100 ml @ 200 mls/hr Q8H IV Last administered on 00:48; Start 12/06/16 at 09:00; Stop 12/13/16 at 07:36; Status DC Meropenem 500 mg/ Dextrose 100 ml @ 200 mls/hr Q8H IV Last administered on 10:04; Start 12/13/16 at 09:00; Stop 12/13/16 at 12:00; Status DC Metoprolol Succinate (TopROL XL) 100 mg DAILY PO Last administered on 12/31/16 07:49; Start 12/05/16 at 09:00; Stop 01/04/17 at 08:59 Mirtazapine (Remeron) 7.5 mg QHS PO Last administered on 12/26/16 20:24; Start 12/15/16 at 21:00; Stop 12/27/16 at 09:58; Status DC Mirtazapine (Remeron) 7.5 mg QHS PO Last administered on 12/31/16 20:06; Start 12/27/16 at 21:00; Stop 01/26/17 at 20:59 Morphine Sulfate (Roxanol) 5 mg Q4HP PRN PO PAIN; Start 12/12/16 at 12:52; Stop 12/13/16 at 15:06; Status DC Morphine Sulfate (Roxanol) 10 mg Q2HP PRN PO PAIN Last administered on 05:47; Start 12/04/16 at 19:30; Stop 12/12/16 at 12:56; Status DC Nystatin (Mycostatin Powder, Nystop) 1 dose TID TOP Last administered on 20:07; Start 12/16/16 at 16:00; Stop 01/15/17 at 15:59 Omeprazole (PriLOSEC) 20 mg DAILY PO Last administered on 12/31/16 07:49; Start 12/05/16 at 09:00; Stop 01/04/17 at 08:59 Ondansetron HCl (Zofran Odt) 4 mg Q8HP PRN PO NAUSEA OR VOMITING Last administered on 12/23/16 13:22; Start 12/07/16 at 21:00; Stop 01/06/17 at 20:59 Oxycodone/ Acetaminophen (Percocet 5mg/ 325mg Tablet) 1 tab Q6HP PRN PO MILD/ MODERATE PAIN (PS 1-7) Last administered on 12/31/16 20:58; Start 12/27/16 at 07: 00; Stop 01/03/17 at 06:59 Pramipexole Dihydrochloride (Mirapex) 1.5 mg QHS PO Last administered on 20:06; Start 12/05/16 at 21:00; Stop 01/04/17 at 20:59 Risperidone (RisperDAL) 0.5 mg BID PO Last administered on 12/27/16 20:39; Start 12/25/16 at 21:00; Stop 12/28/16 at 06:51; Status DC Risperidone (RisperDAL) 0.5 mg TID PO Last administered on 12/31/16 20:06; Start 12/28/16 at 09:00; Stop 01/24/17 at 20:59 Scopolamine (Transderm-Scop) 1.5 mg Q72H TOP ; Start 12/06/16 at 09:00; Stop at 09:00; Status DC Scopolamine (Transderm-Scop) 1.5 mg Q72H TOP Last administered on 12/21/16 10: 09; Start 12/06/16 at 09:00; Stop 12/21/16 at 18:29; Status DC Senna/Docusate Sodium (Senokot S) 1 tab BID PO Last administered on 12/31/16 20 :06; Start 12/07/16 at 09:00; Stop 01/06/17 at 08:59 Tramadol HCl (Ultram) 50 mg Q8HP PRN PO MODERATE PAIN (PS 5-7) Last administered on 12/26/16 21:26; Start 12/20/16 at 13:30; Stop 12/27/16 at 06:51; Status DC Venlafaxine HCl (Effexor Xr) 75 mg QAM PO Last administered on 12/27/16 09: 07; Start 12/27/16 at 09:00; Stop 12/27/16 at 11:00; Status DC Venlafaxine HCl (Effexor Xr) 75 mg QHS PO Last administered on 12/16/16 20 :17; Start 12/04/16 at 21:00; Stop 12/17/16 at 12:20; Status DC Venlafaxine HCl (Effexor Xr) 75 mg QHS PO ; Start 12/17/16 at 21:00; Stop at 21:59; Status DC Venlafaxine HCl (Effexor Xr) 150 mg DAILY PO Last administered on 12/31/16 07:48; Start 12/28/16 at 09:00; Stop 01/27/17 at 08:59 Venlafaxine HCl (Effexor Xr) 150 mg QAM PO Last administered on 12/26/16t 09 :11; Start 12/18/16 at 09:00; Stop 12/27/16 at 00:55; Status DC Allergies Coded Allergies: Sulfa Antibiotics (Verified Allergy, Severe, 12/11/16) Cephalosporins (Verified Allergy, Intermediate, 11/25/12) Ciprofloxacin (Unverified Allergy, Unknown, 01/26/16) Iodine (Unverified Allergy, Unknown, 01/26/16) Lobster (Unverified Allergy, Unknown, 01/26/16) Metronidazole (Unverified Allergy, Unknown, 01/26/16) Nickel (Unverified Allergy, Unknown, 01/26/16) Penicillins (Unverified Allergy, Unknown, 01/26/16) Statins (Unverified Allergy, Unknown, 01/26/16) Sulfa Drugs (Verified Allergy, Unknown, 11/25/12) Sulfa Drugs Cross Reactors (Verified Allergy, Unknown, 11/25/12) CLARITZA CEBALLOS MD December 31, 2016 21:46
[2016-12-31 22:00] VITALS: BP_SYST 131; BP_SYST 92; BP_DIAS 58; BP_DIAS 77
[2017-01-01] MEDS: LEVOTHYROXINE 0.137 MG TAB (137MCG) PO SCH (05:56)
[2017-01-01 06:00] VITALS: BP 109/76
[2017-01-01] MEDS: IPRATROPIUM 0.5MG/ALBUTEROL 2.5MG INH SOL UD 3ML (DUONEB)(J7620) NEB SCH ×4 (07:26→20:00)
[2017-01-01] MEDS: SYMBICORT 80/4.5MCG INHALER 6GM INH SCH ×2 (07:26→19:38)
[2017-01-01] MEDS: VENLAFAXINE **XR** 75MG CAPSULE PO SCH (08:55)
[2017-01-01] MEDS: GABAPENTIN 100 MG CAP PO SCH ×3 (08:55→21:42)
[2017-01-01] MEDS: SENOKOT S TAB PO SCH ×2 (08:56→21:42)
[2017-01-01] MEDS: OMEPRAZOLE 20 MG CAP PO SCH (08:56)
[2017-01-01] MEDS: MAGNESIUM OXIDE 400 MG TAB (MAG-OX) PO SCH (08:56)
[2017-01-01] MEDS: FAMOTIDINE 20 MG TAB PO SCH ×2 (08:56→21:42)
[2017-01-01] MEDS: CLOPIDOGREL 75 MG TAB PO SCH (08:56)
[2017-01-01] MEDS: ASPIRIN 81 MG ENTERIC TAB PO SCH (08:56)
[2017-01-01] MEDS: METOPROLOL SUCC (TopROL XL) 100MG *XL* TAB PO SCH (08:56)
[2017-01-01] MEDS: risperiDONE 0.5 MG TAB PO SCH ×3 (08:56→21:42)
[2017-01-01] MEDS: ANUSOL HC CREAM 30GM TOP SCH ×2 (08:57→21:44)
[2017-01-01] MEDS: ENOXAPARIN 40 MG/0.4 ML SYRINGE (J1650) SC SCH (08:57)
[2017-01-01] MEDS: NYSTATIN 100,000 UNITS/GM TOPICAL PWD 15 GM TOP SCH ×3 (08:57→21:44)
[2017-01-01] MEDS: SANTYL OINT 30GM TOP PRN (08:58)
[2017-01-01 14:00] VITALS: BP 124/59
[2017-01-01] MEDS: PERCOCET 5MG/325MG TAB PO PRN ×2 (15:35→21:43)
--- NOTE | 2017-01-01 17:02 | IPNPDOC ---
Subjective Date Seen The patient was seen on 01/01/17. Subjective Chief Complaint/HPI The patient is a 71-year-old female admitted with a reason for visit of Urinary Tract Infection. Events since last encounter confused and disorganized today- believes that we have met before- would like togo home to live and buy a new puppy as her cousin shot her two beautiful dogs. Calls me a "sneaky little son of a bitch" and then professed her undying love. General: Reports: ROS Unobtainable Objective Physical Examination General Exam: Positive: Mild Distress Eye Exam: Negative: Sclera icteric ENT Exam: Positive: Atraumatic Neck Exam: Positive: Supple Chest Exam: Positive: Clear to auscultation, Normal air movement Heart Exam: Positive: Rate Normal, Regular Rhythm, Normal S1, Normal S2 Abdomen Exam: Positive: Normal bowel sounds, Soft, Other (multiple abdominal surgical scars noted), Negative: Tenderness Extremity Exam: Positive: Other (b/l aka; bandages in place at stumps), Negative: Clubbing, Cyanosis, Edema Psych Exam: Positive: Anxiety, Negative: Mental status NL, Mood NL Assessment /Plan Problems (1) Depression with anxiety Status: Chronic Discussed With: Patient Problem Specific Plan: Consult Specialist Problem Text: major depressive disorder with psychosis I discussed with Dr Neal. Patient lacks capacity to make medical decisions at this time. Likely will require placement permanently. 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 Gama of wound care. His recommendations for dressing the wound are much appreciated. follow up with wound care clinic on discharge. dressing changes as directed No antibiotics recommended as this is a colonized wound. She may benefit from an evaluation by vascular surgery in the future, but does not need an immediate transfer for this at this time. (4) Pressure ulcer, buttock Status: Chronic Discussed With: Patient Problem Specific Plan: Consult Specialist, Monitor Clinically Problem Text: Continue wound care with foam dressings, and offloading. Continue with nutritional supplements with each meal. Recommend an offloading bed, and a Roho cushion while sitting wound care c/s appreciated (5) Hypothyroidism Status: Chronic Discussed With: Patient Problem Specific Plan: Monitor Clinically Problem Text: TSH was suppressed, with an elevated free T4 Her dose of Synthroid was decreased while inpatient, she will need lab follow- up in late December to early January (6) Hypertension Status: Chronic Discussed With: Patient Problem Specific Plan: Monitor Clinically Problem Text: Continue with metoprolol succinate, vitals continue to be within acceptable limits (7) Dyslipidemia Status: Chronic Problem Text: She has a listed allergy to statins (8) Coronary atherosclerosis Status: Chronic Discussed With: Patient Problem Text: Continue with aspirin, plavix, bb. documented allergy to statins s/p cabg (9) GERD (gastroesophageal reflux disease) Status: Chronic Problem Text: Continue home dose of omeprazole. We will recommend elevating the head of bed slightly when she is asleep, as her symptoms are worse at night. (10) Living accommodation issues Status: Acute Problem Text: Discharge planning per recommendations from PFS Plan/VTE VTE Prophylaxis Ordered?: Yes (Lovenox) Plan/Urinary Catheter Reason for insertion/continuin: Patient request Plan Diet: Continue Current Activity: Continue Current Pt and Family Services: Home Care Anticipated Discharge: Home With Services, Sub Acute Rehab, Assisted Living VS, I&O, 24H, Fishbone Vital Signs/I&O Vital Signs Date Time Temp Pulse Resp B/P (MAP) Pulse Ox O2 Delivery O2 Flow Rate FiO2 01/01/17 15:35 20 01/01/17 14:00 99.0 92 124/59 (80) 96 Room Air I&O- Last 24 Hours up to 6 AM 01/01/17 06:00 Intake Total 2040 ml Output Total 1600 ml Balance 440 ml SANDRITA BROCK MD January 01, 2017 17:02
--- NOTE | 2017-01-01 19:10 | ECGEPIP ---
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
--- NOTE | 2017-01-01 20:50 | IPN ---
DATE: 01/01/2017 Mrs. Jiménez reported that she was feeling very upset at a psychiatrist from [facility], who had interrupted a conversation with two of her friends this morning and had asked them to leave her bedroom. She kept perseverating about this incident. Later, she calmed down and she started making plans for the future, but she stated that she does not have any money to pay her bills, that she will still have to pay $2000 for a helicopter that flew her to [place] when she became very ill. She states that she does not trust her sister because her sister is the one that has been taking all of her money away from her and she stated that it was her son's stepfather, the one who committed suicide, while in previous visits she always said that it was her son's father, the one who committed suicide. She is confused. She believes that she has known the author of this document for more than one year, but she has known her for only three weeks. She continues to believe that she can go to her own home in [place], but now she is beginning to consider that probably she will not be able to take care of herself because she needs some help and that it would be too much for her to be home alone and not being able to walk and do grocery shopping. She is alert and oriented to date and time, but not to place, although she is oriented to person. Her remote memory is intact but her remote memory is very poor. She continues to be delusional. She believes that her sister is taking her possessions away from her. She believes that she can go back home, that she still has a place to live. She believes that it was a doctor in [place] that made her diabetic because she claims she was never diabetic before. She believes that her two friends who came to visit her are very good people, who are there to help her out, while apparently and for the information the author of this document has about her situation, these people are not to be trusted around her. In regards to her mental capacity to make decisions as to whether or not she can be discharge safely, she is not capable of making that decision or any other decision at this time. She cannot go and live on her own, she is confused, she is delusional, her memory is impaired, at least the remote memory. Her insight and judgment are very poor, because she is delusional. Her impulse control is fair, and her mood and affect are brighter. Assessment: The author of this document believes that there is an underlying dementia, so I would recommend doing a CT scan of the brain to rule out degenerative changes associated with. I continue to recommend to place her at a shelter, but she can't live alone or with "friends" that could take advantage of her. Her safety is a major concern in this case. We will continue to followup. MARIA DEL CARMEN
[2017-01-01] MEDS: PRAMIPEXOLE 1 MG TAB PO SCH (21:42)
[2017-01-01] MEDS: MIRTAZAPINE 7.5MG PER 1/2 TABLET PO SCH (21:42)
[2017-01-01 22:00] VITALS: BP 124/57
[2017-01-02] MEDS: ACETAMINOPHEN TAB 650MG DOSE (2X325MG) PO PRN (01:34)
[2017-01-02] MEDS: LORazepam 0.5 MG TAB PO PRN ×2 (01:34→17:45)
[2017-01-02] MEDS: PERCOCET 5MG/325MG TAB PO PRN ×3 (05:55→20:18)
[2017-01-02] MEDS: LEVOTHYROXINE 0.137 MG TAB (137MCG) PO SCH (05:55)
[2017-01-02 06:00] VITALS: BP 100/70
[2017-01-02] MEDS: SYMBICORT 80/4.5MCG INHALER 6GM INH SCH ×2 (07:12→20:19)
[2017-01-02] MEDS: IPRATROPIUM 0.5MG/ALBUTEROL 2.5MG INH SOL UD 3ML (DUONEB)(J7620) NEB SCH ×4 (07:13→20:00)
[2017-01-02] MEDS: METOPROLOL SUCC (TopROL XL) 100MG *XL* TAB PO SCH (09:34)
[2017-01-02] MEDS: ENOXAPARIN 40 MG/0.4 ML SYRINGE (J1650) SC SCH (09:34)
[2017-01-02] MEDS: VENLAFAXINE **XR** 75MG CAPSULE PO SCH (09:34)
[2017-01-02] MEDS: SENOKOT S TAB PO SCH ×2 (09:34→20:17)
[2017-01-02] MEDS: FAMOTIDINE 20 MG TAB PO SCH ×2 (09:34→20:18)
[2017-01-02] MEDS: CLOPIDOGREL 75 MG TAB PO SCH (09:35)
[2017-01-02] MEDS: OMEPRAZOLE 20 MG CAP PO SCH (09:35)
[2017-01-02] MEDS: ASPIRIN 81 MG ENTERIC TAB PO SCH (09:35)
[2017-01-02] MEDS: MAGNESIUM OXIDE 400 MG TAB (MAG-OX) PO SCH (09:35)
[2017-01-02] MEDS: risperiDONE 0.5 MG TAB PO SCH ×3 (09:35→20:18)
[2017-01-02] MEDS: GABAPENTIN 100 MG CAP PO SCH ×3 (09:35→20:18)
[2017-01-02] MEDS: NYSTATIN 100,000 UNITS/GM TOPICAL PWD 15 GM TOP SCH ×3 (09:35→20:18)
[2017-01-02] MEDS: ANUSOL HC CREAM 30GM TOP SCH ×2 (09:36→20:18)
[2017-01-02 14:00] VITALS: BP 159/73
[2017-01-02] MEDS: MIRTAZAPINE 7.5MG PER 1/2 TABLET PO SCH (20:17)
[2017-01-02] MEDS: PRAMIPEXOLE 1 MG TAB PO SCH (20:17)
[2017-01-02 22:00] VITALS: BP 80/60
[2017-01-03] MEDS: LEVOTHYROXINE 0.137 MG TAB (137MCG) PO SCH (05:47)
[2017-01-03 06:00] VITALS: BP 123/64
[2017-01-03] MEDS: SANTYL OINT 30GM TOP PRN (06:38)
[2017-01-03] MEDS: SYMBICORT 80/4.5MCG INHALER 6GM INH SCH ×2 (07:23→20:06)
[2017-01-03] MEDS: IPRATROPIUM 0.5MG/ALBUTEROL 2.5MG INH SOL UD 3ML (DUONEB)(J7620) NEB SCH ×4 (07:25→20:00)
[2017-01-03] MEDS: METOPROLOL SUCC (TopROL XL) 100MG *XL* TAB PO SCH (10:45)
[2017-01-03] MEDS: FAMOTIDINE 20 MG TAB PO SCH ×2 (10:45→20:07)
[2017-01-03] MEDS: ENOXAPARIN 40 MG/0.4 ML SYRINGE (J1650) SC SCH (10:45)
[2017-01-03] MEDS: ASPIRIN 81 MG ENTERIC TAB PO SCH (10:46)
[2017-01-03] MEDS: risperiDONE 0.5 MG TAB PO SCH ×3 (10:46→20:06)
[2017-01-03] MEDS: OMEPRAZOLE 20 MG CAP PO SCH (10:46)
[2017-01-03] MEDS: MAGNESIUM OXIDE 400 MG TAB (MAG-OX) PO SCH (10:47)
[2017-01-03] MEDS: VENLAFAXINE **XR** 75MG CAPSULE PO SCH (10:47)
[2017-01-03] MEDS: GABAPENTIN 100 MG CAP PO SCH ×3 (10:47→20:06)
[2017-01-03] MEDS: CLOPIDOGREL 75 MG TAB PO SCH (10:47)
[2017-01-03] MEDS: SENOKOT S TAB PO SCH ×2 (10:48→20:06)
[2017-01-03] MEDS: NYSTATIN 100,000 UNITS/GM TOPICAL PWD 15 GM TOP SCH ×3 (10:51→20:07)
[2017-01-03] MEDS: ANUSOL HC CREAM 30GM TOP SCH ×2 (10:51→20:07)
[2017-01-03] MEDS ORDERED: MOM 30ML SUSPENSION UDC PO PRN (12:15)
[2017-01-03] MEDS: PERCOCET 5MG/325MG TAB PO PRN (19:20)
[2017-01-03] MEDS: MIRTAZAPINE 7.5MG PER 1/2 TABLET PO SCH (20:06)
[2017-01-03] MEDS: PRAMIPEXOLE 1 MG TAB PO SCH (20:06)
[2017-01-03 22:00] VITALS: BP 145/66
[2017-01-03] MEDS: IPRATROPIUM 0.5MG/ALBUTEROL 2.5MG INH SOL UD 3ML (DUONEB)(J7620) INH PRN (23:05)
[2017-01-04] MEDS: LEVOTHYROXINE 0.137 MG TAB (137MCG) PO SCH (05:41)
[2017-01-04 06:00] VITALS: BP 158/60
[2017-01-04] MEDS: PERCOCET 5MG/325MG TAB PO PRN ×3 (06:05→19:44)
[2017-01-04] MEDS: SYMBICORT 80/4.5MCG INHALER 6GM INH SCH ×2 (07:51→19:57)
[2017-01-04] MEDS: IPRATROPIUM 0.5MG/ALBUTEROL 2.5MG INH SOL UD 3ML (DUONEB)(J7620) NEB SCH ×4 (07:51→19:58)
[2017-01-04] MEDS: OMEPRAZOLE 20 MG CAP PO SCH (08:14)
[2017-01-04] MEDS: MAGNESIUM OXIDE 400 MG TAB (MAG-OX) PO SCH (08:14)
[2017-01-04] MEDS: ENOXAPARIN 40 MG/0.4 ML SYRINGE (J1650) SC SCH (08:14)
[2017-01-04] MEDS: GABAPENTIN 100 MG CAP PO SCH ×3 (08:14→21:14)
[2017-01-04] MEDS: VENLAFAXINE **XR** 75MG CAPSULE PO SCH (08:15)
[2017-01-04] MEDS: risperiDONE 0.5 MG TAB PO SCH ×3 (08:15→21:14)
[2017-01-04] MEDS: ASPIRIN 81 MG ENTERIC TAB PO SCH (08:15)
[2017-01-04] MEDS: CLOPIDOGREL 75 MG TAB PO SCH (08:15)
[2017-01-04] MEDS: SENOKOT S TAB PO SCH ×2 (08:15→21:14)
[2017-01-04] MEDS: METOPROLOL SUCC (TopROL XL) 100MG *XL* TAB PO SCH (08:15)
[2017-01-04] MEDS: NYSTATIN 100,000 UNITS/GM TOPICAL PWD 15 GM TOP SCH ×3 (08:15→21:15)
[2017-01-04] MEDS: FAMOTIDINE 20 MG TAB PO SCH ×2 (08:15→21:15)
[2017-01-04] MEDS: ANUSOL HC CREAM 30GM TOP SCH ×2 (08:16→21:15)
[2017-01-04 14:00] VITALS: BP 160/72
--- NOTE | 2017-01-04 16:56 | MHIPNPDOC ---
[facility] Progress Note Progress Note DATE OF SERVICE: 01/04/17 Evaluated 71 year old female with history of Major Depressive Disorder, R/O Dementia. The patient continues to be confused, although today, her thoughts are more clear, more organized. She's oriented to date, time and person, but not to place. She is more goal directed, but her insight and judgment are still very poor. She continues to say that she wants to leave the hospital and go to an apartment to live by herself. She still doesn't realize that is not possible , that she needs help and support. Her mood and affect are much brighter, but she still has memory gaps, lacks insight and has judgment. She lacks the capacity to make decisions. Will f/u. TIME SPENT: 15 minutes. Vital Signs Vital Signs Date Time Temp Pulse Resp B/P (MAP) Pulse Ox O2 Delivery O2 Flow Rate FiO2 01/04/17 14:24 18 01/04/17 14:00 98.5 85 160/72 (101) 96 Room Air Current Medications Current Medications Acetaminophen (Tylenol Tab) 650 mg Q4HP PRN PO MILD PAIN OR FEVER Last administered on 01/02/17 01:34; Start 12/04/16 at 17:45; Stop 02/01/17 at 17:44 Acetaminophen/ Hydrocodone Bitart ([place], [place] 5/325) 1 tab Q4HP PRN PO MODERATE PAIN (PS 5-7); Start 12/04/16 at 17:45; Stop 12/04/16 at 19:17; Status DC Albuterol/ Ipratropium (Combivent Respimat 100-20mcg) 1 puff Q4HP PRN INH SHORTNESS OF BREATH Last administered on 12/21/16 22:05; Start 12/04/16 at 19: 30; Stop 02/01/17 at 19:29 Albuterol/ Ipratropium (Duoneb (Ipr 0.5mg/Alb 2.5mg)) 3 ml BIDP PRN INH SHORTNESS OF BREATH Last administered on 01/03/17 23:05; Start 12/08/16 at 10: 15; Stop 01/07/17 at 10:14 Albuterol/ Ipratropium (Duoneb (Ipr 0.5mg/Alb 2.5mg)) 3 ml RBID INH ; Start at 08:00; Stop 12/08/16 at 10:06; Status DC Albuterol/ Ipratropium (Duoneb (Ipr 0.5mg/Alb 2.5mg)) 3 ml RQID NEB Last administered on 01/04/17 14:49; Start 12/11/16 at 20:00; Stop 01/10/17 at 19:59 Amitriptyline HCl (Elavil) 10 mg QHSP PRN PO INSOMNIA Last administered on 12/12 23:05; Start 12/11/16 at 17:45; Stop 12/15/16 at 12:45; Status DC Aripiprazole (AbiLIFY) 2 mg QHS PO Last administered on 12/24/16 20:22; Start 12/17/16 at 21:00; Stop 12/25/16 at 17:11; Status DC Aspirin (Ecotrin) 81 mg DAILY PO Last administered on 01/04/17 08:15; Start at 09:00; Stop 02/02/17 at 08:59 Budesonide/ Formoterol Fumarate (Symbicort 80/ 4.5mcg) 2 puff BID INH Last administered on 01/04/17 07:51; Start 12/08/16 at 21:00; Stop 01/07/17 at 20:59 Clopidogrel Bisulfate (PLAVix) 75 mg DAILY PO Last administered on 01/04/17 08 :15; Start 12/05/16 at 09:00; Stop 02/02/17 at 08:59 Collagenase (Santyl) 1 dose WDC PRN TOP WITH EACH DRESSING CHANGE Last administered on 01/03/17 06:38; Start 12/06/16 at 13:30; Stop 02/03/17 at 13:29 Diphenhydramine HCl (Benadryl Cream) 1 dose Q6HP PRN TOP ITCHING Last administered on 12/29/16 09:57; Start 12/13/16 at 15:15; Stop 01/12/17 at 15:14 Diphenhydramine HCl (Benadryl) 25 mg Q4HP PRN PO RASH/ITCHING Last administered on 12/13/16 03:38; Start 12/04/16 at 19:45; Stop 12/13/16 at 15:06 ; Status DC Diphenhydramine HCl (Benadryl) 25 mg QHSP PRN PO INSOMNIA Last administered on 12/10/16 23:24; Start 12/10/16 at 17:45; Stop 12/11/16 at 04:07; Status DC Diphenhydramine HCl (Benadryl) 50 mg BIDP PRN PO EXTRAPYRAMIDAL SYMPTOMS Last administered on 12/28/16 20:53; Start 12/25/16 at 17:15; Stop 01/24/17 at 17:14 Docusate Sodium (Colace) 100 mg BIDP PRN PO CONSTIPATION Last administered on 02:14; Start 12/07/16 at 00:00; Stop 12/17/16 at 19:57; Status DC Enoxaparin Sodium (Lovenox) 40 mg DAILY SC Last administered on 01/04/17 08:14 ; Start 12/05/16 at 09:00; Stop 01/07/17 at 08:59 Famotidine (Pepcid) 20 mg BID PO Last administered on 01/04/17 08:15; Start at 21:00; Stop 01/10/17 at 20:59 Fluconazole (Diflucan) 100 mg DAILY PO Last administered on 12/22/16 09:02; Start 12/20/16 at 09:00; Stop 12/22/16 at 12:00; Status DC Gabapentin (Neurontin) 100 mg TID PO Last administered on 01/04/17 16:38; Start 12/22/16 at 16:00; Stop 01/21/17 at 15:59 Home Med (Med Rec Complete!) ASDIRECTED XX ; Start 12/04/16 at 17:30; Stop 07/12 at 17:36; Status DC Home Med (Med Rec Complete!) ASDIRECTED XX ; Start 12/04/16 at 20:30; Stop 07/12 at 20:30; Status DC Hydrocortisone (Proctosol Hc) 1 dose BID TOP Last administered on 12/17/16 08: 17; Start 12/14/16 at 21:00; Stop 12/17/16 at 09:23; Status DC Hydrocortisone (Proctosol Hc) 1 dose BID TOP Last administered on 01/04/17 08: 16; Start 12/17/16 at 09:23; Stop 01/13/17 at 20:59 Levofloxacin 750 mg/IV Miscellaneous Supplies 150 ml @ 100 mls/hr Q24H IV Last administered on 12/05/16 20:13; Start 12/04/16 at 21:00; Stop 12/06/16 at 07:33; Status DC Levothyroxine Sodium (Synthroid) 0.137 mg DAILY@06 PO Last administered on 01/04 05:41; Start 12/06/16 at 06:00; Stop 01/11/17 at 05:59 Levothyroxine Sodium (Synthroid) 0.15 mg DAILY@06 PO Last administered on 06:19; Start 12/05/16 at 06:00; Stop 12/05/16 at 12:50; Status DC Lorazepam (Ativan) 0.5 mg Q6HP PRN IV AGITATION; Start 12/17/16 at 21:30; Stop 12/18/16 at 05:01; Status DC Lorazepam (Ativan) 0.5 mg Q8HP PRN PO ANXIETY Last administered on 12/24/16 22: 05; Start 12/13/16 at 19:30; Stop 12/26/16 at 19:29; Status DC Lorazepam (Ativan) 0.5 mg Q8HP PRN PO ANXIETY Last administered on 01/02/17 17 :45; Start 12/27/16 at 10:15; Stop 01/09/17 at 10:14 Lorazepam (Ativan) 1 mg Q4HP PRN PO ANXIETY Last administered on 12/13/16 01: 32; Start 12/04/16 at 19:30; Stop 12/13/16 at 15:06; Status DC Magnesium Hydroxide (Milk Of Magnesia) 30 ml DAILYPRN PRN PO CONSTIPATION; Start 01/03/17 at 12:15; Stop 02/02/17 at 12:14 Magnesium Oxide (Mag-Ox) 400 mg DAILY PO Last administered on 01/04/17 08:14; Start 12/19/16 at 09:00; Stop 01/18/17 at 08:59 Magnesium Oxide (Mag-Ox) 400 mg Q4H PO Last administered on 12/24/16 22:05; Start 12/24/16 at 14:00; Stop 12/24/16 at 22:01; Status DC Magnesium Sulfate/ Dextrose 1 gm/IV Miscellaneous Supplies 100 ml @ 100 mls/hr 1T@1100,1200 IV Last administered on 12/21/16 18:02; Start 12/21/16 at 11:00; Stop 12/21/16 at 14:00; Status DC Magnesium Sulfate/ Dextrose 1 gm/IV Miscellaneous Supplies 100 ml @ 100 mls/hr 1T@1400,1500 IV ; Start 12/24/16 at 14:00; Stop 12/24/16 at 18:00; Status Cancel Magnesium Sulfate/ Dextrose 1 gm/IV Miscellaneous Supplies 100 ml @ 100 mls/hr 1T@16,17 IV Last administered on 12/13/16 16:59; Start 12/13/16 at 16:00; Stop 12/13/16 at 19:00; Status DC Magnesium Sulfate/ Dextrose 1 gm/IV Miscellaneous Supplies 100 ml @ 100 mls/hr Q1H IV Last administered on 12/16/16 11:23; Start 12/16/16 at 08:00; Stop at 09:59; Status DC Meropenem 500 mg/ Dextrose 100 ml @ 200 mls/hr Q8H IV Last administered on 00:48; Start 12/06/16 at 09:00; Stop 12/13/16 at 07:36; Status DC Meropenem 500 mg/ Dextrose 100 ml @ 200 mls/hr Q8H IV Last administered on 10:04; Start 12/13/16 at 09:00; Stop 12/13/16 at 12:00; Status DC Metoprolol Succinate (TopROL XL) 100 mg DAILY PO Last administered on 08:15; Start 12/05/16 at 09:00; Stop 02/02/17 at 08:59 Mirtazapine (Remeron) 7.5 mg QHS PO Last administered on 12/26/16 20:24; Start 12/15/16 at 21:00; Stop 12/27/16 at 09:58; Status DC Mirtazapine (Remeron) 7.5 mg QHS PO Last administered on 01/03/17 20:06; Start 12/27/16 at 21:00; Stop 01/26/17 at 20:59 Morphine Sulfate (Roxanol) 5 mg Q4HP PRN PO PAIN; Start 12/12/16 at 12:52; Stop 12/13/16 at 15:06; Status DC Morphine Sulfate (Roxanol) 10 mg Q2HP PRN PO PAIN Last administered on 05:47; Start 12/04/16 at 19:30; Stop 12/12/16 at 12:56; Status DC Nystatin (Mycostatin Powder, Nystop) 1 dose TID TOP Last administered on 16:38; Start 12/16/16 at 16:00; Stop 01/15/17 at 15:59 Omeprazole (PriLOSEC) 20 mg DAILY PO Last administered on 01/04/17 08:14; Start 12/05/16 at 09:00; Stop 02/02/17 at 08:59 Ondansetron HCl (Zofran Odt) 4 mg Q8HP PRN PO NAUSEA OR VOMITING Last administered on 12/23/16 13:22; Start 12/07/16 at 21:00; Stop 01/06/17 at 20:59 Oxycodone/ Acetaminophen (Percocet 5mg/ 325mg Tablet) 1 tab Q6HP PRN PO MILD/ MODERATE PAIN (PS 1-7) Last administered on 01/04/17 13:16; Start 12/27/16 at 07 :00; Stop 01/09/17 at 06:59 Pramipexole Dihydrochloride (Mirapex) 1.5 mg QHS PO Last administered on 20:06; Start 12/05/16 at 21:00; Stop 02/02/17 at 20:59 Risperidone (RisperDAL) 0.5 mg BID PO Last administered on 12/27/16 20:39; Start 12/25/16 at 21:00; Stop 12/28/16 at 06:51; Status DC Risperidone (RisperDAL) 0.5 mg TID PO Last administered on 01/04/17 16:38; Start 12/28/16 at 09:00; Stop 01/24/17 at 20:59 Scopolamine (Transderm-Scop) 1.5 mg Q72H TOP ; Start 12/06/16 at 09:00; Stop at 09:00; Status DC Scopolamine (Transderm-Scop) 1.5 mg Q72H TOP Last administered on 12/21/16 10: 09; Start 12/06/16 at 09:00; Stop 12/21/16 at 18:29; Status DC Senna/Docusate Sodium (Senokot S) 1 tab BID PO Last administered on 01/03/17 10:48; Start 12/07/16 at 09:00; Stop 01/03/17 at 12:10; Status DC Senna/Docusate Sodium (Senokot S) 2 tab BID PO Last administered on 01/04/17 08:15; Start 01/03/17 at 21:00; Stop 02/02/17 at 20:59 Tramadol HCl (Ultram) 50 mg Q8HP PRN PO MODERATE PAIN (PS 5-7) Last administered on 12/26/16 21:26; Start 12/20/16 at 13:30; Stop 12/27/16 at 06:51; Status DC Venlafaxine HCl (Effexor Xr) 75 mg QAM PO Last administered on 12/27/16 09: 07; Start 12/27/16 at 09:00; Stop 12/27/16 at 11:00; Status DC Venlafaxine HCl (Effexor Xr) 75 mg QHS PO Last administered on 12/16/16 20 :17; Start 12/04/16 at 21:00; Stop 12/17/16 at 12:20; Status DC Venlafaxine HCl (Effexor Xr) 75 mg QHS PO ; Start 12/17/16 at 21:00; Stop at 21:59; Status DC Venlafaxine HCl (Effexor Xr) 150 mg DAILY PO Last administered on 08:15; Start 12/28/16 at 09:00; Stop 01/27/17 at 08:59 Venlafaxine HCl (Effexor Xr) 150 mg QAM PO Last administered on 5/3/17at 09 :11; Start 12/18/16 at 09:00; Stop 12/27/16 at 00:55; Status DC Allergies Coded Allergies: Sulfa Antibiotics (Verified Allergy, Severe, 12/11/16) Cephalosporins (Verified Allergy, Intermediate, 11/25/12) Ciprofloxacin (Unverified Allergy, Unknown, 01/26/16) Iodine (Unverified Allergy, Unknown, 01/26/16) Lobster (Unverified Allergy, Unknown, 01/26/16) Metronidazole (Unverified Allergy, Unknown, 01/26/16) Nickel (Unverified Allergy, Unknown, 01/26/16) Penicillins (Unverified Allergy, Unknown, 01/26/16) Statins (Unverified Allergy, Unknown, 01/26/16) Sulfa Drugs (Verified Allergy, Unknown, 11/25/12) Sulfa Drugs Cross Reactors (Verified Allergy, Unknown, 11/25/12) CLARITZA CEBALLOS MD January 04, 2017 16:56
[2017-01-04] MEDS: MIRTAZAPINE 7.5MG PER 1/2 TABLET PO SCH (21:14)
[2017-01-04] MEDS: PRAMIPEXOLE 1 MG TAB PO SCH (21:14)
[2017-01-04 22:00] VITALS: BP 146/67
[2017-01-05] MEDS: PERCOCET 5MG/325MG TAB PO PRN ×3 (04:14→17:53)
[2017-01-05] MEDS: SANTYL OINT 30GM TOP PRN (04:34)
[2017-01-05] MEDS: LEVOTHYROXINE 0.137 MG TAB (137MCG) PO SCH (05:27)
[2017-01-05 06:00] VITALS: BP 100/53
[2017-01-05] MEDS: SYMBICORT 80/4.5MCG INHALER 6GM INH SCH ×2 (07:55→20:06)
[2017-01-05] MEDS: IPRATROPIUM 0.5MG/ALBUTEROL 2.5MG INH SOL UD 3ML (DUONEB)(J7620) NEB SCH ×4 (07:55→20:05)
[2017-01-05] MEDS: ENOXAPARIN 40 MG/0.4 ML SYRINGE (J1650) SC SCH (08:26)
[2017-01-05] MEDS: CLOPIDOGREL 75 MG TAB PO SCH (08:27)
[2017-01-05] MEDS: SENOKOT S TAB PO SCH ×2 (08:27→20:11)
[2017-01-05] MEDS: GABAPENTIN 100 MG CAP PO SCH ×3 (08:27→20:11)
[2017-01-05] MEDS: ASPIRIN 81 MG ENTERIC TAB PO SCH (08:27)
[2017-01-05] MEDS: OMEPRAZOLE 20 MG CAP PO SCH (08:27)
[2017-01-05] MEDS: MAGNESIUM OXIDE 400 MG TAB (MAG-OX) PO SCH (08:27)
[2017-01-05] MEDS: FAMOTIDINE 20 MG TAB PO SCH ×2 (08:27→20:11)
[2017-01-05] MEDS: VENLAFAXINE **XR** 75MG CAPSULE PO SCH (08:27)
[2017-01-05] MEDS: risperiDONE 0.5 MG TAB PO SCH ×3 (08:27→20:11)
[2017-01-05] MEDS: NYSTATIN 100,000 UNITS/GM TOPICAL PWD 15 GM TOP SCH ×3 (08:28→20:11)
[2017-01-05] MEDS: ANUSOL HC CREAM 30GM TOP SCH ×2 (08:28→20:12)
[2017-01-05] MEDS: METOPROLOL SUCC (TopROL XL) 100MG *XL* TAB PO SCH (08:28)
[2017-01-05] MEDS: LORazepam 0.5 MG TAB PO PRN (15:33)
[2017-01-05] MEDS: MIRTAZAPINE 7.5MG PER 1/2 TABLET PO SCH (20:10)
[2017-01-05] MEDS: PRAMIPEXOLE 1 MG TAB PO SCH (20:11)
[2017-01-06] MEDS: SANTYL OINT 30GM TOP PRN (00:35)
[2017-01-06] MEDS: LEVOTHYROXINE 0.137 MG TAB (137MCG) PO SCH (05:56)
[2017-01-06 06:00] VITALS: BP 111/53
[2017-01-06] MEDS: IPRATROPIUM 0.5MG/ALBUTEROL 2.5MG INH SOL UD 3ML (DUONEB)(J7620) NEB SCH ×2 (08:00→11:50)
[2017-01-06] MEDS: ASPIRIN 81 MG ENTERIC TAB PO SCH (08:16)
[2017-01-06] MEDS: risperiDONE 0.5 MG TAB PO SCH ×3 (08:16→20:53)
[2017-01-06] MEDS: VENLAFAXINE **XR** 75MG CAPSULE PO SCH (08:17)
[2017-01-06] MEDS: LORazepam 0.5 MG TAB PO PRN (08:17)
[2017-01-06] MEDS: PERCOCET 5MG/325MG TAB PO PRN ×2 (08:17→22:59)
[2017-01-06] MEDS: METOPROLOL SUCC (TopROL XL) 100MG *XL* TAB PO SCH (08:18)
[2017-01-06] MEDS: FAMOTIDINE 20 MG TAB PO SCH ×2 (08:18→20:53)
[2017-01-06] MEDS: SENOKOT S TAB PO SCH ×2 (08:18→20:53)
[2017-01-06] MEDS: GABAPENTIN 100 MG CAP PO SCH ×3 (08:18→20:53)
[2017-01-06] MEDS: CLOPIDOGREL 75 MG TAB PO SCH (08:18)
[2017-01-06] MEDS: OMEPRAZOLE 20 MG CAP PO SCH (08:18)
[2017-01-06] MEDS: ENOXAPARIN 40 MG/0.4 ML SYRINGE (J1650) SC SCH (08:19)
[2017-01-06] MEDS: MAGNESIUM OXIDE 400 MG TAB (MAG-OX) PO SCH (08:19)
[2017-01-06] MEDS: ANUSOL HC CREAM 30GM TOP SCH (08:20)
[2017-01-06] MEDS: NYSTATIN 100,000 UNITS/GM TOPICAL PWD 15 GM TOP SCH ×3 (08:20→20:53)
[2017-01-06] MEDS: SYMBICORT 80/4.5MCG INHALER 6GM INH SCH ×2 (08:22→19:44)
[2017-01-06 08:41] LABS: BASO % 0.4 % (0.0-1.0); EOS # 0.6 K/mm3 (0.0-0.50); EOS % 5.9 % (0.0-3.0); LARGE UNSTAINED CELL # 0.1 K/mm3 (0.0-0.4); LARGE UNSTAINED CELL % 1.5 % (0.0-4.0); LYMPH # 1.6 K/mm3 (1.5-4.5); LYMPH % 17.3 % (24.0-44.0); MEAN CORPUSCULAR HEMOGLOBIN 25.4 pg (27.0-33.0); MEAN CORPUSCULAR HGB CONC 29.9 g/dl (32.0-36.5); MONO # 0.3 K/mm3 (0.0-0.8); MONO % 3.2 % (0.0-5.0); NEUTROPHILS # 6.8 K/mm3 (1.8-7.7); NEUTROPHILS % 71.7 % (36.0-66.0); PLATELET COUNT, AUTOMATED 370 k/mm3 (150-450); RED CELL DISTRIBUTION WIDTH 15.7 % (11.5-14.5); WHITE BLOOD COUNT 9.4 K/mm3 (4.0-10.0)
[2017-01-06 09:06] LABS: ALBUMIN 2.6 GM/DL (3.2-5.2); ALBUMIN/GLOBULIN RATIO 0.72 (1.00-1.93); ALKALINE PHOSPHATASE 102 U/L (45-117); ALT/SGPT 18 U/L (12-78); ANION GAP 9 MEQ/L (8-16); AST/SGOT 10 U/L (15-37); BILIRUBIN,TOTAL 0.2 MG/DL (0.2-1.0); BLOOD UREA NITROGEN 12 MG/DL (7-18); CALCIUM LEVEL 8.2 MG/DL (8.8-10.2); CARBON DIOXIDE LEVEL 26 MEQ/L (21-32); CHLORIDE LEVEL 109 MEQ/L (98-107); CREATININE FOR GFR 0.61 MG/DL (0.55-1.02); GLOMERULAR FILTRATION RATE > 60.0 (>39); GLUCOSE, FASTING 141 MG/DL (83-110); POTASSIUM SERUM 4.2 MEQ/L (3.5-5.1); SODIUM LEVEL 144 MEQ/L (136-145); TOTAL PROTEIN 6.2 GM/DL (6.4-8.2)
[2017-01-06] MEDS: MIRTAZAPINE 7.5MG PER 1/2 TABLET PO SCH (21:04)
[2017-01-06] MEDS: PRAMIPEXOLE 1 MG TAB PO SCH (21:04)
[2017-01-07 06:00] VITALS: BP 119/71
[2017-01-07] MEDS: LEVOTHYROXINE 0.137 MG TAB (137MCG) PO SCH (06:14)
[2017-01-07] MEDS: SYMBICORT 80/4.5MCG INHALER 6GM INH SCH ×2 (07:33→19:52)
[2017-01-07] MEDS: ASPIRIN 81 MG ENTERIC TAB PO SCH (10:14)
[2017-01-07] MEDS: OMEPRAZOLE 20 MG CAP PO SCH (10:14)
[2017-01-07] MEDS: GABAPENTIN 100 MG CAP PO SCH ×3 (10:14→21:22)
[2017-01-07] MEDS: VENLAFAXINE **XR** 75MG CAPSULE PO SCH (10:14)
[2017-01-07] MEDS: risperiDONE 0.5 MG TAB PO SCH ×3 (10:14→21:21)
[2017-01-07] MEDS: FAMOTIDINE 20 MG TAB PO SCH ×2 (10:15→21:21)
[2017-01-07] MEDS: SENOKOT S TAB PO SCH ×2 (10:15→21:21)
[2017-01-07] MEDS: MAGNESIUM OXIDE 400 MG TAB (MAG-OX) PO SCH (10:15)
[2017-01-07] MEDS: METOPROLOL SUCC (TopROL XL) 100MG *XL* TAB PO SCH (10:15)
[2017-01-07] MEDS: CLOPIDOGREL 75 MG TAB PO SCH (10:15)
[2017-01-07] MEDS: ENOXAPARIN 40 MG/0.4 ML SYRINGE (J1650) SC SCH (10:16)
[2017-01-07] MEDS: PERCOCET 5MG/325MG TAB PO PRN ×3 (10:16→23:26)
[2017-01-07] MEDS: NYSTATIN 100,000 UNITS/GM TOPICAL PWD 15 GM TOP SCH ×3 (10:17→21:22)
[2017-01-07] MEDS: LevoFLOXacin 250 MG TABLET PO SCH (15:48)
[2017-01-07] MEDS: MIRTAZAPINE 7.5MG PER 1/2 TABLET PO SCH (21:21)
[2017-01-07] MEDS: PRAMIPEXOLE 1 MG TAB PO SCH (21:21)
[2017-01-07] MEDS: LORazepam 0.5 MG TAB PO PRN (23:26)
[2017-01-08] MEDS: LEVOTHYROXINE 0.137 MG TAB (137MCG) PO SCH (05:34)
[2017-01-08] MEDS: LevoFLOXacin 250 MG TABLET PO SCH (05:34)
[2017-01-08 06:00] VITALS: BP 113/62
[2017-01-08] MEDS: SYMBICORT 80/4.5MCG INHALER 6GM INH SCH ×2 (07:56→20:05)
[2017-01-08] MEDS: OMEPRAZOLE 20 MG CAP PO SCH (09:33)
[2017-01-08] MEDS: VENLAFAXINE **XR** 75MG CAPSULE PO SCH (09:33)
[2017-01-08] MEDS: SENOKOT S TAB PO SCH ×2 (09:34→21:18)
[2017-01-08] MEDS: METOPROLOL SUCC (TopROL XL) 100MG *XL* TAB PO SCH (09:34)
[2017-01-08] MEDS: ASPIRIN 81 MG ENTERIC TAB PO SCH (09:34)
[2017-01-08] MEDS: GABAPENTIN 100 MG CAP PO SCH ×3 (09:34→21:18)
[2017-01-08] MEDS: CLOPIDOGREL 75 MG TAB PO SCH (09:35)
[2017-01-08] MEDS: risperiDONE 0.5 MG TAB PO SCH ×3 (09:35→21:18)
[2017-01-08] MEDS: NYSTATIN 100,000 UNITS/GM TOPICAL PWD 15 GM TOP SCH ×3 (09:35→21:18)
[2017-01-08] MEDS: FAMOTIDINE 20 MG TAB PO SCH ×2 (09:35→21:18)
[2017-01-08] MEDS: MAGNESIUM OXIDE 400 MG TAB (MAG-OX) PO SCH (09:35)
[2017-01-08] MEDS: LORazepam 0.5 MG TAB PO PRN ×2 (09:35→23:56)
[2017-01-08] MEDS: ENOXAPARIN 40 MG/0.4 ML SYRINGE (J1650) SC SCH (09:36)
--- NOTE | 2017-01-08 09:59 | IPNPDOC ---
Subjective Date Seen The patient was seen on 01/08/17. Subjective Chief Complaint/HPI The patient is a 71-year-old female admitted with a reason for visit of Urinary Tract Infection. General: Denies: ROS Unobtainable, Chills, Night Sweats, Fatigue, Malaise, Normal Appetite, Other Symptoms Constitutional: Denies: Chills, Fever, Malaise, Night Sweats, Weakness, Fatigue , Weight Loss, Lethargy, Other Eyes: Denies: Pain, Vision change, Conjunctivae inflammation, Eyelid inflammation, Redness, Other ENT: Denies: Head Aches, Ear Pain, Dysphagia, Sinus Congestion, Post Nasal Drip , Sore Throat, Epistaxis, Other Symptoms Skin: Denies: Rash, Lesions, Jaundice, Bruising, Itching, Dry, Breakdown, Nail Changes, Other Pulmonary: Denies: Dyspnea, Cough, Pleuritic Chest Pain, Other Symptoms Cardiovascular: Denies: Chest Pain, Palpitations, Orthopnea, Paroxysmal Noc. Dyspnea, Edema, Lt Headedness, Other Symptoms Gastrointestinal: Denies: Nausea, Vomiting, Abdominal Pain, Diarrhea, Constipation, Melena, Hematochezia, Other Symptoms Objective Physical Examination General Exam: Positive: Alert, Cooperative, No Acute Distress Eye Exam: Positive: Conjunctiva & lids normal, Negative: Sclera icteric ENT Exam: Positive: Atraumatic Neck Exam: Positive: Supple Chest Exam: Positive: Clear to auscultation, Normal air movement Heart Exam: Positive: Rate Normal, Regular Rhythm, Normal S1, Normal S2 Abdomen Exam: Positive: Normal bowel sounds, Soft, Other (multiple abdominal surgical scars noted), Negative: Tenderness Extremity Exam: Positive: Other (b/l aka; bandages in place at stumps), Negative: Clubbing, Cyanosis, Edema Psych Exam: Positive: Anxiety, Oriented x 3, Negative: Mental status NL, Mood NL Assessment /Plan Problems (1) Depression with anxiety Status: Chronic Discussed With: Patient Problem Specific Plan: Consult Specialist Problem Text: major depressive disorder with psychosis Patient lacks capacity to make medical decisions at this time. Requires permanent placement. 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 Gama of wound care. His recommendations for dressing the wound are much appreciated. follow up with wound care clinic on discharge. dressing changes as directed No antibiotics recommended as this is a colonized wound. She may benefit from an evaluation by vascular surgery in the future, but does not need an immediate transfer for this at this time. (4) Pressure ulcer, buttock Status: Chronic Discussed With: Patient Problem Specific Plan: Consult Specialist, Monitor Clinically Problem Text: Continue wound care with foam dressings, and offloading. Continue with nutritional supplements with each meal. Recommend an offloading bed, and a Roho cushion while sitting wound care c/s appreciated (5) Hypothyroidism Status: Chronic Discussed With: Patient Problem Specific Plan: Monitor Clinically Problem Text: TSH was suppressed, with an elevated free T4 Her dose of Synthroid was decreased while inpatient, she will need lab follow- up in late December to early January (6) Hypertension Status: Chronic Discussed With: Patient Problem Specific Plan: Monitor Clinically Problem Text: Continue with metoprolol succinate, vitals continue to be within acceptable limits (7) Dyslipidemia Status: Chronic Problem Text: She has a listed allergy to statins (8) Coronary atherosclerosis Status: Chronic Discussed With: Patient Problem Text: Continue with aspirin, plavix, bb. documented allergy to statins s/p cabg (9) GERD (gastroesophageal reflux disease) Status: Chronic Problem Text: Continue home dose of omeprazole. We will recommend elevating the head of bed slightly when she is asleep, as her symptoms are worse at night. (10) Living accommodation issues Status: Acute Problem Text: Discharge planning per recommendations from PFS Plan/VTE VTE Prophylaxis Ordered?: Yes (Lovenox) Plan/Urinary Catheter Reason for insertion/continuin: Patient request Plan Diet: Continue Current Activity: Continue Current Pt and Family Services: Home Care Anticipated Discharge: Home With Services, Sub Acute Rehab, Assisted Living Pending placement. VS, I&O, 24H, Fishbone Vital Signs/I&O Vital Signs Date Time Temp Pulse Resp B/P (MAP) Pulse Ox O2 Delivery O2 Flow Rate FiO2 01/08/17 06:00 97.8 84 20 113/62 (79) 96 Room Air I&O- Last 24 Hours up to 6 AM 01/08/17 06:00 Intake Total 900 ml Output Total 425 ml Balance 475 ml Laboratory Data Microbiology Microbiology 01/05/17 Urine Culture - Final, Complete Klebsiella Pneumoniae ULISES COMER MD January 08, 2017 09:59
[2017-01-08] MEDS: PERCOCET 5MG/325MG TAB PO PRN ×2 (17:50→23:56)
[2017-01-08] MEDS: IPRATROPIUM 0.5MG/ALBUTEROL 2.5MG INH SOL UD 3ML (DUONEB)(J7620) INH PRN (20:06)
[2017-01-08] MEDS: PRAMIPEXOLE 1 MG TAB PO SCH (21:17)
[2017-01-08] MEDS: MIRTAZAPINE 7.5MG PER 1/2 TABLET PO SCH (21:18)
[2017-01-09] MEDS: LevoFLOXacin 250 MG TABLET PO SCH (05:42)
[2017-01-09] MEDS: LEVOTHYROXINE 0.137 MG TAB (137MCG) PO SCH (05:42)
[2017-01-09 06:00] VITALS: BP 121/60
[2017-01-09] MEDS: SYMBICORT 80/4.5MCG INHALER 6GM INH SCH ×3 (09:00→20:31)
[2017-01-09] MEDS: METOPROLOL SUCC (TopROL XL) 100MG *XL* TAB PO SCH (10:15)
[2017-01-09] MEDS: risperiDONE 0.5 MG TAB PO SCH ×3 (10:15→20:26)
[2017-01-09] MEDS: GABAPENTIN 100 MG CAP PO SCH ×3 (10:16→20:26)
[2017-01-09] MEDS: CLOPIDOGREL 75 MG TAB PO SCH (10:16)
[2017-01-09] MEDS: MAGNESIUM OXIDE 400 MG TAB (MAG-OX) PO SCH (10:16)
[2017-01-09] MEDS: OMEPRAZOLE 20 MG CAP PO SCH (10:16)
[2017-01-09] MEDS: VENLAFAXINE **XR** 75MG CAPSULE PO SCH (10:16)
[2017-01-09] MEDS: ASPIRIN 81 MG ENTERIC TAB PO SCH (10:16)
[2017-01-09] MEDS: SENOKOT S TAB PO SCH ×2 (10:16→20:26)
[2017-01-09] MEDS: NYSTATIN 100,000 UNITS/GM TOPICAL PWD 15 GM TOP SCH ×3 (10:17→20:26)
[2017-01-09] MEDS: ENOXAPARIN 40 MG/0.4 ML SYRINGE (J1650) SC SCH (10:17)
[2017-01-09] MEDS: FAMOTIDINE 20 MG TAB PO SCH ×2 (10:17→20:26)
[2017-01-09] MEDS: PERCOCET 5MG/325MG TAB PO PRN ×2 (10:25→16:55)
[2017-01-09] MEDS: LORazepam 0.5 MG TAB PO PRN (12:55)
[2017-01-09] MEDS: ACETAMINOPHEN TAB 650MG DOSE (2X325MG) PO PRN (12:58)
[2017-01-09] MEDS: PRAMIPEXOLE 1 MG TAB PO SCH (20:25)
[2017-01-09] MEDS: MIRTAZAPINE 7.5MG PER 1/2 TABLET PO SCH (20:25)
[2017-01-09] MEDS: IPRATROPIUM 0.5MG/ALBUTEROL 2.5MG INH SOL UD 3ML (DUONEB)(J7620) INH PRN (20:32)
[2017-01-09 22:00] VITALS: BP 120/62
[2017-01-10] MEDS: LEVOTHYROXINE 0.137 MG TAB (137MCG) PO SCH (05:33)
[2017-01-10] MEDS: PERCOCET 5MG/325MG TAB PO PRN ×3 (05:35→20:39)
[2017-01-10 06:00] VITALS: BP 113/53
[2017-01-10] MEDS: SENOKOT S TAB PO SCH ×2 (08:38→20:36)
[2017-01-10] MEDS: MAGNESIUM OXIDE 400 MG TAB (MAG-OX) PO SCH (08:38)
[2017-01-10] MEDS: FAMOTIDINE 20 MG TAB PO SCH (08:38)
[2017-01-10] MEDS: CLOPIDOGREL 75 MG TAB PO SCH (08:38)
[2017-01-10] MEDS: ASPIRIN 81 MG ENTERIC TAB PO SCH (08:38)
[2017-01-10] MEDS: OMEPRAZOLE 20 MG CAP PO SCH (08:38)
[2017-01-10] MEDS: risperiDONE 0.5 MG TAB PO SCH ×3 (08:38→20:36)
[2017-01-10] MEDS: VENLAFAXINE **XR** 75MG CAPSULE PO SCH (08:38)
[2017-01-10] MEDS: NYSTATIN 100,000 UNITS/GM TOPICAL PWD 15 GM TOP SCH ×3 (08:39→20:36)
[2017-01-10] MEDS: ENOXAPARIN 40 MG/0.4 ML SYRINGE (J1650) SC SCH (08:39)
[2017-01-10] MEDS: METOPROLOL SUCC (TopROL XL) 100MG *XL* TAB PO SCH (08:39)
[2017-01-10] MEDS: GABAPENTIN 100 MG CAP PO SCH ×3 (08:39→20:36)
[2017-01-10] MEDS: SYMBICORT 80/4.5MCG INHALER 6GM INH SCH ×2 (09:30→20:00)
[2017-01-10] MEDS: IPRATROPIUM 0.5MG/ALBUTEROL 2.5MG INH SOL UD 3ML (DUONEB)(J7620) INH PRN (19:59)
[2017-01-10] MEDS: MIRTAZAPINE 7.5MG PER 1/2 TABLET PO SCH (20:36)
[2017-01-10] MEDS: PRAMIPEXOLE 1 MG TAB PO SCH (20:36)
[2017-01-10 22:00] VITALS: BP 103/60
[2017-01-11] MEDS: PERCOCET 5MG/325MG TAB PO PRN ×3 (04:39→17:54)
[2017-01-11] MEDS: LEVOTHYROXINE 0.137 MG TAB (137MCG) PO SCH (05:50)
[2017-01-11] MEDS: SYMBICORT 80/4.5MCG INHALER 6GM INH SCH ×2 (07:13→19:26)
[2017-01-11] MEDS: VENLAFAXINE **XR** 75MG CAPSULE PO SCH (07:41)
[2017-01-11] MEDS: SENOKOT S TAB PO SCH ×2 (07:41→20:19)
[2017-01-11] MEDS: OMEPRAZOLE 20 MG CAP PO SCH (07:41)
[2017-01-11] MEDS: GABAPENTIN 100 MG CAP PO SCH ×3 (07:41→20:19)
[2017-01-11] MEDS: CLOPIDOGREL 75 MG TAB PO SCH (07:41)
[2017-01-11] MEDS: ASPIRIN 81 MG ENTERIC TAB PO SCH (07:41)
[2017-01-11] MEDS: risperiDONE 0.5 MG TAB PO SCH ×3 (07:41→20:19)
[2017-01-11] MEDS: ENOXAPARIN 40 MG/0.4 ML SYRINGE (J1650) SC SCH (07:42)
[2017-01-11] MEDS: METOPROLOL SUCC (TopROL XL) 100MG *XL* TAB PO SCH (07:42)
[2017-01-11] MEDS: MAGNESIUM OXIDE 400 MG TAB (MAG-OX) PO SCH (07:42)
[2017-01-11] MEDS: NYSTATIN 100,000 UNITS/GM TOPICAL PWD 15 GM TOP SCH ×3 (07:43→20:20)
[2017-01-11] MEDS: FAMOTIDINE 20 MG TAB PO SCH ×3 (11:18→20:19)
[2017-01-11 14:00] VITALS: BP 101/59
[2017-01-11] MEDS: PRAMIPEXOLE 1 MG TAB PO SCH (20:18)
[2017-01-11] MEDS: MIRTAZAPINE 7.5MG PER 1/2 TABLET PO SCH (20:18)
[2017-01-11 22:00] VITALS: BP 102/56
[2017-01-12 00:55] VITALS: BP 111/64
[2017-01-12] MEDS: LEVOTHYROXINE 0.137 MG TAB (137MCG) PO SCH (05:42)
[2017-01-12 06:00] VITALS: BP 123/60
[2017-01-12] MEDS: PERCOCET 5MG/325MG TAB PO PRN ×2 (06:29→12:34)
[2017-01-12] MEDS: SYMBICORT 80/4.5MCG INHALER 6GM INH SCH ×2 (07:55→20:01)
[2017-01-12 09:15] VITALS: BP 134/64
[2017-01-12] MEDS: VENLAFAXINE **XR** 75MG CAPSULE PO SCH (10:51)
[2017-01-12] MEDS: METOPROLOL SUCC (TopROL XL) 100MG *XL* TAB PO SCH (10:52)
[2017-01-12] MEDS: MAGNESIUM OXIDE 400 MG TAB (MAG-OX) PO SCH (10:53)
[2017-01-12] MEDS: ASPIRIN 81 MG ENTERIC TAB PO SCH (10:53)
[2017-01-12] MEDS: FAMOTIDINE 20 MG TAB PO SCH ×2 (10:53→20:47)
[2017-01-12] MEDS: OMEPRAZOLE 20 MG CAP PO SCH (10:54)
[2017-01-12] MEDS: SENOKOT S TAB PO SCH ×2 (10:55→20:48)
[2017-01-12] MEDS: GABAPENTIN 100 MG CAP PO SCH ×3 (10:55→20:47)
[2017-01-12] MEDS: CLOPIDOGREL 75 MG TAB PO SCH (10:56)
[2017-01-12] MEDS: risperiDONE 0.5 MG TAB PO SCH ×3 (10:56→20:47)
[2017-01-12] MEDS: ENOXAPARIN 40 MG/0.4 ML SYRINGE (J1650) SC SCH (10:58)
[2017-01-12] MEDS: NYSTATIN 100,000 UNITS/GM TOPICAL PWD 15 GM TOP SCH ×3 (10:59→20:48)
[2017-01-12 13:45] VITALS: BP 130/50
[2017-01-12] MEDS: MIRTAZAPINE 7.5MG PER 1/2 TABLET PO SCH (20:47)
[2017-01-12] MEDS: PRAMIPEXOLE 1 MG TAB PO SCH (20:47)
[2017-01-12 22:00] VITALS: BP 144/65
[2017-01-13] MEDS: PERCOCET 5MG/325MG TAB PO PRN ×3 (00:19→17:07)
[2017-01-13] MEDS: diphenhydrAMINE 50 MG CAP PO PRN (00:26)
[2017-01-13] MEDS: LEVOTHYROXINE 0.137 MG TAB (137MCG) PO SCH (05:30)
[2017-01-13 06:00] VITALS: BP 154/69
[2017-01-13] MEDS: SENOKOT S TAB PO SCH ×2 (07:42→21:00)
[2017-01-13] MEDS: SYMBICORT 80/4.5MCG INHALER 6GM INH SCH ×2 (08:26→19:53)
[2017-01-13] MEDS: OMEPRAZOLE 20 MG CAP PO SCH (09:03)
[2017-01-13] MEDS: CLOPIDOGREL 75 MG TAB PO SCH (09:04)
[2017-01-13] MEDS: MAGNESIUM OXIDE 400 MG TAB (MAG-OX) PO SCH (09:04)
[2017-01-13] MEDS: METOPROLOL SUCC (TopROL XL) 100MG *XL* TAB PO SCH (09:05)
[2017-01-13] MEDS: NYSTATIN 100,000 UNITS/GM TOPICAL PWD 15 GM TOP SCH ×3 (09:05→21:06)
[2017-01-13] MEDS: ASPIRIN 81 MG ENTERIC TAB PO SCH (09:05)
[2017-01-13] MEDS: FAMOTIDINE 20 MG TAB PO SCH ×2 (09:05→21:06)
[2017-01-13] MEDS: risperiDONE 0.5 MG TAB PO SCH ×3 (09:05→21:06)
[2017-01-13] MEDS: VENLAFAXINE **XR** 75MG CAPSULE PO SCH (09:05)
[2017-01-13] MEDS: GABAPENTIN 100 MG CAP PO SCH ×3 (09:05→21:06)
[2017-01-13] MEDS: ENOXAPARIN 40 MG/0.4 ML SYRINGE (J1650) SC SCH (09:06)
[2017-01-13] MEDS: LORazepam 0.5 MG TAB PO PRN (13:18)
[2017-01-13 14:00] VITALS: BP 109/72
[2017-01-13] MEDS: MIRTAZAPINE 7.5MG PER 1/2 TABLET PO SCH (21:05)
[2017-01-13] MEDS: PRAMIPEXOLE 1 MG TAB PO SCH (21:06)
[2017-01-14] MEDS: LEVOTHYROXINE 0.137 MG TAB (137MCG) PO SCH (05:53)
[2017-01-14 06:00] VITALS: BP 140/64
[2017-01-14] MEDS: SYMBICORT 80/4.5MCG INHALER 6GM INH SCH ×2 (08:02→21:29)
[2017-01-14] MEDS: risperiDONE 0.5 MG TAB PO SCH ×3 (09:10→20:00)
[2017-01-14] MEDS: ASPIRIN 81 MG ENTERIC TAB PO SCH (09:10)
[2017-01-14] MEDS: SENOKOT S TAB PO SCH ×2 (09:10→20:00)
[2017-01-14] MEDS: FAMOTIDINE 20 MG TAB PO SCH ×2 (09:10→19:59)
[2017-01-14] MEDS: VENLAFAXINE **XR** 75MG CAPSULE PO SCH (09:11)
[2017-01-14] MEDS: PERCOCET 5MG/325MG TAB PO PRN ×3 (09:11→22:59)
[2017-01-14] MEDS: GABAPENTIN 100 MG CAP PO SCH ×3 (09:11→20:00)
[2017-01-14] MEDS: OMEPRAZOLE 20 MG CAP PO SCH (09:11)
[2017-01-14] MEDS: CLOPIDOGREL 75 MG TAB PO SCH (09:11)
[2017-01-14] MEDS: MAGNESIUM OXIDE 400 MG TAB (MAG-OX) PO SCH (09:11)
[2017-01-14] MEDS: NYSTATIN 100,000 UNITS/GM TOPICAL PWD 15 GM TOP SCH ×3 (09:12→20:00)
[2017-01-14] MEDS: METOPROLOL SUCC (TopROL XL) 100MG *XL* TAB PO SCH (09:12)
[2017-01-14] MEDS: ENOXAPARIN 40 MG/0.4 ML SYRINGE (J1650) SC SCH (09:12)
--- NOTE | 2017-01-14 14:23 | IPNPDOC ---
Subjective Date Seen The patient was seen on 01/14/17. Subjective Chief Complaint/HPI The patient is a 71-year-old female admitted with a reason for visit of Urinary Tract Infection. General: Denies: ROS Unobtainable, Chills, Night Sweats, Fatigue, Malaise, Normal Appetite, Other Symptoms Constitutional: Denies: Chills, Fever, Malaise, Night Sweats, Weakness, Fatigue , Weight Loss, Lethargy, Other Eyes: Denies: Pain, Vision change, Conjunctivae inflammation, Eyelid inflammation, Redness, Other ENT: Denies: Head Aches, Ear Pain, Dysphagia, Sinus Congestion, Post Nasal Drip , Sore Throat, Epistaxis, Other Symptoms Skin: Denies: Rash, Lesions, Jaundice, Bruising, Itching, Dry, Breakdown, Nail Changes, Other Pulmonary: Denies: Dyspnea, Cough, Pleuritic Chest Pain, Other Symptoms Cardiovascular: Denies: Chest Pain, Palpitations, Orthopnea, Paroxysmal Noc. Dyspnea, Edema, Lt Headedness, Other Symptoms Gastrointestinal: Denies: Nausea, Vomiting, Abdominal Pain, Diarrhea, Constipation, Melena, Hematochezia, Other Symptoms Objective Physical Examination General Exam: Positive: Alert, Cooperative, No Acute Distress Eye Exam: Positive: Conjunctiva & lids normal, Negative: Sclera icteric ENT Exam: Positive: Atraumatic Neck Exam: Positive: Supple Chest Exam: Positive: Clear to auscultation, Normal air movement Heart Exam: Positive: Rate Normal, Regular Rhythm Abdomen Exam: Positive: Soft, Other (multiple abdominal surgical scars noted), Negative: Tenderness Extremity Exam: Positive: Other (b/l aka; bandages in place at stumps) Psych Exam: Positive: Oriented x 3 Assessment /Plan Problems (1) Depression with anxiety Status: Chronic Discussed With: Patient Problem Specific Plan: Consult Specialist Problem Text: major depressive disorder with psychosis Patient lacks capacity to make medical decisions at this time. Requires permanent placement. 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 Gama of wound care. His recommendations for dressing the wound are much appreciated. follow up with wound care clinic on discharge. dressing changes as directed No antibiotics recommended as this is a colonized wound. She may benefit from an evaluation by vascular surgery in the future, but does not need an immediate transfer for this at this time. (4) Pressure ulcer, buttock Status: Chronic Discussed With: Patient Problem Specific Plan: Consult Specialist, Monitor Clinically Problem Text: Continue wound care with foam dressings, and offloading. Continue with nutritional supplements with each meal. Recommend an offloading bed, and a Roho cushion while sitting wound care c/s appreciated (5) Hypothyroidism Status: Chronic Discussed With: Patient Problem Specific Plan: Monitor Clinically Problem Text: TSH was suppressed, with an elevated free T4 Her dose of Synthroid was decreased while inpatient, she will need lab follow- up in late December to early January (6) Hypertension Status: Chronic Discussed With: Patient Problem Specific Plan: Monitor Clinically Problem Text: Continue with metoprolol succinate, vitals continue to be within acceptable limits (7) Dyslipidemia Status: Chronic Problem Text: She has a listed allergy to statins (8) Coronary atherosclerosis Status: Chronic Discussed With: Patient Problem Text: Continue with aspirin, plavix, bb. documented allergy to statins s/p cabg (9) GERD (gastroesophageal reflux disease) Status: Chronic Problem Text: Continue home dose of omeprazole. We will recommend elevating the head of bed slightly when she is asleep, as her symptoms are worse at night. (10) Living accommodation issues Status: Acute Problem Text: Discharge planning per recommendations from PFS Plan/VTE VTE Prophylaxis Ordered?: Yes (Lovenox) Plan/Urinary Catheter Reason for insertion/continuin: Patient request Plan Diet: Continue Current Activity: Continue Current Pt and Family Services: Home Care Anticipated Discharge: Home With Services, Sub Acute Rehab, Assisted Living Pending placement. VS, I&O, 24H, Fishbone Vital Signs/I&O Vital Signs Date Time Temp Pulse Resp B/P (MAP) Pulse Ox O2 Delivery O2 Flow Rate FiO2 01/14/17 10:16 18 01/14/17 09:55 99.1 01/14/17 06:00 85 140/64 (89) 93 Room Air I&O- Last 24 Hours up to 6 AM 01/14/17 06:00 Intake Total 1510 ml Output Total 175 ml Balance 1335 ml Laboratory Data Microbiology Microbiology 01/05/17 Urine Culture - Final, Complete Klebsiella Pneumoniae ULISES COMER MD January 14, 2017 14:23
[2017-01-14 15:27] LABS: BASO % 0.5 % (0.0-1.0); EOS # 0.3 K/mm3 (0.0-0.50); EOS % 4.7 % (0.0-3.0); LARGE UNSTAINED CELL # 0.1 K/mm3 (0.0-0.4); LYMPH % 26.3 % (24.0-44.0); MEAN CORPUSCULAR HEMOGLOBIN 26.2 pg (27.0-33.0); MEAN CORPUSCULAR HGB CONC 31.9 g/dl (32.0-36.5); MEAN CORPUSCULAR VOLUME 81.9 fl (80.0-96.0); MONO # 0.3 K/mm3 (0.0-0.8); MONO % 4.4 % (0.0-5.0); NEUTROPHILS # 4.4 K/mm3 (1.8-7.7); PLATELET COUNT, AUTOMATED 312 k/mm3 (150-450); WHITE BLOOD COUNT 7.1 K/mm3 (4.0-10.0)
[2017-01-14 15:57] LABS: ALBUMIN 2.8 GM/DL (3.2-5.2); ALKALINE PHOSPHATASE 103 U/L (45-117); ALT/SGPT 28 U/L (12-78); ANION GAP 8 MEQ/L (8-16); AST/SGOT 15 U/L (15-37); BILIRUBIN,TOTAL 0.2 MG/DL (0.2-1.0); BLOOD UREA NITROGEN 21 MG/DL (7-18); CALCIUM LEVEL 8.5 MG/DL (8.8-10.2); CARBON DIOXIDE LEVEL 28 MEQ/L (21-32); CHLORIDE LEVEL 106 MEQ/L (98-107); GLOMERULAR FILTRATION RATE > 60.0 (>39); GLUCOSE, FASTING 96 MG/DL (83-110); POTASSIUM SERUM 4.2 MEQ/L (3.5-5.1); SODIUM LEVEL 142 MEQ/L (136-145); TOTAL PROTEIN 6.3 GM/DL (6.4-8.2)
[2017-01-14] MEDS: MIRTAZAPINE 7.5MG PER 1/2 TABLET PO SCH (19:59)
[2017-01-14] MEDS: PRAMIPEXOLE 1 MG TAB PO SCH (20:00)
[2017-01-15] MEDS: LORazepam 0.5 MG TAB PO PRN ×2 (00:40→11:36)
[2017-01-15] MEDS: LEVOTHYROXINE 0.137 MG TAB (137MCG) PO SCH (05:50)
[2017-01-15] MEDS: PERCOCET 5MG/325MG TAB PO PRN ×3 (05:51→20:47)
[2017-01-15 06:00] VITALS: BP 122/57
[2017-01-15] MEDS: SYMBICORT 80/4.5MCG INHALER 6GM INH SCH ×2 (07:20→19:08)
[2017-01-15] MEDS: CLOPIDOGREL 75 MG TAB PO SCH (08:23)
[2017-01-15] MEDS: FAMOTIDINE 20 MG TAB PO SCH ×2 (08:23→20:46)
[2017-01-15] MEDS: GABAPENTIN 100 MG CAP PO SCH ×3 (08:23→20:47)
[2017-01-15] MEDS: OMEPRAZOLE 20 MG CAP PO SCH (08:23)
[2017-01-15] MEDS: METOPROLOL SUCC (TopROL XL) 100MG *XL* TAB PO SCH (08:23)
[2017-01-15] MEDS: risperiDONE 0.5 MG TAB PO SCH ×3 (08:23→20:46)
[2017-01-15] MEDS: ASPIRIN 81 MG ENTERIC TAB PO SCH (08:23)
[2017-01-15] MEDS: MAGNESIUM OXIDE 400 MG TAB (MAG-OX) PO SCH (08:24)
[2017-01-15] MEDS: NYSTATIN 100,000 UNITS/GM TOPICAL PWD 15 GM TOP SCH ×3 (08:24→20:47)
[2017-01-15] MEDS: ENOXAPARIN 40 MG/0.4 ML SYRINGE (J1650) SC SCH (08:24)
[2017-01-15] MEDS: SENOKOT S TAB PO SCH ×2 (08:24→20:46)
[2017-01-15] MEDS: VENLAFAXINE **XR** 75MG CAPSULE PO SCH (08:24)
[2017-01-15] MEDS: MIRTAZAPINE 7.5MG PER 1/2 TABLET PO SCH (20:46)
[2017-01-15] MEDS: PRAMIPEXOLE 1 MG TAB PO SCH (20:47)
[2017-01-15] MEDS: SANTYL OINT 30GM TOP PRN (21:46)
[2017-01-16] MEDS: PERCOCET 5MG/325MG TAB PO PRN ×3 (04:23→20:07)
[2017-01-16 06:00] VITALS: BP 109/56
[2017-01-16] MEDS: LEVOTHYROXINE 0.137 MG TAB (137MCG) PO SCH (06:10)
[2017-01-16] MEDS: SYMBICORT 80/4.5MCG INHALER 6GM INH SCH ×2 (07:57→20:04)
[2017-01-16] MEDS: ENOXAPARIN 40 MG/0.4 ML SYRINGE (J1650) SC SCH (09:33)
[2017-01-16] MEDS: GABAPENTIN 100 MG CAP PO SCH ×3 (09:33→20:09)
[2017-01-16] MEDS: OMEPRAZOLE 20 MG CAP PO SCH (09:33)
[2017-01-16] MEDS: CLOPIDOGREL 75 MG TAB PO SCH (09:34)
[2017-01-16] MEDS: SENOKOT S TAB PO SCH ×2 (09:34→20:09)
[2017-01-16] MEDS: risperiDONE 0.5 MG TAB PO SCH ×3 (09:34→20:09)
[2017-01-16] MEDS: VENLAFAXINE **XR** 75MG CAPSULE PO SCH (09:34)
[2017-01-16] MEDS: LORazepam 0.5 MG TAB PO PRN (09:34)
[2017-01-16] MEDS: ASPIRIN 81 MG ENTERIC TAB PO SCH (09:34)
[2017-01-16] MEDS: MAGNESIUM OXIDE 400 MG TAB (MAG-OX) PO SCH (09:34)
[2017-01-16] MEDS: FAMOTIDINE 20 MG TAB PO SCH ×2 (09:35→20:09)
[2017-01-16] MEDS: NYSTATIN 100,000 UNITS/GM TOPICAL PWD 15 GM TOP SCH ×3 (09:45→20:09)
[2017-01-16] MEDS: METOPROLOL SUCC (TopROL XL) 100MG *XL* TAB PO SCH (09:45)
[2017-01-16] MEDS: PRAMIPEXOLE 1 MG TAB PO SCH (20:08)
[2017-01-16] MEDS: MIRTAZAPINE 7.5MG PER 1/2 TABLET PO SCH (20:09)
[2017-01-17] MEDS: PERCOCET 5MG/325MG TAB PO PRN ×4 (03:13→21:34)
[2017-01-17 05:15] VITALS: BP 81/60
[2017-01-17 05:32] VITALS: BP 100/60
[2017-01-17] MEDS: LEVOTHYROXINE 0.137 MG TAB (137MCG) PO SCH (05:55)
[2017-01-17] MEDS: SYMBICORT 80/4.5MCG INHALER 6GM INH SCH ×2 (07:30→20:11)
[2017-01-17] MEDS: METOPROLOL SUCC (TopROL XL) 100MG *XL* TAB PO SCH (09:00)
[2017-01-17] MEDS: OMEPRAZOLE 20 MG CAP PO SCH (09:02)
[2017-01-17] MEDS: SENOKOT S TAB PO SCH ×2 (09:03→21:00)
[2017-01-17] MEDS: ASPIRIN 81 MG ENTERIC TAB PO SCH (09:03)
[2017-01-17] MEDS: CLOPIDOGREL 75 MG TAB PO SCH (09:03)
[2017-01-17] MEDS: MAGNESIUM OXIDE 400 MG TAB (MAG-OX) PO SCH (09:05)
[2017-01-17] MEDS: VENLAFAXINE **XR** 75MG CAPSULE PO SCH (09:05)
[2017-01-17] MEDS: risperiDONE 0.5 MG TAB PO SCH ×3 (09:05→20:59)
[2017-01-17] MEDS: FAMOTIDINE 20 MG TAB PO SCH ×2 (09:05→20:59)
[2017-01-17] MEDS: GABAPENTIN 100 MG CAP PO SCH ×3 (09:05→20:59)
[2017-01-17] MEDS: NYSTATIN 100,000 UNITS/GM TOPICAL PWD 15 GM TOP SCH ×3 (09:06→21:00)
[2017-01-17] MEDS: ENOXAPARIN 40 MG/0.4 ML SYRINGE (J1650) SC SCH (16:09)
[2017-01-17] MEDS: MIRTAZAPINE 7.5MG PER 1/2 TABLET PO SCH (20:58)
[2017-01-17] MEDS: PRAMIPEXOLE 1 MG TAB PO SCH (20:59)
[2017-01-17] MEDS: LORazepam 0.5 MG TAB PO PRN (21:38)
[2017-01-17] MEDS: SANTYL OINT 30GM TOP PRN (22:19)
[2017-01-18] MEDS: LEVOTHYROXINE 0.137 MG TAB (137MCG) PO SCH (05:36)
[2017-01-18] MEDS: ACETAMINOPHEN TAB 650MG DOSE (2X325MG) PO PRN (05:36)
[2017-01-18 05:54] VITALS: BP 100/58
[2017-01-18 06:00] VITALS: BP 107/66
[2017-01-18] MEDS: SYMBICORT 80/4.5MCG INHALER 6GM INH SCH ×2 (07:47→20:02)
[2017-01-18] MEDS: METOPROLOL SUCC (TopROL XL) 100MG *XL* TAB PO SCH (09:00)
[2017-01-18] MEDS: SENOKOT S TAB PO SCH ×2 (09:00→20:05)
[2017-01-18] MEDS: ENOXAPARIN 40 MG/0.4 ML SYRINGE (J1650) SC SCH (09:33)
[2017-01-18] MEDS: NYSTATIN 100,000 UNITS/GM TOPICAL PWD 15 GM TOP SCH ×3 (09:33→20:05)
[2017-01-18] MEDS: VENLAFAXINE **XR** 75MG CAPSULE PO SCH (09:33)
[2017-01-18] MEDS: PERCOCET 5MG/325MG TAB PO PRN ×2 (09:34→20:05)
[2017-01-18] MEDS: FAMOTIDINE 20 MG TAB PO SCH ×2 (09:34→20:04)
[2017-01-18] MEDS: risperiDONE 0.5 MG TAB PO SCH ×3 (09:34→20:05)
[2017-01-18] MEDS: OMEPRAZOLE 20 MG CAP PO SCH (09:34)
[2017-01-18] MEDS: ASPIRIN 81 MG ENTERIC TAB PO SCH (09:34)
[2017-01-18] MEDS: CLOPIDOGREL 75 MG TAB PO SCH (09:34)
[2017-01-18] MEDS: GABAPENTIN 100 MG CAP PO SCH ×3 (09:34→20:05)
[2017-01-18] MEDS: MAGNESIUM OXIDE 400 MG TAB (MAG-OX) PO SCH (13:21)
[2017-01-18] MEDS: LORazepam 0.5 MG TAB PO PRN (20:04)
[2017-01-18] MEDS: MIRTAZAPINE 7.5MG PER 1/2 TABLET PO SCH (20:04)
[2017-01-18] MEDS: PRAMIPEXOLE 1 MG TAB PO SCH (20:04)
[2017-01-19] MEDS: LEVOTHYROXINE 0.137 MG TAB (137MCG) PO SCH (05:36)
[2017-01-19] MEDS: SYMBICORT 80/4.5MCG INHALER 6GM INH SCH ×2 (07:18→19:46)
[2017-01-19] MEDS: PERCOCET 5MG/325MG TAB PO PRN ×3 (09:09→21:53)
[2017-01-19] MEDS: ASPIRIN 81 MG ENTERIC TAB PO SCH (09:40)
[2017-01-19] MEDS: FAMOTIDINE 20 MG TAB PO SCH ×2 (09:40→20:04)
[2017-01-19] MEDS: METOPROLOL SUCC (TopROL XL) 100MG *XL* TAB PO SCH (09:41)
[2017-01-19] MEDS: risperiDONE 0.5 MG TAB PO SCH ×3 (09:41→20:04)
[2017-01-19] MEDS: GABAPENTIN 100 MG CAP PO SCH ×3 (09:42→20:04)
[2017-01-19] MEDS: VENLAFAXINE **XR** 75MG CAPSULE PO SCH (09:42)
[2017-01-19] MEDS: OMEPRAZOLE 20 MG CAP PO SCH (09:42)
[2017-01-19] MEDS: SENOKOT S TAB PO SCH ×2 (09:42→20:04)
[2017-01-19] MEDS: CLOPIDOGREL 75 MG TAB PO SCH (09:43)
[2017-01-19] MEDS: ENOXAPARIN 40 MG/0.4 ML SYRINGE (J1650) SC SCH (09:43)
[2017-01-19] MEDS: MAGNESIUM OXIDE 400 MG TAB (MAG-OX) PO SCH (09:43)
[2017-01-19] MEDS: NYSTATIN 100,000 UNITS/GM TOPICAL PWD 15 GM TOP SCH ×3 (09:44→20:04)
[2017-01-19 10:00] VITALS: BP 115/65
[2017-01-19 12:00] VITALS: BP 115/65
[2017-01-19] MEDS: LORazepam 0.5 MG TAB PO PRN (20:04)
[2017-01-19] MEDS: PRAMIPEXOLE 1 MG TAB PO SCH (20:04)
[2017-01-19] MEDS: MIRTAZAPINE 7.5MG PER 1/2 TABLET PO SCH (20:04)
[2017-01-20] MEDS: LEVOTHYROXINE 0.137 MG TAB (137MCG) PO SCH (05:27)
[2017-01-20] MEDS: PERCOCET 5MG/325MG TAB PO PRN ×3 (05:28→18:47)
[2017-01-20 06:00] VITALS: BP 105/50
[2017-01-20 06:23] LABS: MEAN CORPUSCULAR HEMOGLOBIN 25.2 pg (27.0-33.0); RED CELL DISTRIBUTION WIDTH 15.6 % (11.5-14.5)
[2017-01-20] MEDS: SYMBICORT 80/4.5MCG INHALER 6GM INH SCH ×2 (07:22→20:31)
[2017-01-20] MEDS: METOPROLOL SUCC (TopROL XL) 100MG *XL* TAB PO SCH (08:01)
[2017-01-20] MEDS: SENOKOT S TAB PO SCH ×2 (08:01→20:35)
[2017-01-20] MEDS: ENOXAPARIN 40 MG/0.4 ML SYRINGE (J1650) SC SCH (08:02)
[2017-01-20] MEDS: FAMOTIDINE 20 MG TAB PO SCH ×2 (08:02→20:35)
[2017-01-20] MEDS: MAGNESIUM OXIDE 400 MG TAB (MAG-OX) PO SCH (08:02)
[2017-01-20] MEDS: LORazepam 0.5 MG TAB PO PRN ×2 (08:02→20:35)
[2017-01-20] MEDS: ASPIRIN 81 MG ENTERIC TAB PO SCH (08:02)
[2017-01-20] MEDS: VENLAFAXINE **XR** 75MG CAPSULE PO SCH (08:02)
[2017-01-20] MEDS: NYSTATIN 100,000 UNITS/GM TOPICAL PWD 15 GM TOP SCH ×3 (08:03→20:35)
[2017-01-20] MEDS: CLOPIDOGREL 75 MG TAB PO SCH (08:03)
[2017-01-20] MEDS: risperiDONE 0.5 MG TAB PO SCH ×3 (08:03→20:35)
[2017-01-20] MEDS: OMEPRAZOLE 20 MG CAP PO SCH (08:03)
[2017-01-20] MEDS: GABAPENTIN 100 MG CAP PO SCH ×3 (08:03→20:35)
--- NOTE | 2017-01-20 09:19 | IPNPDOC ---
Subjective Date Seen The patient was seen on 01/20/17. Subjective Chief Complaint/HPI The patient is a 71-year-old female admitted with a reason for visit of Urinary Tract Infection. Events since last encounter Feeling ok, bored, no dysuria/frequency, enjoys coloring, wants an electric scooter, tolerates diet Constitutional: Denies: Chills, Fever Pulmonary: Denies: Dyspnea Cardiovascular: Denies: Chest Pain Gastrointestinal: Denies: Nausea, Vomiting Genitourinary: Denies: Dysuria, Frequency Objective Physical Examination General Exam: Positive: Alert, Cooperative, No Acute Distress Eye Exam: Positive: Conjunctiva & lids normal, Negative: Sclera icteric ENT Exam: Positive: Atraumatic Neck Exam: Positive: Supple Chest Exam: Positive: Clear to auscultation, Normal air movement Heart Exam: Positive: Rate Normal, Regular Rhythm Abdomen Exam: Positive: Soft, Other (multiple abdominal surgical scars noted), Negative: Tenderness Psych Exam: Positive: Oriented x 3 Assessment /Plan Problems (1) Depression with anxiety Status: Chronic Discussed With: Patient Problem Specific Plan: Consult Specialist Problem Text: major depressive disorder with psychosis Patient lacks capacity to make medical decisions at this time. Requires permanent placement. (2) UTI (urinary tract infection) Status: Resolved Discussed With: Patient Problem Specific Plan: Monitor Clinically Problem Text: asymptomatic as of 01/20/17 s/p 7 days meropenem for pseudomonas uti (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 Gama of wound care. His recommendations for dressing the wound are much appreciated. follow up with wound care clinic on discharge. dressing changes as directed No antibiotics recommended as this is a colonized wound. She may benefit from an evaluation by vascular surgery in the future, but does not need an immediate transfer for this at this time. (4) Pressure ulcer, buttock Status: Chronic Discussed With: Patient Problem Specific Plan: Consult Specialist, Monitor Clinically Problem Text: Continue wound care with foam dressings, and offloading. Continue with nutritional supplements with each meal. Recommend an offloading bed, and a Roho cushion while sitting wound care c/s appreciated (5) Hypothyroidism Status: Chronic Discussed With: Patient Problem Specific Plan: Monitor Clinically Problem Text: TSH was suppressed, with an elevated free T4 Her dose of Synthroid was decreased while inpatient, she will need lab follow- up in late December to early January (ordered for 01/29/17) (6) Hypertension Status: Chronic Discussed With: Patient Problem Specific Plan: Monitor Clinically Problem Text: Continue with metoprolol succinate, vitals continue to be within acceptable limits (7) Dyslipidemia Status: Chronic Problem Text: She has a listed allergy to statins (8) Coronary atherosclerosis Status: Chronic Discussed With: Patient Problem Text: Continue with aspirin, plavix, bb. documented allergy to statins s/p cabg (9) GERD (gastroesophageal reflux disease) Status: Chronic Problem Text: Continue home dose of omeprazole. We will recommend elevating the head of bed slightly when she is asleep, as her symptoms are worse at night. (10) Living accommodation issues Status: Acute Problem Text: Discharge planning per recommendations from PFS Plan/VTE VTE Prophylaxis Ordered?: Yes (Lovenox) Plan/Urinary Catheter Reason for insertion/continuin: Patient request Plan Diet: Continue Current Activity: Continue Current Pt and Family Services: Home Care Anticipated Discharge: Home With Services, Sub Acute Rehab, Assisted Living VS, I&O, 24H, [facility] Vital Signs/I&O Vital Signs Date Time Temp Pulse Resp B/P (MAP) Pulse Ox O2 Delivery O2 Flow Rate FiO2 01/20/17 08:01 72 100/58 01/20/17 05:58 18 95 01/20/17 05:28 Room Air 01/19/17 12:00 97.7 I&O- Last 24 Hours up to 6 AM 01/20/17 05:59 Intake Total 2880 ml Output Total 1025 ml Balance 1855 ml Laboratory Data CBC/BMP Laboratory Tests 01/20/17 05:43 Red Blood Count 3.73 L, Mean Corpuscular Volume 84.0, Mean Corpuscular Hemoglobin 25.2 L, Mean Corpuscular Hemoglobin Concent 30.0 L, Red Cell Distribution Width 15.6 H SANDRITA BROCK MD January 20, 2017 09:19
[2017-01-20] MEDS: MIRTAZAPINE 7.5MG PER 1/2 TABLET PO SCH (20:34)
[2017-01-20] MEDS: PRAMIPEXOLE 1 MG TAB PO SCH (20:34)
[2017-01-21] MEDS: LEVOTHYROXINE 0.137 MG TAB (137MCG) PO SCH (05:38)
[2017-01-21 06:00] VITALS: BP 105/58
[2017-01-21] MEDS: SYMBICORT 80/4.5MCG INHALER 6GM INH SCH ×2 (08:23→18:20)
[2017-01-21] MEDS: METOPROLOL SUCC (TopROL XL) 100MG *XL* TAB PO SCH (09:00)
[2017-01-21] MEDS: VENLAFAXINE **XR** 75MG CAPSULE PO SCH (09:32)
[2017-01-21] MEDS: ASPIRIN 81 MG ENTERIC TAB PO SCH (09:32)
[2017-01-21] MEDS: MAGNESIUM OXIDE 400 MG TAB (MAG-OX) PO SCH (09:32)
[2017-01-21] MEDS: SENOKOT S TAB PO SCH ×2 (09:32→20:42)
[2017-01-21] MEDS: GABAPENTIN 100 MG CAP PO SCH ×3 (09:32→20:42)
[2017-01-21] MEDS: OMEPRAZOLE 20 MG CAP PO SCH (09:33)
[2017-01-21] MEDS: CLOPIDOGREL 75 MG TAB PO SCH (09:33)
[2017-01-21] MEDS: FAMOTIDINE 20 MG TAB PO SCH ×2 (09:33→20:42)
[2017-01-21] MEDS: ENOXAPARIN 40 MG/0.4 ML SYRINGE (J1650) SC SCH (09:33)
[2017-01-21] MEDS: NYSTATIN 100,000 UNITS/GM TOPICAL PWD 15 GM TOP SCH ×3 (09:33→20:43)
[2017-01-21] MEDS: risperiDONE 0.5 MG TAB PO SCH ×3 (09:33→20:42)
[2017-01-21] MEDS: PERCOCET 5MG/325MG TAB PO PRN ×3 (09:49→22:29)
[2017-01-21] MEDS: LORazepam 0.5 MG TAB PO PRN ×2 (12:52→22:29)
[2017-01-21] MEDS: PRAMIPEXOLE 1 MG TAB PO SCH (20:41)
[2017-01-21] MEDS: MIRTAZAPINE 7.5MG PER 1/2 TABLET PO SCH (20:42)
[2017-01-22] MEDS: LEVOTHYROXINE 0.137 MG TAB (137MCG) PO SCH (05:18)
[2017-01-22] MEDS: PERCOCET 5MG/325MG TAB PO PRN ×3 (05:19→20:08)
[2017-01-22 06:00] VITALS: BP 113/60
[2017-01-22] MEDS: SYMBICORT 80/4.5MCG INHALER 6GM INH SCH ×2 (07:15→19:44)
[2017-01-22] MEDS: METOPROLOL SUCC (TopROL XL) 100MG *XL* TAB PO SCH (09:00)
[2017-01-22] MEDS: VENLAFAXINE **XR** 75MG CAPSULE PO SCH (09:58)
[2017-01-22] MEDS: GABAPENTIN 100 MG CAP PO SCH ×3 (09:58→20:07)
[2017-01-22] MEDS: SENOKOT S TAB PO SCH ×2 (09:58→20:09)
[2017-01-22] MEDS: CLOPIDOGREL 75 MG TAB PO SCH (09:59)
[2017-01-22] MEDS: ASPIRIN 81 MG ENTERIC TAB PO SCH (09:59)
[2017-01-22] MEDS: OMEPRAZOLE 20 MG CAP PO SCH (09:59)
[2017-01-22] MEDS: MAGNESIUM OXIDE 400 MG TAB (MAG-OX) PO SCH (09:59)
[2017-01-22] MEDS: FAMOTIDINE 20 MG TAB PO SCH ×2 (09:59→20:07)
[2017-01-22] MEDS: risperiDONE 0.5 MG TAB PO SCH ×3 (09:59→20:02)
[2017-01-22] MEDS: ENOXAPARIN 40 MG/0.4 ML SYRINGE (J1650) SC SCH (10:00)
[2017-01-22] MEDS: NYSTATIN 100,000 UNITS/GM TOPICAL PWD 15 GM TOP SCH ×3 (10:00→20:13)
[2017-01-22] MEDS: LORazepam 0.5 MG TAB PO PRN (15:37)
[2017-01-22] MEDS: PRAMIPEXOLE 1 MG TAB PO SCH (20:05)
[2017-01-22] MEDS: MIRTAZAPINE 7.5MG PER 1/2 TABLET PO SCH (20:06)
[2017-01-23] MEDS: ACETAMINOPHEN TAB 650MG DOSE (2X325MG) PO PRN ×2 (00:03→06:48)
[2017-01-23] MEDS: LORazepam 0.5 MG TAB PO PRN ×2 (00:04→09:24)
[2017-01-23] MEDS: PERCOCET 5MG/325MG TAB PO PRN ×2 (05:10→13:25)
[2017-01-23] MEDS: LEVOTHYROXINE 0.137 MG TAB (137MCG) PO SCH (05:39)
[2017-01-23 06:00] VITALS: BP 117/56
[2017-01-23 06:26] LABS: MEAN CORPUSCULAR HEMOGLOBIN 25.3 pg (27.0-33.0); MEAN CORPUSCULAR HGB CONC 30.6 g/dl (32.0-36.5); MEAN CORPUSCULAR VOLUME 82.7 fl (80.0-96.0); RED CELL DISTRIBUTION WIDTH 15.9 % (11.5-14.5)
[2017-01-23 06:40] LABS: ANION GAP 5 MEQ/L (8-16); BLOOD UREA NITROGEN 19 MG/DL (7-18); CALCIUM LEVEL 8.4 MG/DL (8.8-10.2); CARBON DIOXIDE LEVEL 30 MEQ/L (21-32); CHLORIDE LEVEL 108 MEQ/L (98-107); CREATININE FOR GFR 0.47 MG/DL (0.55-1.02); GLOMERULAR FILTRATION RATE > 60.0 (>39); GLUCOSE, FASTING 93 MG/DL (83-110); POTASSIUM SERUM 3.8 MEQ/L (3.5-5.1); SODIUM LEVEL 143 MEQ/L (136-145)
[2017-01-23] MEDS: SYMBICORT 80/4.5MCG INHALER 6GM INH SCH (08:43)
[2017-01-23 09:00] VITALS: BP 102/57
[2017-01-23] MEDS: METOPROLOL SUCC (TopROL XL) 100MG *XL* TAB PO SCH (09:00)
[2017-01-23] MEDS ORDERED: GABAPENTIN 100 MG CAP PO SCH (09:00)
[2017-01-23] MEDS ORDERED: traMADol 50 MG TAB PO ONE (09:15)
[2017-01-23] MEDS: FAMOTIDINE 20 MG TAB PO SCH (09:19)
[2017-01-23] MEDS: SENOKOT S TAB PO SCH (09:19)
[2017-01-23] MEDS: ASPIRIN 81 MG ENTERIC TAB PO SCH (09:19)
[2017-01-23] MEDS: OMEPRAZOLE 20 MG CAP PO SCH (09:20)
[2017-01-23] MEDS: risperiDONE 0.5 MG TAB PO SCH (09:20)
[2017-01-23] MEDS: CLOPIDOGREL 75 MG TAB PO SCH (09:20)
[2017-01-23] MEDS: VENLAFAXINE **XR** 75MG CAPSULE PO SCH (09:20)
[2017-01-23] MEDS: ENOXAPARIN 40 MG/0.4 ML SYRINGE (J1650) SC SCH (09:21)
[2017-01-23] MEDS: MAGNESIUM OXIDE 400 MG TAB (MAG-OX) PO SCH (09:21)
[2017-01-23] MEDS: NYSTATIN 100,000 UNITS/GM TOPICAL PWD 15 GM TOP SCH (09:24)
[2017-01-23] MEDS ORDERED: MIRT15TA3 PO (11:14)
[2017-01-23] MEDS ORDERED: SYMB80INH INH (11:14)
[2017-01-23] MEDS ORDERED: LORA1TAB12 PO (11:14)
[2017-01-23] MEDS ORDERED: RISP0.5T16 PO (11:14)
[2017-01-23] MEDS ORDERED: PERCOCET PO (11:14)
--- NOTE | 2017-01-23 15:33 | DS.PDOC ---
Discharge Summary General Date of Admission Dec 04, 2016 at 18:27 Date of Discharge 01/23/17 Specialist/Consultants Involve Dr. Neal of Psychiatry, Dr. Gama of Woundcare Discharge Summary PROCEDURES PERFORMED DURING STAY: None. ADMITTING DIAGNOSES: 1. .Urinary Tract Infection 2. .B/L AKA's 3. .CAD DISCHARGE DIAGNOSES: 1. .Urinary Tract Infection 2. .B/L AKA's 3. .CAD COMPLICATIONS/CHIEF COMPLAINT: Urinary Tract Infection. HISTORY OF PRESENT ILLNESS: . 71-year-old female with past medical history of hypertension, hypothyroidism, depression, dyslipidemia, PVD s/p B/L AKA, and CAD s/p CABG x 2 in the past presented to [facility] after she left her previous group home residence AGAINST MEDICAL ADVICE after she states that she felt that she was not being adequately taken care of at the facility. The patient stated that she was developing pressure ulcers, and notes that her urinary tract infection was not being treated appropriately. The hospitalist team was called for further evaluation and management of the patient's aforementioned concerns During hospitalization, patient's urinary tract infection was treated with meropenem after cultures grew positive for Pseudomonas in the urine. In addition , a wound care consultation was sought for management of the patient's surgical scars from previous bilateral AKA's. In addition, psychiatry was consulted for the patient's history of major depressive disorder, and the patient's medications were adjusted as per Dr. Neal. The patient was also deemed to be incapable of making medical decisions as per our psychiatry consultation. The remainder of the patient's medical comorbidities were treated as previously prescribed. Our PFS team was consulted, and the patient has been accepted to be transferred to a local long-term care facility for further management of the patient's social and medical needs. DISCHARGE MEDICATIONS: Please see below. ALLERGIES: Please see below. PHYSICAL EXAMINATION ON DISCHARGE: VITAL SIGNS: Please see below. General Exam: Positive: Alert, Cooperative, No Acute Distress Eye Exam: Positive: Conjunctiva & lids normal, Negative: Sclera icteric ENT Exam: Positive: Atraumatic Neck Exam: Positive: Supple Chest Exam: Positive: Clear to auscultation, Normal air movement Heart Exam: Positive: Rate Normal, Regular Rhythm Abdomen Exam: Positive: Soft Negative: Tenderness LABORATORY DATA: Please see below. IMAGING: CT HEAD WITHOUT CONTRAST: HISTORY: Fall. COMPARISON: 03/24/2013 Areas of decreased attenuation are present in the periventricular white matter. This represents small vessel ischemic disease. There is no intraparenchymal hemorrhage, mass or midline shift. The ventricular system and cortical sulci are dilated consistent with minimal volume loss. There is no extracerebral collection. There is no fracture. The visualized sinuses are clear. IMPRESSION: 1. Small vessel ischemic disease. 2. Minimal volume loss. PROGNOSIS: Medically Stable ACTIVITY: As tolerated. DIET: . 2gm low sodium diet DISCHARGE PLAN: Intermediate DISPOSITION: 71 Xfer Other. DISCHARGE INSTRUCTIONS: 1. .F/U with PCP within 1 week 2. .Return to ER if symptoms return or worsen DISCHARGE CONDITION: Stable. TIME SPENT ON DISCHARGE: Greater than 30 minutes. Vital Signs/I&Os Vital Signs Date Time Temp Pulse Resp B/P (MAP) Pulse Ox O2 Delivery O2 Flow Rate FiO2 01/23/17 13:25 18 01/23/17 09:20 Room Air 01/23/17 09:00 89 102/57 01/23/17 06:00 97.6 94 01/22/17 20:38 3.0 I&O- Last 24 Hours up to 6 AM 01/23/17 06:00 Intake Total 1500 ml Output Total 1700 ml Balance -200 ml Laboratory Data Labs 24H Laboratory Tests 2 01/23/17 05:50: Anion Gap 5L, Glomerular Filtration Rate > 60.0, Blood Urea Nitrogen 19H, Creatinine 0.47L, Sodium Level 143, Potassium Level 3.8, Chloride Level 108H, Carbon Dioxide Level 30, Calcium Level 8.4L CBC/BMP Laboratory Tests 01/23/17 05:50 Red Blood Count 3.52 L, Mean Corpuscular Volume 82.7, Mean Corpuscular Hemoglobin 25.3 L, Mean Corpuscular Hemoglobin Concent 30.6 L, Red Cell Distribution Width 15.9 H, Calcium Level 8.4 L Discharge Medications Scheduled Albuterol/Ipratropium (Ipratropium [place]/Albut 0.5-2.5 (3) mg/3Ml) 1 Johnnie Johnnie, 1 JOHNNIE INH BID, (Reported) Aspirin (Aspirin) 81 Mg Tab, 81 MG PO DAILY, (Reported) Budesonide/Formoterol (Symbicort 80-4.5 Mcg/Act) 60 Puff/Inhaler Aers, 2 PUFF INH BID Clopidogrel Bisulfate (Clopidogrel) 75 Mg Tab, 75 MG PO DAILY, (Reported) Gabapentin (Gabapentin) 600 Mg Tab, 900 MG PO TID, (Reported) Levothyroxine Sodium (Synthroid) 150 Mcg Tab, 150 MCG PO DAILY, (Reported) Metformin Hydrochloride (Metformin HCl) 500 Mg Tab, 500 MG PO BID, (Reported) Metoprolol Succinate (Metoprolol Succinate ER) 100 Mg Tab, 100 MG PO DAILY, ( Reported) Mirtazapine (Mirtazapine) 15 Mg Tab, 7.5 MG PO QHS Omeprazole (Omeprazole) 20 Mg Cap, 20 MG PO DAILY, (Reported) Pramipexole Dihydrochloride (Mirapex) 1.5 Mg Tab, 1.5 MG PO QHS, (Reported) Pravastatin Sodium (Pravastatin Sodium) 20 Mg Tab, 20 MG PO QHS, (Reported) Risperidone (Risperdal) 0.5 Mg Tab, 0.5 MG PO TID Scopolamine (Transderm-Scop) 1.5 Mg Dis, 1.5 MG TOP Q72H, (Reported) Venlafaxine Hydrochloride (Venlafaxine HCl ER) 150 Mg Cap, 150 MG PO QAM, ( Reported) Scheduled PRN Albuterol/Ipratropium (Combivent Respimat 20-100 Mcg/Act) 1 Aer Aer, 1 PUFF INH QID PRN for SHORTNESS OF BREATH, (Reported) Lorazepam (Lorazepam) 1 Mg Tab, 0.5 MG PO Q8HP PRN for ANXIETY/AGITATION Nitroglycerin (Nitrostat) 0.4 Mg Subl, 0.4 MG SL Q5MP PRN for CHEST PAIN, ( Reported) Oxycodone/Acetaminophen (Percocet 5MG/325MG Tablet) 1 Tab Tab, 1 TAB PO Q6HP PRN for MILD/MODERATE PAIN (PS 1-7) Miscellaneous Medications [Patient Comment] , (Reported) RECEIVED ALL PATIENT INFORMATION FROM [facility], [facility]. PATIENT WAS DISCHARGED ON 11/28/16. Allergies Coded Allergies: Sulfa Antibiotics (Verified Allergy, Severe, 12/11/16) Cephalosporins (Verified Allergy, Intermediate, 11/25/12) Ciprofloxacin (Verified Allergy, Unknown, HAS TAKEN LEVAQUIN IV PRIOR WITH NO PROBLEM, 01/07/17) Iodine (Unverified Allergy, Unknown, 01/26/16) Lobster (Unverified Allergy, Unknown, 01/26/16) Metronidazole (Unverified Allergy, Unknown, 01/26/16) Nickel (Unverified Allergy, Unknown, 01/26/16) Penicillins (Unverified Allergy, Unknown, 01/26/16) Statins (Unverified Allergy, Unknown, 01/26/16) Sulfa Drugs (Verified Allergy, Unknown, 11/25/12) Sulfa Drugs Cross Reactors (Verified Allergy, Unknown, 11/25/12) SOPHIE STEVE MD January 23, 2017 15:33
== END 2017-01-23 13:30 | DRG 690 ==
LOC: M ED 13:48 → M ED INP 18:27 → EEVIPCON 18:27 → M MS4PR 22:02 → M MSPAV 12-07 11:56
PROVIDERS: ADMIT Internal Medicine; ATTEND Internal Medicine
DX: N39.0 Urinary tract infection, site not specified (principal); F32.3 Major depressive disorder, single episode, severe with psychotic features; T87.89 Other complications of amputation stump; I70.8 Atherosclerosis of other arteries; I10 Essential (primary) hypertension; L89.152 Pressure ulcer of sacral region, stage 2; E03.9 Hypothyroidism, unspecified; E78.5 Hyperlipidemia, unspecified; K21.9 Gastro-esophageal reflux disease without esophagitis; F41.8 Other specified anxiety disorders; F03.90 Unspecified dementia, unspecified severity, without behavioral disturbance, psychotic disturbance, mood disturbance, and anxiety; I70.0 Atherosclerosis of aorta; J44.9 Chronic obstructive pulmonary disease, unspecified; R10.9 Unspecified abdominal pain; T36.1X5A Adverse effect of cephalosporins and other beta-lactam antibiotics, initial encounter; L27.0 Generalized skin eruption due to drugs and medicaments taken internally; B96.5 Pseudomonas (aeruginosa) (mallei) (pseudomallei) as the cause of diseases classified elsewhere; I25.10 Atherosclerotic heart disease of native coronary artery without angina pectoris; Z88.0 Allergy status to penicillin; Z88.2 Allergy status to sulfonamides; Z88.8 Allergy status to other drugs, medicaments and biological substances; Z91.013 Allergy to seafood; Z91.048 Other nonmedicinal substance allergy status; Z79.82 Long term (current) use of aspirin; Z79.84 Long term (current) use of oral hypoglycemic drugs; Z79.899 Other long term (current) drug therapy; Z95.1 Presence of aortocoronary bypass graft; Z87.891 Personal history of nicotine dependence; Z89.611 Acquired absence of right leg above knee; Z89.612 Acquired absence of left leg above knee; Y83.5 Amputation of limb(s) as the cause of abnormal reaction of the patient, or of later complication, without mention of misadventure at the time of the procedure